=== PATIENT | male | born 1955 | race Caucasian/White ===

== ENCOUNTER 2017-03-20 09:44 | Observation (INO) ==
[2017-03-20] MEDS ORDERED: methylPREDNISolone 125 MG/2 ML VIAL IVP ONE (09:48)
[2017-03-20] MEDS ORDERED: Ipratropium/Albuterol Neb 3 ML IH ONE (09:48)
--- NOTE | 2017-03-20 09:53 | Emergency Department Note ---
Disposition Clinical Impression: Acute exacerbation of chronic obstructive airways disease Community acquired pneumonia Qualifiers: Laterality: unspecified laterality Qualified Code(s): J18.9 - Pneumonia, unspecified organism Disposition: Admitted As Inpatient Condition: Fair Referrals: NONE,PCP [Primary Care Provider] - Forms: ED Satisfaction Letter Time of Disposition: 11:46 SOB HPI - General Chief Complaint: ED Shortness of Breath/Dyspnea Stated Complaint: SOB Time Seen by Provider: 03/20/17 09:47 Source: patient, EMS Mode of arrival: EMS Limitations: no limitations Nursing Notes Reviewed: Yes Vital Signs Reviewed: Yes - History of Present Illness 61-year-old with history COPD comes in with increasing shortness of breath. Patient's had some tightness and heaviness in his chest also. Patient's had no recent workup for cardiac disease. Patient stopped smoking 3 years ago. Pt Subjective Complaint: shortness of breath Onset (ago): Just [employer] Severity: moderate Consistency/Duration: constant Improves with: nothing Worsens with: exertion Known history of: COPD Associated symptoms: Reports: chest pain Treatment prior to arrival: none Cough present: No - Related Data Home Medications Medication Instructions Recorded Confirmed Multivitamin [Multivitamins] 1 tab PO DAILY 02/01/16 04/09/16 Saw [place] 500 mg PO BID 02/01/16 04/09/16 Previous Rx's Medication Instructions Recorded Acetaminophen [Tylenol] 650 mg PO Q6HR PRN #60 tablet 04/09/16 Docusate [Colace] 100 mg PO BID #30 capsule 04/09/16 HYDROmorphone [Dilaudid] 1 mg PO Q8HR PRN #30 tablet 04/09/16 Allergies Allergy/AdvReac Type Severity Reaction Status Date / Time acetaminophen [From Percocet] Allergy Hives Verified 04/09/16 13:46 Oxycodone [From Percocet] Allergy Hives Verified 04/09/16 13:46 Penicillins Allergy Anaphylaxis Verified 04/09/16 13:46 aspirin AdvReac Nausea Verified 04/09/16 13:46 chlorpromazine AdvReac Cramping Verified 04/09/16 13:46 [From Thorazine] of the Muscles hydrocodone [From Vicodin] AdvReac Nausea Verified 04/09/16 13:46 chlorine AdvReac Nausea Uncoded 03/16/15 10:46 All systems ED: reviewed and negative except as stated. Constitutional: Denies: fever, chills, weakness, weight change Eyes: Denies: eye pain, eye discharge, vision change ENT ED: Denies: ear pain, throat pain, dental pain, hearing loss, epistaxis, congestion, dysphagia Cardiovascular: Denies: chest pain, palpitations, dyspnea on exertion, edema, syncope Respiratory: Reports: cough, dyspnea, wheezes. Denies: hemoptysis, stridor Gastrointestinal: Denies: abdominal pain, nausea, vomiting, diarrhea, constipation, hematemesis, melena, hematochezia Genitourinary: Denies: urgency, dysuria, frequency, hematuria Musculoskeletal: Denies: back pain, neck pain, arthralgia, myalgia Integumentary: Denies: rash, abrasion, lesions Neurological: Denies: headache, weakness, numbness, paresthesias, confusion, abnormal gait, vertigo Psychiatric: Denies: anxiety, depression, suicidal thoughts, homicidal thoughts , auditory hallucinations, visual hallucinations Endocrine: Denies: fatigue Hematological/Lymphatic: Denies: easy bleeding, easy bruising Allergic/Immunologic: Denies: facial swelling, urticaria Past Medical History - Past Medical History Medical history: Reports: GERD, liver disease, renal disease, other Surgical history: Reports: herniorrhaphy, orthopedic, other Psychiatric history: Reports: no psych history - Social History Smoking Status: Current every day smoker Smokeless Tobacco Status: No Alcohol use: Reports: none Drug use: Reports: none, other Physical Exam - General Limitations: no limitations General appearance: alert - Head Head exam: atraumatic, normocephalic, normal inspection - Eye Eye exam: Present: normal appearance, PERRL, EOMI - ENT ENT exam: normal exam, normal oropharynx, mucous membranes moist - Neck Neck exam: Present: normal inspection, full ROM, trachea midline - Chest Chest inspection: Present: normal inspection, symmetric chest wall rise - Respiratory Respiratory exam: Present: prolonged expiratory phase, other (Decreased breath sounds bilaterally) - Cardiovascular Cardiovascular exam: Present: regular rate, normal rhythm, normal heart sounds - Abdominal Exam Abdominal exam: Present: soft, Non-Tender. Absent: tenderness, distention, guarding, rebound, rigidity - Rectal Exam Paraeducator present during exam: No - Extremities Exam Extremities exam: Present: normal inspection, full ROM. Absent: tenderness, pedal edema - Expanded Lower Extremity Exam Neurovascular/Tendon exam: Absent: motor deficit, sensory deficit, tendon deficit Gait: observed and normal - Back Exam Back exam: Present: normal inspection, full ROM. Absent: tenderness - Neurological Exam Neurological exam: Present: alert, oriented X3 - Psychiatric Psychiatric exam: Present: normal affect, normal mood - Skin Skin exam: Present: warm, dry, intact, normal color Course - Reevaluation(s) Reevaluation #1: 61-year-old male who has a history COPD comes in with increasing shortness of breath does have an opacification in the left lower lobe we will treat with IV antibiotics. Did have some chest tightness his troponin was negative. Patient will be admitted for COPD exacerbation possible pneumonia. Time: 11:44 - Consultations Consultation #1: Discussed with , admit. Time: 11:45 Vital Signs Temperature 97.7 F 03/20/17 09:45 Pulse Rate 75 03/20/17 09:45 Respiratory Rate 22 03/20/17 09:45 Blood Pressure 141/101 03/20/17 09:45 O2 Sat by Pulse Oximetry 93 03/20/17 09:45 Temperature 97.7 F 03/20/17 09:45 Pulse Rate 75 03/20/17 09:45 Respiratory Rate 22 03/20/17 09:45 Blood Pressure 141/101 03/20/17 09:45 O2 Sat by Pulse Oximetry 95 03/20/17 09:51 Oxygen Delivery Oxygen Delivery Room Air Shortness of Breath/Dyspnea - Lab Data Lab results reviewed: Yes I reviewed the patient's lab results. Result diagrams: 03/20/17 10:03 03/20/17 10:03 Lab Results 03/20/17 03/20/17 03/20/17 Range/Units 10:03 10:03 10:03 WBC 7.0 (4.3-11.1) K/mcL RBC 4.61 (4.19-5.50) M/mcL Hgb 14.0 (12.9-16.9) g/dL Hct 42.5 (37.5-50.1) % MCV 92.2 (83.0-100.0) fL MCH 30.4 (28.0-33.3) pg MCHC 32.9 (31.6-35.5) g/dL RDW 14.4 (11.5-14.5) % Plt Count 210 (140-400) K/mcL MPV 9.3 L (9.4-12.4) fL Immature Gran % 1.6 (0-4) % Seg Neutrophils % 58.5 % Lymphocytes % 30.3 % Monocytes % 6.0 % Eosinophils % 3.2 % Basophils % 0.4 % Neutrophils # 4.1 (1.6-8.9) K/mcL Lymphocytes # 2.1 (0.6-4.6) K/mcL Monocytes # 0.4 (0.0-1.3) K/mcL Eosinophils # 0.2 (0.0-0.6) K/mcL Basophils # 0.0 (0.0-0.2) K/mcL Sodium 137 (136-145) mEq/L Potassium 4.3 (3.5-4.5) mEq/L Chloride 101 (98-109) mEq/L Carbon Dioxide 26 (19-29) mEq/L BUN 19 (8-26) mg/dL Creatinine 1.06 (0.72-1.25) mg/dL Est GFR ( Amer) > 60 (> 60) Est GFR (Non-Af Amer) > 60 (> 60) BUN/Creatinine Ratio 18 (6-26) Glucose 106 H (70-99) mg/dL Calculated Osmolality 287 (280-300) Lactic Acid 1.6 (0.5-2.2) mmol/L Calcium 9.3 (8.6-10.8) mg/dL Troponin I (0-0.03) ng/mL B-Natriuretic Peptide (0-100) pg/mL 03/20/17 03/20/17 Range/Units 10:03 10:03 WBC (4.3-11.1) K/mcL RBC (4.19-5.50) M/mcL Hgb (12.9-16.9) g/dL Hct (37.5-50.1) % MCV (83.0-100.0) fL MCH (28.0-33.3) pg MCHC (31.6-35.5) g/dL RDW (11.5-14.5) % Plt Count (140-400) K/mcL MPV (9.4-12.4) fL Immature Gran % (0-4) % Seg Neutrophils % % Lymphocytes % % Monocytes % % Eosinophils % % Basophils % % Neutrophils # (1.6-8.9) K/mcL Lymphocytes # (0.6-4.6) K/mcL Monocytes # (0.0-1.3) K/mcL Eosinophils # (0.0-0.6) K/mcL Basophils # (0.0-0.2) K/mcL Sodium (136-145) mEq/L Potassium (3.5-4.5) mEq/L Chloride (98-109) mEq/L Carbon Dioxide (19-29) mEq/L BUN (8-26) mg/dL Creatinine (0.72-1.25) mg/dL Est GFR ( Amer) (> 60) Est GFR (Non-Af Amer) (> 60) BUN/Creatinine Ratio (6-26) Glucose (70-99) mg/dL Calculated Osmolality (280-300) Lactic Acid (0.5-2.2) mmol/L Calcium (8.6-10.8) mg/dL Troponin I 0.00 (0-0.03) ng/mL B-Natriuretic Peptide 23 (0-100) pg/mL - Radiology Data Radiology results reviewed: Yes I reviewed the patient's radiology results. Chest X-Ray 03/20/17 09:48 IMPRESSION: 1. Left basilar opacification with possible small left pleural effusion. 2. Reticular opacification the lung bases bilaterally could be related to COPD. D/ / Agus Ng MD / Agus Ng MD Interpreting Provider: Agus Ng MD - EKG Data EKG attestation: Yes I reviewed and interpreted this EKG. EKG shows normal: Reports: sinus rhythm Rate: Reports: normal Rhythm: Reports: NSR Interpretation: Reports: no acute changes
[2017-03-20 10:17] LABS: Basophils % 0.4 %; Eosinophils # 0.2 K/mcL (0.0-0.6); Eosinophils % 3.2 %; Hematocrit 42.5 % (37.5-50.1); Immature Granulocytes % 1.6 % (0-4); Lymphocytes # 2.1 K/mcL (0.6-4.6); Lymphocytes % 30.3 %; Mean Corpuscular HGB Conc 32.9 g/dL (31.6-35.5); Mean Corpuscular Hemoglobin 30.4 pg (28.0-33.3); Mean Corpuscular Volume 92.2 fL (83.0-100.0); Mean Platelet Volume 9.3 fL (9.4-12.4); Monocytes # 0.4 K/mcL (0.0-1.3); Neutrophils # 4.1 K/mcL (1.6-8.9); Platelet Count 210 K/mcL (140-400); Red Blood Count 4.61 M/mcL (4.19-5.50); Red Cell Distribution Width 14.4 % (11.5-14.5); Segmented Neutrophils % 58.5 %
[2017-03-20 10:26] LABS: BUN/Creatinine Ratio 18 (6-26); Blood Urea Nitrogen 19 mg/dL (8-26); Calcium 9.3 mg/dL (8.6-10.8); Carbon Dioxide 26 mEq/L (19-29); Chloride 101 mEq/L (98-109); Glucose 106 mg/dL (70-99); Osmolality,Calculated 287 (280-300); Sodium 137 mEq/L (136-145); eGFR For African Americans > 60 (> 60); eGFR For Non-African Americans > 60 (> 60)
[2017-03-20 10:27] LABS: Potassium 4.3 mEq/L (3.5-4.5)
[2017-03-20] MEDS ORDERED: Levofloxacin 750 MG/150 ML 750 MG/150 ML BAG IVPB ONE (11:37)
[2017-03-20] MEDS ORDERED: Naloxone 0.4 MG/ML INJ IVP PRN (13:45)
[2017-03-20] MEDS ORDERED: Ondansetron 4 MG/2 ML VIAL IVP PRN (13:45)
--- NOTE | 2017-03-20 14:04 | Internal Med History&Physical ---
<Raghav Temple - Last Filed: 03/20/17 14:42> Date of Encounter: 03/20/17 Time of Encounter: 12:30 Assessment and Plan (1) Community acquired pneumonia Current visit: Yes Status: Acute Patient presents with symptoms of community acquired pneumonia of unspecified organism. 1 view CXR today shows left basilar opacification with possible small left pleural effusion and reticular opacification of the lung bases bilaterally which could be related to COPD. Patient started on IV levaquin in the ED and this will be continued at 750 mg daily. Blood culture and follow-up labs ordered. Will monitor patient for signs of increasing infection through labs and symptoms. DuoNebs Q4 and supplemental O2 ordered. Patient reports cough with scant sputum production. Will attempt to collect sputum for culture. Qualifiers: Laterality: left Lung location: lower lobe of lung Qualified Code(s): J18.1 - Lobar pneumonia, unspecified organism (2) Acute exacerbation of chronic obstructive pulmonary disease (COPD) Current visit: Yes Status: Acute Patient presents with acute exacerbation of chronic obstructive pulmonary disease. Patient states he was diagnosed with stage III COPD last month. On examination patient is extremely short of breath and dyspneic and will be placed on supplemental O2 at 3 L with continuous SPO2 monitoring and titration orders if SPO2 less than 93%. DuoNebs ordered Q4 scheduled. (3) Suspected CHF (congestive heart failure) Current visit: Yes Status: Acute Patient presents with acute symptoms of suspected congestive heart failure. Patient reports orthopnea when lying flat as well as extreme shortness of breath and increased fluid. On examination patient's ankles have bilateral edema that is nonpitting. Patient reports he was previously on hydrochlorothiazide but his PCP took him off this medication. Echocardiogram ordered as well as IVP lasix 40 mg daily. Will monitor I&O and daily weight. Daily fluid restriction of 1.5L. (4) Chest pain Current visit: Yes Status: Acute Patient presents with acute chest pain he describes as centralized in his chest and radiating to his left shoulder and neck. He denies previous symptoms and cardiac history. Echocardiogram ordered. Patient to be placed on continuous cardiac telemetry with troponins trended. Will monitor patient for continuing chest pain. Qualifiers: Chest pain type: other chest pain Qualified Code(s): R07.89 - Other chest pain; R07.8 - Other chest pain (5) SOB (shortness of breath) Current visit: Yes Status: Acute Patient presents with acute shortness of breath related to current symptoms of acute exacerbation of COPD versus acute exacerbation of CHF. Patient placed on supplemental O2 at 3L with continuous SPO2 monitoring and titration orders if SPO2 less than 93%. DuoNeb's ordered every 4 scheduled. Patient placed as falls precautions/up with assist/bedrest with bathroom privileges with assist only due to SOB. (6) GERD (gastroesophageal reflux disease) Current visit: Yes Status: Chronic Patient presents with history of chronic gastroesophageal reflux disease. IVP Protonix 40 mg daily ordered as well as IV Zofran when necessary. Qualifiers: Esophagitis presence: esophagitis presence not specified Qualified Code(s) : K21.9 - Gastro-esophageal reflux disease without esophagitis (7) Fatty liver disease, nonalcoholic Current visit: Yes Status: Chronic Patient presents with history of fatty liver disease. Hepatic panel ordered. (8) DVT prophylaxis Current visit: Yes Status: Acute Patient placed on DVT prophylaxis due to current admission protocol and bedrest status. Heparin 5000 units SQ every 8 ordered. Internal Medicine - H&P: HPI Chief complaint: SOB/Dyspnea Admitted From: Emergency Dept Plans for Post Hospital Care: Home History of present illness: Mr. Colin is a 61 year old male who presents from the ED with chief complaint of shortness of breath and dyspnea with and without exertion as well as accompanying chest pain that he reports as occurring in his central chest and radiating to left shoulder and left neck. Patient states this has never happened before. He reports orthopnea when laying flat and that he used to take hydrochlorothiazide daily but his PCP stopped it. On examination, patient is extremely SOB and dyspneic and has bilateral wheezes in all lobes. Patient currently has no cardiac history or diagnosis of CHF. Patient was an everyday smoker smoking 3 PPD and cutting down to 1.5 PPD before quitting 3 months ago. 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 1-View CXR today shows left basilar opacification with possible small left pleural effusion and reticular opacification of the lung bases bilaterally which could be related to COPD. Patient was started on IV levaquin due to suspected pneumonia. Diagnosis is acute exacerbation of COPD versus acute exacerbation of CHF based on patient's symptoms and bilateral non-pitting pedal edema. Patient was given 125 mg methylprednisolone in the ED. Mr. Colin is at moderate risk for respiratory decline based on current symptomology and will be placed as observation status with continuation of IV levaquin 750 mg daily for infection coverage for suspected pneumonia and/or COPD exacerbation. Cardiac diet with 1.5L daily fluid restriction. Patient to receive IVP lasix 40 mg daily starting now. Continuous cardiac telemetry and echocardiogram due to current chest pain and symptoms of acute CHF exacerbation. Trend troponin. Will continue IVP methylprednisolone at 60 mg Q6 and DuoNebs Q4 scheduled. Monitor I&O and daily weight. Patient to be monitored closely for signs of increasing respiratory and/ or cardiac distress. Time spent with patient greater than 40 minutes. Past Med Surg Social Fam HX - Past Medical History Source: patient Medical history: COPD, GERD, liver disease (Fatty liver), other Psychiatric history: no psych history - Past Surgical History Surgical History: herniorrhaphy, orthopedic, other (Right hand and wrist) - Social History Smoking Status: Former smoker Packs per day: 1.5 - 3 PPD/Reports quitting 3 months ago Smokeless Tobacco Status: No Alcohol use: none Drug use: none, other Current living situation: Home, With Family Activity Level: Independent ambulation Recent Out of Country Travel Within the Last 8 Weeks: No Exposure or Possible Exposure to Illness During Travel: No - Family History Mother Race: Family Member Ethnicity: Non- Living Status: Still Living Hx Family Endocrine Disorder: Yes (DM) Father Race: Family Member Ethnicity: Non- Living Status: Age at : 91 Cause of : Alzheimer's dementia complications Hx Family Endocrine Disorder: Yes (DM) Hx Family Neurologic Disorders: Yes (Alzheimer's disease) Sister Race: Family Member Ethnicity: Non- Living Status: Still Living Hx Family Endocrine Disorder: Yes (DM) Internal Medicine - H&P: Meds Albuterol Sulfate [Albuterol Inhaler] 2 puff IH Q4-6H PRN 03/20/17 [History] Budesonide/Formoterol 160/4.5 [Symbicort 160/4.5] 2 puff IH BIDR 03/20/17 [ History] Umeclidinium [place] [Incruse Ellipta] 1 puff IH DAILY 03/20/17 [History] Allergies Oxycodone [From Percocet] Allergy (Verified 03/20/17 11:58) Hives Penicillins Allergy (Verified 03/20/17 11:58) Anaphylaxis aspirin Adverse Reaction (Verified 03/20/17 11:58) Nausea chlorpromazine [From Thorazine] Adverse Reaction (Verified 03/20/17 11:58) Cramping of the Muscles hydrocodone [From Vicodin] Adverse Reaction (Verified 03/20/17 11:58) Nausea chlorine Adverse Reaction (Uncoded 03/20/17 11:58) Difficulty Breathing All Systems PM: A 10-system review of systems was performed and is negative for pertinent findings except as documented above in the HPI. - Constitutional Constitutional: no chills, no fever(s), no night sweats - EENT Eyes: no change in vision, no discharge, no pain, no photophobia Ears: no ear discharge, no ear pain, no tinnitus Nose, mouth and throat: no dysphagia, no nasal discharge, no neck pain, no sore throat - Breasts Breasts: as per HPI - Cardiovascular Cardiovascular ROS IM: as per HPI, chest pain, dyspnea, dyspnea on exertion - Respiratory Respiratory: as per HPI, cough, dyspnea, dyspnea on exertion, wheezing - Gastrointestinal Gastrointestinal: no abdominal pain, no diarrhea, no hematemesis, no hematochezia, no melena, no nausea, no vomiting - Genitourinary Genitourinary ROS male: as per HPI - Musculoskeletal Musculoskeletal ROS IM: no numbness, no tingling - Integumentary Integumentary IM: no rash, no unusual bruising - Neurological Neurological ROS: no confusion, no convulsions, no focal weakness, no numbness, no tingling, no tremor(s) - Psychiatric Psychiatric: as per HPI - Endocrine Endocrine IM: as per HPI - Hematologic/Lymphatic Hematologic/Lymphatic: no easy bruising - Allergic/Immunologic Allergic/Immunologic: as per HPI - Constitutional Vitals: Temp Pulse Resp BP Pulse Ox 97.7 F 75 20 139/92 95 03/20/17 09:45 03/20/17 09:45 03/20/17 11:55 03/20/17 11:55 03/20/17 09:51 General appearance: Present: cooperative, A&O X 3, pleasant, obese, severe distress (Respiratory), answers questions appropriately - Head Head exam: Present: atraumatic, normocephalic - Eye Eye exam: Present: PERRL, conjuntiva pink, sclera anicteric Pupils: Present: PERRL - ENT ENT exam: Present: normal exam, normal external ear exam - Neck Neck exam general surgery: Present: normal inspection, supple, trachea midline. Absent: lymphadenopathy - Respiratory Respiratory exam: Present: accessory muscle use, wheezes (Bilaterally all lobes) - Cardiovascular Cardiovascular exam: Present: RRR, +S1, +S2. Absent: diastolic murmur, gallop, rubs, systolic murmur - GI/Abdominal GI/Abdominal exam: Present: normal bowel sounds, soft, no peritoneal signs. Absent: distended, tenderness - Rectal Rectal exam: Present: deferred - Additional comments: exam deferred. - Extremities Exam Extremities exam: Present: pedal edema (Bialteral non-pitting), warm, radial pulses palpable and symmetrical. Absent: calf tenderness, cyanotic - Back Exam Back exam: Present: normal inspection - Neurological Exam Neurological exam: Present: CN II-XII intact, oriented X3, no focal deficits. Absent: pronater drift, facial droop, speech deficit - Psychiatric Psychiatric exam: Present: normal affect, normal mood - Skin Skin exam: Present: dry, intact Internal Med - H&P Results - Labs CBC & Chem 7: 03/20/17 10:03 03/20/17 10:03 - EKG Data EKG shows normal: sinus rhythm - EKG Data Prior EKG available for review: yes When compared to previous EKG: there is no significant change EKG comments: 03/20/17 14:22 EKG dated 03/06/16 shows sinus rhythm with possible right ventricular conduction delay. EKG dated 03/20/17 shows sinus rhythm with possible right ventricular conduction delay. - Diagnostic Studies Chest x-ray Additional comments: Impressions Chest X-Ray 03/20/17 09:48 IMPRESSION: 1. Left basilar opacification with possible small left pleural effusion. 2. Reticular opacification the lung bases bilaterally could be related to COPD. D/ / Agus Ng MD / Agus Ng MD Interpreting Provider: Agus Ng MD <Catherine Almeida - Last Filed: 03/20/17 18:59> Date of Encounter: 03/20/17 Internal Medicine - H&P: HPI History of present illness: Mr. Colin is a 61 year old male Past Med Surg Social Fam HX - Family History Mother Race: Family Member Ethnicity: Non- Living Status: Still Living Hx Family Endocrine Disorder: Yes (DM) Father Race: Family Member Ethnicity: Non- Living Status: Age at : 91 Cause of : Alzheimer's dementia complications Hx Family Endocrine Disorder: Yes (DM) Hx Family Neurologic Disorders: Yes (Alzheimer's disease) Sister Race: Family Member Ethnicity: Non- Living Status: Still Living Hx Family Endocrine Disorder: Yes (DM) Maternal Hx Family Cardiac Disorders: Yes (CHF) All Systems PM: A 10-system review of systems was performed and is negative for pertinent findings except as documented above in the HPI. - Constitutional Vitals: Temp Pulse Resp BP Pulse Ox 97.9 F 95 20 121/76 94 03/20/17 18:48 03/20/17 18:48 03/20/17 18:48 03/20/17 18:48 03/20/17 18:48 Internal Med - H&P Results - Labs CBC & Chem 7: 03/20/17 10:03 03/20/17 10:03 Labs: Cardiac Enzymes 03/20/17 Range/Units 16:24 Troponin I 0.00 (0-0.03) ng/mL - Attending Attestation I examined this patient and my medical decision-making was reviewed with the DETAILER FURNITURE.. I agree with the documented findings, disposition and treatment plan as described .
[2017-03-20] MEDS ORDERED: Nitroglycerin 0.4 MG TAB.SUBL SL PRN (14:35)
[2017-03-20] MEDS: Ipratropium/Albuterol Neb 3 ML IH SCH ×3 (16:07→23:31)
[2017-03-20] MEDS: Pantoprazole 40 MG VIAL IVP SCH (16:37)
[2017-03-20] MEDS: methylPREDNISolone 125 MG/2 ML VIAL IVP SCH (16:37)
[2017-03-20] MEDS: Furosemide 40 MG/4 ML VIAL IVP SCH (16:37)
[2017-03-20] MEDS: Nicotine 14 MG PATCH.TD24 TD SCH (16:38)
[2017-03-20] MEDS: *HR* Heparin 5,000 UNIT/ML VIAL SQ SCH (21:33)
[2017-03-21] MEDS: methylPREDNISolone 125 MG/2 ML VIAL IVP SCH ×4 (00:36→17:12)
[2017-03-21] MEDS: Ibuprofen 400 MG TABLET PO PRN ×2 (00:40→12:46)
[2017-03-21 04:29] LABS: Hemoglobin 13.5 g/dL (12.9-16.9); Immature Granulocytes % 0.7 % (0-4); Lymphocytes # 0.8 K/mcL (0.6-4.6); Lymphocytes % 10.7 %; Mean Corpuscular HGB Conc 33.8 g/dL (31.6-35.5); Mean Corpuscular Hemoglobin 30.9 pg (28.0-33.3); Mean Corpuscular Volume 91.5 fL (83.0-100.0); Mean Platelet Volume 9.6 fL (9.4-12.4); Monocytes # 0.2 K/mcL (0.0-1.3); Monocytes % 2.4 %; Neutrophils # 6.2 K/mcL (1.6-8.9); Platelet Count 225 K/mcL (140-400); Red Blood Count 4.37 M/mcL (4.19-5.50); Red Cell Distribution Width 14.7 % (11.5-14.5); Segmented Neutrophils % 86.2 %
[2017-03-21] MEDS: Ipratropium/Albuterol Neb 3 ML IH SCH ×6 (04:30→23:22)
[2017-03-21 04:35] LABS: INR 1.1; Prothrombin Time 11.9 Seconds (9.4-12.1)
[2017-03-21 04:37] LABS: Activated Partial Thrombo Time 31.4 Seconds (26.0-36.0)
[2017-03-21 04:45] LABS: Albumin 3.4 g/dL (3.5-5.0); Albumin/Globulin Ratio 0.9 (1.1-2.2); Bilirubin,Direct 0.1 mg/dL (0.0-0.5); Bilirubin,Indirect 0.2 mg/dL (0.0-1.2); Bilirubin,Total 0.3 mg/dL (0.2-1.2); Globulin 3.9 g/dL (2.4-3.5); Total Protein 7.3 g/dL (6.0-8.3)
[2017-03-21 04:47] LABS: BUN/Creatinine Ratio 19 (6-26); Blood Urea Nitrogen 25 mg/dL (8-26); Calcium 9.2 mg/dL (8.6-10.8); Carbon Dioxide 20 mEq/L (19-29); Chloride 105 mEq/L (98-109); Chol/HDL Ratio 3.9 (0-4.9); Cholesterol 185 mg/dL (< 200); Glucose 187 mg/dL (70-99); HDL Cholesterol 47 mg/dL (40-59); LDL Cholesterol,Calculated 110 mg/dL (0-99); Magnesium 1.8 mg/dL (1.6-2.6); Osmolality,Calculated 295 (280-300); Potassium 4.3 mEq/L (3.5-4.5); Sodium 138 mEq/L (136-145); Triglycerides 141 mg/dL (< 150); eGFR For African Americans > 60 (> 60); eGFR For Non-African Americans 56 (> 60)
[2017-03-21 04:48] LABS: Hemoglobin A1C 6.3 %
[2017-03-21] MEDS: *HR* Heparin 5,000 UNIT/ML VIAL SQ SCH ×3 (05:39→21:58)
[2017-03-21] MEDS: Furosemide 40 MG/4 ML VIAL IVP SCH (10:09)
[2017-03-21] MEDS: Pantoprazole 40 MG VIAL IVP SCH (10:09)
[2017-03-21] MEDS: Levofloxacin 750 MG/150 ML 750 MG/150 ML BAG IVPB SCH (10:10)
[2017-03-21] MEDS: Nicotine 14 MG PATCH.TD24 TD SCH (10:10)
--- NOTE | 2017-03-21 14:59 | Electrocardiograph Report ---
[place] [id number] Test Date: 2017-03-20 Pat Name: Richard Colin Department: 102 Room: 3B45 Gender: M Brown Sourer: Maxx : 1955 Requested By: Jesus Manuel Serrato Order Number: [id number] Reading MD: Tere Cano Measurements Intervals [place] Rate: 77 P: 19 IN: 167 QRS: -7 QRSD: 83 T: 15 QT: 363 QTc: 395 Interpretive Statements SINUS RHYTHM POSSIBLE RIGHT VENTRICULAR CONDUCTION DELAY [RSR (QR) IN V1/V2] Electronically Signed On 03-21-2017 14:57:57 EDT by Tere Cano
--- NOTE | 2017-03-21 16:32 | Internal Med Progress Note ---
Date of Encounter: 03/21/17 Time of Encounter: 10:30 (and 1645) - Assessment and plan (1) SOB (shortness of breath) Current Visit: Yes Status: Acute Assessment and plan: treating for COPD exacerbation, suspected pneumonia and suspected new diagnosis of diastolic heart failure. He remains with moderately increased work of breathing and remains on 3 L per nasal cannula. We will continue to diurese, continue antibiotics, and continue bronchodilators and steroids. (2) Suspected CHF (congestive heart failure) Current Visit: Yes Status: Suspected Assessment and plan: Patient exhibited symptoms consistent with fluid overload. Distended abdomen and increased work of breathing. We will continue to diurese. Echocardiogram revealing ejection fraction of 65% with mild diastolic dysfunction. We will continue to diurese and observe his response. Fluid and sodium restricted diet. Echocardiogram Impressions: LVEF 65%. Normal LV chamber size, wall thickness and function. Mild left ventricular diastolic dysfunction. Normal right ventricular structure and function. No significant valvular dysfunction. No evidence of pulmonary hypertension identified. (3) Community acquired pneumonia Current Visit: Yes Status: Acute Assessment and plan: Chest x-ray with possible left lower lobe pneumonia. We will continue levofloxacin and supplemental oxygenation. ITS Impressions Chest X-Ray 03/20/17 09:48 IMPRESSION: 1. Left basilar opacification with possible small left pleural effusion. 2. Reticular opacification the lung bases bilaterally could be related to COPD. D/ / Agus Ng MD / Agus Ng MD Interpreting Provider: Agus Ng MD Qualifiers: Laterality: left Lung location: lower lobe of lung Qualified Code(s): J18.1 - Lobar pneumonia, unspecified organism (4) Acute exacerbation of chronic obstructive airways disease Current Visit: Yes Status: Acute Assessment and plan: 3 pack per day smoker for 50 years. Stopped 3 months ago. Chest x-ray consistent with COPD. Continue bronchodilators, steroids, levofloxacin. (5) Chest pain Current Visit: Yes Status: Resolved Assessment and plan: patient currently denies pain. He does endorse shortness of breath above his norm. Troponin negative x2. Treating for COPD exacerbation, possible new diastolic heart failure, and suspected pneumonia. Low suspicion for ACS. Qualifiers: Chest pain type: other chest pain Qualified Code(s): R07.89 - Other chest pain; R07.8 - Other chest pain (6) Acute respiratory failure with hypoxia Current Visit: Yes Status: Acute Assessment and plan: Patient currently requiring 3 L per nasal cannula continuously. Not on oxygen at home. We will continue to diurese, continue antibiotics, and titrate oxygen as clinically indicated. Of note, patient stating he is hopeful that he will qualify for home oxygen. (7) Former heavy tobacco smoker Current Visit: Yes Status: Chronic Assessment and plan: Patient stating he smoked 3 packs per day up until several months ago when he cut down to one and a half packs per day, he states he stopped smoking 3 months ago (8) GERD (gastroesophageal reflux disease) Current Visit: Yes Status: Chronic Assessment and plan: Denies current symptoms Qualifiers: Esophagitis presence: esophagitis presence not specified Qualified Code(s) : K21.9 - Gastro-esophageal reflux disease without esophagitis (9) Fatty liver disease, nonalcoholic Current Visit: Yes Status: Chronic Assessment and plan: LFTs normal. Patient denies abdominal pain. Tolerating regular diet. (10) CROBIN (acute kidney injury) Current Visit: Yes Status: Acute Assessment and plan: Mild CORBIN overnight, will decrease furosemide dosage and monitor. Strict I's and O's. (11) Prediabetes Current Visit: Yes Status: Acute Assessment and plan: A1c 6.3%. Recommend dietary and lifestyle changes (12) DVT prophylaxis Current Visit: Yes Status: Acute Assessment and plan: Subcutaneous heparin - Subjective Interval history: Patient seen and examined. On examination, patient sitting upright in bed. Patient initially asleep and awaken easily to voice. Patient stating he is more short of breath than usual but states she is starting to feel a bit better. He also endorses abdominal distention. He is requesting a fiber supplementation. He endorses a normal appetite. Patient incidentally reexamined later on in the afternoon with his daughter now present. He denied new concerns and his presentation was unchanged from this morning's. His daughter had a lot of questions regarding test results prognosis and plan of care. Questions answered at this time. - Constitutional Vitals: Temp Pulse Resp BP Pulse Ox 97.6 F 91 17 112/7 94 03/21/17 15:50 03/21/17 15:50 03/21/17 15:50 03/21/17 15:50 03/21/17 15:50 General appearance: Present: cooperative, mild distress (moderate), A&O X 3, pleasant, obese, answers questions appropriately - Head Head exam: Present: atraumatic, normocephalic - Eye Eye exam: Present: PERRL, conjuntiva pink, sclera anicteric Pupils: Present: PERRL - Neck Neck exam general surgery: Present: supple, trachea midline. Absent: lymphadenopathy - Respiratory Respiratory exam: Present: accessory muscle use, decreased breath sounds, respiratory distress. Absent: rales, rhonchi, wheezes - Cardiovascular Cardiovascular exam: Present: RRR, +S1, +S2. Absent: diastolic murmur, gallop, rubs, systolic murmur - GI/Abdominal GI/Abdominal exam: Present: distended, normal bowel sounds, soft, no peritoneal signs. Absent: tenderness - Extremities Exam Extremities exam: Present: warm, radial pulses palpable and symmetrical. Absent : calf tenderness, cyanotic, pedal edema - Neurological Exam Neurological exam: Present: alert, CN II-XII intact, oriented X3, no focal deficits, strengths equal and symetr throughout. Absent: pronater drift, facial droop, speech deficit - Skin Skin exam: Present: dry, intact, pallor, warm Internal Medicine: Result - Labs CBC & Chem 7: 03/21/17 03:32 03/21/17 03:32 Labs: Short CBC 03/21/17 Range/Units 03:32 WBC 7.2 (4.3-11.1) K/mcL Hgb 13.5 (12.9-16.9) g/dL Hct 40.0 (37.5-50.1) % Plt Count 225 (140-400) K/mcL Neutrophils # 6.2 (1.6-8.9) K/mcL BMP 03/21/17 03:32 Sodium 138 Potassium 4.3 Chloride 105 Carbon Dioxide 20 BUN 25 Creatinine 1.31 H Glucose 187 H Calcium 9.2 Cardiac Enzymes 03/20/17 Range/Units 16:24 Troponin I 0.00 (0-0.03) ng/mL Liver Function 03/21/17 Range/Units 03:32 Total Bilirubin 0.3 (0.2-1.2) mg/dL Direct Bilirubin 0.1 (0.0-0.5) mg/dL AST 13 (5-34) Units/L ALT 20 (0-55) Units/L Alkaline Phosphatase 106 (38-126) Units/L Albumin 3.4 L (3.5-5.0) g/dL - ABG Interpretation ABG results: PT/INR, D-dimer PT 11.9 Seconds (9.4-12.1) 03/21/17 03:32 Consult Discharge Plan - Plan Referrals: Subha Baird, WELLNESS INSTRUCTOR [Advanced Practice Nurse] -
[2017-03-21] MEDS: Budesonide/Formoterol 160/4.5 MDI IH SCH (20:33)
[2017-03-22] MEDS: methylPREDNISolone 125 MG/2 ML VIAL IVP SCH ×4 (00:30→18:43)
[2017-03-22] MEDS ORDERED: Dextrose Gel 15 GM PO PRN ×2 (01:07)
[2017-03-22] MEDS ORDERED: *HR* Dextrose 50 % in Water (Syg) 50 ML SYRINGE IVP PRN (01:07)
[2017-03-22] MEDS ORDERED: D5% in Water 1,000 ML IVC PRN (01:07)
[2017-03-22] MEDS: Ipratropium/Albuterol Neb 3 ML IH SCH ×5 (03:50→20:26)
[2017-03-22 06:16] LABS: BUN/Creatinine Ratio 24 (6-26); Blood Urea Nitrogen 29 mg/dL (8-26); Calcium 9.7 mg/dL (8.6-10.8); Carbon Dioxide 20 mEq/L (19-29); Chloride 104 mEq/L (98-109); Glucose 173 mg/dL (70-99); Osmolality,Calculated 296 (280-300); Potassium 4.3 mEq/L (3.5-4.5); Sodium 138 mEq/L (136-145); eGFR For African Americans > 60 (> 60); eGFR For Non-African Americans > 60 (> 60)
[2017-03-22] MEDS: *HR* Heparin 5,000 UNIT/ML VIAL SQ SCH ×3 (06:40→21:44)
[2017-03-22] MEDS: Budesonide/Formoterol 160/4.5 MDI IH SCH ×2 (07:53→20:26)
[2017-03-22] MEDS: Levofloxacin 750 MG/150 ML 750 MG/150 ML BAG IVPB SCH (08:14)
[2017-03-22] MEDS: Furosemide 20 MG/2 ML VIAL IVP SCH (08:14)
[2017-03-22] MEDS: Pantoprazole 40 MG VIAL IVP SCH (08:14)
[2017-03-22] MEDS: Nicotine 14 MG PATCH.TD24 TD SCH (08:14)
[2017-03-22] MEDS: Insulin LISPRO 300 UNITS/3 ML VIAL SQ SCH ×3 (08:15→18:43)
--- NOTE | 2017-03-22 19:16 | Internal Med Progress Note ---
Date of Encounter: 03/22/17 Time of Encounter: 18:15 - Assessment and plan (1) SOB (shortness of breath) Current Visit: Yes Status: Acute Assessment and plan: treating for COPD exacerbation, suspected pneumonia and suspected new diagnosis of diastolic heart failure. His work of breathing has improved greatly since yestereday. He, however, still is requiring 3 L per nasal cannula continuously with rapid desaturation on room air. His abdominal distention is less and however he states that he feels as if he is constipated as well. No pedal edema. Breath sounds have improved. We will continue to diurese, continue antibiotics, and continue bronchodilators and steroids. I suspect he has probably needed oxygen for quite some time. Possible discharge tomorrow pending clinical outcomes. He will need to go home with supplemental oxygen. (2) Suspected CHF (congestive heart failure) Current Visit: Yes Status: Suspected Assessment and plan: Patient exhibited symptoms consistent with fluid overload. Distended abdomen and increased work of breathing. We will continue to diurese-his increased work of breathing has improved. Echocardiogram revealing ejection fraction of 65% with mild diastolic dysfunction. We will continue to diurese and observe his response. Fluid and sodium restricted diet. He states that he is used to drinking approximately 1-1/2 gallons of water per day, again educated on fluid restricted diet. Echocardiogram Impressions: LVEF 65%. Normal LV chamber size, wall thickness and function. Mild left ventricular diastolic dysfunction. Normal right ventricular structure and function. No significant valvular dysfunction. No evidence of pulmonary hypertension identified. (3) Community acquired pneumonia Current Visit: Yes Status: Acute Assessment and plan: Chest x-ray with possible left lower lobe pneumonia. We will continue levofloxacin and supplemental oxygenation. ITS Impressions Chest X-Ray 03/20/17 09:48 IMPRESSION: 1. Left basilar opacification with possible small left pleural effusion. 2. Reticular opacification the lung bases bilaterally could be related to COPD. D/ / Agus Ng MD / Agus Ng MD Interpreting Provider: Agus Ng MD Qualifiers: Laterality: left Lung location: lower lobe of lung Qualified Code(s): J18.1 - Lobar pneumonia, unspecified organism (4) Acute exacerbation of chronic obstructive airways disease Current Visit: Yes Status: Acute Assessment and plan: 3 pack per day smoker for 50 years. Stopped 3 months ago. Chest x-ray consistent with COPD. Continue bronchodilators, steroids, levofloxacin. (5) Chest pain Current Visit: Yes Status: Resolved Assessment and plan: patient currently denies pain. He does endorse shortness of breath above his norm states his breathing is much improved today. Troponin negative x2. Treating for COPD exacerbation, possible new diastolic heart failure, and suspected pneumonia. Low suspicion for ACS. Qualifiers: Chest pain type: other chest pain Qualified Code(s): R07.89 - Other chest pain; R07.8 - Other chest pain (6) Acute respiratory failure with hypoxia Current Visit: Yes Status: Acute Assessment and plan: Patient currently requiring 3 L per nasal cannula continuously-qualified with 6 minute walk test for 3 L. Not on oxygen at home. We will continue to diurese, continue antibiotics, and titrate oxygen as clinically indicated. It appears as if the patient will likely go home on 3 L per nasal cannula as early as tomorrow. Suspect he has required supplemental oxygenation for quite some time given his symptoms. (7) Former heavy tobacco smoker Current Visit: Yes Status: Chronic Assessment and plan: Patient stating he smoked 3 packs per day up until several months ago when he cut down to one and a half packs per day, he states he stopped smoking 3 months ago (8) GERD (gastroesophageal reflux disease) Current Visit: Yes Status: Chronic Assessment and plan: Denies current symptoms Qualifiers: Esophagitis presence: esophagitis presence not specified Qualified Code(s) : K21.9 - Gastro-esophageal reflux disease without esophagitis (9) Fatty liver disease, nonalcoholic Current Visit: Yes Status: Chronic Assessment and plan: LFTs normal. Patient denies abdominal pain. Tolerating regular diet. (10) CORBIN (acute kidney injury) Current Visit: Yes Status: Resolved (11) Prediabetes Current Visit: Yes Status: Acute Assessment and plan: A1c 6.3%. Recommend dietary and lifestyle changes (12) DVT prophylaxis Current Visit: Yes Status: Acute Assessment and plan: Subcutaneous heparin - Subjective Interval history: Patient seen and examined. On examination, patient sitting upright in bed conversing with his daughter and another family member. He states that he is feeling slightly better today. He states that he was a little bit nervous because during his 6 minute walk test last night, he desaturated quite low after just a few steps. Patient stating that he is eating well. Patient is requesting more information on home health, life alert, and portable oxygen tank at home. - Constitutional Vitals: Temp Pulse Resp BP Pulse Ox 97.7 F 78 16 107/65 93 03/22/17 18:37 03/22/17 18:37 03/22/17 18:37 03/22/17 18:37 03/22/17 18:37 General appearance: Present: cooperative, mild distress, A&O X 3, pleasant, obese, answers questions appropriately - Head Head exam: Present: atraumatic, normocephalic - Eye Eye exam: Present: PERRL, conjuntiva pink, sclera anicteric Pupils: Present: PERRL - Neck Neck exam general surgery: Present: supple, trachea midline. Absent: lymphadenopathy - Respiratory Respiratory exam: Present: decreased breath sounds, respiratory distress (mild; improved). Absent: accessory muscle use, rales, rhonchi, wheezes - Cardiovascular Cardiovascular exam: Present: RRR, +S1, +S2. Absent: diastolic murmur, gallop, rubs, systolic murmur - GI/Abdominal GI/Abdominal exam: Present: distended, normal bowel sounds, soft, no peritoneal signs. Absent: tenderness - Extremities Exam Extremities exam: Present: warm, radial pulses palpable and symmetrical. Absent : calf tenderness, cyanotic, pedal edema - Neurological Exam Neurological exam: Present: alert, CN II-XII intact, normal gait, oriented X3, no focal deficits, strengths equal and symetr throughout. Absent: pronater drift, facial droop, speech deficit - Skin Skin exam: Present: dry, intact, pallor, warm Internal Medicine: Result - Labs CBC & Chem 7: 03/21/17 03:32 03/22/17 05:31 Labs: BMP 03/22/17 05:31 Sodium 138 Potassium 4.3 Chloride 104 Carbon Dioxide 20 BUN 29 H Creatinine 1.22 Glucose 173 H Calcium 9.7 - ABG Interpretation ABG results: PT/INR, D-dimer PT 11.9 Seconds (9.4-12.1) 03/21/17 03:32 Consult Discharge Plan - Plan Referrals: Subha Baird, [employer] TRAIN[employer] MECHANIC [Advanced Practice Nurse] -
[2017-03-22] MEDS ORDERED: Insulin LISPRO 300 UNITS/3 ML VIAL SQ ONE (19:20)
[2017-03-22] MEDS ORDERED: Insulin LISPRO 300 UNITS/3 ML VIAL SQ SCH (21:00)
[2017-03-23] MEDS: MethylPREDNISolone 40 MG/ML VIAL IVP SCH ×2 (00:51→08:46)
[2017-03-23] MEDS: Ipratropium/Albuterol Neb 3 ML IH SCH ×4 (00:58→11:40)
[2017-03-23] MEDS: *HR* Heparin 5,000 UNIT/ML VIAL SQ SCH (05:48)
[2017-03-23] MEDS: Budesonide/Formoterol 160/4.5 MDI IH SCH (08:03)
[2017-03-23] MEDS: Pantoprazole 40 MG VIAL IVP SCH (08:46)
[2017-03-23] MEDS: Insulin LISPRO 300 UNITS/3 ML VIAL SQ SCH ×2 (08:46→11:40)
[2017-03-23] MEDS: Furosemide 20 MG/2 ML VIAL IVP SCH (08:46)
[2017-03-23] MEDS: Levofloxacin 750 MG/150 ML 750 MG/150 ML BAG IVPB SCH (08:47)
[2017-03-23] MEDS: Nicotine 14 MG PATCH.TD24 TD SCH (08:47)
--- NOTE | 2017-03-23 11:00 | Discharge Summary ---
Date of Encounter: 03/23/17 Time of Encounter: 09:45 - Discharge Diagnosis (1) SOB (shortness of breath) Priority: Primary Status: Acute Comments: Treated for COPD exacerbation, suspected pneumonia and suspected new diagnosis of diastolic heart failure. His work of breathing has improved greatly since admission and he is essentially back to his baseline. He, however, still is requiring 3 L per nasal cannula continuously with rapid desaturation on room air. (2) Suspected CHF (congestive heart failure) Priority: Primary Status: Suspected Comments: Patient exhibited symptoms consistent with fluid overload. Distended abdomen and increased work of breathing. He was successfully diuresed and his work of breathing improved. Echocardiogram revealing ejection fraction of 65% with mild diastolic dysfunction. Fluid and sodium restricted diet. He states that he is used to drinking approximately 1-1/2 gallons of water per day, again educated on fluid restricted diet. (3) Community acquired pneumonia Priority: Primary Status: Acute Comments: Chest x-ray with possible left lower lobe pneumonia. Treated with Levofloxacin. Unknown etiology- no recent admissions- community acquired of unknown etiology. Qualifiers: Laterality: left Lung location: lower lobe of lung Qualified Code(s): J18.1 - Lobar pneumonia, unspecified organism (4) Acute exacerbation of chronic obstructive airways disease Priority: Primary Status: Resolved Comments: 3 pack per day smoker for 50 years. Stopped 3 months ago. Chest x-ray consistent with COPD. Continue bronchodilators, steroids, levofloxacin upon discharge and followup outpatient with Lockstitch Pocket Setter. Recommend outpatient pulmonary rehab. (5) Chest pain Priority: Primary Status: Resolved Comments: Patient denied chest pain throughout this admission. Troponin negative x2. Treated for COPD exacerbation, possible new diastolic heart failure, and suspected pneumonia. Low suspicion for ACS. Qualifiers: Chest pain type: other chest pain Qualified Code(s): R07.89 - Other chest pain; R07.8 - Other chest pain (6) Acute respiratory failure with hypoxia Priority: Primary Status: Acute Comments: Patient requiring 3 L per nasal cannula continuously-qualified with 6 minute walk test for 3 L. Was not on oxygen at home. Suspect he has required supplemental oxygenation for quite some time given his symptoms as he is now back to his baseline and still requires supplemental oxygen. (7) Former heavy tobacco smoker Priority: Secondary Status: Chronic Comments: Patient stating he smoked 3 packs per day up until several months ago when he cut down to one and a half packs per day, he states he stopped smoking 3 months ago (8) GERD (gastroesophageal reflux disease) Priority: Secondary Status: Chronic Comments: Denied current symptoms Qualifiers: Esophagitis presence: esophagitis presence not specified Qualified Code(s) : K21.9 - Gastro-esophageal reflux disease without esophagitis (9) Fatty liver disease, nonalcoholic Priority: Secondary Status: Chronic Comments: LFTs normal. Patient denied abdominal pain. Tolerated regular diet. (10) CORBIN (acute kidney injury) Priority: Primary Status: Resolved (11) Prediabetes Priority: Primary Status: Acute Comments: A1c 6.3%. Recommend dietary and lifestyle changes (12) DVT prophylaxis Priority: Primary Status: Acute Comments: Subcutaneous heparin while admitted - Discharge Medications Prescriptions: Calcium Polycarbophil [Fibercon] 1,250 mg PO DAILY #60 tab Furosemide [Lasix] 20 mg PO DAILY #30 tablet levoFLOXacin [Levofloxacin] 750 mg PO DAILY #4 tablet Oxygen 3 l IN CONT #1 each predniSONE [PredniSONE] 10 mg PO DAILY #80 tablet Home Medications: Albuterol Sulfate [Albuterol Inhaler] 2 puff IH Q4-6H PRN 03/20/17 [History] Budesonide/Formoterol 160/4.5 [Symbicort 160/4.5] 2 puff IH BIDR 03/20/17 [ History] Umeclidinium [place] [Incruse Ellipta] 1 puff IH DAILY 03/20/17 [History] Calcium Polycarbophil [Fibercon] 1,250 mg PO DAILY #60 tab 03/23/17 [Rx] Furosemide [Lasix] 20 mg PO DAILY #30 tablet 03/23/17 [Rx] Oxygen 3 l IN CONT #1 each 03/23/17 [Rx] levoFLOXacin [Levofloxacin] 750 mg PO DAILY #4 tablet 03/23/17 [Rx] predniSONE [PredniSONE] 10 mg PO DAILY #80 tablet 03/23/17 [Rx] Allergies/Adverse Reactions: Allergies Oxycodone [From Percocet] Allergy (Verified 03/20/17 11:58) Hives Penicillins Allergy (Verified 03/20/17 11:58) Anaphylaxis aspirin Adverse Reaction (Verified 03/20/17 11:58) Nausea chlorpromazine [From Thorazine] Adverse Reaction (Verified 03/20/17 11:58) Cramping of the Muscles hydrocodone [From Vicodin] Adverse Reaction (Verified 03/20/17 11:58) Nausea chlorine Adverse Reaction (Uncoded 03/20/17 11:58) Difficulty Breathing Procedures/tests Complete & Pending: Procedures Performed prior 72 hours Category Date Time Status EV echocardiogram Routine Y 03/20/17 13:50 Completed Date of admission: 03/20/17 11:55 Primary care physician: PCP NONE Consults: 03/20/17 13:48 Consult to Radiographic Technologist [CONS] Routine Reason for SW Consult: Patient has hx of COPD and suspected CHF. Assess for home needs. Discharging clinician: Lily uMro Anticipated date of discharge: 03/23/17 - Patient Status Disposition: Home, Self-Care Condition: Fair Functional capacity at discharge: independent ambulation Overall status at discharge: patient is progressing back to baseline - Discharge Instructions Follow Up With: Subha Baird KAYAKING INSTRUCTOR [Advanced Practice Nurse] - (We have request a hospital follow up with Subha Baird. The office will call you at home with an appointment date and time.) Cherie Bowles MD [Partnered Physician] - Additional Instructions: Follow-up with primary care provider within one to 2 weeks, follow-up with upholstery restorer when possible-recommend outpatient pulmonary rehabilitation - Diet and Activity Activity: increase activity as tolerated, wear oxygen at all times Diet: diabetic diet, low fat, low cholesterol, low salt diet Hospital course: Mr. Colin is a 61 year old male with past medical history of COPD, gerd, fatty liver disease, former heavy smoker- 3 PPD- stopped 3 months ago. Patient presented to the emergency department chief complaint of shortness of breath and dyspnea on exertion associated with chest pain that occurs in the middle of his chest and radiates to his left shoulder and left neck. States he has never felt this pain before. He also is endorsing orthopnea when lying flat. He states that he used to take HCTZ at home but his PCP recently stopped it. Patient without known cardiac history or prior diagnosis of CHF. Chest x-ray in the emergency department consistent with left lower lobe pneumonia as well as COPD. Patient was also hypoxic and requiring supplemental oxygen. Patient was admitted to the hospitalist service for further evaluation and management. Patient had signs of fluid overload with a distended abdomen and increased work of breathing and he was diuresed with IV furosemide and his work of breathing improved. He was also treated for COPD exacerbation and suspected pneumonia. He was admitted and observed over the course of 3 nights. On day of discharge, patient denied shortness of breath above his norm however he continued to require 3 L per nasal cannula and he was qualified for home oxygen. Strong suspicion that the patient has required supplemental oxygenation for quite some time given that he return to his baseline and was still hypoxic on room air. Regarding his suspected heart failure, echocardiogram revealed ejection fraction of 65% with mild diastolic dysfunction. He was educated on fluid and sodium restricted diet and started on low-dose furosemide. Of note, patient stating that he usually drinks about 1-1/2 gallons of water per day. He was treated with Levaquin for his community-acquired pneumonia. He had mild acute kidney injury that resolved while admitted. He was also diagnosed with prediabetes with a A1c of 6.3% with recommendation for dietary and lifestyle changes. Regarding chest pain, patient denied chest pain throughout this admission. Troponins were negative 2, low suspicion for acute coronary syndrome given that he was treated for COPD exacerbation, suspected new diastolic heart failure, and suspected community acquired pneumonia. Patient also requested home health services yet fully admitted that he is not homebound stating that he likes to take daily walks and uses transportation. He was set up with home oxygen-follow up outpatient with primary care provider regarding additional services as he also asked about a life alert. He sees Dr. Bowles with pulmonology, recommend outpatient follow-up with him with addition of outpatient pulmonary rehabilitation highly recommended. He was discharged home in stable condition with close outpatient follow-up recommended. ITS Impressions Chest X-Ray 03/20/17 09:48 IMPRESSION: 1. Left basilar opacification with possible small left pleural effusion. 2. Reticular opacification the lung bases bilaterally could be related to COPD. D/ / Agus Ng MD / Agus Ng MD Interpreting Provider: Agus Ng MD Echocardiogram Impressions: LVEF 65%. Normal LV chamber size, wall thickness and function. Mild left ventricular diastolic dysfunction. Normal right ventricular structure and function. No significant valvular dysfunction. No evidence of pulmonary hypertension identified. - Time Spent with Patient Total time spent providing and/or coordinating discharge services: - Constitutional Vitals: Temp Pulse Resp BP Pulse Ox 97.2 F L 72 16 142/80 95 03/23/17 07:41 03/23/17 07:41 03/23/17 08:05 03/23/17 07:41 03/23/17 09:54 General appearance: Present: cooperative, A&O X 3, pleasant, no acute distress, obese, answers questions appropriately - Head Head exam: Present: atraumatic, normocephalic - Eye Eye exam: Present: PERRL, conjuntiva pink, sclera anicteric Pupils: Present: PERRL - Neck Neck exam general surgery: Present: supple, trachea midline. Absent: lymphadenopathy - Respiratory Respiratory exam: Present: decreased breath sounds. Absent: accessory muscle use, rales, respiratory distress, rhonchi, wheezes - Cardiovascular Cardiovascular exam: Present: RRR, +S1, +S2. Absent: diastolic murmur, gallop, rubs, systolic murmur - GI/Abdominal GI/Abdominal exam: Present: distended (less than when admitted), normal bowel sounds, soft, no peritoneal signs. Absent: tenderness - Extremities Exam Extremities exam: Present: warm, radial pulses palpable and symmetrical. Absent : calf tenderness, cyanotic, pedal edema - Neurological Exam Neurological exam: Present: alert, CN II-XII intact, normal gait, oriented X3, no focal deficits, strengths equal and symetr throughout. Absent: pronater drift, facial droop, speech deficit - Skin Skin exam: Present: dry, intact, normal color, warm
[2017-03-23 11:44] VITALS: BP 118/74
== END 2017-03-23 13:44 | disposition home or self-care (01) ==
LOC: EMEROO 09:44 → 3BNU 09:44
PROVIDERS: ADMIT Internal Medicine Endocrinology, Diabetes & Metabolism; ATTEND Nurse Practitioner Family

== ENCOUNTER 2017-07-23 13:29 | Inpatient (IN) ==
[2017-07-23] MEDS ORDERED: Ipratropium/Albuterol Neb 3 ML IH ONE (13:47)
[2017-07-23] MEDS ORDERED: methylPREDNISolone 125 MG/2 ML VIAL IVP ONE (13:47)
[2017-07-23 14:20] LABS: Basophils % 0.3 %; Eosinophils # 0.3 K/mcL (0.0-0.6); Eosinophils % 5.5 %; Hematocrit 42.3 % (37.5-50.1); Hemoglobin 13.6 g/dL (12.9-16.9); Immature Granulocytes % 0.8 % (0-4); Lymphocytes % 31.7 %; Mean Corpuscular HGB Conc 32.2 g/dL (31.6-35.5); Mean Corpuscular Hemoglobin 29.8 pg (28.0-33.3); Mean Corpuscular Volume 92.6 fL (83.0-100.0); Mean Platelet Volume 9.6 fL (9.4-12.4); Monocytes # 0.4 K/mcL (0.0-1.3); Neutrophils # 3.4 K/mcL (1.6-8.9); Platelet Count 245 K/mcL (140-400); Red Blood Count 4.57 M/mcL (4.19-5.50); Red Cell Distribution Width 13.7 % (11.5-14.5); Segmented Neutrophils % 54.7 %
[2017-07-23 14:32] LABS: BUN/Creatinine Ratio 13 (6-26); Blood Urea Nitrogen 13 mg/dL (8-26); Calcium 9.3 mg/dL (8.6-10.8); Carbon Dioxide 23 mEq/L (19-29); Chloride 105 mEq/L (98-109); Glucose 175 mg/dL (70-99); Osmolality,Calculated 292 (280-300); Potassium 4.1 mEq/L (3.5-4.5); Sodium 139 mEq/L (136-145); eGFR For African Americans > 60 (> 60); eGFR For Non-African Americans > 60 (> 60)
--- NOTE | 2017-07-23 15:14 | Electrocardiograph Report ---
[email or web address] Test Date: 2017-07-23 Pat Name: Richard Dixie Department: 104 Room: Gender: M Ramp Lead: : 1955 Requested By: Lalo Álvarez Order Number: [id number] Reading MD: Jaime Aguirre MD Measurements Intervals [place] Rate: 91 P: 31 AK: 162 QRS: 1 QRSD: 89 T: 29 QT: 352 QTc: 401 Interpretive Statements SINUS RHYTHM LOW QRS VOLTAGE IN PRECORDIAL LEADS POSSIBLE RIGHT VENTRICULAR CONDUCTION DELAY Electronically Signed On 07-23-2017 15:12:16 EST by Jaime Aguirre MD
--- NOTE | 2017-07-23 16:08 | Emergency Department Note ---
Disposition Clinical Impression: COPD exacerbation Chest pain Qualifiers: Chest pain type: unspecified Qualified Code(s): R07.9 - Chest pain, unspecified Disposition: Admitted As Inpatient Condition: Good SOB HPI - General Chief Complaint: ED Shortness of Breath/Dyspnea Stated Complaint: SOB Time Seen by Provider: 07/23/17 13:32 Source: patient Limitations: no limitations Nursing Notes Reviewed: Yes Vital Signs Reviewed: Yes - History of Present Illness Patient presents for evaluation of shortness of breath. History of COPD on 3 L. Patient has been using his at home rescue inhaler more frequently over the last couple days. Patient woke up today around 3 or 4 AM with sharp chest pain and shortness of breath. The patient states that he used his inhalers with only partial relief. Patient has had a cough but states that is nonproductive and feels hot in his chest. He has not had any fevers. Decreased air movement and significant wheezing on initial exam. 3 DuoNeb nebs and steroids given on initial evaluation. - Related Data Home Medications Medication Instructions Recorded Confirmed Albuterol Sulfate [Albuterol 2 puff IH Q4-6H PRN 03/20/17 07/23/17 Inhaler] Umeclidinium [place] [Incruse 1 puff IH DAILY 03/20/17 07/23/17 Ellipta] Lactobacillus Combination No.8 1 cap PO DAILY 07/23/17 07/23/17 [Adult Probiotic] Mometasone/Formoterol [Dulera 100 2 puff IH BID 07/23/17 07/23/17 Mcg/5 Mcg Inhaler] Previous Rx's Medication Instructions Recorded Oxygen 3 l IN CONT #1 each 03/23/17 Allergies Allergy/AdvReac Type Severity Reaction Status Date / Time morphine Allergy Anaphylaxis Verified 05/01/17 15:58 Oxycodone [From Percocet] Allergy Hives Verified 03/20/17 11:58 Penicillins Allergy Anaphylaxis Verified 03/20/17 11:58 aspirin AdvReac Nausea Verified 03/20/17 11:58 chlorpromazine AdvReac Cramping Verified 03/20/17 11:58 [From Thorazine] of the Muscles codeine AdvReac Nausea Verified 05/01/17 15:59 hydrocodone [From Vicodin] AdvReac Nausea Verified 03/20/17 11:58 chlorine AdvReac Difficulty Uncoded 05/01/17 16:00 Breathing Review of Systems: CONSTITUTIONAL: No weight loss, fever, chills, weakness or fatigue. HEENT: Eyes: No visual changes. Ears, Nose, Throat: No hearing loss, difficulty talking or unable to swallow. SKIN: No rash or itching. CARDIOVASCULAR: Chest pain RESPIRATORY: Shortness of breath and cough GASTROINTESTINAL: No anorexia, nausea, vomiting or diarrhea. No abdominal pain or blood. GENITOURINARY: No burning on urination or hematuria. NEUROLOGICAL: No headache, dizziness, syncope, paralysis, ataxia, numbness or tingling in the extremities. No change in bowel or bladder control. MUSCULOSKELETAL: No muscle pain, back pain, joint pain or stiffness. Past Medical History - Past Medical History Medical history: Reports: COPD, GERD, hypertension, kidney stones, liver disease , other Surgical history: Reports: herniorrhaphy, orthopedic, other (Right hand and wrist) Psychiatric history: Reports: no psych history - Social History Smoking Status: Former smoker Smokeless Tobacco Status: No Alcohol use: Reports: none Drug use: Reports: none, other Physical Exam General: Well appearing, nontoxic, no acute distress Head: Normocephalic Atraumatic Eyes: PERRL, EOMI ENT: Airway patent, no stridor Neck: supple, no meningismus Chest: Decreased air movement and diffuse wheezing. Cardiac: Regular rate and rhythm, no murmurs, rubs or gallops Abdomen: soft, nontender, nondistended; no guarding, rebound, or tenderness to percussion Musculoskeletal: Calves symmetric, nontender, no palpable cord Skin: No rash, normal skin tone Neuro: Alert and Oriented to person, place, and time; No focal deficit, CN 2-12 symmetric and intact - General Limitations: no limitations General appearance: alert, in no apparent distress Course - Reevaluation(s) Reevaluation #1: Patient symptoms have somewhat improved with breathing treatments. Patient is not in current distress. Patient is a COPD oxygen dependent on 3 L at home with worsening shortness of breath not controlled at home management. Patient has had chest pain that is atypical in nature. Patient will be brought in for continued steroids and breathing treatments. Reevaluation #2: Repeat lactate as part of the dyspnea protocol has worsened to 3.3. Due to clinical concern for pneumonia patient will be given fluids as well as antibiotics. - Consultations Consultation #1: Discussed with Dr. Espinoza at [id number]. Patient accepted for admission. Vital Signs Temperature 97.8 F 07/23/17 13:34 Pulse Rate 86 07/23/17 13:34 Respiratory Rate 24 07/23/17 13:34 Blood Pressure 150/82 07/23/17 13:34 O2 Sat by Pulse Oximetry 94 07/23/17 13:34 Temperature 97.8 F 07/23/17 13:34 Pulse Rate 94 07/23/17 16:45 Respiratory Rate 12 07/23/17 16:45 Blood Pressure 117/73 07/23/17 16:45 O2 Sat by Pulse Oximetry 92 07/23/17 16:45 Oxygen Delivery Oxygen Delivery Nasal Cannula Shortness of Breath/Dyspnea - Lab Data Result diagrams: 07/23/17 14:09 07/23/17 14:09 Lab Results 07/23/17 07/23/17 07/23/17 Range/Units 14:09 14:09 14:09 WBC 6.2 (4.3-11.1) K/mcL RBC 4.57 (4.19-5.50) M/mcL Hgb 13.6 (12.9-16.9) g/dL Hct 42.3 (37.5-50.1) % MCV 92.6 (83.0-100.0) fL MCH 29.8 (28.0-33.3) pg MCHC 32.2 (31.6-35.5) g/dL RDW 13.7 (11.5-14.5) % Plt Count 245 (140-400) K/mcL MPV 9.6 (9.4-12.4) fL Immature Gran % 0.8 (0-4) % Seg Neutrophils % 54.7 % Lymphocytes % 31.7 % Monocytes % 7.0 % Eosinophils % 5.5 % Basophils % 0.3 % Neutrophils # 3.4 (1.6-8.9) K/mcL Lymphocytes # 2.0 (0.6-4.6) K/mcL Monocytes # 0.4 (0.0-1.3) K/mcL Eosinophils # 0.3 (0.0-0.6) K/mcL Basophils # 0.0 (0.0-0.2) K/mcL Sodium 139 (136-145) mEq/L Potassium 4.1 (3.5-4.5) mEq/L Chloride 105 (98-109) mEq/L Carbon Dioxide 23 (19-29) mEq/L BUN 13 (8-26) mg/dL Creatinine 1.01 (0.72-1.25) mg/dL Est GFR ( Amer) > 60 (> 60) Est GFR (Non-Af Amer) > 60 (> 60) BUN/Creatinine Ratio 13 (6-26) Glucose 175 H (70-99) mg/dL Calculated Osmolality 292 (280-300) Lactic Acid 2.4 H (0.5-2.2) mmol/L Calcium 9.3 (8.6-10.8) mg/dL Troponin I (0-0.03) ng/mL B-Natriuretic Peptide (0-100) pg/mL 07/23/17 07/23/17 07/23/17 Range/Units 14:09 14:09 16:12 WBC (4.3-11.1) K/mcL RBC (4.19-5.50) M/mcL Hgb (12.9-16.9) g/dL Hct (37.5-50.1) % MCV (83.0-100.0) fL MCH (28.0-33.3) pg MCHC (31.6-35.5) g/dL RDW (11.5-14.5) % Plt Count (140-400) K/mcL MPV (9.4-12.4) fL Immature Gran % (0-4) % Seg Neutrophils % % Lymphocytes % % Monocytes % % Eosinophils % % Basophils % % Neutrophils # (1.6-8.9) K/mcL Lymphocytes # (0.6-4.6) K/mcL Monocytes # (0.0-1.3) K/mcL Eosinophils # (0.0-0.6) K/mcL Basophils # (0.0-0.2) K/mcL Sodium (136-145) mEq/L Potassium (3.5-4.5) mEq/L Chloride (98-109) mEq/L Carbon Dioxide (19-29) mEq/L BUN (8-26) mg/dL Creatinine (0.72-1.25) mg/dL Est GFR ( Amer) (> 60) Est GFR (Non-Af Amer) (> 60) BUN/Creatinine Ratio (6-26) Glucose (70-99) mg/dL Calculated Osmolality (280-300) Lactic Acid 3.3 H (0.5-2.2) mmol/L Calcium (8.6-10.8) mg/dL Troponin I 0.03 (0-0.03) ng/mL B-Natriuretic Peptide 14 (0-100) pg/mL Attestation Statement - Attestation Attestation: I examined this patient and my medical decision-making was reviewed with the Resident Physician. I agree with the documented findings, disposition and treatment plan as described except to the extent set forth below. Patient to the ED with a chief complaint of shortness of breath. Patient has known COPD. Increase oxygen demand to home. Inhalers are not helping. On exam he is mildly tachypneic. Decreased air exchange with expiratory wheezing. Plan. Patient minimally better after nebs and steroids. In no respiratory distress. Will admit.
[2017-07-23] MEDS ORDERED: Levofloxacin 750 MG/150 ML 750 MG/150 ML BAG IVPB ONE (17:00)
[2017-07-23] MEDS ORDERED: 0.9 % Sodium Chloride 1,000 ML IVC ONE ×2 (17:00→17:03)
[2017-07-23] MEDS ORDERED: Ondansetron 4 MG/2 ML VIAL IVP PRN (19:59)
[2017-07-23] MEDS ORDERED: Naloxone 0.4 MG/ML INJ IVP PRN (19:59)
[2017-07-23] MEDS ORDERED: *HR* Promethazine 25 MG/ML VIAL IVP PRN (19:59)
[2017-07-23] MEDS ORDERED: Acetaminophen 325 MG TABLET PO PRN (19:59)
[2017-07-23] MEDS ORDERED: MOM Conc 10 ML UD.LIQ PO PRN (19:59)
[2017-07-23] MEDS: Ipratropium/Albuterol Neb 3 ML IH SCH ×2 (21:29→22:43)
--- NOTE | 2017-07-23 21:52 | Internal Med History&Physical ---
Date of Encounter: 07/23/17 Time of Encounter: 20:00 Assessment and Plan (1) Acute and chronic respiratory failure with hypoxia Current visit: Yes Status: Acute Will admit the pt into Med Surg He is currently on 4 lit O2 NC.. does use 3 lit at home cont Duoneb q4hr LC Started him on high dose IV steroids SOlumedrol 40mg Q6hr try to wean him down on O2 to home level May need sleep studies as an out pt for possible sleep apnea eval (2) COPD exacerbation Current visit: Yes Status: Acute Started him on Duoneb + Systemic steroids also placed him prophylactic abx Levwilliam Reviewed his CXR by myself.. no infiltrates / no consolidation noticed.. cleo bronchial cuffing / thickening noticed cont O2 (3) Chronic diastolic CHF (congestive heart failure) Current visit: Yes Status: Acute not in exacerbation Reviewed 2 D Echo from 03/27 showed preserved LVEF 65 %, MIld LV diastolic dysfunction Not in exacerbation Will resume his home meds (4) Former heavy tobacco smoker Current visit: No Status: Chronic (5) DVT prophylaxis Current visit: No Status: Acute on SQ Lovenox Internal Medicine - H&P: HPI Chief complaint: Shortness of breath Admitted From: Emergency Dept Plans for Post Hospital Care: Home History of present illness: Mr. Colin is a 61 year old male with known COPD, Chronic hypoxic resp failure on 3 lit hoe O2, morbidly obese and GERD pt presented to ER c/o progressively worsening SOB and ANTON. He started using more frequent albuterol INH , however his symptoms are not improved. He denied any CP. He does have cough with whitish expectoration. Denied any sick contacts at home. Past Med Surg Social Fam HX - Past Medical History Medical history: COPD, GERD, hypertension, kidney stones, liver disease, other Psychiatric history: no psych history - Past Surgical History Surgical History: cholecystectomy, herniorrhaphy, orthopedic, other - Social History Smoking Status: Former smoker Smokeless Tobacco Status: No Alcohol use: none Drug use: none - Family History Sister Family Member Ethnicity: Non- Living Status: Still Living Hx Family Endocrine Disorder: Yes (DM) Maternal Adopted: No Family Member Ethnicity: Non- Living Status: Still Living Hx Family Cardiac Disorders: Yes Hx Family Respiratory Disorders: No Hx Family Cancer: No Hx Family GI Disorders: Yes Hx Family Endocrine Disorder: Yes (DM for 40 yrs) Hx Family Neuromuscular Disorders: No Hx Family Neurologic Disorders: No Hx Family HEENT Disorders: Yes (degenerative eye disease) Hx Family Autoimmune Disorders: No Mother Family Member Ethnicity: Non- Living Status: Still Living Hx Family Endocrine Disorder: Yes (DM) Father Family Member Ethnicity: Non- Living Status: Hx Family Endocrine Disorder: Yes (DM) Hx Family Neurologic Disorders: Yes (Alzheimer's disease) Internal Medicine - H&P: Meds Albuterol Sulfate [Albuterol Inhaler] 2 puff IH Q4-6H PRN 03/20/17 [History] Umeclidinium [place] [Incruse Ellipta] 1 puff IH DAILY 03/20/17 [History] Oxygen 3 l IN CONT #1 each 03/23/17 [Rx] Lactobacillus Combination No.8 [Adult Probiotic] 1 cap PO DAILY 07/23/17 [ History] Mometasone/Formoterol [Dulera 100 Mcg/5 Mcg Inhaler] 2 puff IH BID 07/23/17 [ History] 3 Allergy/AdvReac Type Severity Reaction Status Date / Time morphine Allergy Anaphylaxis Verified 05/01/17 15:58 Oxycodone [From Percocet] Allergy Hives Verified 03/20/17 11:58 Penicillins Allergy Anaphylaxis Verified 03/20/17 11:58 aspirin AdvReac Nausea Verified 03/20/17 11:58 chlorpromazine AdvReac Cramping Verified 03/20/17 11:58 [From Thorazine] of the Muscles codeine AdvReac Nausea Verified 05/01/17 15:59 hydrocodone [From Vicodin] AdvReac Nausea Verified 03/20/17 11:58 chlorine AdvReac Difficulty Uncoded 05/01/17 16:00 Breathing All Systems PM: A 10-system review of systems was performed and is negative for pertinent findings except as documented above in the HPI. Review of systems: All the systems are reviewed everything is benign except the systems and symptoms I mentioned in the history of present illness - Constitutional Vitals: Temp Pulse Resp BP Pulse Ox 98 F 94 18 133/81 94 07/23/17 17:53 07/23/17 17:53 07/23/17 17:53 07/23/17 17:53 07/23/17 17:53 General appearance: Present: mild distress (However able to finish full sentence with out any pause), A&O X 3 - Head Head exam: Present: atraumatic, normal inspection - Neck Neck exam general surgery: Present: supple - Respiratory Respiratory exam: Present: decreased breath sounds, respiratory distress (mild) , wheezes (moderate to severe diffuse wheezing). Absent: rales, rhonchi - Cardiovascular Cardiovascular exam: Present: RRR, +S1, +S2. Absent: tachycardia - GI/Abdominal GI/Abdominal exam: Present: distended, normal bowel sounds, soft. Absent: rebound, rigid, tenderness - Extremities Exam Extremities exam: Absent: calf tenderness, pedal edema, tenderness - Back Exam Back exam: Absent: CVA tenderness (L), CVA tenderness (R) - Neurological Exam Neurological exam: Present: alert, oriented X3 - Psychiatric Psychiatric exam: Present: normal affect, normal mood - Skin Skin exam: Absent: rash Internal Med - H&P Results - Labs CBC & Chem 7: 07/23/17 14:09 07/23/17 14:09
[2017-07-24] MEDS: Ipratropium/Albuterol Neb 3 ML IH SCH ×6 (03:55→23:43)
[2017-07-24] MEDS: Levofloxacin 500 MG/100 ML 500 MG/100 ML BAG IVPB SCH (09:01)
[2017-07-24] MEDS ORDERED: Saline Nasal Spray 44 ML BOTTLE NS PRN (09:58)
[2017-07-24 10:59] LABS: Hematocrit 38.7 % (37.5-50.1); Hemoglobin 12.7 g/dL (12.9-16.9); Mean Corpuscular HGB Conc 32.8 g/dL (31.6-35.5); Mean Corpuscular Hemoglobin 30.2 pg (28.0-33.3); Mean Corpuscular Volume 91.9 fL (83.0-100.0); Mean Platelet Volume 9.5 fL (9.4-12.4); Platelet Count 231 K/mcL (140-400); Red Blood Count 4.21 M/mcL (4.19-5.50)
[2017-07-24 11:09] LABS: BUN/Creatinine Ratio 16 (6-26); Blood Urea Nitrogen 16 mg/dL (8-26); Calcium 9.4 mg/dL (8.6-10.8); Carbon Dioxide 21 mEq/L (19-29); Chloride 106 mEq/L (98-109); Glucose 251 mg/dL (70-99); Osmolality,Calculated 298 (280-300); Potassium 3.9 mEq/L (3.5-4.5); Sodium 139 mEq/L (136-145); eGFR For African Americans > 60 (> 60); eGFR For Non-African Americans > 60 (> 60)
[2017-07-24] MEDS ORDERED: Vancomycin 2,000 MG in D5% in Water 250 ML IVPB SCH (12:00)
[2017-07-24] MEDS ORDERED: Vancomycin 2,000 MG in D5% in Water 500 ML IVPB SCH (12:30)
[2017-07-24] MEDS: 0.9 % Sodium Chloride 1,000 ML IVC SCH ×2 (12:44→20:55)
[2017-07-24 15:06] LABS: Adenovirus Not Detected (Not Detect); Bordetella Pertussis Not Detected (Not Detect); Chlamydophila pneumoniae Not Detected (Not Detect); Coronavirus 229E Not Detected (Not Detect); Coronavirus HKU1 Not Detected (Not Detect); Coronavirus NL63 Not Detected (Not Detect); Coronavirus OC43 Not Detected (Not Detect); Human Metapneumovirus Not Detected (Not Detect); Human Rhinovirus/Enterovirus Not Detected (Not Detect); Influenza A Subtype 2009 H1 Not Detected (Not Detect); Influenza A Untypeable Not Detected (Not Detect); Influenza B Not Detected (Not Detect); Mycoplasma pneumoniae Not Detected (Not Detect); Parainfluenza Virus 1 Not Detected (Not Detect); Parainfluenza Virus 2 Not Detected (Not Detect); Parainfluenza Virus 3 Not Detected (Not Detect); Parainfluenza Virus 4 Not Detected (Not Detect); Respiratory Syncytial Virus Not Detected (Not Detect)
--- NOTE | 2017-07-24 16:11 | Internal Med Progress Note ---
Date of Encounter: 07/24/17 Time of Encounter: 11:30 - Assessment and plan (1) Acute and chronic respiratory failure with hypoxia Current Visit: Yes Status: Acute Assessment and plan: With O2 at 3 L [id number] at home. Now requiring 4 L to maintain adequate saturation. Secondary to underlying COPD exacerbation. Subjectively and clinically improved on 07/24. Continue treating underlying cause. Wean to home O2 dose as able. (2) Sepsis Current Visit: Yes Status: Acute Assessment and plan: with transient tachycardia, lactic acid 4.3, secondary to acute COPD exacerbation. Does not appear toxic or acute. Elevated lactic acid possibly secondary to hypoxia. CXR nonacute, respirate PCR and sputum culture negative. We will broaden coverage by adding vancomycin. Continue IV fluids. Blood culture and UA pending. Monitor repeat lactic acid. Qualifiers: Sepsis type: sepsis due to unspecified organism Qualified Code(s): A41.9 - Sepsis, unspecified organism (3) COPD exacerbation Current Visit: Yes Status: Acute Assessment and plan: With worsening shortness of breath, increased O2 requirements and diffuse wheezing on admission. Continue IV ATB steroids and breathing treatments. Significantly improved on 07/23 exam. (4) Chronic diastolic CHF (congestive heart failure) Current Visit: Yes Status: Acute Assessment and plan: per hx. 03/27 TTE with EF 65% and mild diastolic dysfunction. Appears euvolemic. Resume home medication regimen. (5) DVT prophylaxis Current Visit: No Status: Acute - Time Spent With Patient less than 15 minutes - Subjective Interval history: Seen and examined at bedside. Patient is new to me, information obtained from chart review and patient report. Patient says he still has some shortness of breath but overall significantly improved. No chest pain. He does report episodes of lightheadedness and dizziness when he goes from a sitting to standing position. - Constitutional Vitals: Temp Pulse Resp BP Pulse Ox 98.4 F 93 16 101/63 96 07/24/17 14:57 07/24/17 14:57 07/24/17 16:05 07/24/17 14:57 07/24/17 16:05 General appearance: Present: A&O X 3, no acute distress - Head Head exam: Present: atraumatic, normocephalic - Eye Eye exam: Present: PERRL, conjuntiva pink, sclera anicteric Pupils: Present: PERRL - Neck Neck exam general surgery: Present: supple, trachea midline. Absent: lymphadenopathy - Respiratory Respiratory exam: Present: CTAB. Absent: accessory muscle use, rales, rhonchi, wheezes - Cardiovascular Cardiovascular exam: Present: RRR, +S1, +S2. Absent: diastolic murmur, gallop, rubs, systolic murmur - GI/Abdominal GI/Abdominal exam: Present: normal bowel sounds, soft, no peritoneal signs. Absent: distended, tenderness - Extremities Exam Extremities exam: Present: warm, radial pulses palpable and symmetrical. Absent : calf tenderness, cyanotic, pedal edema - Neurological Exam Neurological exam: Present: CN II-XII intact, oriented X3, no focal deficits. Absent: pronater drift, facial droop, speech deficit - Skin Skin exam: Present: dry, intact Internal Medicine: Result - Labs CBC & Chem 7: 07/24/17 10:42 07/24/17 10:42 Labs: Short CBC 07/24/17 Range/Units 10:42 WBC 9.1 (4.3-11.1) K/mcL Hgb 12.7 L (12.9-16.9) g/dL Hct 38.7 (37.5-50.1) % Plt Count 231 (140-400) K/mcL [facility] 07/24/17 10:42 Sodium 139 Potassium 3.9 Chloride 106 Carbon Dioxide 21 BUN 16 Creatinine 1.02 Glucose 251 H Calcium 9.4 Consult Discharge Plan - Plan Referrals: Subha Baird, SHIPPING PROCESSOR [Primary Care Provider] -
[2017-07-24] MEDS: *HR* Enoxaparin 40 MG/0.4 ML SYRINGE SQ SCH (16:40)
[2017-07-24] MEDS: MethylPREDNISolone 40 MG/ML VIAL IVP SCH (20:53)
[2017-07-25] MEDS: MethylPREDNISolone 40 MG/ML VIAL IVP SCH ×3 (01:03→12:24)
[2017-07-25 01:16] LABS: Hematocrit 40.1 % (37.5-50.1); Mean Corpuscular HGB Conc 32.4 g/dL (31.6-35.5); Mean Corpuscular Hemoglobin 30.4 pg (28.0-33.3); Mean Corpuscular Volume 93.7 fL (83.0-100.0); Mean Platelet Volume 9.7 fL (9.4-12.4); Platelet Count 222 K/mcL (140-400); Red Blood Count 4.28 M/mcL (4.19-5.50); Red Cell Distribution Width 14.3 % (11.5-14.5)
[2017-07-25 01:32] LABS: BUN/Creatinine Ratio 15 (6-26); Blood Urea Nitrogen 17 mg/dL (8-26); Calcium 9.4 mg/dL (8.6-10.8); Carbon Dioxide 18 mEq/L (19-29); Chloride 108 mEq/L (98-109); Glucose 252 mg/dL (70-99); Osmolality,Calculated 296 (280-300); Potassium 4.7 mEq/L (3.5-4.5); Sodium 138 mEq/L (136-145); eGFR For African Americans > 60 (> 60); eGFR For Non-African Americans > 60 (> 60)
[2017-07-25] MEDS: Ipratropium/Albuterol Neb 3 ML IH SCH ×4 (04:10→15:35)
[2017-07-25] MEDS: *HR* Enoxaparin 40 MG/0.4 ML SYRINGE SQ SCH (05:39)
[2017-07-25] MEDS: 0.9 % Sodium Chloride 1,000 ML IVC SCH (05:42)
[2017-07-25] MEDS: Levofloxacin 500 MG/100 ML 500 MG/100 ML BAG IVPB SCH (09:03)
[2017-07-25] MEDS ORDERED: Vancomycin 2,000 MG in D5% in Water 500 ML IVPB SCH (10:00)
[2017-07-25] MEDS ORDERED: Vancomycin 1,500 MG in D5% in Water 250 ML IVPB SCH (10:00)
--- NOTE | 2017-07-25 10:52 | Discharge Summary ---
Date of Encounter: 07/25/17 Time of Encounter: 10:49 - Discharge Diagnosis (1) Acute and chronic respiratory failure with hypoxia Priority: Primary Status: Acute Comments: wears O2 3 liters [id number] at home. Now requiring 4 L to maintain adequate saturation. Secondary to underlying COPD exacerbation, morbid obesity. Sx's improved with treating underlying cause. Respiratory status back to baseline at time of discharge. (2) COPD exacerbation Priority: Primary Status: Acute Comments: with worsening shortness of breath, increased O2 requirements and diffuse wheezing on admission. Sx's significantly improved with IV ATB, steroids and breathing treatments. De-escalate ATB to azithromycin at discharge. Steroid burst. Continue home inhalers. Recommend follow-up with PCP and Digital Content Specialist within 1-2 weeks. (3) Chronic diastolic CHF (congestive heart failure) Priority: Secondary Status: Chronic Comments: per hx. 03/27 TTE with EF 65% and mild diastolic dysfunction. Appears euvolemic. Resume home medication regimen. (4) Sepsis Priority: Primary Status: Resolved Comments: with transient tachycardia, lactic acid 4.3, secondary to acute COPD exacerbation. Did not appear toxic or acute. Hemodynamically stable, no tachycardia, no hypotension. Elevated lactic acid possibly secondary to hypoxia. CXR nonacute, respirate PCR and sputum culture negative. Blood and urine cultures ordered but not completed. Treated with IV fluids, IV vanco and Levaquin. Repeat lactic acid trended down. Resolved at time of discharge. Qualifiers: Sepsis type: sepsis due to unspecified organism Qualified Code(s): A41.9 - Sepsis, unspecified organism - Discharge Medications Prescriptions: Azithromycin [Azithromycin 6-Tab Pack] 250 mg PO PER PKG DI #6 tab predniSONE [PredniSONE] 40 mg PO DAILY #10 tablet Home Medications: Albuterol Sulfate [Albuterol Inhaler] 2 puff IH Q4-6H PRN 03/20/17 [History] Umeclidinium [place] [Incruse Ellipta] 1 puff IH DAILY 03/20/17 [History] Oxygen 3 l IN CONT #1 each 03/23/17 [Rx] Lactobacillus Combination No.8 [Adult Probiotic] 1 cap PO DAILY 07/23/17 [ History] Mometasone/Formoterol [Dulera 100 Mcg/5 Mcg Inhaler] 2 puff IH BID 07/23/17 [ History] Azithromycin [Azithromycin 6-Tab Pack] 250 mg PO PER PKG DI #6 tab 07/25/17 [Rx] predniSONE [PredniSONE] 40 mg PO DAILY #10 tablet 07/25/17 [Rx] Allergies/Adverse Reactions: 3 Allergy/AdvReac Type Severity Reaction Status Date / Time morphine Allergy Anaphylaxis Verified 05/01/17 15:58 Oxycodone [From Percocet] Allergy Hives Verified 03/20/17 11:58 Penicillins Allergy Anaphylaxis Verified 03/20/17 11:58 aspirin AdvReac Nausea Verified 03/20/17 11:58 chlorpromazine AdvReac Cramping Verified 03/20/17 11:58 [From Thorazine] of the Muscles codeine AdvReac Nausea Verified 05/01/17 15:59 hydrocodone [From Vicodin] AdvReac Nausea Verified 03/20/17 11:58 chlorine AdvReac Difficulty Uncoded 05/01/17 16:00 Breathing Date of admission: 07/23/17 19:59 Primary care physician: Subha Baird CNP Discharging clinician: Nirmala Sauceda Anticipated date of discharge: 07/25/17 - Patient Status Disposition: Home, Self-Care Condition: Good Functional capacity at discharge: independent ambulation Overall status at discharge: patient is progressing back to baseline - Discharge Instructions Instructions: Chronic Obstructive Pulmonary Disease (DC), Prednisone (By mouth) , Azithromycin (By mouth) Follow Up With: Subha Baird CNP [Primary Care Provider] - Cherie Bowles MD [Partnered Physician] - - Diet and Activity Activity: increase activity as tolerated, wear oxygen at all times Diet: advance to your usual diet Interval History: Seen and examined at bedside, patient says he feels much better today and would like to discharge home today. Still has some SOB but overall improved. Cough is productive. No chest pain. Hospital course: See assessment and plan for hospital course - Time Spent with Patient Total time spent providing and/or coordinating discharge services: - Constitutional Vitals: Temp Pulse Resp BP Pulse Ox 97.5 F L 87 16 125/82 96 07/25/17 07:46 07/25/17 07:46 07/25/17 07:46 07/25/17 07:46 07/25/17 07:46 General appearance: Present: A&O X 3, no acute distress - VTE Documentation of Mechanical Device: Graduated compression elastic hosiery
--- NOTE | 2017-07-25 11:19 | Physician Discharge Referral ---
Home Health/Hosp Referral Info Transfer to: Home Health Attending Provider: Nirmala Sauceda CNP Provider in Charge Post Discharge: PCP - Diagnosis (1) Acute and chronic respiratory failure with hypoxia Status: Acute (2) COPD exacerbation Status: Acute (3) Chronic diastolic CHF (congestive heart failure) Status: Chronic (4) Sepsis Status: Resolved - Respiratory Orders Oxygen / L per min (4) Smoking Cessation: Smoking cessation has been advised. For more information, call the [place] Tobacco Quit Line at 7-624-WWOS-NOW. - Diet/Nutrition Diet/Nutrition Orders: Regular - Activity Activity Orders: Up ad sherley - Services Needed Following services are medically necessary services: Nursing, Home Health Aide, Physical Therapy, Occupational Therapy - Transfer Medications Prescriptions: Azithromycin [Azithromycin 6-Tab Pack] 250 mg PO PER PKG DI #6 tab predniSONE [PredniSONE] 40 mg PO DAILY #10 tablet Home Medications: Albuterol Sulfate [Albuterol Inhaler] 2 puff IH Q4-6H PRN 03/20/17 [History] Umeclidinium [place] [Incruse Ellipta] 1 puff IH DAILY 03/20/17 [History] Oxygen 3 l IN CONT #1 each 03/23/17 [Rx] Lactobacillus Combination No.8 [Adult Probiotic] 1 cap PO DAILY 07/23/17 [ History] Mometasone/Formoterol [Dulera 100 Mcg/5 Mcg Inhaler] 2 puff IH BID 07/23/17 [ History] Azithromycin [Azithromycin 6-Tab Pack] 250 mg PO PER PKG DI #6 tab 07/25/17 [Rx] predniSONE [PredniSONE] 40 mg PO DAILY #10 tablet 07/25/17 [Rx] Allergies/Adverse Reactions: 3 Allergy/AdvReac Type Severity Reaction Status Date / Time morphine Allergy Anaphylaxis Verified 05/01/17 15:58 Oxycodone [From Percocet] Allergy Hives Verified 03/20/17 11:58 Penicillins Allergy Anaphylaxis Verified 03/20/17 11:58 aspirin AdvReac Nausea Verified 03/20/17 11:58 chlorpromazine AdvReac Cramping Verified 03/20/17 11:58 [From Thorazine] of the Muscles codeine AdvReac Nausea Verified 05/01/17 15:59 hydrocodone [From Vicodin] AdvReac Nausea Verified 03/20/17 11:58 chlorine AdvReac Difficulty Uncoded 05/01/17 16:00 Breathing Certification: Further, I certify that my clinical findings support that this patient is homebound (i.e. absences from home require considerable and taxing effort and are for medical reasons or druze services or infrequently or short duration when for other reasons) because: Homebound Reason: Patient requires assistance of a person or device to safely leave home Attestation: My signature below is to certify that this patient is under my care and that I, or nurse practitioner, or a physician's exceptional children teacher assistant working with me, has a face-to -face encounter with this patient.
[2017-07-25 11:37] VITALS: BP 137/87
[2017-07-25] MEDS ORDERED: Aminoglycoside Consult 1 EACH MC ONE (13:56)
== END 2017-07-25 13:57 | disposition home or self-care (01) | DRG 720 ==
LOC: EMEROO 13:29 → 3BNU 13:29
PROVIDERS: ADMIT Registered Nurse; ATTEND Registered Nurse

== ENCOUNTER 2017-11-21 10:30 | Inpatient (IN) ==
--- NOTE | 2017-11-21 11:32 | Emergency Department Note ---
Disposition Clinical Impression: Near syncope, Decreased sensation of lower extremity, Decreased sensation of hand and upper extremity, Decreased strength of lower extremity Disposition: Admitted As Inpatient Condition: Fair Referrals: Subha Baird, PHYSICS DEPARTMENT CHAIR [Primary Care Provider] - Forms: ED Satisfaction Letter Time of Disposition: 15:13 General Adult HPI - General Chief complaint: ED Shortness of Breath/Dyspnea Stated complaint: shortness of breath Time Seen by Provider: 11/21/17 10:53 Source: patient, EMS Mode of arrival: EMS Limitations: no limitations Nursing Notes Reviewed: Yes Vital Signs Reviewed: Yes - History of Present Illness HPI Narrative: Patient is a 62-year-old male that presents to the emergency department for episodes of "blacking out and staring off into space". Patient states that he has 2 episodes of the staring off which the first occurred approximately 2 hours prior to being seen here in the emergency department. Patient states that he is unsure exactly what happened during these events but his home health aide was yelling at him to wake up. Patient does report some left-sided numbness and weakness in his left lower extremity. Patient denies ever having anything like this in the past. Pain Scale: 0 - Related Data Home Medications Medication Instructions Recorded Confirmed Albuterol Sulfate [Albuterol 2 puff IH Q4-6H PRN 03/20/17 08/26/17 Inhaler] Umeclidinium [place] [Incruse 1 puff IH DAILY 03/20/17 08/26/17 Ellipta] Lactobacillus Combination No.8 1 cap PO DAILY 07/23/17 07/23/17 [Adult Probiotic] Acetaminophen [Tylenol] 500 mg PO Q6HR PRN 08/26/17 08/26/17 Albuterol Neb [Proventil Neb] 2.5 mg IH Q6HR PRN 08/26/17 08/26/17 Multivit-Min/FA/Lycopen/Lutein 1 each PO DAILY 08/26/17 08/26/17 [Men 50 Plus Multivitamin Tab] Oxygen 4 l IN CONT 08/26/17 08/26/17 Saw [place] Xtr/Zinc [place] [Saw 1 each PO DAILY 08/26/17 08/26/17 [place] Capsule] Umeclidinium Brm/Vilanterol Tr 1 each IH DAILY 08/26/17 08/26/17 [Anoro Ellipta 62.5-25 Mcg INH] Previous Rx's Medication Instructions Recorded predniSONE [PredniSONE] 40 mg PO DAILY #10 tablet 07/25/17 Allergies Allergy/AdvReac Type Severity Reaction Status Date / Time Penicillins Allergy Severe Anaphylaxis Verified 08/26/17 12:55 morphine Allergy Anaphylaxis Verified 05/01/17 15:58 Oxycodone [From Percocet] Allergy Hives Verified 03/20/17 11:58 aspirin AdvReac Nausea Verified 03/20/17 11:58 chlorpromazine AdvReac Cramping Verified 03/20/17 11:58 [From Thorazine] of the Muscles codeine AdvReac Nausea Verified 05/01/17 15:59 hydrocodone [From Vicodin] AdvReac Nausea Verified 03/20/17 11:58 chlorine AdvReac Severe Anaphylaxis Uncoded 08/26/17 12:55 All systems ED: reviewed and negative except as stated. Respiratory: Reports: dyspnea (Chronic ) Neurological: Reports: headache, weakness, numbness Past Medical History - Past Medical History Medical history: Reports: CHF, COPD, hyperlipidemia, hypertension, kidney stones , liver disease, other Surgical history: Reports: cholecystectomy, herniorrhaphy, orthopedic, other Psychiatric history: Reports: no psych history - Social History Smoking Status: Former smoker Smokeless Tobacco Status: No Alcohol use: Reports: none Drug use: Reports: none Physical Exam - General Limitations: no limitations General appearance: alert, in no apparent distress - Head Head exam: atraumatic, normocephalic - Eye Eye exam: Present: normal appearance, EOMI - Neck Neck exam: Present: normal inspection, full ROM, trachea midline - Respiratory Respiratory exam: Present: normal lung sounds bilaterally. Absent: respiratory distress, wheezes - Cardiovascular Cardiovascular exam: Present: regular rate, normal rhythm, normal heart sounds, +S1, +S2 - Abdominal Exam Abdominal exam: Present: soft, Non-Tender, normal bowel sounds - Neurological Exam Neurological exam: Present: alert. Absent: oriented X3 (Oriented to place and person but not to time) - Expanded Neurological Exam Cranial nerves: EOM function (II, III, IV, ): Normal, facial sensation (V): Abnormal Left, facial palsy (VII): Normal, gag reflex (IX): Normal, spinal accessory function (XI): Normal, tongue deviation (XII): Normal Cerebellar function: finger to nose: Normal, heel to mercedes: Abnormal Left ( Unable to perform) Motor strength - LUE: 5/5 Motor strength - RUE: 5/5 Motor strength - LLE: 3/5 Motor strength - RLE: 5/5 Sensory exam upper extremity: light touch: Abnormal Left (normal right) Sensory exam lower extremity: light touch: Abnormal Left (normal left) Coma Scale Eye Opening: Spontaneous Coma Scale Motor Response: Obeys Commands Coma Scale Verbal Response: Oriented Coma Scale Total: 15 - Psychiatric Psychiatric exam: Present: normal affect, normal mood - Skin Skin exam: Present: warm, dry, intact Course Vital Signs Temperature 98.1 F 11/21/17 10:36 Pulse Rate 86 11/21/17 10:36 Respiratory Rate 18 11/21/17 10:36 Blood Pressure 144/83 11/21/17 10:36 O2 Sat by Pulse Oximetry 97 11/21/17 10:36 Temperature 98.1 F 11/21/17 10:36 Pulse Rate 91 11/21/17 14:49 Respiratory Rate 16 11/21/17 14:49 Blood Pressure 130/83 11/21/17 14:49 O2 Sat by Pulse Oximetry 95 11/21/17 14:49 Oxygen Delivery Oxygen Delivery Room Air Medical Decision Making - MDM Narrative Medical decision making narrative: Due to the patient presenting with possible syncope and weakness on the left side we will obtain a CBC, BMP, troponin, EKG, chest x-ray and a CT scan of the head to rule out possible intracranial abnormality. Patient has an NIH of 2 however I was unable to assess the patient's left leg for drift due to the patient stating not to lift his leg because it is painful. Patient states that he has a long-standing history of back pain with an injury to L4-L5. The CT of the head was negative for any acute abnormality however we felt that it be necessary for the patient have an MRI due to the near syncope.. We will admit the patient to the hospital for the near syncope, MRI and for further evaluation and management. I called and spoke with the hospital's medics of the patient to their service. The patient be admitted to the hospital at this time for further evaluation and management. - Lab Data Lab results reviewed: Yes I reviewed the patient's lab results. Result diagrams: 11/21/17 11:30 11/21/17 11:30 Lab Results 11/21/17 11/21/17 11/21/17 Range/Units 10:44 11:30 11:30 WBC 6.0 (4.3-11.1) K/mcL RBC 4.32 (4.19-5.50) M/mcL Hgb 13.0 (12.9-16.9) g/dL Hct 40.2 (37.5-50.1) % MCV 93.1 (83.0-100.0) fL MCH 30.1 (28.0-33.3) pg MCHC 32.3 (31.6-35.5) g/dL RDW 14.1 (11.5-14.5) % Plt Count 212 (140-400) K/mcL MPV 10.0 (9.4-12.4) fL Immature Gran % 0.8 (0-4) % Seg Neutrophils % 57.9 % Lymphocytes % 31.6 % Monocytes % 6.4 % Eosinophils % 2.8 % Basophils % 0.5 % Neutrophils # 3.5 (1.6-8.9) K/mcL Lymphocytes # 1.9 (0.6-4.6) K/mcL Monocytes # 0.4 (0.0-1.3) K/mcL Eosinophils # 0.2 (0.0-0.6) K/mcL Basophils # 0.0 (0.0-0.2) K/mcL PT 10.4 (9.4-12.1) Seconds INR 1.0 Sodium 136 (136-145) mEq/L Potassium 3.9 (3.5-5.1) mEq/L Chloride 105 (98-107) mEq/L Carbon Dioxide 20 L (23-29) mEq/L BUN 19 (8-23) mg/dL Creatinine 0.97 (0.70-1.30) mg/dL Est GFR ( Amer) > 60 (> 60) Est GFR (Non-Af Amer) > 60 (> 60) BUN/Creatinine Ratio 20 (6-26) Glucose 251 H (70-105) mg/dL Calculated Osmolality 293 (280-300) Calcium 9.2 (8.6-10.3) mg/dL - Radiology Data Radiology results reviewed: Yes I reviewed the patient's radiology results. Chest X-Ray 11/21/17 10:44 IMPRESSION: COPD No evidence of acute process within the chest D/ / 11/21/2017 11:31:55 Lenard Patterson MD / camilo Interpreting Provider: Lenard Patterson MD Head CT 11/21/17 11:29 IMPRESSION: No acute intracranial abnormality. D/ / Jason Duran MD / Jason Duran MD Interpreting Provider: Jason Duran MD - EKG Data EKG #1 EKG attestation: Yes I reviewed and interpreted this EKG. EKG results narrative: EKG showed a sinus rhythm at a rate of 93 bpm, HI interval 166, QRS duration of 87, QTC of oral 6. There is no STEMI noted on EKG. EKG #2 EKG attestation: Yes I reviewed and interpreted this EKG. EKG results narrative: The second EKG had all 1140 showed a sinus rhythm at a rate of 90 bpm, HI interval 160, curious duration of 84, QTc of 404. There is no STEMI noted on EKG.
[2017-11-21 11:53] LABS: Basophils % 0.5 %; Eosinophils # 0.2 K/mcL (0.0-0.6); Eosinophils % 2.8 %; Hematocrit 40.2 % (37.5-50.1); Immature Granulocytes % 0.8 % (0-4); Lymphocytes # 1.9 K/mcL (0.6-4.6); Lymphocytes % 31.6 %; Mean Corpuscular HGB Conc 32.3 g/dL (31.6-35.5); Mean Corpuscular Hemoglobin 30.1 pg (28.0-33.3); Mean Corpuscular Volume 93.1 fL (83.0-100.0); Monocytes # 0.4 K/mcL (0.0-1.3); Monocytes % 6.4 %; Neutrophils # 3.5 K/mcL (1.6-8.9); Platelet Count 212 K/mcL (140-400); Red Blood Count 4.32 M/mcL (4.19-5.50); Red Cell Distribution Width 14.1 % (11.5-14.5); Segmented Neutrophils % 57.9 %
[2017-11-21 12:41] LABS: BUN/Creatinine Ratio 20 (6-26); Blood Urea Nitrogen 19 mg/dL (8-23); Calcium 9.2 mg/dL (8.6-10.3); Carbon Dioxide 20 mEq/L (23-29); Chloride 105 mEq/L (98-107); Glucose 251 mg/dL (70-105); Osmolality,Calculated 293 (280-300); Potassium 3.9 mEq/L (3.5-5.1); Sodium 136 mEq/L (136-145); eGFR For African Americans > 60 (> 60); eGFR For Non-African Americans > 60 (> 60)
[2017-11-21 13:06] LABS: Prothrombin Time 10.4 Seconds (9.4-12.1)
[2017-11-21] MEDS ORDERED: Gabapentin 300 MG CAPSULE PO ONE (22:43)
--- NOTE | 2017-11-21 22:58 | Emergency Department Note ---
Disposition Clinical Impression: Near syncope, Decreased sensation of lower extremity, Decreased sensation of hand and upper extremity, Decreased strength of lower extremity Disposition: Admitted As Inpatient Condition: Fair General Adult HPI - General Chief complaint: ED Shortness of Breath/Dyspnea Stated complaint: shortness of breath Time Seen by Provider: 11/21/17 10:53 Source: patient, EMS Mode of arrival: EMS Limitations: no limitations - History of Present Illness Pain Scale: 0 - Related Data Home Medications Medication Instructions Recorded Confirmed Albuterol Sulfate [Albuterol 2 puff IH Q4-6H PRN 03/20/17 11/21/17 Inhaler] Albuterol Neb [Proventil Neb] 2.5 mg IH Q6HR PRN 08/26/17 11/21/17 Multivit-Min/FA/Lycopen/Lutein 1 each PO DAILY 08/26/17 11/21/17 [Men 50 Plus Multivitamin Tab] Oxygen 4 l IN CONT 08/26/17 11/21/17 Saw [place] Xtr/Zinc Picolin [Saw 1 each PO DAILY 08/26/17 11/21/17 [place] Capsule] Umeclidinium Brm/Vilanterol Tr 1 each IH DAILY 08/26/17 11/21/17 [Anoro Ellipta 62.5-25 Mcg INH] Allergies Allergy/AdvReac Type Severity Reaction Status Date / Time Penicillins Allergy Severe Anaphylaxis Verified 08/26/17 12:55 morphine Allergy Anaphylaxis Verified 05/01/17 15:58 Oxycodone [From Percocet] Allergy Hives Verified 03/20/17 11:58 aspirin AdvReac Nausea Verified 03/20/17 11:58 chlorpromazine AdvReac Cramping Verified 03/20/17 11:58 [From Thorazine] of the Muscles codeine AdvReac Nausea Verified 05/01/17 15:59 hydrocodone [From Vicodin] AdvReac Nausea Verified 03/20/17 11:58 chlorine AdvReac Severe Anaphylaxis Uncoded 08/26/17 12:55 Respiratory: Reports: dyspnea (Chronic ) Neurological: Reports: headache, weakness, numbness Past Medical History - Past Medical History Medical history: Reports: CHF, COPD, hyperlipidemia, hypertension, kidney stones , liver disease, other Surgical history: Reports: cholecystectomy, herniorrhaphy, orthopedic, other Psychiatric history: Reports: no psych history - Social History Smoking Status: Former smoker Smokeless Tobacco Status: No Alcohol use: Reports: none Drug use: Reports: none Physical Exam - General Limitations: no limitations General appearance: alert, in no apparent distress Course Vital Signs Temperature 98.1 F 11/21/17 10:36 Pulse Rate 86 11/21/17 10:36 Respiratory Rate 18 11/21/17 10:36 Blood Pressure 144/83 11/21/17 10:36 O2 Sat by Pulse Oximetry 97 11/21/17 10:36 Temperature 98.3 F 11/21/17 20:50 Pulse Rate 94 11/21/17 20:50 Respiratory Rate 20 11/21/17 20:50 Blood Pressure 146/96 11/21/17 20:50 O2 Sat by Pulse Oximetry 95 11/21/17 20:50 Oxygen Delivery Oxygen Delivery Room Air Medical Decision Making - Lab Data Result diagrams: 11/21/17 11:30 11/21/17 11:30 Lab Results 11/21/17 11/21/17 11/21/17 Range/Units 10:44 11:30 11:30 WBC 6.0 (4.3-11.1) K/mcL RBC 4.32 (4.19-5.50) M/mcL Hgb 13.0 (12.9-16.9) g/dL Hct 40.2 (37.5-50.1) % MCV 93.1 (83.0-100.0) fL MCH 30.1 (28.0-33.3) pg MCHC 32.3 (31.6-35.5) g/dL RDW 14.1 (11.5-14.5) % Plt Count 212 (140-400) K/mcL MPV 10.0 (9.4-12.4) fL Immature Gran % 0.8 (0-4) % Seg Neutrophils % 57.9 % Lymphocytes % 31.6 % Monocytes % 6.4 % Eosinophils % 2.8 % Basophils % 0.5 % Neutrophils # 3.5 (1.6-8.9) K/mcL Lymphocytes # 1.9 (0.6-4.6) K/mcL Monocytes # 0.4 (0.0-1.3) K/mcL Eosinophils # 0.2 (0.0-0.6) K/mcL Basophils # 0.0 (0.0-0.2) K/mcL PT 10.4 (9.4-12.1) Seconds INR 1.0 Sodium 136 (136-145) mEq/L Potassium 3.9 (3.5-5.1) mEq/L Chloride 105 (98-107) mEq/L Carbon Dioxide 20 L (23-29) mEq/L BUN 19 (8-23) mg/dL Creatinine 0.97 (0.70-1.30) mg/dL Est GFR ( Amer) > 60 (> 60) Est GFR (Non-Af Amer) > 60 (> 60) BUN/Creatinine Ratio 20 (6-26) Glucose 251 H (70-105) mg/dL Calculated Osmolality 293 (280-300) Calcium 9.2 (8.6-10.3) mg/dL Attestation Statement - Attestation Attestation: I examined this patient and my medical decision-making was reviewed with the Resident Physician. I agree with the documented findings, disposition and treatment plan as described except to the extent set forth below. Patient evaluated by me, discussed in detail with Dr. Delacruz. Clinical suspicion for stroke was very low, limitation of movement of his leg seemed to be much more related to pain than to weakness. Admitted for observation due to near syncopal episode.
[2017-11-21] MEDS: methylPREDNISolone 125 MG/2 ML VIAL IVP SCH (23:42)
--- NOTE | 2017-11-21 23:51 | Internal Med History&Physical ---
Date of Encounter: 11/21/17 Time of Encounter: 23:47 Internal Medicine - H&P: HPI Chief complaint: lle weakness History of present illness: Mr. Colin is a 62 year old male history of COPD on home oxygen who presents with complaint of loss of consciousness. Patient patient's has home health aide noted him to be staring in space. Patient notes he had not an episode of loss of consciousness where she did not remember the episode. Patient notes afterwards she had some slight confusion that resolved. Patient denied any urinary or bowel incontinence. Patient notes that he has known lumbar disc disease. Patient notes he sometimes and lives with a cane. Patient notes his recently seen in the spine clinic approximately 2-3 weeks ago for spinal injections and physical therapy. Patient notes afterwards he felt somewhat improved. Patient notes that over the last 2 days he has noted some left lower extremity weakness and left arm numbness. Patient also today his left lower extremity became more weak. Patient notes some left lower extremity pain as well. Patient denies calf pain. Patient denies any rest pain. Pain worse with movement. Patient denies fever, chills or rigors. He denies headache, visual disturbance. Denies abdominal pain, nausea and vomiting. Patient voices no other complaint. Patient to be admitted for further evaluation. Past Med Surg Social Fam HX - Past Medical History Medical history: CHF, COPD, hyperlipidemia, hypertension, kidney stones, liver disease, other Psychiatric history: no psych history - Past Surgical History Surgical History: cholecystectomy, herniorrhaphy, orthopedic, other - Social History Smoking Status: Former smoker Packs per day: 3 Smokeless Tobacco Status: No Alcohol use: none Drug use: none - Family History Sister Family Member Ethnicity: Non- Living Status: Still Living Hx Family Endocrine Disorder: Yes (diabetes) Maternal Adopted: No Family Member Ethnicity: Non- Living Status: Still Living Hx Family Cardiac Disorders: No Hx Family Respiratory Disorders: No Hx Family Cancer: No Hx Family GI Disorders: No Hx Family Endocrine Disorder: Yes Hx Family Neuromuscular Disorders: No Hx Family Neurologic Disorders: No Hx Family HEENT Disorders: Yes (degenerative eye dz) Hx Family Autoimmune Disorders: No Mother Family Member Ethnicity: Non- Living Status: Still Living Hx Family Endocrine Disorder: Yes (diabetes) Father Family Member Ethnicity: Non- Living Status: Hx Family Endocrine Disorder: Yes (DM) Hx Family Neurologic Disorders: Yes (Alzheimer's disease) Internal Medicine - H&P: Meds Albuterol Sulfate [Albuterol Inhaler] 2 puff IH Q4-6H PRN 03/20/17 [History] Albuterol Neb [Proventil Neb] 2.5 mg IH Q6HR PRN 08/26/17 [History] Multivit-Min/FA/Lycopen/Lutein [Men 50 Plus Multivitamin Tab] 1 each PO DAILY [History] Oxygen 4 l IN CONT 08/26/17 [History] Saw [place] Xtr/Zinc Picolin [Saw [place] Capsule] 1 each PO DAILY 08/26/17 [ History] Umeclidinium Brm/Vilanterol Tr [Anoro Ellipta 62.5-25 Mcg INH] 1 each IH DAILY 08/26/17 [History] 3 Allergy/AdvReac Type Severity Reaction Status Date / Time Penicillins Allergy Severe Anaphylaxis Verified 08/26/17 12:55 morphine Allergy Anaphylaxis Verified 05/01/17 15:58 Oxycodone [From Percocet] Allergy Hives Verified 03/20/17 11:58 aspirin AdvReac Nausea Verified 03/20/17 11:58 chlorpromazine AdvReac Cramping Verified 03/20/17 11:58 [From Thorazine] of the Muscles codeine AdvReac Nausea Verified 05/01/17 15:59 hydrocodone [From Vicodin] AdvReac Nausea Verified 03/20/17 11:58 chlorine AdvReac Severe Anaphylaxis Uncoded 08/26/17 12:55 All Systems PM: A 10-system review of systems was performed and is negative for pertinent findings except as documented above in the HPI. Review of systems: All systems have been reviewed and negative except for as mentioned in history of present illness. - Constitutional Vitals: Temp Pulse Resp BP Pulse Ox 98.4 F 88 20 111/71 95 11/21/17 23:13 11/21/17 23:13 11/21/17 23:13 11/21/17 23:13 11/21/17 23:13 Vital signs as above Gen.: On process, cooperative, able to speak in full sentences HEENT: Atraumatic, normocephalic, extra movements are intact, PERRL, there is no scleral icterus Neck: No JVD no pain to palpation, full range of motion Heart: Normal S1-S2 Lungs: Clear to auscultation Abdomen: Soft, nontender, nondistended, positive bowel sounds, no guarding, no rigidity Musculoskeletal: Patient moves all 4 extremities, decreased range of motion of left lower extremity Neuro: Paresthesias left hand which is chronic per patient report, left lower extremity weakness 3 out of 5 pain with movement, right lower extremity 5 out of 5, pulses palpable, right wrist and hand with surgical intervention rodded in place, alert and oriented 3, upper extremities 5 out of 5 strength Psychiatry: Normal affect Internal Med - H&P Results - Labs CBC & Chem 7: 11/21/17 11:30 11/21/17 11:30 - Impressions ITS Impressions Cervical Spine MRI 11/21/17 18:20 IMPRESSION: No cervical spinal cord compression or cord signal abnormality. C5-6 spondylosis with mild spinal canal and foraminal stenosis. D/ / 11/21/2017 20:54:51 Adrian Harris MD / Danielle Hollins Interpreting Provider: Adrian Harris MD Thoracic Spine MRI 11/21/17 18:20 IMPRESSION: Multilevel degenerative disc disease in the thoracolumbar spine as described. See above for details. There is no canal narrowing. There is no definitive foraminal narrowing. D/ / Ankit Patel / Ankit Patel Interpreting Provider: Ankit Patel - Assessment and plan (1) COPD (chronic obstructive pulmonary disease) Current Visit: Yes Status: Acute Assessment and plan: No signs of exacerbation Continue inhalers Qualifiers: Qualified Code(s): J44.9 - Chronic obstructive pulmonary disease, unspecified (2) LOC (loss of consciousness) Current Visit: Yes Status: Acute Assessment and plan: Etiology to be determined. Syncope versus seizure At this time no evidence of seizure like activity, seizure precautions, MRI brain no evidence of stroke Patient does have some left lower extremity weakness, history of lumbar disc disease followed by spinal clinic. Have Obtain MRIs of the cervical to the lumbar spine. Lumbar spine impression shows no change since September 2017. Cervical, thoracic, lumbar spine shows no cord signal abnormality. MRI had no evidence of stroke. MRI shows a 0.8 cm pituitary mass. Per the report the mass does not extend into the suprasellar space nor does it compress any supra cellular structures. There is no evidence of stroke, pulses are full throughout, pain with movement left lower extremity may be due to exacerbation of lumbar disc disease. I have discussed case with neurology treasury consultant Dr. White. At this time no other acute intervention. Recommends Solu-Medrol 60 every 12 hours, gabapentin. Recommendations appreciated. (3) Lumbar disc disease Current Visit: Yes Status: Acute (4) DVT prophylaxis Current Visit: Yes Status: Acute Assessment and plan: SCD for DVT prophylaxis for now. If no procedures planed patient can be started on chemical prophylaxis - Time Spent With Patient Total time spent is greater than 50% in coordination of care (as documented) at patient's floor/unit and/or counseling patient:
[2017-11-22] MEDS: Acetaminophen 325 MG TABLET PO PRN ×2 (00:15→09:25)
[2017-11-22 04:48] LABS: Basophils % 0.2 %; Eosinophils % 0.8 %; Hematocrit 40.4 % (37.5-50.1); Hemoglobin 13.3 g/dL (12.9-16.9); Immature Granulocytes % 0.9 % (0-4); Lymphocytes # 0.6 K/mcL (0.6-4.6); Lymphocytes % 11.5 %; Mean Corpuscular HGB Conc 32.9 g/dL (31.6-35.5); Mean Corpuscular Hemoglobin 30.9 pg (28.0-33.3); Mean Platelet Volume 10.2 fL (9.4-12.4); Monocytes # 0.1 K/mcL (0.0-1.3); Monocytes % 2.3 %; Neutrophils # 4.5 K/mcL (1.6-8.9); Nucleated Red Blood Cells 0.6 /100 WBC (0); Platelet Count 205 K/mcL (140-400); Red Cell Distribution Width 14.2 % (11.5-14.5); Segmented Neutrophils % 84.3 %
[2017-11-22] MEDS: methylPREDNISolone 125 MG/2 ML VIAL IVP SCH ×2 (05:02→17:24)
--- NOTE | 2017-11-22 07:15 | Electrocardiograph Report ---
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
[2017-11-22] MEDS: (Anoro Ellipta 62.5-2) IH SCH ×2 (08:48→11:50)
--- NOTE | 2017-11-22 18:38 | Internal Med Progress Note ---
Date of Encounter: 11/22/17 Time of Encounter: 11:40 - Assessment and plan (1) COPD (chronic obstructive pulmonary disease) Current Visit: Yes Status: Acute Assessment and plan: No acute exacerbation. Continue home medications. Lungs clear and diminished throughout. Qualifiers: COPD type: unspecified COPD Qualified Code(s): J44.9 - Chronic obstructive pulmonary disease, unspecified (2) Loss of consciousness Current Visit: Yes Status: Acute Assessment and plan: Patient reports that he had approximately 10 minutes. Patient denies actual loss of consciousness but reports he had 2 episodes of "staring off into space" he reports that these have been while he was interacting with his home health aide. Patient also reports some left-sided numbness and weakness in lower extremity. He denies prior history of syncope. Head MRA normal, head CT negative, brain MRI showed nothing acute but there is a 0.8 cm pituitary mass, likely cystic adenoma. Patient will need to follow up for continued evaluation after discharge. Lumbar spine remains unchanged from prior exam in September, there is L5-S1 anterolisthesis, severe DDD, and moderate bilateral foraminal stenosis which could cause some weakness in BLE. Thoracic and cervical spine MRIs also showed spondylosis and multilevel degenerative disc disease. Case was discussed with neurologist institution director by admitting physician. At this time he feels there is no need for any acute intervention. He does recommended Solu-Medrol 60 mg every 12 hours, as well as gabapentin. Patient reports that he does not like to take steroids because they make him gain weight. Encouraged patient to take steroids to improve his current situation. He was agreeable. Head MRA 11/21/17 00:00 IMPRESSION: Normal MRA brain D/ / Demian Sepulveda MD / Demian Sepulveda MD Interpreting Provider: Demian Sepulveda MD Lumbar Spine MRI 11/21/17 00:00 IMPRESSION: No change since September 2017. L5-S1 anterolisthesis, severe degenerative disc disease, and moderate bilateral foraminal stenosis. D/ / 11/21/2017 17:07:41 Adrian Harris MD / camilo Interpreting Provider: Adrian Harris MD Head CT 11/21/17 11:29 IMPRESSION: No acute intracranial abnormality. D/ / Jason Duran MD / Jason Duran MD Interpreting Provider: Jason Duran MD Brain MRI 11/21/17 14:43 IMPRESSION: No acute abnormality. 0.8 cm pituitary mass, likely a cystic adenoma. Rathke's cleft cyst less likely. RECOMMENDATIONS: If further characterization of the pituitary lesion is necessary, the patient could be evaluated by Endocrinology on an outpatient basis. Jesusita M, Salomon SK, Rose J, Mira SH, Mira SH, Jose Antonio [place], Mira J, Raz SS. Differentiation between Cystic Pituitary Adenomas and Rathke Cleft Cysts: A Diagnostic Model Using MRI. AJNR Am J Neuroradiol. 2015 Oct;36(10):1866-73. doi: 10.3174/ajnr.A4387. Epub 2014Mar 16. PubMed PMID: [id number]. D/ / 11/21/2017 17:00:11 Adrian Harris MD / camilo Interpreting Provider: Adrian Harris MD Cervical Spine MRI 11/21/17 18:20 IMPRESSION: No cervical spinal cord compression or cord signal abnormality. C5-6 spondylosis with mild spinal canal and foraminal stenosis. D/ / 11/21/2017 20:54:51 Adrian Harris MD / Danielle Hollins Interpreting Provider: Adrian Harris MD Thoracic Spine MRI 11/21/17 18:20 IMPRESSION: Multilevel degenerative disc disease in the thoracolumbar spine as described. See above for details. There is no canal narrowing. There is no definitive foraminal narrowing. D/ / Ankit Patel / Ankit Patel Interpreting Provider: Ankit Patel (3) Lumbar disc disease Current Visit: Yes Status: Acute Assessment and plan: Plan as above. (4) DVT prophylaxis Current Visit: Yes Status: Acute Assessment and plan: SCD for DVT prophylaxis for now. Encourage ambulation. - Time Spent With Patient Total time spent is greater than 50% in coordination of care (as documented) at patient's floor/unit and/or counseling patient: less than 15 minutes - Subjective Interval history: Patient was seen and assessed at bedside 11:40 AM. He reports that he needs to bring her medication from home, he is unclear exactly what it is but states that it is Andero, an inhaler. Patient reported sudden onset chest pain with dyspnea while talking on the phone. He is reports left chest pain resolved, he reports the same pain he has had chronically for years. Stat EKG was completed that showed normal and is rhythm without any ST changes. Stat troponin was negative. Patient is concerned about loss of consciousness yesterday. He reports that he does not remember anything for 10 minutes yesterday. He denies headache or blurred vision, chest pain upon exam, no shortness of breath or nausea vomiting. No abdominal pain no peripheral edema. - Constitutional Vitals: Temp Pulse Resp BP Pulse Ox 98.2 F 99 18 125/68 94 11/22/17 15:08 11/22/17 15:08 11/22/17 15:08 11/22/17 15:08 11/22/17 15:08 General appearance: Present: A&O X 3, morbidly obese, pleasant, no acute distress, answers questions appropriately. Absent: mild distress - Head Head exam: Present: atraumatic, normal inspection, normocephalic - Eye Eye exam: Present: normal appearance, conjuntiva pink, sclera anicteric. Absent : nystagmus - Neck Neck exam general surgery: Present: supple, trachea midline. Absent: lymphadenopathy - Respiratory Respiratory exam: Present: CTAB. Absent: accessory muscle use, chest wall tenderness, rales, respiratory distress, rhonchi, wheezes - Cardiovascular Cardiovascular exam: Present: RRR, +S1, +S2. Absent: diastolic murmur, gallop, rubs, systolic murmur - GI/Abdominal GI/Abdominal exam: Present: normal bowel sounds, soft. Absent: distended, hepatomegaly, tenderness - Extremities Exam Extremities exam: Present: normal capillary refill, normal inspection, warm, radial pulses palpable and symmetrical. Absent: calf tenderness, cyanotic, pedal edema, tenderness - Neurological Exam Neurological exam: Present: alert, normal gait, oriented X3, no focal deficits, strengths equal and symetr throughout. Absent: altered, motor sensory deficit, pronater drift, facial droop, speech deficit - Skin Skin exam: Present: dry, intact, normal color, warm. Absent: rash Internal Medicine: Result - Labs CBC & Chem 7: 11/22/17 03:54 11/21/17 11:30 Labs: Short CBC 11/22/17 Range/Units 03:54 WBC 5.3 (4.3-11.1) K/mcL Hgb 13.3 (12.9-16.9) g/dL Hct 40.4 (37.5-50.1) % Plt Count 205 (140-400) K/mcL Neutrophils # 4.5 (1.6-8.9) K/mcL Cardiac Enzymes 11/22/17 11/22/17 11/22/17 Range/Units 01:16 03:54 10:51 Troponin I < 0.03 < 0.03 < 0.03 (< 0.04) ng/mL - ABG Interpretation ABG results: PT/INR, D-dimer PT 10.4 Seconds (9.4-12.1) 11/21/17 10:44 - Impressions Impressions Cervical Spine MRI 11/21/17 18:20 IMPRESSION: No cervical spinal cord compression or cord signal abnormality. C5-6 spondylosis with mild spinal canal and foraminal stenosis. D/ / 11/21/2017 20:54:51 Adrian Harris MD / Danielle Hollins Interpreting Provider: Adrian Harris MD Thoracic Spine MRI 11/21/17 18:20 IMPRESSION: Multilevel degenerative disc disease in the thoracolumbar spine as described. See above for details. There is no canal narrowing. There is no definitive foraminal narrowing. D/ / Ankit Patel / Ankit Patel Interpreting Provider: Ankit Patel Consult Discharge Plan - Plan Referrals: Subha Baird, [facility] [Primary Care Provider] -
[2017-11-23 04:28] LABS: Hematocrit 40.2 % (37.5-50.1); Immature Granulocytes % 0.9 % (0-4); Lymphocytes % 10.9 %; Mean Corpuscular HGB Conc 32.3 g/dL (31.6-35.5); Mean Corpuscular Hemoglobin 30.2 pg (28.0-33.3); Mean Corpuscular Volume 93.3 fL (83.0-100.0); Mean Platelet Volume 10.3 fL (9.4-12.4); Platelet Count 232 K/mcL (140-400); Red Blood Count 4.31 M/mcL (4.19-5.50); Red Cell Distribution Width 14.1 % (11.5-14.5); Segmented Neutrophils % 84.7 %
[2017-11-23 04:29] LABS: Lymphocytes # 0.9 K/mcL (0.6-4.6); Monocytes # 0.3 K/mcL (0.0-1.3); Monocytes % 3.5 %; Neutrophils # 6.8 K/mcL (1.6-8.9)
[2017-11-23 04:53] LABS: BUN/Creatinine Ratio 21 (6-26); Blood Urea Nitrogen 21 mg/dL (8-23); Carbon Dioxide 20 mEq/L (23-29); Chloride 105 mEq/L (98-107); Glucose 443 mg/dL (70-105); Osmolality,Calculated 302 (280-300); Potassium 4.3 mEq/L (3.5-5.1); Sodium 135 mEq/L (136-145); eGFR For African Americans > 60 (> 60); eGFR For Non-African Americans > 60 (> 60)
[2017-11-23] MEDS: methylPREDNISolone 125 MG/2 ML VIAL IVP SCH ×2 (06:22→18:15)
[2017-11-23] MEDS: (Anoro Ellipta 62.5-2) IH SCH (07:42)
--- NOTE | 2017-11-23 11:24 | Neurology - Consult Note ---
Date of Encounter: 11/23/17 Time of Encounter: 11:21 Assessment and Plan (1) Spell of altered consciousness Current Visit: Yes Status: Acute This patient was been experiencing these as spells of altered consciousness lasting for few minutes sometimes will bit longer without any associated jerking shaking or any other postictal abnormalities. According to the patient is been experiencing these events for quite some time though he is not able to give much description about it but has noted that he is been having these spells for some time. He denies any tonic-clonic activity he denies any bladder or bowel incontinence and denies any postictal state. Considering the description is possible that these could be complex partial/ ABSENCE Seizures. But is not able to give much detailed information about these events. Considering his that he is been having it frequently chances that he may be able to catch field these events on an ambulatory EEG Recommend getting a 48 hours ambulatory EEG that could be obtained as an outpatient after the discharge At the moment would not recommend starting on any antiepileptic medication There was a concern earlier that he could be having Keaton paralysis. I see no history or any exam findings to be suggestive of it at the same time the evening she is been having at this time it is not clear that indeed these true epileptic seizures are not I really doubt that his weakness in his left lower extremity is related to the TODDS paralysis. He is getting other cardiac workup, I suggest follow-up in neurology clinic as an outpatient and we can arrange a 48 hours ambulatory EEG for further characterization of those spells. (2) Lumbar disc disease Current Visit: Yes Status: Acute Patient has significant degenerative changes and foraminal stenosis in his lumbar spine his left lower extremity weakness is likely related to it no evidence of any acute ischemic infarct on his MRI of the brain Already had a imaging studies of whole spine no critical cervical or thoracic a stenosis no cord signal abnormality Has already been seen by pain management at [facility] suggest to follow up with them In the meantime he may benefit from physical therapy and short-term rehabilitation Already getting steroids for his COPD as well as for his back he had not noticed much improvement in his lower extremity symptoms Perhaps could be start continued on low-dose of gabapentin and that can be increased gradually to a wide any side effects Patient at high risk of the fall because of the left lower extremity weakness would benefit from PT and physical therapy as an outpatient or perhaps short- term rehabilitation History of Present Illness HPI: Mr. Colin is a 62 year old male with history of COPD on home oxygen admitted with brief spells of loss of consciousness. Patient patient's has home health aide noted him to be staring in space. According to the patient he had these as spells off and on for quite some time and has noted that he is been is stating and sometimes he loses stain of tarts and also lose a conversation and then back to baseline quickly. These as spells may last for a few seconds to a few minutes. ( Though as per records earlier patient mentioned that he had not had any episode that he could remember) Patient denied any urinary or bowel incontinence. Patient also complaining of weakness in his left lower extremity has been having difficulty with ambulation and is been getting physical therapy for this lumbar disc disease. recently seen in the spine clinic approximately 2-3 weeks ago for spinal injections and physical therapy. Patient notes afterwards he felt somewhat improved. Patient notes that over the last 2 days he has noted some left lower extremity weakness and left arm numbness. Patient also today his left lower extremity became more weak along with pain. Patient denies fever, chills or rigors. He denies headache, visual disturbance. Denies abdominal pain, nausea and vomiting. MRI of the brain did not show any acute abnormality Past Med Surg Social Fam HX - Past Medical History Medical history: CHF, COPD, hyperlipidemia, hypertension, kidney stones, liver disease, other Psychiatric history: no psych history - Past Surgical History Surgical History: cholecystectomy, herniorrhaphy, orthopedic, other - Social History Smoking Status: Former smoker Packs per day: 3 Smokeless Tobacco Status: No Alcohol use: none Drug use: none - Family History Sister Family Member Ethnicity: Non- Living Status: Still Living Hx Family Endocrine Disorder: Yes (diabetes) Maternal Adopted: No Family Member Ethnicity: Non- Living Status: Still Living Hx Family Cardiac Disorders: No Hx Family Respiratory Disorders: No Hx Family Cancer: No Hx Family GI Disorders: No Hx Family Endocrine Disorder: Yes Hx Family Neuromuscular Disorders: No Hx Family Neurologic Disorders: No Hx Family HEENT Disorders: Yes (degenerative eye dz) Hx Family Autoimmune Disorders: No Mother Family Member Ethnicity: Non- Living Status: Still Living Hx Family Endocrine Disorder: Yes (diabetes) Father Family Member Ethnicity: Non- Living Status: Hx Family Endocrine Disorder: Yes (DM) Hx Family Neurologic Disorders: Yes (Alzheimer's disease) Medications and Allergies Albuterol Sulfate [Albuterol Inhaler] 2 puff IH Q4-6H PRN 03/20/17 [History] Albuterol Neb [Proventil Neb] 2.5 mg IH Q6HR PRN 08/26/17 [History] Multivit-Min/FA/Lycopen/Lutein [Men 50 Plus Multivitamin Tab] 1 each PO DAILY [History] Oxygen 4 l IN CONT 08/26/17 [History] Saw [place] Xtr/Zinc Picolin [Saw [place] Capsule] 1 each PO DAILY 08/26/17 [ History] Umeclidinium Brm/Vilanterol Tr [Anoro Ellipta 62.5-25 Mcg INH] 1 each IH DAILY 08/26/17 [History] 3 Allergy/AdvReac Type Severity Reaction Status Date / Time Penicillins Allergy Severe Anaphylaxis Verified 08/26/17 12:55 morphine Allergy Anaphylaxis Verified 05/01/17 15:58 Oxycodone [From Percocet] Allergy Hives Verified 03/20/17 11:58 aspirin AdvReac Nausea Verified 03/20/17 11:58 chlorpromazine AdvReac Cramping Verified 03/20/17 11:58 [From Thorazine] of the Muscles codeine AdvReac Nausea Verified 05/01/17 15:59 hydrocodone [From Vicodin] AdvReac Nausea Verified 03/20/17 11:58 chlorine AdvReac Severe Anaphylaxis Uncoded 08/26/17 12:55 All Systems: The remainder of the systems were reviewed and are negative Physical Examination - Vital Signs Vital Signs: Initial Vital Signs Temp Pulse Resp BP Pulse Ox 98.1 F 86 18 144/83 97 11/21/17 10:36 11/21/17 10:36 11/21/17 10:36 11/21/17 10:36 11/21/17 10:36 - Exam Exam: GENERAL: Comfortable in no acute distress HEENT: Normal LUNGS: CTA HEART: RRR, S1 S2 Audible, no murmur EXTREMITIES: No Pedal edema. DETAILED NEUROLOGICAL EXAMINATION: MENTAL STATUS: Oriented to person, place, date and situation. Memory: knows the President, Aware of recent events Recent Memory Intact Cranial Nerve Examination: CN - II: Visual Acuity, Field of Vision Normal, Fundus examination: No disk edema, Pupils- size shape reaction to light and accommodation: All normal. CN III, IV, : External ocular movements were intact, Pupils were reactive, Nodrooping of the eyelids CN V: Sensation over the face to light touch and pinprick all normal. Corneal reflexes not tested, jaw jerk normal. CN VII: No facial asymmetry, no flattening of nasolabial folds, no difficulty in closing the eyes, no loss of forehead wrinkles, no difficulty in eye-closure, frowning raising eyebrows. CNVIII: No significant hearing loss CN IX, X: Uvula centralized not deviated, Gag reflex: Not tested CN X1: Sternocleidomastoid, trapezius, normal or evidence of any weakness. CN X11: No Dysarthria, no wasting or fibrilation f tongue muscles, no deviation, tongue muscle strength normal. Motor examination: No hypertrophy, tone was normal, power grade 0-5 Upper limbs Proximal- No difficulty in lifting the arms above the head. Distal- Noweakness in distal muscles On formal testing 5/5 all over Lower limbs LEFT LOWER EXT 3/3 HF, KE, ADF RIGHT 4/4 ALL OVER Coordination: Almwlz-cf-hjrg normal. Target pursuit normal finger tapping normal, Rapid alternating moment of wrist normal Sensory system: Superficial sensations- Touch normal. Pain- Pinprick, Temperature DECREASE ALL OVER ,INCONSISTENT, NO SENSORY LEVEL , Deep sensation normal, Joint position sense normal. Cortical sensation, Tactile discrimination, localization and extinction all normal. Deep tendon reflexes. Symmetrical bilateral, No evidence of Babinski. No sign of meningeal irritation Gait Examination: Deferred Results - Laboratory Findings CBC and BMP: 11/23/17 04:00 11/23/17 04:00 Abnormal lab findings: Abnormal lab results Nucleated RBCs/100 WBC 0.6 /100 WBC (0) H 11/22/17 03:54 Sodium 135 mEq/L (136-145) L 11/23/17 04:00 Carbon Dioxide 20 mEq/L (23-29) L 11/23/17 04:00 Glucose 443 mg/dL (70-105) H 11/23/17 04:00 Calculated Osmolality 302 (280-300) H 11/23/17 04:00 - Diagnostic Findings Additional findings: Patient already had Imaging studies of whole spine and Brain, as well as MRA of head: MRI of the brain that shows incidental Pituitary cystic Adenoma. MRA of the brain is negative MRI of the cervical spine shows degenerative changes spondylotic changes no cord signal abnormality no critical spinal stenosis MRI of the thoracic spine showed degenerative changes MRI of the lumbar spine showed : L5-S1 anterolisthesis, severe degenerative disc disease, and moderate bilateral foraminal stenosis. Consult Discharge Plan - Plan Referrals: Subha Baird, CUFF FOLDER [Primary Care Provider] -
--- NOTE | 2017-11-23 16:30 | Internal Med Progress Note ---
Date of Encounter: 11/23/17 Time of Encounter: 09:20 - Assessment and plan (1) COPD (chronic obstructive pulmonary disease) Current Visit: Yes Status: Acute Assessment and plan: No acute exacerbation. Continue home medications. Lungs clear and diminished throughout. Pt is out of his inhaler, Anoro, we do not carry here. Spiriva will be substituted. Qualifiers: COPD type: unspecified COPD Qualified Code(s): J44.9 - Chronic obstructive pulmonary disease, unspecified (2) Loss of consciousness Current Visit: Yes Status: Acute Assessment and plan: Neurology evaluated pt today. States that he could be having partial or absence seizures, will evaluate after discharge in the office. He does not see need for antiepileptic medication now. He does recommended Solu-Medrol 60 mg every 12 hours, as well as gabapentin. Head MRA 11/21/17 00:00 IMPRESSION: Normal MRA brain D/ / Demian Sepulveda MD / Demian Sepulveda MD Interpreting Provider: Demian Sepulveda MD Lumbar Spine MRI 11/21/17 00:00 IMPRESSION: No change since September 2017. L5-S1 anterolisthesis, severe degenerative disc disease, and moderate bilateral foraminal stenosis. D/ / 11/21/2017 17:07:41 Adrian Harris MD / [facility] Interpreting Provider: Adrian Harris MD Head CT 11/21/17 11:29 IMPRESSION: No acute intracranial abnormality. D/ / Jason Duran MD / Jason Duran MD Interpreting Provider: Jason Duran MD Brain MRI 11/21/17 14:43 IMPRESSION: No acute abnormality. 0.8 cm pituitary mass, likely a cystic adenoma. Rathke's cleft cyst less likely. RECOMMENDATIONS: If further characterization of the pituitary lesion is necessary, the patient could be evaluated by Endocrinology on an outpatient basis. Jesusita M, Salomon SK, Milton J, Mira SH, Mira SH, Jose Antonio [place], Mira J, Raz SS. Differentiation between Cystic Pituitary Adenomas and Rathke Cleft Cysts: A Diagnostic Model Using MRI. AJNR Am J Neuroradiol. 2015 May;36(10):1863-73. doi: 10.3174/ajnr.[id number]. Epub 2014Mar 16. PubMed PMID: [id number]. D/ / 11/21/2017 17:00:11 Adrian Harris MD / [facility] Interpreting Provider: Adrian Harris MD Cervical Spine MRI 11/21/17 18:20 IMPRESSION: No cervical spinal cord compression or cord signal abnormality. C5-6 spondylosis with mild spinal canal and foraminal stenosis. D/ / 11/21/2017 20:54:51 Adrian Harris MD / [facility] Interpreting Provider: Adrian Harris MD Thoracic Spine MRI 11/21/17 18:20 IMPRESSION: Multilevel degenerative disc disease in the thoracolumbar spine as described. See above for details. There is no canal narrowing. There is no definitive foraminal narrowing. D/ / Ankit Patel / Ankit Patel Interpreting Provider: Ankit Patel (3) Lumbar disc disease Current Visit: Yes Status: Acute Assessment and plan: Plan as above. (4) DVT prophylaxis Current Visit: Yes Status: Acute Assessment and plan: SCD for DVT prophylaxis for now. Encourage ambulation. - Time Spent With Patient Total time spent is greater than 50% in coordination of care (as documented) at patient's floor/unit and/or counseling patient: less than 15 minutes - Subjective Interval history: Patient was seen and assessed at bedside 0920 AM. He requests his probiotic at dinner time and states that he wants to be evaluated by PT/OT for possible rehab after discharge. States he is too weak and has to much back pain to try to go home. He denies headache or blurred vision, chest pain upon exam, no shortness of breath or nausea vomiting. No abdominal pain no peripheral edema. He is - Constitutional Vitals: Temp Pulse Resp BP Pulse Ox 98.2 F 87 18 149/88 93 11/23/17 15:04 11/23/17 15:04 11/23/17 15:04 11/23/17 15:04 11/23/17 15:04 General appearance: Present: cooperative, A&O X 3, morbidly obese, pleasant, no acute distress, answers questions appropriately. Absent: mild distress - Head Head exam: Present: atraumatic, normal inspection, normocephalic - Eye Eye exam: Present: normal appearance, conjuntiva pink, sclera anicteric - Neck Neck exam general surgery: Present: normal inspection, supple, trachea midline. Absent: lymphadenopathy, tenderness - Respiratory Respiratory exam: Present: CTAB. Absent: accessory muscle use, rales, respiratory distress, rhonchi, wheezes - Cardiovascular Cardiovascular exam: Present: RRR, +S1, +S2. Absent: diastolic murmur, gallop, rubs, systolic murmur - GI/Abdominal GI/Abdominal exam: Present: normal bowel sounds, soft. Absent: distended, hepatomegaly, tenderness - Extremities Exam Extremities exam: Present: normal capillary refill, warm, radial pulses palpable and symmetrical. Absent: calf tenderness, cyanotic, pedal edema, tenderness - Neurological Exam Neurological exam: Present: alert, oriented X3, no focal deficits. Absent: facial droop, speech deficit - Skin Skin exam: Present: dry, intact, normal color, warm Internal Medicine: Result - Labs CBC & Chem 7: 11/23/17 04:00 11/23/17 04:00 Labs: Short CBC 11/23/17 Range/Units 04:00 WBC 8.0 D (4.3-11.1) K/mcL Hgb 13.0 (12.9-16.9) g/dL Hct 40.2 (37.5-50.1) % Plt Count 232 (140-400) K/mcL Neutrophils # 6.8 (1.6-8.9) K/mcL BMP 11/23/17 04:00 Sodium 135 L Potassium 4.3 Chloride 105 Carbon Dioxide 20 L BUN 21 Creatinine 1.01 Glucose 443 H Calcium 9.0 - ABG Interpretation ABG results: PT/INR, D-dimer PT 10.4 Seconds (9.4-12.1) 11/21/17 10:44 Consult Discharge Plan - Plan Referrals: Subha Baird, SET AND EXHIBIT DESIGNER [Primary Care Provider] -
[2017-11-23] MEDS: Lactobacillus 1 EACH CAP.SPRINK PO SCH (18:14)
[2017-11-24] MEDS: Albuterol 2.5 MG/3 ML NEBULIZER IH PRN ×2 (04:30→07:42)
[2017-11-24 04:52] LABS: Basophils % 0.1 %; Hematocrit 41.2 % (37.5-50.1); Hemoglobin 13.7 g/dL (12.9-16.9); Immature Granulocytes % 1.7 % (0-4); Lymphocytes # 0.9 K/mcL (0.6-4.6); Lymphocytes % 11.3 %; Mean Corpuscular HGB Conc 33.3 g/dL (31.6-35.5); Mean Corpuscular Hemoglobin 31.1 pg (28.0-33.3); Mean Corpuscular Volume 93.4 fL (83.0-100.0); Mean Platelet Volume 10.4 fL (9.4-12.4); Monocytes # 0.2 K/mcL (0.0-1.3); Monocytes % 2.8 %; Neutrophils # 6.6 K/mcL (1.6-8.9); Platelet Count 259 K/mcL (140-400); Red Blood Count 4.41 M/mcL (4.19-5.50); Red Cell Distribution Width 14.2 % (11.5-14.5); Segmented Neutrophils % 84.1 %
[2017-11-24 05:10] LABS: BUN/Creatinine Ratio 24 (6-26); Blood Urea Nitrogen 26 mg/dL (8-23); Calcium 9.1 mg/dL (8.6-10.3); Carbon Dioxide 19 mEq/L (23-29); Chloride 104 mEq/L (98-107); Glucose 423 mg/dL (70-105); Osmolality,Calculated 299 (280-300); Potassium 4.3 mEq/L (3.5-5.1); Sodium 133 mEq/L (136-145); eGFR For African Americans > 60 (> 60); eGFR For Non-African Americans > 60 (> 60)
[2017-11-24] MEDS: methylPREDNISolone 125 MG/2 ML VIAL IVP SCH (05:35)
--- NOTE | 2017-11-24 07:39 | Internal Med Progress Note ---
Date of Encounter: 11/24/17 Time of Encounter: 10:55 - Assessment and plan (1) COPD (chronic obstructive pulmonary disease) Current Visit: Yes Status: Acute Assessment and plan: No acute exacerbation. Continue 02 prn to maintain sats > 92% Continue inhlaers Continue Solumedrol IV, decreasing dose Lungs clear and diminished throughout. Pt is out of his inhaler, Anoro, not in formulary. Spiriva will be substituted. Qualifiers: COPD type: unspecified COPD Qualified Code(s): J44.9 - Chronic obstructive pulmonary disease, unspecified (2) Loss of consciousness Current Visit: Yes Status: Acute Assessment and plan: Neurology evaluated pt. States that he could be having partial or absence seizures, will evaluate after discharge in the office. He does not see need for antiepileptic medication now. He does recommended Solu-Medrol 60 mg every 12 hours, as well as gabapentin. No dizziness, headache, vision changes, syncope or near syncope since initial event. Head MRA 11/21/17 00:00 IMPRESSION: Normal MRA brain D/ / Demian Sepulveda MD / Demian Sepulveda MD Interpreting Provider: Demian Sepulveda MD Head CT 11/21/17 11:29 IMPRESSION: No acute intracranial abnormality. D/ / Jason Duran MD / Jason Duran MD Interpreting Provider: Jason Duran MD Brain MRI 11/21/17 14:43 IMPRESSION: No acute abnormality. 0.8 cm pituitary mass, likely a cystic adenoma. Rathke's cleft cyst less likely. RECOMMENDATIONS: If further characterization of the pituitary lesion is necessary, the patient could be evaluated by Endocrinology on an outpatient basis. Jesusita M, Salomon SK, Milton J, Mira SH, Mira SH, Jose Antonio [place], Mira J, Raz SS. Differentiation between Cystic Pituitary Adenomas and Rathke Cleft Cysts: A Diagnostic Model Using MRI. AJNR Am J Neuroradiol. 2015 Oct;36(10):1866-73. doi: 10.3174/[id number]. Epub 2014Mar 16. PubMed PMID: [id number]. D/ / 11/21/2017 17:00:11 Adrian Harris MD / [facility] Interpreting Provider: Adrian Harris MD (3) Lumbar disc disease Current Visit: Yes Status: Chronic Assessment and plan: Plan as above. Severe dengerative disc disease, moderate bilateral foraminal stenosis noted MRI 11/21. Pt also with degerative disc disease in thoracic spine , cervical spondylosis and foraminal stenosis. Pain management PT/OT consultation Lumbar Spine MRI 11/21/17 00:00 IMPRESSION: No change since September 2017. L5-S1 anterolisthesis, severe degenerative disc disease, and moderate bilateral foraminal stenosis. D/ / 11/21/2017 17:07:41 Adrian Harris MD / [facility] Interpreting Provider: Adrian Harris MD Cervical Spine MRI 11/21/17 18:20 IMPRESSION: No cervical spinal cord compression or cord signal abnormality. C5-6 spondylosis with mild spinal canal and foraminal stenosis. D/ / 11/21/2017 20:54:51 Adrian Harris MD / [facility] Interpreting Provider: Adrian Harris MD Thoracic Spine MRI 11/21/17 18:20 IMPRESSION: Multilevel degenerative disc disease in the thoracolumbar spine as described. See above for details. There is no canal narrowing. There is no definitive foraminal narrowing. D/ / Ankit Patel / Ankit Patel Interpreting Provider: Ankit Patel (4) DVT prophylaxis Current Visit: Yes Status: Acute Assessment and plan: Heparin SQ BID. Encourage ambulation. (5) Weakness generalized Current Visit: Yes Status: Acute Assessment and plan: Pt reports increased weakness due to decreased mobility secondary to back pain. Pt is requesting to go to rehab. PT/OT consulted media services director for placement. Pt reports four falls at home in the last 6 mos. - Time Spent With Patient Total time spent is greater than 50% in coordination of care (as documented) at patient's floor/unit and/or counseling patient: less than 15 minutes - Subjective Interval history: Patient was seen and assessed at bedside 1050 AM. Today he states that he could go home if he can't get into a rehab, and states that he is going to get a new apartment and could move by the end of next week. He denies headache or blurred vision, chest pain upon exam, no shortness of breath or nausea vomiting. No abdominal pain no peripheral edema. He is able to get up and walk in the room with his walker. - Constitutional Vitals: Temp Pulse Resp BP Pulse Ox 97.5 F L 76 18 147/92 95 11/24/17 07:20 11/24/17 07:20 11/24/17 07:20 11/24/17 07:20 11/24/17 07:20 General appearance: Present: cooperative, A&O X 3, morbidly obese, pleasant, no acute distress, answers questions appropriately. Absent: mild distress - Head Head exam: Present: atraumatic, normal inspection, normocephalic - Eye Eye exam: Present: normal appearance, conjuntiva pink, sclera anicteric - Neck Neck exam general surgery: Present: supple, trachea midline. Absent: lymphadenopathy - Respiratory Respiratory exam: Present: CTAB. Absent: accessory muscle use, rales, rhonchi, wheezes - Cardiovascular Cardiovascular exam: Present: RRR, +S1, +S2. Absent: diastolic murmur, gallop, rubs, systolic murmur - GI/Abdominal GI/Abdominal exam: Present: normal bowel sounds, soft. Absent: distended, hepatomegaly, tenderness - Extremities Exam Extremities exam: Present: normal capillary refill, normal inspection, warm, radial pulses palpable and symmetrical. Absent: calf tenderness, cyanotic, pedal edema, tenderness - Neurological Exam Neurological exam: Present: alert, oriented X3, no focal deficits. Absent: strengths equal and symetr throughout, facial droop, speech deficit - Skin Skin exam: Present: dry, intact, normal color, warm. Absent: rash Internal Medicine: Result - Labs CBC & Chem 7: 11/24/17 04:11 11/24/17 04:11 Labs: Short CBC 11/24/17 Range/Units 04:11 WBC 7.9 (4.3-11.1) K/mcL Hgb 13.7 (12.9-16.9) g/dL Hct 41.2 (37.5-50.1) % Plt Count 259 (140-400) K/mcL Neutrophils # 6.6 (1.6-8.9) K/mcL BMP 11/24/17 04:11 Sodium 133 L Potassium 4.3 Chloride 104 Carbon Dioxide 19 L BUN 26 H Creatinine 1.08 Glucose 423 H Calcium 9.1 - ABG Interpretation ABG results: PT/INR, D-dimer PT 10.4 Seconds (9.4-12.1) 11/21/17 10:44 - Impressions Impressions Cervical Spine MRI 11/21/17 18:20 IMPRESSION: No cervical spinal cord compression or cord signal abnormality. C5-6 spondylosis with mild spinal canal and foraminal stenosis. D/ / 11/21/2017 20:54:51 Adrian Harris MD / Danielle Hollins Interpreting Provider: Adrian Harris MD Consult Discharge Plan - Plan Referrals: Subha Baird, WOODEN FRAME BUILDER [Primary Care Provider] -
[2017-11-24] MEDS: (Anoro Ellipta 62.5-2) IH SCH (07:42)
[2017-11-24] MEDS: Tiotropium 18 MCG inhalation IH SCH ×2 (07:43→10:28)
--- NOTE | 2017-11-24 09:04 | Neurology Progress Note ---
Date of Encounter: 11/24/17 Time of Encounter: 07:20 Assessment and Plan (1) Spell of altered consciousness Current Visit: Yes Status: Acute no more spell since in hospital, may do EEG but likely would be inconclusive, suggest 48 hours ambulatory EEG, need f/u in office and will set it up no AEDS for now no evidence of Stroke on MRI and MRA of head (2) Lumbar disc disease Current Visit: Yes Status: Chronic left leg weakness and pain is likley from lumbar stenosis and DJD , f/u with pain management for possible MARY PT OT may benefit from short term rehab, f/u PT recommendations may DC steroids at DC for lumbar stenosis contnue of GABAPENTIN 300 mg po tid OK to DC from Neuro stand point Subjective Interval history: stable NO more starring spells so far neuro work up negative, still pain and weakness in left leg Objective - Constitutional Vitals: Temp Pulse Resp BP Pulse Ox 97.5 F L 76 18 147/92 94 11/24/17 07:20 11/24/17 07:20 11/24/17 07:45 11/24/17 07:20 11/24/17 07:45 - Neurological Exam Motor examination - right side: 4/5: deltoids, biceps, triceps, wrist flexion, wrist extension, survey associate, hip flexors, tibialis Anterior, quadriceps, toe extension (EHL), plantarflexion Motor examination - left side: 3/5: hip flexors, survey associate, quadriceps, tibialis Anterior, toe extension (EHL), plantarflexion, 4/5: deltoids, biceps, triceps, wrist flexion, wrist extension Sensation intact: Present: intact Reflex and gait examination: intact Reflexes: Biceps: 1+, Triceps: 1+, Brachioradialis: 1+, Patella: 2+, Achilles: 1 + Mental Status Examination: Present: awake, alert, oriented to person, oriented to place, follows commands appropriately, answers questions appropriately Cranial nerve examination: Present: PERRL, EOMI, visual carrillo intact Results - Laboratory Findings CBC and BMP: 11/24/17 04:11 11/24/17 04:11 Abnormal lab findings: Abnormal lab results Nucleated RBCs/100 WBC 0.6 /100 WBC (0) H 11/22/17 03:54 Sodium 133 mEq/L (136-145) L 11/24/17 04:11 Carbon Dioxide 19 mEq/L (23-29) L 11/24/17 04:11 BUN 26 mg/dL (8-23) H 11/24/17 04:11 Glucose 423 mg/dL (70-105) H 11/24/17 04:11 Consult Discharge Plan - Plan Referrals: Subha Baird, PAYLOADER MACHINE OPERATOR [Primary Care Provider] -
[2017-11-24] MEDS: Lactobacillus 1 EACH CAP.SPRINK PO SCH (09:39)
[2017-11-24] MEDS: *HR* Heparin 5,000 UNIT/ML VIAL SQ SCH ×2 (09:39→18:12)
[2017-11-24] MEDS ORDERED: Dextrose Gel 15 GM/37.5 ML TUBE PO PRN ×2 (17:45)
[2017-11-24] MEDS ORDERED: D5% in Water 1,000 ML IVC PRN (17:45)
[2017-11-24] MEDS ORDERED: *HR* Dextrose 50 % in Water (Syg) 50 ML SYRINGE IVP PRN (17:45)
[2017-11-24] MEDS: Insulin LISPRO 300 UNITS/3 ML VIAL SQ SCH (18:11)
[2017-11-24 19:46] LABS: Estimated Average Glucose 197 mg/dl; Hemoglobin A1C 8.5 %
[2017-11-24] MEDS ORDERED: Insulin LISPRO 300 UNITS/3 ML VIAL SQ SCH (21:00)
[2017-11-25] MEDS: *HR* Heparin 5,000 UNIT/ML VIAL SQ SCH (05:50)
[2017-11-25 06:10] LABS: Basophils % 0.3 %; Eosinophils # 0.1 K/mcL (0.0-0.6); Eosinophils % 0.9 %; Hematocrit 44.1 % (37.5-50.1); Hemoglobin 14.2 g/dL (12.9-16.9); Immature Granulocytes % 1.7 % (0-4); Lymphocytes # 2.4 K/mcL (0.6-4.6); Lymphocytes % 34.6 %; Mean Corpuscular HGB Conc 32.2 g/dL (31.6-35.5); Mean Corpuscular Hemoglobin 30.1 pg (28.0-33.3); Mean Corpuscular Volume 93.6 fL (83.0-100.0); Monocytes # 0.4 K/mcL (0.0-1.3); Monocytes % 5.4 %; Platelet Count 254 K/mcL (140-400); Red Blood Count 4.71 M/mcL (4.19-5.50); Red Cell Distribution Width 14.3 % (11.5-14.5); Segmented Neutrophils % 57.1 %
[2017-11-25] MEDS: (Anoro Ellipta 62.5-2) IH SCH (07:38)
[2017-11-25 07:42] LABS: BUN/Creatinine Ratio 21 (6-26); Blood Urea Nitrogen 24 mg/dL (8-23); Calcium 8.9 mg/dL (8.6-10.3); Carbon Dioxide 21 mEq/L (23-29); Chloride 104 mEq/L (98-107); Glucose 179 mg/dL (70-105); Osmolality,Calculated 291 (280-300); Potassium 4.8 mEq/L (3.5-5.1); Sodium 136 mEq/L (136-145); eGFR For African Americans > 60 (> 60); eGFR For Non-African Americans > 60 (> 60)
[2017-11-25] MEDS: Tiotropium 18 MCG inhalation IH SCH (07:50)
[2017-11-25] MEDS: Insulin LISPRO 300 UNITS/3 ML VIAL SQ SCH (08:33)
[2017-11-25] MEDS: Lactobacillus 1 EACH CAP.SPRINK PO SCH (08:34)
--- NOTE | 2017-11-25 10:34 | Discharge Summary ---
- NOTES TO OUTPATIENT PROVIDER Notes to Outpatient Provider: Recommend follow-up within 7-10 days for BP recheck. Will need to follow-up with neurology outpatient for today EEG Date of Encounter: 11/25/17 Time of Encounter: 10:34 - Discharge Diagnosis (1) Loss of consciousness Priority: Primary Status: Acute Comments: presented after an episode of staring that lasted 10 minutes; no associated jerking, shaking or any other postictal abnormalities. Head CT, brain MRI, C- spine, T-spine, L-spine MRI nonacute. Evaluated by neurology who suspected possible complex partial/absence seizures. Neurology did not recommend starting a ED at this time. Will need to have a 40 hour ambulatory EEG outpatient. No symptom recurrence while hospitalized. Remains neurologically intact. Follow-up with neurology outpatient. (2) COPD (chronic obstructive pulmonary disease) Priority: Primary Status: Acute Comments: per hx. with chronic respiratory failure; on oxygen at home. Treated for mild exacerbation with IV steroids and inhalers this hospitalization. Afebrile, no elevated WBC. Discharge home on steroid burst. Continue home inhalers. Qualifiers: COPD type: unspecified COPD Qualified Code(s): J44.9 - Chronic obstructive pulmonary disease, unspecified (3) Lumbar disc disease Priority: Primary Status: Chronic Comments: Symptomatic with lower extremity weakness. C-spine, T-spine, L-spine MRIs with significant degenerative changes and foraminal stenosis in his lumbar spine. Evaluated by PT/OT who recommended continuing therapy with HHC. He is established with pain management and recommend following up at the spine pain center. Discharge home on low dose gabapentin per neurology recommendations. (4) Elevated blood pressure reading Priority: Primary Status: Acute Comments: BP mildly elevated at times while hospitalized. No official diagnosis of hypertension. Possibly secondary to pain/anxiety. Hold on initiating antihypertensive at this time. Recommend follow-up with PCP within 7-10 days for BP recheck Hospital course: See assessment and plan for hospital course Discharge discussed with: patient (Seen and examined at bedside. Patient is new to me, information obtained from chart review and patient report. Patient says he feels much better would like to discharge home today. Still has some lower extremity weakness but overall improved. No chest pain or shortness of breath. No recurrence of staring spells.) - Time Spent with Patient Total time spent providing and/or coordinating discharge services: - Discharge Medications Prescriptions: Gabapentin [Neurontin] 100 mg PO HS #30 capsule predniSONE [PredniSONE] 40 mg PO DAILY #10 tablet Home Medications: Albuterol Sulfate [Albuterol Inhaler] 2 puff IH Q4-6H PRN 03/20/17 [History] Albuterol Neb [Proventil Neb] 2.5 mg IH Q6HR PRN 08/26/17 [History] Multivit-Min/FA/Lycopen/Lutein [Men 50 Plus Multivitamin Tab] 1 each PO DAILY [History] Oxygen 4 l IN CONT 08/26/17 [History] Saw [place] Xtr/Zinc Picolin [Saw [place] Capsule] 1 each PO DAILY 08/26/17 [ History] Umeclidinium Brm/Vilanterol Tr [Anoro Ellipta 62.5-25 Mcg INH] 1 each IH DAILY 08/26/17 [History] Gabapentin [Neurontin] 100 mg PO HS #30 capsule 11/25/17 [Rx] predniSONE [PredniSONE] 40 mg PO DAILY #10 tablet 11/25/17 [Rx] Allergies/Adverse Reactions: 3 Allergy/AdvReac Type Severity Reaction Status Date / Time Penicillins Allergy Severe Anaphylaxis Verified 08/26/17 12:55 morphine Allergy Anaphylaxis Verified 05/01/17 15:58 Oxycodone [From Percocet] Allergy Hives Verified 03/20/17 11:58 aspirin AdvReac Nausea Verified 03/20/17 11:58 chlorpromazine AdvReac Cramping Verified 03/20/17 11:58 [From Thorazine] of the Muscles codeine AdvReac Nausea Verified 05/01/17 15:59 hydrocodone [From Vicodin] AdvReac Nausea Verified 03/20/17 11:58 chlorine AdvReac Severe Anaphylaxis Uncoded 08/26/17 12:55 Date of admission: 11/24/17 16:13 Primary care physician: Subha Baird CNP Discharging clinician: Nirmala Sauceda Anticipated date of discharge: 11/25/17 - Constitutional Vitals: Temp Pulse Resp BP Pulse Ox 97.7 F 89 16 146/96 95 11/25/17 08:03 11/25/17 08:03 11/25/17 08:03 11/25/17 08:03 11/25/17 08:03 General appearance: Present: cooperative, A&O X 3, morbidly obese, pleasant, no acute distress, answers questions appropriately. Absent: mild distress - Head Head exam: Present: atraumatic, normocephalic - Eye Eye exam: Present: PERRL, conjuntiva pink, sclera anicteric Pupils: Present: PERRL - Neck Neck exam general surgery: Present: supple, trachea midline. Absent: lymphadenopathy - Respiratory Respiratory exam: Present: CTAB. Absent: accessory muscle use, rales, rhonchi, wheezes - Cardiovascular Cardiovascular exam: Present: RRR, +S1, +S2. Absent: diastolic murmur, gallop, rubs, systolic murmur - GI/Abdominal GI/Abdominal exam: Present: normal bowel sounds, soft, no peritoneal signs. Absent: distended, tenderness - Extremities Exam Extremities exam: Present: warm, radial pulses palpable and symmetrical. Absent : calf tenderness, cyanotic, pedal edema - Neurological Exam Neurological exam: Present: CN II-XII intact, oriented X3, no focal deficits. Absent: pronater drift, facial droop, speech deficit - Skin Skin exam: Present: dry, intact - Patient Status Disposition: Home Health Service Condition: Good Functional capacity at discharge: uses cane/walker Overall status at discharge: patient is progressing back to baseline - Discharge Instructions Instructions: Chronic Obstructive Pulmonary Disease (DC), Prednisone (By mouth) , Gabapentin (By mouth), Lumbar Spinal Stenosis (DC) Follow Up With: Subha Baird CNP [Primary Care Provider] - 12/02/17 9:00 am (Please call for follow-up appointment within 7-10 days for BP recheck) Judy White MD [Partnered Physician] - 12/03/17 8:15 am (Please call the office if you have not heard from them within 2-3 weeks for follow-up appointment.) Ankit Vegas Jr, MD [Partnered Physician] - (Please follow-up with your physician at the spine center for further management of lumbar stenosis) - Diet and Activity Activity: as per physical therapy, increase activity as tolerated Diet: advance to your usual diet - VTE Documentation of Mechanical Device: Graduated compression elastic hosiery
[2017-11-25 10:37] VITALS: BP 112/76
--- NOTE | 2017-11-25 10:54 | Physician Discharge Referral ---
Home Health/Hosp Referral Info Transfer to: Home Health Attending Provider: Nirmala Sauceda CNP Provider in Charge Post Discharge: PCP - Diagnosis (1) Loss of consciousness Status: Acute (2) COPD (chronic obstructive pulmonary disease) Status: Acute (3) Lumbar disc disease Status: Chronic (4) Elevated blood pressure reading Status: Acute - Respiratory Orders Oxygen / L per min (2) Smoking Cessation: Smoking cessation has been advised. For more information, call the [place] Tobacco Quit Line at 7-920-TEIL-NOW. - Diet/Nutrition Diet/Nutrition Orders: Regular - Activity Activity Orders: Ambulate, Walker - Services Needed Following services are medically necessary services: Nursing, Home Health Aide, Physical Therapy, Occupational Therapy - Transfer Medications Prescriptions: Gabapentin [Neurontin] 100 mg PO HS #30 capsule predniSONE [PredniSONE] 40 mg PO DAILY #10 tablet Home Medications: Albuterol Sulfate [Albuterol Inhaler] 2 puff IH Q4-6H PRN 03/20/17 [History] Albuterol Neb [Proventil Neb] 2.5 mg IH Q6HR PRN 08/26/17 [History] Multivit-Min/FA/Lycopen/Lutein [Men 50 Plus Multivitamin Tab] 1 each PO DAILY [History] Oxygen 4 l IN CONT 08/26/17 [History] Saw [place] Xtr/Zinc Picolin [Saw [place] Capsule] 1 each PO DAILY 08/26/17 [ History] Umeclidinium Brm/Vilanterol Tr [Anoro Ellipta 62.5-25 Mcg INH] 1 each IH DAILY 08/26/17 [History] Gabapentin [Neurontin] 100 mg PO HS #30 capsule 11/25/17 [Rx] predniSONE [PredniSONE] 40 mg PO DAILY #10 tablet 11/25/17 [Rx] Allergies/Adverse Reactions: 3 Allergy/AdvReac Type Severity Reaction Status Date / Time Penicillins Allergy Severe Anaphylaxis Verified 08/26/17 12:55 morphine Allergy Anaphylaxis Verified 05/01/17 15:58 Oxycodone [From Percocet] Allergy Hives Verified 03/20/17 11:58 aspirin AdvReac Nausea Verified 03/20/17 11:58 chlorpromazine AdvReac Cramping Verified 03/20/17 11:58 [From Thorazine] of the Muscles codeine AdvReac Nausea Verified 05/01/17 15:59 hydrocodone [From Vicodin] AdvReac Nausea Verified 03/20/17 11:58 chlorine AdvReac Severe Anaphylaxis Uncoded 08/26/17 12:55 Certification: Further, I certify that my clinical findings support that this patient is homebound (i.e. absences from home require considerable and taxing effort and are for medical reasons or [employer] services or infrequently or short duration when for other reasons) because: Homebound Reason: Patient requires assistance of a person or device to safely leave home Attestation: My signature below is to certify that this patient is under my care and that I, or nurse practitioner, or a physician's assistant district attorney working with me, has a face-to -face encounter with this patient.
--- NOTE | 2017-11-28 08:33 | Electrocardiograph Report ---
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
--- NOTE | 2017-11-28 09:13 | Electrocardiograph Report ---
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
== END 2017-11-25 11:57 | disposition home health service (06) | DRG 312 ==
LOC: 3BNU 10:30 → EMEROO 10:30 → 3BNU 18:40
PROVIDERS: ADMIT Internal Medicine; ATTEND Registered Nurse

== ENCOUNTER 2018-01-26 11:09 | Inpatient (IN) ==
--- NOTE | 2018-01-26 11:25 | Emergency Department Note ---
Disposition Clinical Impression: Hyperglycemia Disposition: Admitted As Inpatient Condition: Fair Forms: ED Satisfaction Letter Time of Disposition: 15:58 Weakness HPI - General Chief complaint: ED Weakness Stated complaint: diabetic complications Time Seen by Provider: 01/26/18 11:19 Source: patient Mode of arrival: ambulatory Limitations: no limitations Nursing Notes Reviewed: Yes Vital Signs Reviewed: Yes - History of Present Illness HPI Narrative: 62yo male past medical history of COPD, diastolic CHF, hyperlipidemia presented to [facility] via EMS from his PCP office after falling to ground due to weakness. Patient reported that he felt weak and short of breath and that his glucose has been above 400 this weekend. He said he had been newly diagnosed with diabetes and is going to see his PCP who is going to start prescribing him insulin. Additionally, he has had nausea, vomiting, and coughing. He denied fever, chills, chest pain, abdominal pain. Pain Scale: 0 - Related Data Home Medications Medication Instructions Recorded Confirmed Albuterol Sulfate [Albuterol 2 puff IH Q4-6H PRN 03/20/17 11/21/17 Inhaler] Multivit-Min/FA/Lycopen/Lutein 1 each PO DAILY 08/26/17 11/21/17 [Men 50 Plus Multivitamin Tab] Oxygen 4 l IN CONT 08/26/17 11/21/17 Saw [place] Xtr/Zinc Picolin [Saw 1 each PO DAILY 08/26/17 11/21/17 [place] Capsule] Umeclidinium Brm/Vilanterol Tr 1 each IH DAILY 08/26/17 11/21/17 [Anoro Ellipta 62.5-25 Mcg INH] Lactobacillus Combination No.8 1 cap PO HS 01/26/18 01/26/18 [Adult Probiotic] Polyethylene Glycol 3350 [MiraLAX] 17 gm PO DAILY 01/26/18 01/26/18 Allergies Allergy/AdvReac Type Severity Reaction Status Date / Time Penicillins Allergy Severe Anaphylaxis Verified 01/26/18 14:28 morphine Allergy Anaphylaxis Verified 01/26/18 14:28 Oxycodone [From Percocet] Allergy Hives Verified 01/26/18 14:28 aspirin AdvReac Nausea Verified 01/26/18 14:28 chlorpromazine AdvReac Cramping Verified 01/26/18 14:28 [From Thorazine] of the Muscles codeine AdvReac Nausea Verified 01/26/18 14:28 hydrocodone [From Vicodin] AdvReac Nausea Verified 01/26/18 14:28 chlorine AdvReac Severe Anaphylaxis Uncoded 01/26/18 14:28 All systems ED: reviewed and negative except as stated. Review of Systems: As Per HPI Constitutional: Denies: fever, chills Eyes: Denies: vision change Cardiovascular: Denies: chest pain Respiratory: Reports: cough, dyspnea, wheezes, sputum production Gastrointestinal: Reports: abdominal pain, nausea Genitourinary: Reports: frequency. Denies: dysuria Integumentary: Denies: rash Neurological: Reports: headache, weakness Allergic/Immunologic: Denies: facial swelling Past Medical History - Past Medical History Attestation: Yes The following information was validated with the patient. Source: patient Medical history: Reports: CHF, COPD, diabetes, hyperlipidemia, hypertension, kidney stones, liver disease, other Surgical history: Reports: cholecystectomy, herniorrhaphy, orthopedic, other Psychiatric history: Reports: no psych history - Social History Smoking Status: Former smoker Smokeless Tobacco Status: No Alcohol use: Reports: none Drug use: Reports: none Physical Exam - General Limitations: no limitations General appearance: alert - Head Head exam: atraumatic, normocephalic - Eye Eye exam: Present: normal appearance - ENT ENT exam: mucous membranes dry - Neck Neck exam: Present: normal inspection - Respiratory Respiratory exam: Present: wheezes (right lower lobe). Absent: stridor - Cardiovascular Cardiovascular exam: Present: normal rhythm, tachycardia - Abdominal Exam Abdominal exam: Present: soft, Non-Tender, normal bowel sounds. Absent: guarding, rigidity - Extremities Exam Extremities exam: Present: normal inspection. Absent: tenderness - Neurological Exam Neurological exam: Present: alert, oriented X3 - Psychiatric Psychiatric exam: Present: normal affect, normal mood - Skin Skin exam: Present: dry, intact Course Course Narrative: 62yo male past medical history of COPD, diastolic CHF, hyperlipidemia presented to [facility] via EMS from his PCP office after falling to ground due to weakness. Patient reported that he felt weak and short of breath and that his glucose has been above 400 this weekend. He said he had been newly diagnosed with diabetes and is going to see his PCP who is going to start prescribing him insulin. Additionally, he has had nausea, vomiting, and coughing. He denied fever, chills, chest pain, abdominal pain. This is likely DKA. Differential includes HHS, pneumonia, ACS, pneumothorax. Will order a CBC , BMP, troponin, chest x-ray, EKG, lactic acid, blood culture, beta- hydroxybutyrate. - Reevaluation(s) Reevaluation #1: He reported improvements shortness of breath after Xopenex treatment. Chest x- ray demonstrated right upper lobe pneumonia. Time: 13:58 Reevaluation #2: Labs demonstrated a high and on gap metabolic acidosis. He likely has DKA. Patient given insulin 10 units and Time: 14:22 Reevaluation #3: Patient has received the 2 units of insulin and has been started on the IV insulin drip, glucose is now 350. Time: 15:29 Vital Signs Temperature 98.2 F 01/26/18 11:14 Pulse Rate 135 01/26/18 11:14 Respiratory Rate 22 01/26/18 11:14 Blood Pressure 182/114 01/26/18 11:14 O2 Sat by Pulse Oximetry 97 01/26/18 11:14 Temperature 98.2 F 01/26/18 11:14 Pulse Rate 115 01/26/18 12:58 Respiratory Rate 22 01/26/18 12:58 Blood Pressure 162/112 01/26/18 12:58 O2 Sat by Pulse Oximetry 96 01/26/18 12:58 Oxygen Delivery Oxygen Delivery Nasal Cannula Weakness - MDM Narrative Medical decision making narrative: 62yo male past medical history of COPD, diastolic CHF, hyperlipidemia presented to [facility] via EMS from his PCP office after falling to ground due to weakness. Patient reported that he felt weak and short of breath and that his glucose has been above 400 this weekend. He said he had been newly diagnosed with diabetes and is going to see his PCP who is going to start prescribing him insulin since he is currently not taking any medication for it. Additionally, he has had nausea, vomiting, and coughing. He wears 3 L of oxygen at home. He denied fever, chills, chest pain, abdominal pain. CBC was unremarkable. Labs demonstrated a high anion gap metabolic acidosis. Positive for beta-hydroxybutyric acid. Chest x-ray demonstrated right upper lobe pneumonia. He was started on Solu-Medrol, Levaquin, duoneb, and Xopenex. He was given 10 units insulin and started on an insulin drip along with 2 L of IV fluids. His glucose decreased from 453 to [address] Vergara accepted admission to tree him for right upper lobe pneumonia and DKA. - Differential Diagnosis Differential Diagnosis: Likely: metabolic - Medical Records Medical records reviewed: Yes I reviewed the patient's medical records. - Lab Data Lab results reviewed: Yes I reviewed the patient's lab results. Result diagrams: 01/26/18 12:03 01/26/18 12:03 Lab Results 01/26/18 01/26/18 01/26/18 Range/Units 12:03 12: 12:03 WBC 9.6 (4.3-11.1) K/mcL RBC 4.42 (4.19-5.50) M/mcL Hgb 13.5 (12.9-16.9) g/dL Hct 43.0 (37.5-50.1) % MCV 97.3 (83.0-100.0) fL MCH 30.5 (28.0-33.3) pg MCHC 31.4 L (31.6-35.5) g/dL RDW 15.2 H (11.5-14.5) % Plt Count 194 (140-400) K/mcL MPV 10.5 (9.4-12.4) fL Immature Gran % 3.1 (0-4) % Seg Neutrophils % 78.9 % Lymphocytes % 8.5 % Monocytes % 6.6 % Eosinophils % 2.4 % Basophils % 0.5 % Neutrophils # 7.6 (1.6-8.9) K/mcL Lymphocytes # 0.8 (0.6-4.6) K/mcL Monocytes # 0.6 (0.0-1.3) K/mcL Eosinophils # 0.2 (0.0-0.6) K/mcL Basophils # 0.1 (0.0-0.2) K/mcL Sodium 128 L (136-145) mEq/L Potassium 4.4 (3.5-5.1) mEq/L Chloride 102 (98-107) mEq/L Carbon Dioxide 4 L* (23-29) mEq/L BUN 21 (8-23) mg/dL Creatinine 1.18 (0.70-1.30) mg/dL Est GFR ( Amer) > 60 (> 60) Est GFR (Non-Af Amer) > 60 (> 60) BUN/Creatinine Ratio 18 (6-26) Glucose 453 H (70-105) mg/dL Calculated Osmolality 289 (280-300) Calcium 8.7 (8.6-10.3) mg/dL Troponin I < 0.03 (< 0.04) ng/mL Beta-Hydroxybutyric Acd > 2.00 H (0.02-0.27) mmol/L - Radiology Data Radiology results reviewed: Yes I reviewed the patient's radiology results. Chest X-Ray 01/26/18 11:19 IMPRESSION: New infiltrate in the right upper lobe. Chronic interstitial findings in the lung bases and emphysema are again demonstrated. D/ / Janes Monsivais / Janes Monsivais Interpreting Provider: Janes Monsivais - EKG Data EKG attestation: Yes I reviewed and interpreted this EKG. EKG results narrative: EKG HR 115, normal sinus rhythm, no axis, no ST or T wave changes. Similar to past EKG TX 161, QRS 86, QT/QTC 345/413 EKG shows normal: sinus rhythm Rate: tachycardia Rhythm: NSR [place]/QRS: normal
[2018-01-26] MEDS ORDERED: Levalbuterol Neb 1.25 MG/3 ML IH ONE (11:39)
[2018-01-26] MEDS ORDERED: 0.9 % Sodium Chloride 1,000 ML IVC ONE ×2 (11:43→13:21)
[2018-01-26] MEDS ORDERED: methylPREDNISolone 125 MG/2 ML VIAL IVP ONE (11:43)
[2018-01-26] MEDS ORDERED: Levofloxacin 750 MG/150 ML 750 MG/150 ML BAG IVPB ONE (11:44)
[2018-01-26 12:31] LABS: Basophils # 0.1 K/mcL (0.0-0.2); Basophils % 0.5 %; Eosinophils # 0.2 K/mcL (0.0-0.6); Eosinophils % 2.4 %; Hemoglobin 13.5 g/dL (12.9-16.9); Immature Granulocytes % 3.1 % (0-4); Lymphocytes # 0.8 K/mcL (0.6-4.6); Lymphocytes % 8.5 %; Mean Corpuscular HGB Conc 31.4 g/dL (31.6-35.5); Mean Corpuscular Hemoglobin 30.5 pg (28.0-33.3); Mean Corpuscular Volume 97.3 fL (83.0-100.0); Mean Platelet Volume 10.5 fL (9.4-12.4); Monocytes # 0.6 K/mcL (0.0-1.3); Monocytes % 6.6 %; Neutrophils # 7.6 K/mcL (1.6-8.9); Platelet Count 194 K/mcL (140-400); Red Blood Count 4.42 M/mcL (4.19-5.50); Red Cell Distribution Width 15.2 % (11.5-14.5); Segmented Neutrophils % 78.9 %
[2018-01-26 12:49] LABS: Troponin I < 0.03 ng/mL (< 0.04)
[2018-01-26 13:09] LABS: BUN/Creatinine Ratio 18 (6-26); Blood Urea Nitrogen 21 mg/dL (8-23); Calcium 8.7 mg/dL (8.6-10.3); Carbon Dioxide 4 mEq/L (23-29); Chloride 102 mEq/L (98-107); Glucose 453 mg/dL (70-105); Osmolality,Calculated 289 (280-300); Potassium 4.4 mEq/L (3.5-5.1); Sodium 128 mEq/L (136-145); eGFR For African Americans > 60 (> 60); eGFR For Non-African Americans > 60 (> 60)
[2018-01-26] MEDS ORDERED: Ipratropium/Albuterol Neb 3 ML IH ONE (13:21)
[2018-01-26] MEDS ORDERED: Insulin Regular, Human 100 UNIT/ML IV ONE (13:22)
[2018-01-26] MEDS ORDERED: Insulin Regular, Human 100 UNIT/ML IV PRN ×2 (13:22→17:37)
[2018-01-26] MEDS ORDERED: *HR* Dextrose 50 % in Water (Syg) 50 ML SYRINGE IVP PRN ×2 (13:22→17:37)
[2018-01-26] MEDS ORDERED: Insulin Human Regular 100 UNIT in 0.9 % Sodium Chloride 100 ML IVC SCH (13:30)
[2018-01-26] MEDS ORDERED: Insulin Human Regular 10 UNIT in 0.9 % Sodium Chloride 10 ML IV ONE (13:32)
[2018-01-26 13:57] LABS: ABG PCO2 < 13 mmHg (35-45); ABG PH 7.18 pH Units (7.32-7.45); ABG PO2 101 mmHg (85-104)
--- NOTE | 2018-01-26 13:57 | Emergency Department Note ---
START Narrative - START START: I examined this patient and my medical decision-making was reviewed with the Resident Physician. I agree with the documented findings, disposition and treatment plan as described except to the extent set forth below. 62-year-old male presents emergency room for multiple medical issues. Patient was recently diagnosed with diabetes. He has been uncontrolled with his sugars. He was found to be in diabetic ketoacidosis here. We have started him on IV fluids, insulin drip. His bicarbonate was less than 4. PH is 7.1. Ketones are elevated. Patient also found to have right upper lobe pneumonia. He was started on Levaquin for this. Cultures obtained. He is hemodynamically stable to go to the floor. He is given DuoNeb treatments as well as some steroids. His potassium was okay. Critical care time spent in medical management of pneumonia as well as diabetic ketoacidosis of 35 minutes.
[2018-01-26 16:10] LABS: Bilirubin,Urine Negative (Negative); Blood,Urine Small (Negative); Clarity,Urine Clear (Clear); Color,Urine Yellow (Yellow); Glucose,Urine (UA) >=1000 mg/dL (Normal); Ketones,Urine >=160 mg/dL (Negative); Leukocyte Esterase,Urine Negative (Negative); Nitrite,Urine Negative (Negative); Protein,Urine 100 mg/dL (Neg-Trace); Specific Gravity,Urine > 1.030 (1.010-1.025); Urobilinogen,Urine Normal (Normal)
[2018-01-26 16:12] LABS: Bacteria,Urine None Seen per hpf (None-Few); Hyaline Casts,Urine None Seen per lpf (None-Few); Squamous Epithelial Cell,Urine Moderate per lpf (None-Few); WBC,Urine 0-3 per hpf (0-3)
--- NOTE | 2018-01-26 17:03 | Internal Med History&Physical ---
Date of Encounter: 01/26/18 Time of Encounter: 16:26 Internal Medicine - H&P: HPI Admitted From: Emergency Dept Plans for Post Hospital Care: Home History of present illness: Mr. Colin is a 62 year old male obesity, newly diagnosed diabetes type II ( diagnosed 1 week ago), COPD (emphysema), HTN, HLD, crhonic diastolic CHF, lumbar disc disease, GERD, non-alcoholic fatty liver disease, and chronic respiratory failure on 3L NC 03/03. Pt states last is glucose was 525 at home and became worse as the weekend progressed. [facility] PCP was considering starting him on Insulin per PCP last Fri but placed him on oral meds for now. He went in to see his PCP today and there his glucose was 450. While at PCP office he almost collapsed. He has been requiring more oxygen than his baseline. Reports coughing but had had difficulty expectorating. States he quit smoking a year ago, December 2016. He does report some difficulty expectorating. States he is unsure about fever or chills. In ED CBC reviewed. BMP Na 128, K 4.4, BUN 21, Cr1.18. Glucose 453, Beta-hydroxybutyric acid > 2.00. PH 7.18, pCO2 <13, HCO3 TNP, oxygen sat TNP. Urine analysis urine ketones > 160, urine glucose > 1000, Ur SPG > 1.030. leuks neg, nitrite neg, bacteria non seen. Chest x ray IMPRESSION: New infiltrate in the right upper lobe. Chronic interstitial findings in the lung bases and emphysema are again demonstrated. Past Med Surg Social Fam HX - Past Medical History Medical history: CHF, COPD, diabetes, hyperlipidemia, hypertension, kidney stones, liver disease, other Additional medical history: cholelithiasis. nicotine dependence. declined smoking cessation Psychiatric history: no psych history - Past Surgical History Surgical History: cholecystectomy, herniorrhaphy, orthopedic, other Additional surgical history: tonsil - Social History Smoking Status: Former smoker Smokeless Tobacco Status: No Alcohol use: none Drug use: none - Family History Sister Family Member Ethnicity: Non- Living Status: Still Living Hx Family Endocrine Disorder: Yes (diabetes) Maternal Adopted: No Family Member Ethnicity: Non- Living Status: Still Living Hx Family Cardiac Disorders: No Hx Family Respiratory Disorders: No Hx Family Cancer: No Hx Family GI Disorders: No Hx Family Endocrine Disorder: Yes Hx Family Neuromuscular Disorders: No Hx Family Neurologic Disorders: No Hx Family HEENT Disorders: Yes (degenerative eye dz) Hx Family Autoimmune Disorders: No Mother Family Member Ethnicity: Non- Living Status: Still Living Hx Family Endocrine Disorder: Yes (diabetes) Father Family Member Ethnicity: Non- Living Status: Hx Family Endocrine Disorder: Yes (DM) Hx Family Neurologic Disorders: Yes (Alzheimer's disease) Internal Medicine - H&P: Meds Albuterol Sulfate [Albuterol Inhaler] 2 puff IH Q4-6H PRN 03/20/17 [History] Multivit-Min/FA/Lycopen/Lutein [Men 50 Plus Multivitamin Tab] 1 tab PO DAILY [History] Oxygen 4 l IN CONT 08/26/17 [History] Saw [place] Xtr/Zinc Picolin [Saw [place] Capsule] 1 cap PO DAILY 08/26/17 [ History] Umeclidinium Brm/Vilanterol Tr [Anoro Ellipta 62.5-25 Mcg INH] 1 puff IH DAILY 08/26/17 [History] Lactobacillus Combination No.8 [Adult Probiotic] 1 cap PO HS 01/26/18 [History] Polyethylene Glycol 3350 [MiraLAX] 17 gm PO DAILY 01/26/18 [History] 3 Allergy/AdvReac Type Severity Reaction Status Date / Time Penicillins Allergy Severe Anaphylaxis Verified 01/26/18 14:28 morphine Allergy Anaphylaxis Verified 01/26/18 14:28 Oxycodone [From Percocet] Allergy Hives Verified 01/26/18 14:28 aspirin AdvReac Nausea Verified 01/26/18 14:28 chlorpromazine AdvReac Cramping Verified 01/26/18 14:28 [From Thorazine] of the Muscles codeine AdvReac Nausea Verified 01/26/18 14:28 hydrocodone [From Vicodin] AdvReac Nausea Verified 01/26/18 14:28 chlorine AdvReac Severe Anaphylaxis Uncoded 01/26/18 14:28 All Systems PM: A 10-system review of systems was performed and is negative for pertinent findings except as documented above in the HPI. - Constitutional Vitals: Temp Pulse Resp BP Pulse Ox 98.2 F 119 24 161/100 95 01/26/18 11:14 01/26/18 15:53 01/26/18 15:53 01/26/18 15:53 01/26/18 15:53 General appearance: Present: mild distress, A&O X 3, obese - Head Head exam: Present: atraumatic, normocephalic - Eye Eye exam: Present: PERRL, conjuntiva pink, sclera anicteric Pupils: Present: PERRL - Neck Neck exam general surgery: Present: supple, trachea midline. Absent: lymphadenopathy - Respiratory Respiratory exam: Present: decreased breath sounds. Absent: accessory muscle use, CTAB, rales, rhonchi, wheezes - Cardiovascular Cardiovascular exam: Present: RRR, +S1, +S2. Absent: diastolic murmur, gallop, rubs, systolic murmur - GI/Abdominal GI/Abdominal exam: Present: normal bowel sounds, soft, no peritoneal signs. Absent: distended, tenderness Additional comments: abdomen rotund. - Extremities Exam Extremities exam: Present: warm, radial pulses palpable and symmetrical. Absent : calf tenderness, cyanotic, pedal edema - Neurological Exam Neurological exam: Present: CN II-XII intact, oriented X3, no focal deficits. Absent: pronater drift, facial droop, speech deficit - Skin Skin exam: Present: dry, intact Internal Med - H&P Results - Labs CBC & Chem 7: 01/26/18 12:03 01/26/18 12:03 - Assessment and plan (1) DKA (diabetic ketoacidoses) Current Visit: Yes Status: Acute Assessment and plan: Started on Insulin gtt and will place on DKA protocol. Will monitor glucose, BMP, venous PH, and recheck serum ketone. Qualifiers: Qualified Code(s): E13.10 - Other specified diabetes mellitus with ketoacidosis without coma (2) Hyponatremia Current Visit: Yes Status: Acute Assessment and plan: Psuedo-hyponatremia likely due to hyperglycemia. Will monitor serial BMP. (3) Metabolic acidosis due to diabetes mellitus Current Visit: Yes Status: Acute (4) Community acquired pneumonia Current Visit: No Status: Acute Assessment and plan: Will place on Levaquin, will send sputum for culture. Will send blood cultures. Qualifiers: Laterality: left Lung location: lower lobe of lung Qualified Code(s): J18.1 - Lobar pneumonia, unspecified organism (5) Acute exacerbation of chronic obstructive pulmonary disease (COPD) Current Visit: No Status: Acute Assessment and plan: Duo nebs scheduled q 4 hours and prn. Oxygen supplement. Steroid taper. - Time Spent With Patient Total time spent is greater than 50% in coordination of care (as documented) at patient's floor/unit and/or counseling patient: 25 - 35 minutes
[2018-01-26] MEDS ORDERED: Naloxone 0.4 MG/ML INJ IVP PRN (17:37)
[2018-01-26] MEDS ORDERED: D5% in 0.45% NACL 1,000 ML IVC PRN (17:37)
[2018-01-26] MEDS ORDERED: 0.45 % Sodium Chloride w/KCl 20 MEQ/1,000 ML MLS IVC SCH (17:45)
[2018-01-26] MEDS ORDERED: Albuterol 2.5 MG/3 ML NEBULIZER IH PRN (17:48)
[2018-01-26 18:49] LABS: BUN/Creatinine Ratio 19 (6-26); Blood Urea Nitrogen 19 mg/dL (8-23); Calcium 8.5 mg/dL (8.6-10.3); Carbon Dioxide 7 mEq/L (23-29); Chloride 108 mEq/L (98-107); Glucose 235 mg/dL (70-105); Osmolality,Calculated 288 (280-300); Sodium 134 mEq/L (136-145); eGFR For African Americans > 60 (> 60); eGFR For Non-African Americans > 60 (> 60)
[2018-01-26 19:00] LABS: Estimated Average Glucose 349 mg/dl; Hemoglobin A1C 13.8 %
[2018-01-26] MEDS ORDERED: Sodium Bicarbonate 50 MEQ in 0.45 % Sodium Chloride 1,000 ML IVC SCH (19:00)
[2018-01-26] MEDS: MethylPREDNISolone 40 MG/ML VIAL IVP SCH ×2 (19:00→23:10)
[2018-01-26] MEDS ORDERED: SODIUM BICARBONATE IVC SCH (19:45)
[2018-01-26] MEDS ORDERED: SODIUM CHLORIDE 0.45% IVC SCH (19:45)
[2018-01-26] MEDS ORDERED: POTASSIUM CHLORIDE IVC SCH (19:45)
[2018-01-26 19:59] LABS: Amphetamine Screen,Urine Negative ng/mL (Cutoff=1000); Barbiturate Screen,Urine Negative ng/mL (Cutoff=200); Benzodiazepines Screen,Urine Negative ng/mL (Cutoff=200); Cannabinoid Screen,Urine Negative ng/mL (Cutoff = 50); Cocaine Screen,Urine Negative ng/mL (Cutoff= 300); Opiate Screen,Urine Negative ng/mL (Cutoff=300); Phencyclidine Screen,Urine Positive ng/mL (Cutoff=25)
[2018-01-26] MEDS: D5 IVC SCH (20:31)
[2018-01-26] MEDS: NACL IVC SCH (20:31)
[2018-01-26] MEDS: POTASSIUM CHLORIDE IVC SCH (20:31)
[2018-01-26] MEDS: SODIUM BICARBONATE IVC SCH (20:31)
[2018-01-26] MEDS: Insulin Human Regular 100 UNIT in 0.9 % Sodium Chloride 100 ML IVC SCH (21:29)
[2018-01-26] MEDS: Ipratropium/Albuterol Neb 3 ML IH SCH (22:46)
[2018-01-26 23:04] LABS: BUN/Creatinine Ratio 18 (6-26); Blood Urea Nitrogen 18 mg/dL (8-23); Calcium 8.2 mg/dL (8.6-10.3); Carbon Dioxide 8 mEq/L (23-29); Chloride 107 mEq/L (98-107); Glucose 207 mg/dL (70-105); Osmolality,Calculated 292 (280-300); Potassium 3.9 mEq/L (3.5-5.1); Sodium 137 mEq/L (136-145); eGFR For African Americans > 60 (> 60); eGFR For Non-African Americans > 60 (> 60)
[2018-01-27] MEDS: Insulin Human Regular 100 UNIT in 0.9 % Sodium Chloride 100 ML IVC SCH ×3 (00:57→12:30)
[2018-01-27 01:48] LABS: Basophils % 0.2 %; Eosinophils % 0.2 %; Hematocrit 35.9 % (37.5-50.1); Immature Granulocytes % 1.3 % (0-4); Lymphocytes # 0.5 K/mcL (0.6-4.6); Mean Corpuscular HGB Conc 32.9 g/dL (31.6-35.5); Mean Corpuscular Hemoglobin 31.5 pg (28.0-33.3); Mean Corpuscular Volume 95.7 fL (83.0-100.0); Mean Platelet Volume 9.9 fL (9.4-12.4); Monocytes # 0.1 K/mcL (0.0-1.3); Monocytes % 2.6 %; Neutrophils # 4.6 K/mcL (1.6-8.9); Platelet Count 164 K/mcL (140-400); Red Blood Count 3.75 M/mcL (4.19-5.50); Red Cell Distribution Width 14.8 % (11.5-14.5); Segmented Neutrophils % 86.7 %
[2018-01-27 01:50] LABS: Hemoglobin 11.8 g/dL (12.9-16.9)
[2018-01-27 01:53] LABS: VBG Ionized Calcium 1.11 mmol/L (1.15-1.35)
[2018-01-27 02:10] LABS: BUN/Creatinine Ratio 19 (6-26); Blood Urea Nitrogen 18 mg/dL (8-23); Calcium 7.8 mg/dL (8.6-10.3); Carbon Dioxide 9 mEq/L (23-29); Chloride 114 mEq/L (98-107); Glucose 112 mg/dL (70-105); Osmolality,Calculated 281 (280-300); Potassium 3.4 mEq/L (3.5-5.1); Sodium 134 mEq/L (136-145); eGFR For African Americans > 60 (> 60); eGFR For Non-African Americans > 60 (> 60)
[2018-01-27 02:15] LABS: VBG HCO3 9 mEq/L (21-27); VBG PCO2 23 mmHg (41-51); VBG PH 7.22 pH Units (7.32-7.42); VBG PO2 133 mmHg (25-50)
[2018-01-27] MEDS: Ipratropium/Albuterol Neb 3 ML IH SCH ×4 (04:18→23:14)
[2018-01-27] MEDS: SODIUM BICARBONATE IVC SCH (04:40)
[2018-01-27] MEDS: D5 IVC SCH (04:40)
[2018-01-27] MEDS: POTASSIUM CHLORIDE IVC SCH (04:40)
[2018-01-27] MEDS: NACL IVC SCH (04:40)
[2018-01-27] MEDS: *HR* Enoxaparin 40 MG/0.4 ML SYRINGE SQ SCH (06:30)
[2018-01-27] MEDS: MethylPREDNISolone 40 MG/ML VIAL IVP SCH (06:32)
[2018-01-27 06:39] LABS: BUN/Creatinine Ratio 20 (6-26); Blood Urea Nitrogen 19 mg/dL (8-23); Calcium 7.9 mg/dL (8.6-10.3); Carbon Dioxide 10 mEq/L (23-29); Chloride 112 mEq/L (98-107); Glucose 249 mg/dL (70-105); Osmolality,Calculated 285 (280-300); Potassium 3.9 mEq/L (3.5-5.1); Sodium 132 mEq/L (136-145); eGFR For African Americans > 60 (> 60); eGFR For Non-African Americans > 60 (> 60)
--- NOTE | 2018-01-27 07:34 | Internal Med Progress Note ---
Date of Encounter: 01/27/18 Time of Encounter: 07:30 - Assessment and plan (1) DKA (diabetic ketoacidoses) Current Visit: Yes Status: Acute Assessment and plan: On insulin drip. Continue drip until gap closes and transition to sc insulin Qualifiers: Diabetes mellitus type: type 2 Qualified Code(s): E11.10 - Type 2 diabetes mellitus with ketoacidosis without coma (2) Community acquired pneumonia Current Visit: No Status: Acute Assessment and plan: Continue levaquin Qualifiers: Laterality: left Lung location: lower lobe of lung Qualified Code(s): J18.1 - Lobar pneumonia, unspecified organism (3) Hyponatremia Current Visit: Yes Status: Acute Assessment and plan: IV fluids and insulin (4) COPD (chronic obstructive pulmonary disease) Current Visit: No Status: Acute Assessment and plan: Nebs, steroids and abx Qualifiers: COPD type: unspecified COPD Qualified Code(s): J44.9 - Chronic obstructive pulmonary disease, unspecified (5) DVT prophylaxis Current Visit: Yes Status: Acute Assessment and plan: Lovenox sc - Time Spent With Patient Total time spent is greater than 50% in coordination of care (as documented) at patient's floor/unit and/or counseling patient: - Subjective Interval history: No acute events overnight - Constitutional Vitals: Temp Pulse Resp BP Pulse Ox 97.8 F 77 20 123/64 95 01/27/18 03:30 01/27/18 05:30 01/27/18 05:30 01/27/18 04:18 01/27/18 05:30 General appearance: Present: mild distress, A&O X 3, obese - Head Head exam: Present: atraumatic, normocephalic - Eye Eye exam: Present: PERRL, conjuntiva pink, sclera anicteric Pupils: Present: PERRL - Neck Neck exam general surgery: Present: supple, trachea midline. Absent: lymphadenopathy - Respiratory Respiratory exam: Present: CTAB. Absent: accessory muscle use, rales, rhonchi, wheezes - Cardiovascular Cardiovascular exam: Present: RRR, +S1, +S2. Absent: diastolic murmur, gallop, rubs, systolic murmur - GI/Abdominal GI/Abdominal exam: Present: normal bowel sounds, soft, no peritoneal signs. Absent: distended, tenderness - Extremities Exam Extremities exam: Present: warm, radial pulses palpable and symmetrical. Absent : calf tenderness, cyanotic, pedal edema - Neurological Exam Neurological exam: Present: CN II-XII intact, oriented X3, no focal deficits. Absent: pronater drift, facial droop, speech deficit - Skin Skin exam: Present: dry, intact Internal Medicine: Result - Labs CBC & Chem 7: 01/27/18 09:17 01/27/18 14:10 Labs: Short CBC 01/27/18 Range/Units 01:39 WBC 5.3 (4.3-11.1) K/mcL Hgb 11.8 L D (12.9-16.9) g/dL Hct 35.9 L (37.5-50.1) % Plt Count 164 (140-400) K/mcL Neutrophils # 4.6 (1.6-8.9) K/mcL BMP 01/26/18 01/26/18 01/27/18 18:17 21:53 01:39 Sodium 134 L 137 134 L Potassium 4.0 3.9 3.4 L Chloride 108 H 107 114 H Carbon Dioxide 7 L* 8 L* 9 L* BUN 19 18 18 Creatinine 1.01 1.01 0.94 Glucose 235 H 207 H 112 H Calcium 8.5 L 8.2 L 7.8 L 01/27/18 05:30 Sodium 132 L Potassium 3.9 Chloride 112 H Carbon Dioxide 10 L* BUN 19 Creatinine 0.97 Glucose 249 H Calcium 7.9 L - ABG Interpretation ABG results: ABG ABG pH 7.18 pH Units (7.32-7.45) L* 01/26/18 13:39 ABG pCO2 < 13 mmHg (35-45) L* 01/26/18 13:39 ABG pO2 101 mmHg (85-104) 01/26/18 13:39 ABG O2 Saturation TNP 01/26/18 13:39 Consult Discharge Plan - Plan Referrals: Subha Baird, BOOK JACKET COVER MACHINE OPERATOR [Primary Care Provider] -
[2018-01-27] MEDS: Levofloxacin 750 MG/150 ML 750 MG/150 ML BAG IVPB SCH (07:51)
[2018-01-27] MEDS: 0.45 % Sodium Chloride w/KCl 20 MEQ/1,000 ML MLS IVC SCH ×3 (07:52→21:39)
[2018-01-27] MEDS ORDERED: D5% in Water 1,000 ML IVC PRN (08:02)
[2018-01-27] MEDS ORDERED: *HR* Dextrose 50 % in Water (Syg) 50 ML SYRINGE IVP PRN (08:02)
[2018-01-27] MEDS ORDERED: Dextrose Gel 15 GM/37.5 ML TUBE PO PRN ×2 (08:02)
[2018-01-27] MEDS: D5% in 0.45% NACL w KCl 20 MEQ/1,000 ML MLS IVC SCH ×2 (08:52→17:04)
[2018-01-27] MEDS ORDERED: (Umeclidinium Brm/Vilanterol Tr [Anoro Ellipta 62.5-2 IH SCH (09:00)
[2018-01-27] MEDS: predniSONE 20 MG TABLET PO SCH (09:38)
[2018-01-27 09:46] LABS: Basophils % 0.2 %; Eosinophils % 0.2 %; Hematocrit 36.8 % (37.5-50.1); Hemoglobin 12.4 g/dL (12.9-16.9); Immature Granulocytes % 2.1 % (0-4); Lymphocytes # 0.6 K/mcL (0.6-4.6); Lymphocytes % 9.4 %; Mean Corpuscular HGB Conc 33.7 g/dL (31.6-35.5); Mean Corpuscular Hemoglobin 31.6 pg (28.0-33.3); Mean Corpuscular Volume 93.6 fL (83.0-100.0); Mean Platelet Volume 11.4 fL (9.4-12.4); Monocytes # 0.2 K/mcL (0.0-1.3); Monocytes % 2.9 %; Platelet Count 158 K/mcL (140-400); Red Blood Count 3.93 M/mcL (4.19-5.50); Red Cell Distribution Width 14.9 % (11.5-14.5); Segmented Neutrophils % 85.2 %
[2018-01-27 09:59] LABS: Neutrophils # 5.6 K/mcL (1.6-8.9)
[2018-01-27 11:05] LABS: BUN/Creatinine Ratio 19 (6-26); Blood Urea Nitrogen 18 mg/dL (8-23); Calcium 7.9 mg/dL (8.6-10.3); Carbon Dioxide 9 mEq/L (23-29); Chloride 112 mEq/L (98-107); Glucose 242 mg/dL (70-105); Osmolality,Calculated 286 (280-300); Potassium 3.9 mEq/L (3.5-5.1); Sodium 133 mEq/L (136-145); eGFR For African Americans > 60 (> 60); eGFR For Non-African Americans > 60 (> 60)
[2018-01-27] MEDS: Insulin DETEMIR 100 UNIT/ML X5UNITS SQ ONE ×2 (11:41→15:13)
[2018-01-27] MEDS: Insulin LISPRO 300 UNITS/3 ML VIAL SQ SCH ×2 (11:42→17:00)
[2018-01-27 14:56] LABS: BUN/Creatinine Ratio 20 (6-26); Blood Urea Nitrogen 17 mg/dL (8-23); Calcium 8.3 mg/dL (8.6-10.3); Carbon Dioxide 14 mEq/L (23-29); Chloride 112 mEq/L (98-107); Glucose 113 mg/dL (70-105); Osmolality,Calculated 284 (280-300); Sodium 136 mEq/L (136-145); eGFR For African Americans > 60 (> 60); eGFR For Non-African Americans > 60 (> 60)
[2018-01-27] MEDS ORDERED: Insulin LISPRO 300 UNITS/3 ML VIAL SQ SCH ×4 (19:54→22:00)
[2018-01-27] MEDS ORDERED: Insulin DETEMIR 100 UNIT/ML X5UNITS SQ SCH (21:00)
[2018-01-28] MEDS: D5% in 0.45% NACL w KCl 20 MEQ/1,000 ML MLS IVC SCH (00:18)
[2018-01-28] MEDS ORDERED: Ondansetron 4 MG/2 ML VIAL IVP PRN (00:20)
[2018-01-28] MEDS: POTASSIUM CHLORIDE IVC SCH (00:53)
[2018-01-28] MEDS: NACL IVC SCH (00:53)
[2018-01-28] MEDS: SODIUM BICARBONATE IVC SCH (00:53)
[2018-01-28] MEDS: D5 IVC SCH (00:53)
[2018-01-28] MEDS: Levalbuterol Neb 1.25 MG/3 ML IH SCH ×4 (03:33→21:16)
[2018-01-28] MEDS ORDERED: *HR* Promethazine 25 MG/ML VIAL IVP ONE (04:06)
[2018-01-28] MEDS: *HR* Enoxaparin 40 MG/0.4 ML SYRINGE SQ SCH (04:45)
[2018-01-28 05:06] LABS: Basophils % 0.2 %; Eosinophils % 0.5 %; Hematocrit 41.2 % (37.5-50.1); Hemoglobin 13.9 g/dL (12.9-16.9); Lymphocytes # 0.9 K/mcL (0.6-4.6); Lymphocytes % 10.8 %; Mean Corpuscular HGB Conc 33.7 g/dL (31.6-35.5); Mean Corpuscular Hemoglobin 31.2 pg (28.0-33.3); Mean Corpuscular Volume 92.4 fL (83.0-100.0); Mean Platelet Volume 11.4 fL (9.4-12.4); Monocytes # 0.8 K/mcL (0.0-1.3); Monocytes % 9.3 %; Platelet Count 141 K/mcL (140-400); Red Blood Count 4.46 M/mcL (4.19-5.50); Red Cell Distribution Width 15.4 % (11.5-14.5); Segmented Neutrophils % 77.2 %
[2018-01-28 05:09] LABS: Neutrophils # 6.6 K/mcL (1.6-8.9)
[2018-01-28 05:21] LABS: BUN/Creatinine Ratio 22 (6-26); Blood Urea Nitrogen 22 mg/dL (8-23); Calcium 8.3 mg/dL (8.6-10.3); Carbon Dioxide 9 mEq/L (23-29); Chloride 113 mEq/L (98-107); Glucose 328 mg/dL (70-105); Osmolality,Calculated 296 (280-300); Potassium 4.1 mEq/L (3.5-5.1); Sodium 135 mEq/L (136-145); eGFR For African Americans > 60 (> 60); eGFR For Non-African Americans > 60 (> 60)
[2018-01-28] MEDS ORDERED: Insulin Regular, Human 100 UNIT/ML IV PRN (05:32)
[2018-01-28] MEDS ORDERED: Insulin Regular, Human 100 UNIT/ML IV ONE ×2 (05:32→06:00)
--- NOTE | 2018-01-28 05:43 | Event Note ---
Date of Encounter: 01/28/18 Time of Encounter: 05:41 called for critically low CO2. Patient also going back into DKA with slightly elevated AG and > 2 serum ketones. BS trending up. Patient has no IVF running and still appears dry. Will restart IVF and insulin gtt. Will make sure gap is closing and serum ketones trending down. Patient will most likely need to stay on gtt for 24 hours so we can get a good idea of his overall insulin requirements and adjust his new SSI and Levimir accordingly.
[2018-01-28] MEDS ORDERED: 0.45 % Sodium Chloride w/KCl 20 MEQ/1,000 ML MLS IVC SCH (05:45)
[2018-01-28] MEDS ORDERED: SODIUM CHLORIDE 0.9% IV ONE ×2 (06:30→06:45)
[2018-01-28] MEDS ORDERED: INSULIN HUMAN REGULAR IV ONE ×2 (06:30→06:45)
[2018-01-28] MEDS: Insulin Human Regular 100 UNIT in 0.9 % Sodium Chloride 100 ML IVC SCH (07:07)
--- NOTE | 2018-01-28 08:16 | Electrocardiograph Report ---
[facility] Date: 2018-01[facility]26 Pat Name: Richard Colin Department: 104 Room: 09 Gender: M House Mover: DEIDRE : 1955 Requested By: Saida Brennan Order Number: [id number] Reading MD: Alexandr Catalan Measurements Intervals [place] Rate: 115 P: 37 [place]: 161 QRS: 50 QRSD: 86 T: 57 QT: 345 QTc: 413 Interpretive Statements SINUS TACHYCARDIA POSSIBLE LEFT ATRIAL ENLARGEMENT [-0.1mV P WAVE IN V1/V2] POSSIBLE RIGHT VENTRICULAR CONDUCTION DELAY [RSR (QR) IN V1/V2] ABNORMAL RHYTHM ECG WARNING: DATA QUALITY MAY AFFECT INTERPRETATION Electronically Signed On 01-28-2018 8:14:49 EDT by Alexandr Catalan
[2018-01-28] MEDS: predniSONE 20 MG TABLET PO SCH (08:34)
[2018-01-28] MEDS: Levofloxacin 750 MG/150 ML 750 MG/150 ML BAG IVPB SCH (08:34)
[2018-01-28] MEDS ORDERED: Sodium Bicarbonate 150 MEQ in D5% in Water 1,000 ML IVC SCH ×2 (09:00→09:18)
--- NOTE | 2018-01-28 09:08 | Internal Med Progress Note ---
Date of Encounter: 01/28/18 Time of Encounter: 09:00 - Assessment and plan (1) DKA (diabetic ketoacidoses) Current Visit: Yes Status: Acute Assessment and plan: On insulin drip. Patient was transitioned to sc insulin overnight with total of 40 units of levemir given, but blood suar trended back up overnight with low bicarb and high anion gap. Has been restarted on insulin drip. Continue drip until gap closes and transition to sc insulin as tolerated. Will add bicarb to IV fluids. Patient refused ABG Qualifiers: Diabetes mellitus type: type 2 Qualified Code(s): E11.10 - Type 2 diabetes mellitus with ketoacidosis without coma (2) Community acquired pneumonia Current Visit: No Status: Acute Assessment and plan: Continue levaquin Qualifiers: Laterality: left Lung location: lower lobe of lung Qualified Code(s): J18.1 - Lobar pneumonia, unspecified organism (3) Hyponatremia Current Visit: Yes Status: Acute Assessment and plan: IV fluids and insulin (4) COPD (chronic obstructive pulmonary disease) Current Visit: No Status: Acute Assessment and plan: Nebs, steroids and abx Qualifiers: COPD type: unspecified COPD Qualified Code(s): J44.9 - Chronic obstructive pulmonary disease, unspecified (5) DVT prophylaxis Current Visit: Yes Status: Acute Assessment and plan: Lovenox sc - Time Spent With Patient Total time spent is greater than 50% in coordination of care (as documented) at patient's floor/unit and/or counseling patient: - Subjective Interval history: No acute events overnight - Constitutional Vitals: Temp Pulse Resp BP Pulse Ox 98.1 F 104 24 155/97 96 01/28/18 00:12 01/28/18 06:00 01/28/18 06:00 01/28/18 04:00 01/28/18 06:00 General appearance: Present: mild distress, A&O X 3, obese - Head Head exam: Present: atraumatic, normocephalic - Eye Eye exam: Present: PERRL, conjuntiva pink, sclera anicteric Pupils: Present: PERRL - Neck Neck exam general surgery: Present: supple, trachea midline. Absent: lymphadenopathy - Respiratory Respiratory exam: Present: CTAB. Absent: accessory muscle use, rales, rhonchi, wheezes - Cardiovascular Cardiovascular exam: Present: RRR, +S1, +S2. Absent: diastolic murmur, gallop, rubs, systolic murmur - GI/Abdominal GI/Abdominal exam: Present: normal bowel sounds, soft, no peritoneal signs. Absent: distended, tenderness - Extremities Exam Extremities exam: Present: warm, radial pulses palpable and symmetrical. Absent : calf tenderness, cyanotic, pedal edema - Neurological Exam Neurological exam: Present: CN II-XII intact, oriented X3, no focal deficits. Absent: pronater drift, facial droop, speech deficit - Skin Skin exam: Present: dry, intact Internal Medicine: Result - Labs CBC & Chem 7: 01/28/18 04:33 01/28/18 09:28 Labs: Short CBC 01/27/18 01/28/18 Range/Units 09:17 04:33 WBC 6.6 8.6 (4.3-11.1) K/mcL Hgb 12.4 L 13.9 D (12.9-16.9) g/dL Hct 36.8 L 41.2 (37.5-50.1) % Plt Count 158 141 (140-400) K/mcL Neutrophils # 5.6 6.6 (1.6-8.9) K/mcL BMP 01/27/18 01/27/18 01/28/18 09:17 14:10 04:33 Sodium 133 L 136 135 L Potassium 3.9 3.0 L 4.1 D Chloride 112 H 112 H 113 H Carbon Dioxide 9 L* 14 L 9 L* BUN 18 17 22 Creatinine 0.93 0.87 0.99 Glucose 242 H 113 H 328 H Calcium 7.9 L 8.3 L 8.3 L - ABG Interpretation ABG results: ABG ABG pH 7.18 pH Units (7.32-7.45) L* 01/26/18 13:39 ABG pCO2 < 13 mmHg (35-45) L* 01/26/18 13:39 ABG pO2 101 mmHg (85-104) 01/26/18 13:39 ABG O2 Saturation TNP 01/26/18 13:39 Consult Discharge Plan - Plan Referrals: Subha Baird, PASSENGER ELEVATOR OPERATOR [Primary Care Provider] -
[2018-01-28 10:04] LABS: BUN/Creatinine Ratio 20 (6-26); Blood Urea Nitrogen 21 mg/dL (8-23); Calcium 8.7 mg/dL (8.6-10.3); Carbon Dioxide 13 mEq/L (23-29); Chloride 113 mEq/L (98-107); Glucose 171 mg/dL (70-105); Osmolality,Calculated 291 (280-300); Potassium 3.1 mEq/L (3.5-5.1); Sodium 137 mEq/L (136-145); eGFR For African Americans > 60 (> 60); eGFR For Non-African Americans > 60 (> 60)
[2018-01-28] MEDS ORDERED: Isovue-370 500 ML INFUS..BTL IV ONE (11:58)
[2018-01-28 12:49] LABS: Troponin I < 0.03 ng/mL (< 0.04)
[2018-01-28 15:15] LABS: Alanine Aminotransferase 35 Units/L (7-52); Albumin 3.2 g/dL (3.5-5.7); Alkaline Phosphatase 112 Units/L (34-104); Aspartate Amino Transferase 28 Units/L (13-39); BUN/Creatinine Ratio 22 (6-26); Bilirubin,Total 0.6 mg/dL (0.3-1.0); Blood Urea Nitrogen 20 mg/dL (8-23); Calcium 8.1 mg/dL (8.6-10.3); Carbon Dioxide 17 mEq/L (23-29); Chloride 113 mEq/L (98-107); Globulin 3.3 g/dL (2.4-3.5); Glucose 209 mg/dL (70-105); Osmolality,Calculated 295 (280-300); Potassium 3.2 mEq/L (3.5-5.1); Sodium 138 mEq/L (136-145); Total Protein 6.5 g/dL (6.4-8.9); eGFR For African Americans > 60 (> 60); eGFR For Non-African Americans > 60 (> 60)
[2018-01-28] MEDS ORDERED: Insulin DETEMIR 100 UNIT/ML X5UNITS SQ ONE (15:54)
[2018-01-28] MEDS ORDERED: *HR* Dextrose 50 % in Water (Syg) 50 ML SYRINGE IVP PRN (15:56)
[2018-01-28] MEDS ORDERED: D5% in Water 1,000 ML IVC PRN (15:56)
[2018-01-28] MEDS ORDERED: Dextrose Gel 15 GM/37.5 ML TUBE PO PRN ×2 (15:56)
[2018-01-28] MEDS: Insulin LISPRO 300 UNITS/3 ML VIAL SQ SCH ×2 (16:23→20:59)
[2018-01-28] MEDS: Sodium Bicarbonate 50 MEQ in 0.45 % Sodium Chloride 1,000 ML IVC SCH (18:58)
[2018-01-28] MEDS ORDERED: Insulin DETEMIR 100 UNIT/ML X5UNITS SQ SCH (21:00)
[2018-01-29] MEDS: Levalbuterol Neb 1.25 MG/3 ML IH SCH ×4 (03:59→22:46)
[2018-01-29 05:09] LABS: Basophils % 0.3 %; Eosinophils # 0.2 K/mcL (0.0-0.6); Eosinophils % 3.2 %; Hematocrit 33.9 % (37.5-50.1); Hemoglobin 11.5 g/dL (12.9-16.9); Immature Granulocytes % 4.9 % (0-4); Lymphocytes % 33.6 %; Mean Corpuscular HGB Conc 33.9 g/dL (31.6-35.5); Mean Corpuscular Hemoglobin 31.3 pg (28.0-33.3); Mean Corpuscular Volume 92.4 fL (83.0-100.0); Mean Platelet Volume 10.1 fL (9.4-12.4); Monocytes # 0.5 K/mcL (0.0-1.3); Monocytes % 7.6 %; Platelet Count 197 K/mcL (140-400); Red Blood Count 3.67 M/mcL (4.19-5.50); Red Cell Distribution Width 15.6 % (11.5-14.5); Segmented Neutrophils % 50.4 %
[2018-01-29 05:24] LABS: BUN/Creatinine Ratio 19 (6-26); Blood Urea Nitrogen 16 mg/dL (8-23); Calcium 8.3 mg/dL (8.6-10.3); Carbon Dioxide 19 mEq/L (23-29); Chloride 113 mEq/L (98-107); Glucose 181 mg/dL (70-105); Osmolality,Calculated 296 (280-300); Sodium 140 mEq/L (136-145); eGFR For African Americans > 60 (> 60); eGFR For Non-African Americans > 60 (> 60)
[2018-01-29] MEDS: Sodium Bicarbonate 50 MEQ in 0.45 % Sodium Chloride 1,000 ML IVC SCH ×2 (05:25→11:55)
[2018-01-29] MEDS: Insulin Human Regular 100 UNIT in 0.9 % Sodium Chloride 100 ML IVC SCH (06:13)
[2018-01-29] MEDS: *HR* Enoxaparin 40 MG/0.4 ML SYRINGE SQ SCH (06:15)
[2018-01-29] MEDS: predniSONE 20 MG TABLET PO SCH (07:49)
[2018-01-29] MEDS: Levofloxacin 750 MG/150 ML 750 MG/150 ML BAG IVPB SCH (07:49)
[2018-01-29] MEDS: Insulin LISPRO 300 UNITS/3 ML VIAL SQ SCH ×4 (07:50→20:29)
--- NOTE | 2018-01-29 08:45 | Internal Med Progress Note ---
Date of Encounter: 01/29/18 Time of Encounter: 08:40 - Assessment and plan (1) DKA (diabetic ketoacidoses) Current Visit: Yes Status: Acute Assessment and plan: On insulin drip. Patient has been transitioned to sc insulin overnight with total of 50units of lantus and medium dose sliding scale. Continue insulin and IV fluids, monitor fingersticks. replace potassium Qualifiers: Diabetes mellitus type: type 2 Qualified Code(s): E11.10 - Type 2 diabetes mellitus with ketoacidosis without coma (2) Community acquired pneumonia Current Visit: No Status: Acute Assessment and plan: Continue levaquin Qualifiers: Laterality: left Lung location: lower lobe of lung Qualified Code(s): J18.1 - Lobar pneumonia, unspecified organism (3) Hyponatremia Current Visit: Yes Status: Acute Assessment and plan: IV fluids and insulin (4) COPD (chronic obstructive pulmonary disease) Current Visit: No Status: Acute Assessment and plan: Nebs, steroids and abx Qualifiers: COPD type: unspecified COPD Qualified Code(s): J44.9 - Chronic obstructive pulmonary disease, unspecified (5) DVT prophylaxis Current Visit: Yes Status: Acute Assessment and plan: Lovenox sc (6) Hypokalemia Current Visit: Yes Status: Acute Assessment and plan: Potassium replaced - Time Spent With Patient Total time spent is greater than 50% in coordination of care (as documented) at patient's floor/unit and/or counseling patient: - Subjective Interval history: No acute events overnight - Constitutional Vitals: Temp Pulse Resp BP Pulse Ox 97.8 F 96 18 124/58 96 01/29/18 07:57 01/29/18 08:11 01/29/18 06:00 01/29/18 04:01 01/29/18 06:00 General appearance: Present: mild distress, A&O X 3, obese - Head Head exam: Present: atraumatic, normocephalic - Eye Eye exam: Present: PERRL, conjuntiva pink, sclera anicteric Pupils: Present: PERRL - Neck Neck exam general surgery: Present: supple, trachea midline. Absent: lymphadenopathy - Respiratory Respiratory exam: Present: CTAB. Absent: accessory muscle use, rales, rhonchi, wheezes - Cardiovascular Cardiovascular exam: Present: RRR, +S1, +S2. Absent: diastolic murmur, gallop, rubs, systolic murmur - GI/Abdominal GI/Abdominal exam: Present: normal bowel sounds, soft, no peritoneal signs. Absent: distended, tenderness - Extremities Exam Extremities exam: Present: warm, radial pulses palpable and symmetrical. Absent : calf tenderness, cyanotic, pedal edema - Neurological Exam Neurological exam: Present: CN II-XII intact, oriented X3, no focal deficits. Absent: pronater drift, facial droop, speech deficit - Skin Skin exam: Present: dry, intact Internal Medicine: Result - Labs CBC & Chem 7: 01/29/18 04:00 01/29/18 04:00 Labs: Short CBC 01/29/18 Range/Units 04:00 WBC 5.9 (4.3-11.1) K/mcL Hgb 11.5 L D (12.9-16.9) g/dL Hct 33.9 L (37.5-50.1) % Plt Count 197 (140-400) K/mcL Neutrophils # 3.0 (1.6-8.9) K/mcL BMP 01/28/18 01/28/18 01/29/18 09:28 12:18 04:00 Sodium 137 138 140 Potassium 3.1 L 3.2 L 3.0 L Chloride 113 H 113 H 113 H Carbon Dioxide 13 L 17 L 19 L BUN 21 20 16 Creatinine 1.03 0.90 0.84 Glucose 171 H 209 H 181 H Calcium 8.7 8.1 L 8.3 L Cardiac Enzymes 01/28/18 Range/Units 12:18 Troponin I < 0.03 (< 0.04) ng/mL Liver Function 01/28/18 Range/Units 12:18 Total Bilirubin 0.6 (0.3-1.0) mg/dL AST 28 (13-39) Units/L ALT 35 (7-52) Units/L Alkaline Phosphatase 112 H (34-104) Units/L Albumin 3.2 L (3.5-5.7) g/dL - ABG Interpretation ABG results: ABG ABG pH 7.18 pH Units (7.32-7.45) L* 01/26/18 13:39 ABG pCO2 < 13 mmHg (35-45) L* 01/26/18 13:39 ABG pO2 101 mmHg (85-104) 01/26/18 13:39 ABG O2 Saturation TNP 01/26/18 13:39 PT/INR, D-dimer D-Dimer 1417 ng/mLFEU (0-500) H 01/28/18 09:29 - Impressions Impressions Chest CTA 01/28/18 14:00 IMPRESSION: 1. No pulmonary embolus is identified. 2. Severe, diffuse pulmonary emphysema noted with evidence of cor pulmonale manifested by an elevated RV LV ratio 1. 3. 16 mm right hilar lymph node. 4. Possible scarring in the right apex ; however, the configuration is somewhat nodular, measuring 19 x 15 mm. 5. Similar-appearing adrenal nodules. RECOMMENDATIONS: [address] of the chest to follow right hilar lymph node and scarring in the right apex. D/ / Ki Matos / Ki Matos Interpreting Provider: Ki Matos Consult Discharge Plan - Plan Referrals: Subha Baird, PLASTER APPLICATOR [Primary Care Provider] -
[2018-01-29] MEDS: Potassium Chloride Elixir 20 MEQ/15 ML UDC PO SCH ×3 (09:37→17:07)
[2018-01-29] MEDS ORDERED: Insulin DETEMIR 100 UNIT/ML X5UNITS SQ SCH (21:00)
[2018-01-30] MEDS: Sodium Bicarbonate 50 MEQ in 0.45 % Sodium Chloride 1,000 ML IVC SCH ×2 (01:22→12:01)
[2018-01-30] MEDS: Levalbuterol Neb 1.25 MG/3 ML IH SCH ×3 (03:55→15:54)
[2018-01-30 04:23] LABS: Basophils % 0.3 %; Eosinophils # 0.2 K/mcL (0.0-0.6); Eosinophils % 3.7 %; Hematocrit 32.4 % (37.5-50.1); Hemoglobin 10.9 g/dL (12.9-16.9); Immature Granulocytes % 8.3 % (0-4); Lymphocytes # 2.4 K/mcL (0.6-4.6); Lymphocytes % 38.5 %; Mean Corpuscular HGB Conc 33.6 g/dL (31.6-35.5); Mean Corpuscular Hemoglobin 31.3 pg (28.0-33.3); Mean Corpuscular Volume 93.1 fL (83.0-100.0); Mean Platelet Volume 9.8 fL (9.4-12.4); Monocytes # 0.4 K/mcL (0.0-1.3); Monocytes % 5.9 %; Neutrophils # 2.7 K/mcL (1.6-8.9); Nucleated Red Blood Cells 0.8 /100 WBC (0); Platelet Count 187 K/mcL (140-400); Red Blood Count 3.48 M/mcL (4.19-5.50); Red Cell Distribution Width 15.6 % (11.5-14.5); Segmented Neutrophils % 43.3 %
[2018-01-30 04:41] LABS: BUN/Creatinine Ratio 19 (6-26); Blood Urea Nitrogen 15 mg/dL (8-23); Carbon Dioxide 22 mEq/L (23-29); Chloride 109 mEq/L (98-107); Glucose 181 mg/dL (70-105); Osmolality,Calculated 291 (280-300); Potassium 3.3 mEq/L (3.5-5.1); Sodium 138 mEq/L (136-145); eGFR For African Americans > 60 (> 60); eGFR For Non-African Americans > 60 (> 60)
[2018-01-30 04:53] LABS: Platelet Estimate Normal (Normal); Polychromasia 1+ (Not Present)
[2018-01-30] MEDS: Insulin Human Regular 100 UNIT in 0.9 % Sodium Chloride 100 ML IVC SCH (05:27)
[2018-01-30] MEDS: *HR* Enoxaparin 40 MG/0.4 ML SYRINGE SQ SCH (06:10)
[2018-01-30] MEDS: Insulin LISPRO 300 UNITS/3 ML VIAL SQ SCH ×3 (07:30→16:17)
[2018-01-30] MEDS: Levofloxacin 750 MG/150 ML 750 MG/150 ML BAG IVPB SCH (07:38)
[2018-01-30] MEDS: predniSONE 20 MG TABLET PO SCH (07:40)
--- NOTE | 2018-01-30 08:42 | Discharge Summary ---
Orders not resulted at time of discharge: Pending orders 01/26/18 18:17 Culture,Blood [BC] Routine 01/31/18 04:00 Basic Metabolic Panel AM 0400 Beta-Hydroxybutyric Acid AM 0400 CBC [Complete Blood Count] [HEME] AM 0400 02/01/18 04:00 Basic Metabolic Panel AM 0400 CBC [Complete Blood Count] [HEME] AM 0400 02/02/18 04:00 Basic Metabolic Panel AM 0400 CBC [Complete Blood Count] [HEME] AM 0400 Date of Encounter: 01/30/18 Time of Encounter: 08:40 - Discharge Diagnosis (1) DKA (diabetic ketoacidoses) Priority: Primary Status: Acute Assessment and Plan: 62 year old male with obesity, newly diagnosed diabetes type II (diagnosed 1 week ago), COPD (emphysema), HTN, HLD, crhonic diastolic CHF, lumbar disc disease, GERD, non-alcoholic fatty liver disease, and chronic respiratory failure on 3L NC 03/03. Pt states last is glucose was 525 at home and became worse as the weekend progressed. States PCP was considering starting him on Insulin per PCP last Fri but placed him on oral meds. He went in to see his PCP and there his glucose was 450. While at PCP office he almost collapsed. He came to the ER and was noted to have elevated blood sugars and DKA He was admitted to the ICU with diabetic ketoacidosis and started on an insulin drip, he was successfully trasitioned off the drip to 50units of lantus at bedtime and humalog 12 units premeals. He was given diabetic education and discharged home in a stable condition. He also completed a couse of nebs and antibiotics for COPD exacerbation. 35minutes was spent discharging this patient Qualifiers: Diabetes mellitus type: type 2 Diabetes mellitus complication detail: without coma Qualified Code(s): E11.10 - Type 2 diabetes mellitus with ketoacidosis without coma (2) Community acquired pneumonia Priority: Secondary Status: Acute Qualifiers: Laterality: left Lung location: lower lobe of lung Qualified Code(s): J18.1 - Lobar pneumonia, unspecified organism (3) Hyponatremia Priority: Secondary Status: Acute (4) COPD (chronic obstructive pulmonary disease) Priority: Secondary Status: Acute Qualifiers: COPD type: unspecified COPD Qualified Code(s): J44.9 - Chronic obstructive pulmonary disease, unspecified (5) DVT prophylaxis Priority: Secondary Status: Acute (6) Hypokalemia Priority: Secondary Status: Acute Hospital course: Mr. Colin is a 62 year old male - Time Spent with Patient Total time spent providing and/or coordinating discharge services: - Discharge Medications Prescriptions: Insulin ASPART [Novolog Flexpen] 12 unit SQ TIDAC 30 Days #30 insuln.pen Insulin DETEMIR [Levemir Flextouch] 50 unit SQ HS 30 Days #30 insuln.pen predniSONE [PredniSONE] 40 mg PO DAILY #5 tablet Home Medications: Albuterol Sulfate [Albuterol Inhaler] 2 puff IH Q4-6H PRN 03/20/17 [History] Multivit-Min/FA/Lycopen/Lutein [Men 50 Plus Multivitamin Tab] 1 tab PO DAILY [History] Oxygen 4 l IN CONT 08/26/17 [History] [place] Xtr/Zinc Picolin [[place]aw [place] Capsule] 1 cap PO DAILY 08/26/17 [ History] Umeclidinium Brm/Vilanterol Tr [Anoro Ellipta 62.5-25 Mcg INH] 1 puff IH DAILY 08/26/17 [History] Lactobacillus Combination No.8 [Adult Probiotic] 1 cap PO HS 01/26/18 [History] Polyethylene Glycol 3350 [MiraLAX] 17 gm PO DAILY 01/26/18 [History] Insulin ASPART [Novolog Flexpen] 12 unit SQ TIDAC 30 Days #30 insuln.pen [Rx] Insulin DETEMIR [Levemir Flextouch] 50 unit SQ HS 30 Days #30 insuln.pen [Rx] predniSONE [PredniSONE] 40 mg PO DAILY #5 tablet 01/30/18 [Rx] Allergies/Adverse Reactions: 3 Allergy/AdvReac Type Severity Reaction Status Date / Time Penicillins Allergy Severe Anaphylaxis Verified 01/26/18 14:28 morphine Allergy Anaphylaxis Verified 01/26/18 14:28 Oxycodone [From Percocet] Allergy Hives Verified 01/26/18 14:28 aspirin AdvReac Nausea Verified 01/26/18 14:28 chlorpromazine AdvReac Cramping Verified 01/26/18 14:28 [From Thorazine] of the Muscles codeine AdvReac Nausea Verified 01/26/18 14:28 hydrocodone [From Vicodin] AdvReac Nausea Verified 01/26/18 14:28 chlorine AdvReac Severe Anaphylaxis Uncoded 01/26/18 14:28 Date of admission: 01/26/18 15:59 Primary care physician: Subha Baird CNP Consults: 01/26/18 17:48 Consult to Nurse Navigator [CONS] Routine Comment: 01/26/18 23:25 Consult to Diabetes Education [CONS] Routine Comment: Reason for Consult: new diagnosis dm type ii - Constitutional Vitals: Temp Pulse Resp BP Pulse Ox 97.8 F 86 18 151/90 93 01/30/18 07:24 01/30/18 07:24 01/30/18 07:24 01/30/18 07:24 01/30/18 07:24 General appearance: Present: mild distress, A&O X 3, obese - Head Head exam: Present: atraumatic, normocephalic - Eye Eye exam: Present: PERRL, conjuntiva pink, sclera anicteric Pupils: Present: PERRL - Neck Neck exam general surgery: Present: supple, trachea midline. Absent: lymphadenopathy - Respiratory Respiratory exam: Present: CTAB. Absent: accessory muscle use, rales, rhonchi, wheezes - Cardiovascular Cardiovascular exam: Present: RRR, +S1, +S2. Absent: diastolic murmur, gallop, rubs, systolic murmur - GI/Abdominal GI/Abdominal exam: Present: normal bowel sounds, soft, no peritoneal signs. Absent: distended, tenderness - Extremities Exam Extremities exam: Present: warm, radial pulses palpable and symmetrical. Absent : calf tenderness, cyanotic, pedal edema - Neurological Exam Neurological exam: Present: CN II-XII intact, oriented X3, no focal deficits. Absent: pronater drift, facial droop, speech deficit - Skin Skin exam: Present: dry, intact - Patient Status Disposition: Home, Self-Care Condition: Good - Discharge Instructions Follow Up With: Subha Baird CNP [Primary Care Provider] -
[2018-01-30] MEDS ORDERED: Potassium Chloride Elixir 20 MEQ/15 ML UDC PO SCH (09:00)
--- NOTE | 2018-01-30 13:06 | Physician Discharge Referral ---
Home Health/Hosp Referral Info Transfer to: Home Health - Diagnosis (1) DKA (diabetic ketoacidoses) Priority: Primary Status: Acute (2) Community acquired pneumonia Status: Acute (3) Hyponatremia Status: Acute (4) COPD (chronic obstructive pulmonary disease) Status: Acute (5) DVT prophylaxis Status: Acute (6) Hypokalemia Status: Acute - Respiratory Orders Smoking Cessation: Smoking cessation has been advised. For more information, call the [place] Tobacco Quit Line at 1-000-HCMH-NOW. - Diet/Nutrition Diet/Nutrition: List: Diabetic diet - Activity Activity Orders: Ambulate - Services Needed Following services are medically necessary services: Nursing, Home Health Aide, Physical Therapy (Diabetic education) - Transfer Medications Prescriptions: Insulin ASPART [Novolog Flexpen] 12 unit SQ TIDAC 30 Days #30 insuln.pen Insulin DETEMIR [Levemir Flextouch] 50 unit SQ HS 30 Days #30 insuln.pen predniSONE [PredniSONE] 40 mg PO DAILY #5 tablet Home Medications: Albuterol Sulfate [Albuterol Inhaler] 2 puff IH Q4-6H PRN 03/20/17 [History] Multivit-Min/FA/Lycopen/Lutein [Men 50 Plus Multivitamin Tab] 1 tab PO DAILY [History] Oxygen 4 l IN CONT 08/26/17 [History] Saw [place] Xtr/Zinc Picolin [Saw [place] Capsule] 1 cap PO DAILY 08/26/17 [ History] Umeclidinium Brm/Vilanterol Tr [Anoro Ellipta 62.5-25 Mcg INH] 1 puff IH DAILY 08/26/17 [History] Lactobacillus Combination No.8 [Adult Probiotic] 1 cap PO HS 01/26/18 [History] Polyethylene Glycol 3350 [MiraLAX] 17 gm PO DAILY 01/26/18 [History] Insulin ASPART [Novolog Flexpen] 12 unit SQ TIDAC 30 Days #30 insuln.pen [Rx] Insulin DETEMIR [Levemir Flextouch] 50 unit SQ HS 30 Days #30 insuln.pen [Rx] predniSONE [PredniSONE] 40 mg PO DAILY #5 tablet 01/30/18 [Rx] Allergies/Adverse Reactions: 3 Allergy/AdvReac Type Severity Reaction Status Date / Time Penicillins Allergy Severe Anaphylaxis Verified 01/26/18 14:28 morphine Allergy Anaphylaxis Verified 01/26/18 14:28 Oxycodone [From Percocet] Allergy Hives Verified 01/26/18 14:28 aspirin AdvReac Nausea Verified 01/26/18 14:28 chlorpromazine AdvReac Cramping Verified 01/26/18 14:28 [From Thorazine] of the Muscles codeine AdvReac Nausea Verified 01/26/18 14:28 hydrocodone [From Vicodin] AdvReac Nausea Verified 01/26/18 14:28 chlorine AdvReac Severe Anaphylaxis Uncoded 01/26/18 14:28 Certification: Further, I certify that my clinical findings support that this patient is homebound (i.e. absences from home require considerable and taxing effort and are for medical reasons or zoroastrianism services or infrequently or short duration when for other reasons) because: Homebound Reason: Patient requires assistance of a person or device to safely leave home Attestation: My signature below is to certify that this patient is under my care and that I, or nurse practitioner, or a physician's anesthetic assistant working with me, has a face-to -face encounter with this patient.
[2018-01-30 15:56] VITALS: BP 143/79
== END 2018-01-30 17:40 | disposition home or self-care (01) | DRG 637 ==
LOC: EMEROO 11:09 → ICNU 15:59 → 2ANU 01-29 10:44
PROVIDERS: ADMIT Family Medicine; ATTEND Family Medicine

== ENCOUNTER 2018-03-30 10:13 | Observation (INO) ==
--- NOTE | 2018-03-30 10:22 | Emergency Department Note ---
Disposition Clinical Impression: Chest pain Qualifiers: Chest pain type: unspecified Qualified Code(s): R07.9 - Chest pain, unspecified Disposition: Admitted As Inpatient Condition: Undetermined Forms: ED Satisfaction Letter Time of Disposition: 11:20 Chest Pain HPI - General Chief Complaint: ED Chest Pain Stated Complaint: CP Time Seen by Provider: 03/30/18 10:15 Source: patient, EMS Mode of arrival: EMS Limitations: no limitations Vital Signs Reviewed: Yes Nursing Notes Reviewed: Yes - History of Present Illness HPI Narrative: 62-year-old male arrives to the emergency department complaining of left chest pain. It radiates from his left shoulder around to his left back. The patient has associated shortness of breath but this is not new for him. The patient denies any diaphoresis or nausea. No previous cardiac history. The patient has extensive history of COPD where he is on 2 L nasal cannula and sees pulmonology outpatient. The patient denies any recent surgeries, immobilizations, hemoptysis but does admit to some left lower extremity swelling that is worse than normal. The patient states that he has had a "30 pound weight loss" in 24 hours. The patient denies any diuretic use or any other complaints at this time. He is resting comfortably in the room. He is lucid and answering all questions appropriately. He is in no respiratory distress at this time. - Related Data Home Medications Medication Instructions Recorded Confirmed Albuterol Sulfate [Albuterol 2 puff IH Q4-6H PRN 03/20/17 01/26/18 Inhaler] Multivit-Min/FA/Lycopen/Lutein 1 tab PO DAILY 08/26/17 01/26/18 [Men 50 Plus Multivitamin Tab] Oxygen 4 l IN CONT 08/26/17 01/26/18 Saw [place] Xtr/Zinc Picolin [Saw 1 cap PO DAILY 08/26/17 01/26/18 [place] Capsule] Umeclidinium Brm/Vilanterol Tr 1 puff IH DAILY 08/26/17 01/26/18 [Anoro Ellipta 62.5-25 Mcg INH] Lactobacillus Combination No.8 1 cap PO HS 01/26/18 01/26/18 [Adult Probiotic] Polyethylene Glycol 3350 [MiraLAX] 17 gm PO DAILY 01/26/18 01/26/18 Previous Rx's Medication Instructions Recorded Insulin ASPART [Novolog Flexpen] 12 unit SQ TIDAC 30 Days #30 01/30/18 insuln.pen Insulin DETEMIR [Levemir Flextouch] 50 unit SQ HS 30 Days #30 01/30/18 insuln.pen predniSONE [PredniSONE] 40 mg PO DAILY #5 tablet 01/30/18 Allergies Allergy/AdvReac Type Severity Reaction Status Date / Time Penicillins Allergy Severe Anaphylaxis Verified 03/30/18 10:28 morphine Allergy Anaphylaxis Verified 03/30/18 10:28 Oxycodone [From Percocet] Allergy Hives Verified 03/30/18 10:28 aspirin AdvReac Nausea Verified 03/30/18 10:28 chlorpromazine AdvReac Cramping Verified 03/30/18 10:28 [From Thorazine] of the Muscles codeine AdvReac Nausea Verified 03/30/18 10:28 hydrocodone [From Vicodin] AdvReac Nausea Verified 03/30/18 10:28 chlorine AdvReac Severe Anaphylaxis Uncoded 03/30/18 10:28 All systems ED: reviewed and negative except as stated. Constitutional: Denies: fever, chills, weakness ENT ED: Denies: dysphagia Cardiovascular: Reports: chest pain, dyspnea on exertion, edema. Denies: palpitations, orthopnea, syncope Respiratory: Reports: dyspnea. Denies: cough, wheezes, hemoptysis, sputum production Gastrointestinal: Denies: abdominal pain, nausea, vomiting Genitourinary: Denies: urgency, dysuria Musculoskeletal: Reports: myalgia. Denies: back pain, neck pain, arthralgia Integumentary: Denies: rash Neurological: Denies: headache, weakness, numbness Chest Pain PMH - Past Medical History Medical history: Reports: CHF, COPD, diabetes, hyperlipidemia, hypertension, kidney stones, liver disease, other Surgical history: Reports: cholecystectomy, herniorrhaphy, orthopedic, other Psychiatric history: Reports: no psych history - Social History Smoking Status: Former smoker Alcohol use: Reports: none Drug use: Reports: none Physical Exam - General Limitations: no limitations General appearance: alert, in no apparent distress - Head Head exam: atraumatic, normocephalic, normal inspection - Eye Eye exam: Present: normal appearance, PERRL, EOMI - ENT ENT exam: normal exam, normal oropharynx, mucous membranes moist - Neck Neck exam: Present: normal inspection, full ROM, trachea midline - Chest Chest inspection: Present: normal inspection, symmetric chest wall rise - Respiratory Respiratory exam: Present: other (Course breath sounds bilaterally.). Absent: respiratory distress, wheezes - Cardiovascular Cardiovascular exam: Present: regular rate, normal rhythm, normal heart sounds - Abdominal Exam Abdominal exam: Present: soft, Non-Tender. Absent: tenderness, distention, guarding, rebound, rigidity - Extremities Exam Extremities exam: Present: full ROM, other (Chronic venous stasis changes). Absent: tenderness - Neurological Exam Neurological exam: Present: alert, oriented X3 - Skin Skin exam: Present: warm, dry, intact, normal color Course Vital Signs Temperature 98.6 F 03/30/18 10:16 Pulse Rate 66 03/30/18 10:16 Respiratory Rate 18 03/30/18 10:16 Blood Pressure 139/90 03/30/18 10:16 O2 Sat by Pulse Oximetry 97 03/30/18 10:16 Temperature 98.6 F 03/30/18 10:16 Pulse Rate 66 03/30/18 10:16 Respiratory Rate 18 03/30/18 10:16 Blood Pressure 139/90 03/30/18 10:16 O2 Sat by Pulse Oximetry 97 03/30/18 10:16 Oxygen Delivery Oxygen Delivery Nasal Cannula Chest Pain - MDM Narrative Medical decision making narrative: Patient's workup in the emergency department demonstrates from is concerning for ACS. The patient's EKG shows some nonspecific changes. D-dimer and troponin are both negative. The patient was not administered aspirin. Due to allergy. The patient will be admitted to the hospital for likely trending of his troponins. The patient made aware and agrees to plan. No further questions or concerns noted at this time. Chest x-ray given streets no acute process. Patient will be admitted to the hospitalist, accepted by Dr. Lauren. - Lab Data Lab results reviewed: Yes I reviewed the patient's lab results. Result diagrams: 03/30/18 10:29 03/30/18 10:29 Lab Results 03/30/18 03/30/18 03/30/18 Range/Units 10:19 10:29 10:29 WBC 5.0 (4.3-11.1) K/mcL RBC 4.33 (4.19-5.50) M/mcL Hgb 13.4 (12.9-16.9) g/dL Hct 40.6 (37.5-50.1) % MCV 93.8 (83.0-100.0) fL MCH 30.9 (28.0-33.3) pg MCHC 33.0 (31.6-35.5) g/dL RDW 13.9 (11.5-14.5) % Plt Count 238 (140-400) K/mcL MPV 10.1 (9.4-12.4) fL Immature Gran % 0.2 (0-4) % Seg Neutrophils % 52.0 % Lymphocytes % 33.9 % Monocytes % 7.7 % Eosinophils % 6.0 % Basophils % 0.2 % Neutrophils # 2.6 (1.6-8.9) K/mcL Lymphocytes # 1.7 (0.6-4.6) K/mcL Monocytes # 0.4 (0.0-1.3) K/mcL Eosinophils # 0.3 (0.0-0.6) K/mcL Basophils # 0.0 (0.0-0.2) K/mcL PT 12.0 (9.4-12.1) Seconds INR 1.1 APTT 37.4 H (26.0-36.0) Seconds D-Dimer 429 (0-500) ng/mLFEU Sodium 137 (136-145) mEq/L Potassium 4.3 (3.5-5.1) mEq/L Chloride 108 H (98-107) mEq/L Carbon Dioxide 20 L (23-29) mEq/L BUN 18 (8-23) mg/dL Creatinine 0.95 (0.70-1.30) mg/dL Est GFR ( Amer) > 60 (> 60) Est GFR (Non-Af Amer) > 60 (> 60) BUN/Creatinine Ratio 19 (6-26) Glucose 108 H (70-105) mg/dL Calculated Osmolality 286 (280-300) Calcium 9.1 (8.6-10.3) mg/dL Troponin I < 0.03 (< 0.04) ng/mL - Radiology Data Radiology results reviewed: Yes I reviewed the patient's radiology results. Chest X-Ray 03/30/18 10:19 IMPRESSION: Chronic interstitial change related to COPD, without definite acute superimposed cardiopulmonary process identified radiographically. D/ / Jason Mills MD / Jason Mills MD Interpreting Provider: Jason Mills MD - EKG Data EKG attestation: Yes I reviewed and interpreted this EKG. EKG results narrative: Heart rate 74 beats for minute. Normal sinus rhythm. No ST elevation or ST depression noted. Nonspecific changes noted from EKG on 01/26/2018.
[2018-03-30 10:40] LABS: Basophils % 0.2 %; Eosinophils # 0.3 K/mcL (0.0-0.6); Hematocrit 40.6 % (37.5-50.1); Hemoglobin 13.4 g/dL (12.9-16.9); Immature Granulocytes % 0.2 % (0-4); Lymphocytes # 1.7 K/mcL (0.6-4.6); Lymphocytes % 33.9 %; Mean Corpuscular Hemoglobin 30.9 pg (28.0-33.3); Mean Corpuscular Volume 93.8 fL (83.0-100.0); Mean Platelet Volume 10.1 fL (9.4-12.4); Monocytes # 0.4 K/mcL (0.0-1.3); Monocytes % 7.7 %; Neutrophils # 2.6 K/mcL (1.6-8.9); Platelet Count 238 K/mcL (140-400); Red Blood Count 4.33 M/mcL (4.19-5.50); Red Cell Distribution Width 13.9 % (11.5-14.5)
[2018-03-30 10:46] LABS: INR 1.1
[2018-03-30 10:49] LABS: Activated Partial Thrombo Time 37.4 Seconds (26.0-36.0)
[2018-03-30 11:01] LABS: Troponin I < 0.03 ng/mL (< 0.04)
[2018-03-30 11:09] LABS: BUN/Creatinine Ratio 19 (6-26); Blood Urea Nitrogen 18 mg/dL (8-23); Calcium 9.1 mg/dL (8.6-10.3); Carbon Dioxide 20 mEq/L (23-29); Chloride 108 mEq/L (98-107); Glucose 108 mg/dL (70-105); Osmolality,Calculated 286 (280-300); Potassium 4.3 mEq/L (3.5-5.1); Sodium 137 mEq/L (136-145); eGFR For Non-African Americans > 60 (> 60)
--- NOTE | 2018-03-30 11:27 | Emergency Department Note ---
Disposition Clinical Impression: Chest pain Qualifiers: Chest pain type: unspecified Qualified Code(s): R07.9 - Chest pain, unspecified Disposition: Admitted As Inpatient Condition: Undetermined Referrals: Subha Baird CNP [Primary Care Provider] - Forms: ED Satisfaction Letter General Adult HPI - General Chief complaint: ED Chest Pain Stated complaint: CP Time Seen by Provider: 03/30/18 10:15 Source: patient, EMS Mode of arrival: EMS Limitations: no limitations - History of Present Illness Pain Scale: 4 - Related Data Home Medications Medication Instructions Recorded Confirmed Albuterol Sulfate [Albuterol 2 puff IH Q4-6H PRN 03/20/17 01/26/18 Inhaler] Multivit-Min/FA/Lycopen/Lutein 1 tab PO DAILY 08/26/17 01/26/18 [Men 50 Plus Multivitamin Tab] Oxygen 4 l IN CONT 08/26/17 01/26/18 Saw [place] Xtr/Zinc Picolin [Saw 1 cap PO DAILY 08/26/17 01/26/18 [place] Capsule] Umeclidinium Brm/Vilanterol Tr 1 puff IH DAILY 08/26/17 01/26/18 [Anoro Ellipta 62.5-25 Mcg INH] Lactobacillus Combination No.8 1 cap PO HS 01/26/18 01/26/18 [Adult Probiotic] Polyethylene Glycol 3350 [MiraLAX] 17 gm PO DAILY 01/26/18 01/26/18 Previous Rx's Medication Instructions Recorded Insulin ASPART [Novolog Flexpen] 12 unit SQ TIDAC 30 Days #30 01/30/18 insuln.pen Insulin DETEMIR [Levemir Flextouch] 50 unit SQ HS 30 Days #30 01/30/18 insuln.pen predniSONE [PredniSONE] 40 mg PO DAILY #5 tablet 01/30/18 Allergies Allergy/AdvReac Type Severity Reaction Status Date / Time Penicillins Allergy Severe Anaphylaxis Verified 03/30/18 10:28 morphine Allergy Anaphylaxis Verified 03/30/18 10:28 Oxycodone [From Percocet] Allergy Hives Verified 03/30/18 10:28 aspirin AdvReac Nausea Verified 03/30/18 10:28 chlorpromazine AdvReac Cramping Verified 03/30/18 10:28 [From Thorazine] of the Muscles codeine AdvReac Nausea Verified 03/30/18 10:28 hydrocodone [From Vicodin] AdvReac Nausea Verified 03/30/18 10:28 chlorine AdvReac Severe Anaphylaxis Uncoded 03/30/18 10:28 Constitutional: Denies: fever, chills, weakness ENT ED: Denies: dysphagia Cardiovascular: Reports: chest pain, dyspnea on exertion, edema. Denies: palpitations, orthopnea, syncope Respiratory: Reports: dyspnea. Denies: cough, wheezes, hemoptysis, sputum production Gastrointestinal: Denies: abdominal pain, nausea, vomiting Genitourinary: Denies: urgency, dysuria Musculoskeletal: Reports: myalgia. Denies: back pain, neck pain, arthralgia Integumentary: Denies: rash Neurological: Denies: headache, weakness, numbness Past Medical History - Past Medical History Medical history: Reports: CHF, COPD, diabetes, hyperlipidemia, hypertension, kidney stones, liver disease, other Surgical history: Reports: cholecystectomy, herniorrhaphy, orthopedic, other Psychiatric history: Reports: no psych history - Social History Smoking Status: Former smoker Smokeless Tobacco Status: No Alcohol use: Reports: none Drug use: Reports: none Physical Exam - General Limitations: no limitations General appearance: alert, in no apparent distress Course Vital Signs Temperature 98.6 F 03/30/18 10:16 Pulse Rate 66 03/30/18 10:16 Respiratory Rate 18 03/30/18 10:16 Blood Pressure 139/90 03/30/18 10:16 O2 Sat by Pulse Oximetry 97 03/30/18 10:16 Temperature 98.6 F 03/30/18 10:16 Pulse Rate 66 03/30/18 10:16 Respiratory Rate 18 03/30/18 10:16 Blood Pressure 139/90 03/30/18 10:16 O2 Sat by Pulse Oximetry 97 03/30/18 10:16 Oxygen Delivery Oxygen Delivery Nasal Cannula Medical Decision Making - Lab Data Result diagrams: 03/30/18 10:29 03/30/18 10:29 Lab Results 03/30/18 03/30/18 03/30/18 Range/Units 10:19 10:29 10:29 WBC 5.0 (4.3-11.1) K/mcL RBC 4.33 (4.19-5.50) M/mcL Hgb 13.4 (12.9-16.9) g/dL Hct 40.6 (37.5-50.1) % MCV 93.8 (83.0-100.0) fL MCH 30.9 (28.0-33.3) pg MCHC 33.0 (31.6-35.5) g/dL RDW 13.9 (11.5-14.5) % Plt Count 238 (140-400) K/mcL MPV 10.1 (9.4-12.4) fL Immature Gran % 0.2 (0-4) % Seg Neutrophils % 52.0 % Lymphocytes % 33.9 % Monocytes % 7.7 % Eosinophils % 6.0 % Basophils % 0.2 % Neutrophils # 2.6 (1.6-8.9) K/mcL Lymphocytes # 1.7 (0.6-4.6) K/mcL Monocytes # 0.4 (0.0-1.3) K/mcL Eosinophils # 0.3 (0.0-0.6) K/mcL Basophils # 0.0 (0.0-0.2) K/mcL PT 12.0 (9.4-12.1) Seconds INR 1.1 APTT 37.4 H (26.0-36.0) Seconds D-Dimer 429 (0-500) ng/mLFEU Sodium 137 (136-145) mEq/L Potassium 4.3 (3.5-5.1) mEq/L Chloride 108 H (98-107) mEq/L Carbon Dioxide 20 L (23-29) mEq/L BUN 18 (8-23) mg/dL Creatinine 0.95 (0.70-1.30) mg/dL Est GFR ( Amer) > 60 (> 60) Est GFR (Non-Af Amer) > 60 (> 60) BUN/Creatinine Ratio 19 (6-26) Glucose 108 H (70-105) mg/dL Calculated Osmolality 286 (280-300) Calcium 9.1 (8.6-10.3) mg/dL Troponin I < 0.03 (< 0.04) ng/mL Attestation Statement - Attestation Attestation: I examined this patient and my medical decision-making was reviewed with the Resident Physician. I agree with the documented findings, disposition and treatment plan as described except to the extent set forth below. 62 year old male presents to the eD with complaints of chest pain and states that he has a history of COPD and typically has excerbation but today he is experiencing left sided chest pain and has risk factors for ACS. [place] has a negative troponin and non-ischemic EKG. We will admit to medicine
[2018-03-30] MEDS ORDERED: Naloxone 0.4 MG/ML INJ IVP PRN (12:14)
[2018-03-30] MEDS ORDERED: Acetaminophen 325 MG TABLET PO PRN (12:14)
[2018-03-30] MEDS ORDERED: Nitroglycerin 0.4 MG TAB.SUBL SL PRN (12:20)
[2018-03-30] MEDS ORDERED: *HR* Dextrose 50 % in Water (Syg) 50 ML SYRINGE IVP PRN (12:21)
[2018-03-30] MEDS ORDERED: Dextrose Gel 15 GM/37.5 ML TUBE PO PRN ×2 (12:21)
[2018-03-30] MEDS ORDERED: D5% in Water 1,000 ML IVC PRN (12:21)
--- NOTE | 2018-03-30 12:29 | Internal Med History&Physical ---
Date of Encounter: 03/30/18 Time of Encounter: 11:30 Internal Medicine - H&P: HPI Chief complaint: Chest pain Admitted From: Home Plans for Post Hospital Care: Home History of present illness: Mr. Colin is a 62 year old male presented to ER for chest pain. Past medical history is significant for diabetes, COPD on home oxygen. Patient presented to ER for intermittent chest pain started since Friday afternoon. Pain is a sharp, 9 out of 10, located on left chest, radiated to left neck, arm, and back. Pain is intermittent, lasts about 5-6 minutes. The intervals of pain varies from several minutes to several hours. Patient has diaphoresis, lightheaded, and nausea. But no vomiting. Patient denies a fever. He has chronic shortness of breath and cough because of COPD. In the emergency room, EKG and chest x-ray are unremarkable. Patient was admitted for chest pain rule out ACS. Past Med Surg Social Fam HX - Past Medical History Medical history: CHF, COPD, diabetes, hyperlipidemia, hypertension, kidney stones, liver disease, other Additional medical history: cholelithiasis. nicotine dependence. declined smoking cessation Psychiatric history: no psych history - Past Surgical History Surgical History: cholecystectomy, herniorrhaphy, orthopedic, other Additional surgical history: tonsil - Social History Smoking Status: Former smoker Smokeless Tobacco Status: No Alcohol use: none Drug use: none - Family History Sister Family Member Ethnicity: Non- Living Status: Still Living Hx Family Endocrine Disorder: Yes (diabetes) Maternal Adopted: No Family Member Ethnicity: Non- Living Status: Still Living Hx Family Cardiac Disorders: No Hx Family Respiratory Disorders: No Hx Family Cancer: No Hx Family GI Disorders: No Hx Family Endocrine Disorder: Yes Hx Family Neuromuscular Disorders: No Hx Family Neurologic Disorders: No Hx Family HEENT Disorders: Yes (degenerative eye dz) Hx Family Autoimmune Disorders: No Mother Family Member Ethnicity: Non- Living Status: Still Living Hx Family Endocrine Disorder: Yes (diabetes) Father Family Member Ethnicity: Non- Living Status: Hx Family Endocrine Disorder: Yes (DM) Hx Family Neurologic Disorders: Yes (Alzheimer's disease) Internal Medicine - H&P: Meds Albuterol Sulfate [Albuterol Inhaler] 2 puff IH Q4-6H PRN 03/20/17 [History] Multivit-Min/FA/Lycopen/Lutein [Men 50 Plus Multivitamin Tab] 1 tab PO DAILY [History] Oxygen 4 l IN CONT 08/26/17 [History] [place] Xtr/Zinc Picolin [Saw [place] Capsule] 1 cap PO DAILY 08/26/17 [ History] Umeclidinium Brm/Vilanterol Tr [Anoro Ellipta 62.5-25 Mcg INH] 1 puff IH DAILY 08/26/17 [History] Lactobacillus Combination No.8 [Adult Probiotic] 1 cap PO HS 01/26/18 [History] Polyethylene Glycol 3350 [MiraLAX] 17 gm PO DAILY 01/26/18 [History] Insulin DETEMIR [Levemir Flextouch] 50 unit SQ HS 30 Days #30 insuln.pen [Rx] Insulin ASPART [Novolog Flexpen] 2 - 3 unit SQ TIDWM 03/30/18 [History] 3 Allergy/AdvReac Type Severity Reaction Status Date / Time Penicillins Allergy Severe Anaphylaxis Verified 03/30/18 10:28 morphine Allergy Anaphylaxis Verified 03/30/18 10:28 Oxycodone [From Percocet] Allergy Hives Verified 03/30/18 10:28 aspirin AdvReac Nausea Verified 03/30/18 10:28 chlorpromazine AdvReac Cramping Verified 03/30/18 10:28 [From Thorazine] of the Muscles codeine AdvReac Nausea Verified 03/30/18 10:28 hydrocodone [From Vicodin] AdvReac Nausea Verified 03/30/18 10:28 chlorine AdvReac Severe Anaphylaxis Uncoded 03/30/18 10:28 All Systems PM: A 10-system review of systems was performed and is negative for pertinent findings except as documented above in the HPI. - Constitutional Vitals: Temp Pulse Resp BP Pulse Ox 98.1 F 65 16 120/77 93 03/30/18 12:15 03/30/18 12:15 03/30/18 12:15 03/30/18 12:15 03/30/18 12:15 Exam: Patient is in no acute distress - Head Head exam: Present: atraumatic, normocephalic - Eye Eye exam: Present: PERRL, conjuntiva pink, sclera anicteric Pupils: Present: PERRL - Neck Neck exam general surgery: Present: supple, trachea midline. Absent: lymphadenopathy - Respiratory Respiratory exam: Present: chest wall tenderness, CTAB. Absent: accessory muscle use, rales, rhonchi, wheezes - Cardiovascular Cardiovascular exam: Present: RRR, +S1, +S2. Absent: diastolic murmur, gallop, rubs, systolic murmur - GI/Abdominal GI/Abdominal exam: Present: normal bowel sounds, soft, no peritoneal signs. Absent: distended, tenderness - Extremities Exam Extremities exam: Present: warm, radial pulses palpable and symmetrical. Absent : calf tenderness, cyanotic, pedal edema - Neurological Exam Neurological exam: Present: CN II-XII intact, oriented X3, no focal deficits. Absent: pronater drift, facial droop, speech deficit - Skin Skin exam: Present: dry, intact Internal Med - H&P Results - Labs CBC & Chem 7: 03/30/18 10:29 03/30/18 10:29 - Assessment and plan (1) Diabetes mellitus Current Visit: Yes Status: Acute Assessment and plan: Continue basal and sliding scale insulin coverage Qualifiers: Diabetes mellitus type: type 2 Diabetes mellitus senior care insulin use: with senior care use Diabetes mellitus complication status: without complication Qualified Code(s): E11.9 - Type 2 diabetes mellitus without complications; Z79.4 - MCFP (current) use of insulin (2) Chest pain Current Visit: Yes Status: Acute Assessment and plan: Patient has chest pain. History of diabetes and tobacco smoking. Pain is some kind of typical. Need to rule out ACS. However, patient has a clearly chest wall tenderness, muscular pain is also likely. - Place patient on continuous cardiac monitoring - Track 3 sets of troponin - Echocardiogram - Pain control, patient is allergic to multiple pain medications. Place patient on Tylenol. Qualifiers: Chest pain type: intercostal pain Qualified Code(s): R07.82 - Intercostal pain (3) COPD (chronic obstructive pulmonary disease) Current Visit: No Status: Acute Assessment and plan: No wheezing on exam. No signs of exacerbation. Continue home medications. Continue oxygen supportive treatment Qualifiers: COPD type: unspecified COPD Qualified Code(s): J44.9 - Chronic obstructive pulmonary disease, unspecified (4) DVT prophylaxis Current Visit: No Status: Acute Assessment and plan: Heparin subcutaneously - Time Spent With Patient Total time spent is greater than 50% in coordination of care (as documented) at patient's floor/unit and/or counseling patient: 30 minutes 25 - 35 minutes
[2018-03-30] MEDS: Insulin LISPRO 300 UNITS/3 ML VIAL SQ SCH ×2 (17:19→20:15)
[2018-03-30] MEDS: *HR* Heparin 5,000 UNIT/ML VIAL SQ SCH (17:29)
[2018-03-30] MEDS: Insulin DETEMIR 100 UNIT/ML X5UNITS SQ SCH (20:15)
[2018-03-30] MEDS: Lactobacillus 1 EACH CAP.SPRINK PO SCH (20:15)
[2018-03-30] MEDS ORDERED: Perflutren Lipid Microsphere 1.3 ML in 0.9 % Sodium Chloride 8.7 ML IVP ONE (21:58)
[2018-03-31] MEDS: *HR* Heparin 5,000 UNIT/ML VIAL SQ SCH ×2 (05:38→17:10)
[2018-03-31 06:16] LABS: Basophils % 0.2 %; Eosinophils # 0.2 K/mcL (0.0-0.6); Eosinophils % 5.6 %; Hematocrit 40.9 % (37.5-50.1); Hemoglobin 13.3 g/dL (12.9-16.9); Immature Granulocytes % 0.2 % (0-4); Lymphocytes # 1.4 K/mcL (0.6-4.6); Lymphocytes % 31.9 %; Mean Corpuscular HGB Conc 32.5 g/dL (31.6-35.5); Mean Corpuscular Volume 92.3 fL (83.0-100.0); Monocytes # 0.3 K/mcL (0.0-1.3); Monocytes % 5.8 %; Neutrophils # 2.4 K/mcL (1.6-8.9); Platelet Count 237 K/mcL (140-400); Red Blood Count 4.43 M/mcL (4.19-5.50); Red Cell Distribution Width 14.2 % (11.5-14.5); Segmented Neutrophils % 56.3 %
[2018-03-31 06:36] LABS: BUN/Creatinine Ratio 16 (6-26); Blood Urea Nitrogen 14 mg/dL (8-23); Carbon Dioxide 21 mEq/L (23-29); Chloride 110 mEq/L (98-107); Glucose 144 mg/dL (70-105); Magnesium 1.8 mg/dL (1.6-2.6); Osmolality,Calculated 287 (280-300); Potassium 4.2 mEq/L (3.5-5.1); Sodium 137 mEq/L (136-145); eGFR For Non-African Americans > 60 (> 60)
--- NOTE | 2018-03-31 08:54 | Electrocardiograph Report ---
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
[2018-03-31] MEDS: Multivit/Ca/Min/Fe/FA 1 TAB TABLET PO SCH (09:26)
[2018-03-31] MEDS: Insulin LISPRO 300 UNITS/3 ML VIAL SQ SCH ×4 (09:27→20:40)
[2018-03-31] MEDS ORDERED: (Anoro Ellipta 62.5-2) IH SCH (10:00)
--- NOTE | 2018-03-31 12:08 | Internal Med Progress Note ---
Hospitalist Progress Note - Encounter Date of Encounter: 03/31/18 Time of Encounter: 12:06 - Subjective Interval History: Patient seen and examined at bedside today. Continuing to report intermittent sharp left-sided chest pain with radiation to the left neck. Chest pain also associated with shortness of breath, diaphoresis and nausea. There is also a musculoskeletal component as chest pain worsens with use of left upper extremity. Denies any dizziness, vision changes, abdominal pain, vomiting, diarrhea, unilateral extremity swelling or pain. Discussed plan of care, verbalize understanding denies any further questions at this time. - Exam Vitals: Temp Pulse Resp BP Pulse Ox 98.1 F 82 14 128/85 96 03/31/18 10:51 03/31/18 10:51 03/31/18 10:51 03/31/18 10:51 03/31/18 10:51 Exam: PHYSICAL EXAMINATION: GENERAL: The patient is an obese male in no apparent distress. He is alert and oriented x3. HEENT: Head is normocephalic and atraumatic. Extraocular muscles are intact. Pupils are equal, round, and reactive to light and accommodation. Nares appeared normal. Mouth is well hydrated and without lesions. Mucous membranes are moist. Posterior pharynx clear of any exudate or lesions. NECK: Supple. No carotid bruits. No lymphadenopathy or thyromegaly. LUNGS: Clear/diminished to auscultation throughout AP and L. HEART: Regular rate and rhythm without murmur. ABDOMEN: Soft, nontender, and nondistended. Positive bowel sounds. No hepatosplenomegaly was noted. EXTREMITIES: Bilateral lower extremities are erythematous appearing with venous stasis, sluggish capillary refill bilateral feet, PT/DP +1 bilaterally NEUROLOGIC: Cranial nerves II through XII are grossly intact. PSYCHIATRIC: Flat affect, but denies suicidal or homicidal ideations. SKIN: No ulceration or induration present. - Assessment and Plan (1) Chest pain Current Visit: Yes Status: Acute Assessment and Plan: Presented with left-sided chest pain with radiation to the left neck intermittent lasting approximately 5-6 minutes. Associated symptoms include diaphoresis, nausea and shortness of breath. Should be noted however that the patient is short of breath at baseline due to severe COPD. He is also reporting a History of diabetes and tobacco smoking. Per my assessment this afternoon is continuing to endorse left-sided chest pain, concerning for ACS continue with ACS rule out. Should be noted the patient also has chest wall tenderness, and muscular pain is also likely. - Continue continuous cardiac monitoring - Serial troponins negative 3 less than 0.03 - Echocardiogram- LVEF 55%. Mild left ventricular diastolic dysfunction. Definity echo contrast was used. Normal right ventricular structure and function. No significant valvular dysfunction. No pulmonary hypertension. -Nothing by mouth after midnight -Stress test in the morning (2) COPD (chronic obstructive pulmonary disease) Current Visit: No Status: Acute Assessment and Plan: not in exacerbation, lungs clear/diminished on exam Continue home medications. Continue oxygen supportive treatment (3) Diabetes mellitus Current Visit: Yes Status: Acute Assessment and Plan: per hx controlled Continue basal and sliding scale insulin coverage (4) DVT prophylaxis Current Visit: No Status: Acute Assessment and Plan: Heparin SC - Time Spent with Patient Total time spent is greater than 50% in coordination of care (as documented) at patient's floor/unit and/or counseling patient: less than 15 minutes Plan of Care Discussed with: patient Internal Medicine: Result - Labs CBC & Chem 7: 03/31/18 05:36 03/31/18 05:36 Labs: Short CBC 03/31/18 Range/Units 05:36 WBC 4.3 (4.3-11.1) K/mcL Hgb 13.3 (12.9-16.9) g/dL Hct 40.9 (37.5-50.1) % Plt Count 237 (140-400) K/mcL Neutrophils # 2.4 (1.6-8.9) K/mcL BMP 03/31/18 05:36 Sodium 137 Potassium 4.2 Chloride 110 H Carbon Dioxide 21 L BUN 14 Creatinine 0.85 Glucose 144 H Calcium 9.0 Cardiac Enzymes 03/30/18 03/30/18 Range/Units 15:07 20:39 Troponin I < 0.03 < 0.03 (< 0.04) ng/mL - ABG Interpretation ABG results: PT/INR, D-dimer PT 12.0 Seconds (9.4-12.1) 03/30/18 10:19 D-Dimer 429 ng/mLFEU (0-500) 03/30/18 10:19 - Impressions Impressions Echocardiogram 03/30/18 12:19 Impressions: LVEF 55%. Mild left ventricular diastolic dysfunction. Definity echo contrast was used. Normal right ventricular structure and function. No significant valvular dysfunction. No pulmonary hypertension. Left Ventricular Wall Motion: Rest Echo Findings All wall segments showed normal motion. Findings: Study Quality * Technically adequate exam. ECG Findings * Normal sinus rhythm. Left Ventricle * LVEF 55%. * Normal LV chamber size and wall thickness. * Mild left ventricular diastolic dysfunction. * Definity echo contrast was used. Right Ventricle * Normal right ventricular structure and function. Left Atrium * Normal left atrial size. Right Atrium * Normal right atrial size. Aortic Valve * No aortic regurgitation. * Trileaflet aortic valve. * No aortic stenosis. Mitral Valve * No mitral regurgitation. * Normal mitral valve structure. * No mitral stenosis. Tricuspid Valve * Trace tricuspid regurgitation. * Normal tricuspid valve structure. Pulmonic Valve * Pulmonic valve is not well visualized. * No pulmonic stenosis. * No pulmonic regurgitation. Pulmonary Artery * Pulmonary artery not well visualized. Aorta * Normally sized aortic root. Pericardium * There is no pericardial effusion present. Interatrial Septum * Interatrial septum not well evaluated. IVC * The IVC is not well evaluated. Consult Discharge Plan - Plan Referrals: Subha Baird, BEHAVIOR CLINICIAN [Primary Care Provider] - (1) Chest pain Qualifiers: Chest pain type: intercostal pain Qualified Code(s): R07.82 - Intercostal pain (2) COPD (chronic obstructive pulmonary disease) Qualifiers: COPD type: unspecified COPD Qualified Code(s): J44.9 - Chronic obstructive pulmonary disease, unspecified (3) Diabetes mellitus Qualifiers: Diabetes mellitus type: type 2 Diabetes mellitus residential insulin use: with terminal superintendent use Diabetes mellitus complication status: without complication Qualified Code(s): E11.9 - Type 2 diabetes mellitus without complications; Z79.4 - termination clerk (current) use of insulin
[2018-03-31] MEDS: (Anoro Ellipta 62.5-2) IH SCH (13:05)
[2018-03-31] MEDS: Insulin DETEMIR 100 UNIT/ML X5UNITS SQ SCH (20:39)
[2018-03-31] MEDS: Lactobacillus 1 EACH CAP.SPRINK PO SCH (20:39)
[2018-04-01] MEDS ORDERED: Regadenoson 0.4 MG/5 ML SYRINGE IVP ONE (05:43)
[2018-04-01] MEDS: *HR* Heparin 5,000 UNIT/ML VIAL SQ SCH (06:23)
[2018-04-01] MEDS: Insulin LISPRO 300 UNITS/3 ML VIAL SQ SCH (09:57)
[2018-04-01] MEDS: Multivit/Ca/Min/Fe/FA 1 TAB TABLET PO SCH (09:57)
[2018-04-01] MEDS: (Anoro Ellipta 62.5-2) IH SCH (09:59)
[2018-04-01 11:38] VITALS: BP 125/77
--- NOTE | 2018-04-01 14:46 | Discharge Summary ---
- NOTES TO OUTPATIENT PROVIDER Notes to Outpatient Provider: Presented to the ER for chest pain--ACS rule out implemented--workup found to be negative. No pending studies at time of discharge Orders not resulted at time of discharge: Pending orders 03/31/18 06:00 ECG 12 lead ECG [ECG] AM 0600 03/31/18 12:05 NM aaron perf SPECT multi [NM] Routine Date of Encounter: 04/01/18 Time of Encounter: 14:44 - Discharge Diagnosis (1) Chest pain Priority: Primary Status: Acute Assessment and Plan: Presented with left-sided chest pain with radiation to the left neck intermittent lasting approximately 5-6 minutes. He was also short of breath on arrival however, has shortness of breath at baseline due to severe COPD ACS rule out implemented due to presenting symptoms and history of COPD, diabetes, obesity and sedentary lifestyle and tobacco abuse. Continues to have mild chest wall tenderness to palpation. With negative for ACS workup pain is most likely musculoskeletal - Serial troponins negative 3 less than 0.03 - Echocardiogram- LVEF 55%. Mild left ventricular diastolic dysfunction. Definity echo contrast was used. Normal right ventricular structure and function. No significant valvular dysfunction. No pulmonary hypertension. -Stress test --04/01/18--perfusion imaging negative for ischemia or infarct, pharmacological stress ECG is negative for ischemia at level of heart rate achieved, no appreciable change from baseline ECG, dated EF = 63% 04/01/18--patient reports that chest pain has subsided, clinically he is continued to improve since admission. He remains on baseline oxygen and hemodynamically stable. With negative workup patient is ready for discharge this afternoon. Qualifiers: Chest pain type: intercostal pain Qualified Code(s): R07.82 - Intercostal pain (2) COPD (chronic obstructive pulmonary disease) Priority: Secondary Status: Acute Qualifiers: COPD type: unspecified COPD Qualified Code(s): J44.9 - Chronic obstructive pulmonary disease, unspecified (3) Diabetes mellitus Priority: Secondary Status: Acute Qualifiers: Diabetes mellitus type: type 2 Diabetes mellitus director long term care insulin use: with director long term care use Diabetes mellitus complication status: without complication Qualified Code(s): E11.9 - Type 2 diabetes mellitus without complications; Z79.4 - terminal operator (current) use of insulin (4) DVT prophylaxis Priority: Secondary Status: Acute Hospital course: Mr. Colin is a 62 year old male who presented with chest pain concerning for ACS. Multiple risk factors prompting acute coronary syndrome workup. Echocardiogram grossly unremarkable, serial troponins negative 3, stress test negative for perfusion defect for ischemia. Chest pain has subsided at this time with the exception of mild chest wall tenderness to palpation. Etiology most likely musculoskeletal. Has a history of COPD, was not in acute exacerbation during stay, home medications continued during hospital course and will be continued at discharge. Also has history of diabetes which was controlled and managed with basal insulin and sliding scale coverage. We will continue home insulin regimen at discharge. Uneventful hospital course, patient back at baseline. We will discharge this afternoon plan to follow-up with PCP within 1 week of discharge. He has been instructed to return to the ED should his symptoms return. He verbalized understanding and denies any further questions. Discharge discussed with: patient, nurse - Time Spent with Patient Total time spent providing and/or coordinating discharge services: Less than 30 minutes - Discharge Medications Home Medications: Albuterol Sulfate [Albuterol Inhaler] 2 puff IH Q4-6H PRN 03/20/17 [History] Multivit-Min/FA/Lycopen/Lutein [Men 50 Plus Multivitamin Tab] 1 tab PO DAILY [History] Oxygen 4 l IN CONT 08/26/17 [History] Saw [place] Xtr/Zinc Picolin [Saw [place] Capsule] 1 cap PO DAILY 08/26/17 [ History] Umeclidinium Brm/Vilanterol Tr [Anoro Ellipta 62.5-25 Mcg INH] 1 puff IH DAILY 08/26/17 [History] Lactobacillus Combination No.8 [Adult Probiotic] 1 cap PO HS 01/26/18 [History] Polyethylene Glycol 3350 [MiraLAX] 17 gm PO DAILY 01/26/18 [History] Insulin DETEMIR [Levemir Flextouch] 50 unit SQ HS 30 Days #30 insuln.pen [Rx] Insulin ASPART [Novolog Flexpen] 2 - 3 unit SQ TIDWM 03/30/18 [History] Allergies/Adverse Reactions: 3 Allergy/AdvReac Type Severity Reaction Status Date / Time Penicillins Allergy Severe Anaphylaxis Verified 03/30/18 10:28 morphine Allergy Anaphylaxis Verified 03/30/18 10:28 Oxycodone [From Percocet] Allergy Hives Verified 03/30/18 10:28 aspirin AdvReac Nausea Verified 03/30/18 10:28 chlorpromazine AdvReac Cramping Verified 03/30/18 10:28 [From Thorazine] of the Muscles codeine AdvReac Nausea Verified 03/30/18 10:28 hydrocodone [From Vicodin] AdvReac Nausea Verified 03/30/18 10:28 chlorine AdvReac Severe Anaphylaxis Uncoded 03/30/18 10:28 Date of admission: 03/30/18 11:26 Primary care physician: Subha Baird PATIENT ESCORT Consults: 03/30/18 15:35 Consult to Motor Vehicle Escort Driver [CONS] Routine Reason for SW Consult: many falls at home. Patient reports triping over o2 tubbing. Patient has [place] home o2, aides M-F 3 hrs a day thorugh [facility], Nurse comes 2 times a week. Discharging clinician: Micah Lowery Anticipated date of discharge: 04/01/18 - Constitutional Vitals: Temp Pulse Resp BP Pulse Ox 97.6 F 86 16 125/77 93 04/01/18 11:36 04/01/18 11:36 04/01/18 11:36 04/01/18 11:36 04/01/18 11:36 Exam: PHYSICAL EXAMINATION: GENERAL: The patient is an obese male in no apparent distress. He is alert and oriented x3. HEENT: Head is normocephalic and atraumatic. Extraocular muscles are intact. Pupils are equal, round, and reactive to light and accommodation NECK: Supple. No carotid bruits. No lymphadenopathy or thyromegaly. LUNGS: Clear/diminished to auscultation throughout AP and L. HEART: Regular rate and rhythm without murmur. ABDOMEN: Soft, nontender, and nondistended. Positive bowel sounds. No hepatosplenomegaly was noted. EXTREMITIES: Bilateral lower extremities are erythematous appearing with venous stasis, sluggish capillary refill bilateral feet, PT/DP +1 bilaterally NEUROLOGIC: No facial droop or slurred speech noted SKIN: No ulceration or induration present. - Patient Status Disposition: Home, Self-Care Condition: Undetermined Functional capacity at discharge: uses cane/walker Overall status at discharge: patient is progressing back to baseline - Discharge Instructions Instructions: Chest Pain (DC), Diabetes Mellitus Type 2 in Adults (DC), Acute Respiratory Distress Syndrome (DC), Chronic Obstructive Pulmonary Disease (DC) Follow Up With: Subha Baird, PATIENT ESCORT [Primary Care Provider] - Additional Instructions: Return to the ED should chest pain return or should she develop shortness of breath above baseline - Diet and Activity Activity: increase activity as tolerated, resume usual activities as tolerated, wear oxygen at all times Diet: diabetic diet, low fat, low cholesterol
--- NOTE | 2018-04-01 15:08 | Physician Discharge Referral ---
Home Health/Hosp Referral Info Transfer to: Home Health Provider in Charge Post Discharge: PCP - Diagnosis (1) Chest pain Priority: Primary Status: Acute (2) COPD (chronic obstructive pulmonary disease) Priority: Secondary Status: Acute (3) Diabetes mellitus Priority: Secondary Status: Acute (4) DVT prophylaxis Priority: Secondary Status: Acute - Respiratory Orders Smoking Cessation: Smoking cessation has been advised. For more information, call the [place] Tobacco Quit Line at 1-135-MZDV-NOW. - Diet/Nutrition Diet/Nutrition Orders: Cardiac - Activity Activity Orders: Up ad sherley - Services Needed Following services are medically necessary services: Nursing, Home Health Aide - Transfer Medications Home Medications: Albuterol Sulfate [Albuterol Inhaler] 2 puff IH Q4-6H PRN 03/20/17 [History] Multivit-Min/FA/Lycopen/Lutein [Men 50 Plus Multivitamin Tab] 1 tab PO DAILY [History] Oxygen 4 l IN CONT 08/26/17 [History] Saw [place] Xtr/Zinc Picolin [Saw [place] Capsule] 1 cap PO DAILY 08/26/17 [ History] Umeclidinium Brm/Vilanterol Tr [Anoro Ellipta 62.5-25 Mcg INH] 1 puff IH DAILY 08/26/17 [History] Lactobacillus Combination No.8 [Adult Probiotic] 1 cap PO HS 01/26/18 [History] Polyethylene Glycol 3350 [MiraLAX] 17 gm PO DAILY 01/26/18 [History] Insulin DETEMIR [Levemir Flextouch] 50 unit SQ HS 30 Days #30 insuln.pen [Rx] Insulin ASPART [Novolog Flexpen] 2 - 3 unit SQ TIDWM 03/30/18 [History] Allergies/Adverse Reactions: 3 Allergy/AdvReac Type Severity Reaction Status Date / Time Penicillins Allergy Severe Anaphylaxis Verified 03/30/18 10:28 morphine Allergy Anaphylaxis Verified 03/30/18 10:28 Oxycodone [From Percocet] Allergy Hives Verified 03/30/18 10:28 aspirin AdvReac Nausea Verified 03/30/18 10:28 chlorpromazine AdvReac Cramping Verified 03/30/18 10:28 [From Thorazine] of the Muscles codeine AdvReac Nausea Verified 03/30/18 10:28 hydrocodone [From Vicodin] AdvReac Nausea Verified 03/30/18 10:28 chlorine AdvReac Severe Anaphylaxis Uncoded 03/30/18 10:28 Certification: Further, I certify that my clinical findings support that this patient is homebound (i.e. absences from home require considerable and taxing effort and are for medical reasons or confucianist services or infrequently or short duration when for other reasons) because: Homebound Reason: Patient requires assistance of a person or device to safely leave home Attestation: My signature below is to certify that this patient is under my care and that I, or nurse practitioner, or a physician's asset protection assistant working with me, has a face-to -face encounter with this patient.
[2018-04-01] MEDS ORDERED: Ipratropium/Albuterol Neb 3 ML IH SCH (16:00)
== END 2018-04-01 15:56 | disposition home or self-care (01) ==
LOC: 3BNU 10:13 → EMEROOARM 10:13 → 3BNU 11:42
PROVIDERS: ADMIT Internal Medicine; ATTEND Internal Medicine

== ENCOUNTER 2018-06-10 10:25 | Observation (INO) ==
--- NOTE | 2018-06-10 10:30 | Emergency Department Note ---
Disposition Clinical Impression: Chest pain Qualifiers: Chest pain type: unspecified Qualified Code(s): R07.9 - Chest pain, unspecified Disposition: Admitted As Inpatient General Adult HPI - General Chief complaint: ED Shortness of Breath/Dyspnea Stated complaint: RAJAT Time Seen by Provider: 06/10/18 10:29 Source: patient Mode of arrival: ambulatory Limitations: no limitations Nursing Notes Reviewed: Yes Vital Signs Reviewed: Yes - History of Present Illness HPI Narrative: 62-year-old male past medical history of CHF, COPD, dependent on oxygen at home because his emergency department with concern for acute onset of sharp, stabbing, he chest pain radiating into the back. Reports she has never felt this way. Denies any history of coronary artery disease. Denies a history of aortic aneurysm. Patient does report being a smoker in the past, but quitting 2 years ago, states that he has hypertension, hyperlipidemia. States he had a recent admission, and he just wants to be fixed, as he was not fixed at his previous one. Has not taken any thing for his pain today. - Related Data Home Medications Medication Instructions Recorded Confirmed Albuterol Sulfate [Albuterol 2 puff IH Q4-6H PRN 03/20/17 06/10/18 Inhaler] Multivit-Min/FA/Lycopen/Lutein 1 tab PO DAILY 08/26/17 06/10/18 [Men 50 Plus Multivitamin Tab] Oxygen 4 l IN CONT 08/26/17 06/10/18 Saw [place] Xtr/Zinc Picolin [Saw 2 cap PO BID 08/26/17 06/10/18 [place] Capsule] Lactobacillus Combination No.8 1 cap PO HS 01/26/18 06/10/18 [Adult Probiotic] Polyethylene Glycol 3350 [MiraLAX] 17 gm PO DAILY 01/26/18 06/10/18 Fluticasone/Umeclidin/Vilanter 1 puff IH DAILY 06/10/18 06/10/18 [Trelegy Ellipta 100-62.5-25] Furosemide [Lasix] 20 mg PO DAILY 06/10/18 06/10/18 Insulin Aspart Prot/Insuln Asp 14 unit SQ TID 06/10/18 06/10/18 [Novolog Mix 70-30 Flexpen Syrn] Previous Rx's Medication Instructions Recorded Insulin DETEMIR [Levemir Flextouch] 50 unit SQ HS 30 Days #30 01/30/18 insuln.pen Allergies Allergy/AdvReac Type Severity Reaction Status Date / Time Penicillins Allergy Severe Anaphylaxis Verified 05/06/18 11:11 azithromycin Allergy Swelling Verified 05/06/18 11:11 of Lip/Tongue/Throat morphine Allergy Anaphylaxis Verified 05/06/18 11:11 Oxycodone [From Percocet] Allergy Hives Verified 05/06/18 11:11 aspirin AdvReac Nausea Verified 05/06/18 11:11 chlorpromazine AdvReac Cramping Verified 05/06/18 11:11 [From Thorazine] of the Muscles codeine AdvReac Nausea Verified 05/06/18 11:11 hydrocodone [From Vicodin] AdvReac Nausea Verified 05/06/18 11:11 chlorine Allergy Severe Anaphylaxis Uncoded 05/06/18 11:11 All systems ED: reviewed and negative except as stated. Review of Systems: As Per HPI Constitutional: Denies: fever Cardiovascular: Reports: chest pain Respiratory: Reports: dyspnea. Denies: cough, sputum production Gastrointestinal: Denies: abdominal pain, nausea, vomiting Genitourinary: Denies: urgency Musculoskeletal: Reports: back pain Integumentary: Denies: rash Past Medical History - Past Medical History Medical history: Reports: CHF, COPD, diabetes, hyperlipidemia, hypertension, kidney stones, liver disease, other Surgical history: Reports: cholecystectomy, herniorrhaphy, orthopedic, other Psychiatric history: Reports: no psych history - Social History Smoking Status: Former smoker Smokeless Tobacco Status: No Alcohol use: Reports: none Drug use: Reports: none Physical Exam - General Limitations: no limitations General appearance: alert, in no apparent distress - Head Head exam: normocephalic - Eye Eye exam: Present: EOMI - ENT ENT exam: normal oropharynx, mucous membranes moist - Neck Neck exam: Present: trachea midline - Chest Chest inspection: Present: symmetric chest wall rise - Respiratory Respiratory exam: Absent: respiratory distress, accessory muscle use - Cardiovascular Cardiovascular exam: Present: regular rate, normal heart sounds - Abdominal Exam Abdominal exam: Present: soft, Non-Tender. Absent: distention, guarding, rebound - Extremities Exam Extremities exam: Present: normal capillary refill - Back Exam Back exam: Present: full ROM - Neurological Exam Neurological exam: Present: alert, oriented X3 - Psychiatric Psychiatric exam: Present: normal affect, normal mood Course Vital Signs Temperature 98.3 F 06/10/18 10:29 Pulse Rate 64 06/10/18 10:29 Respiratory Rate 20 06/10/18 10:29 Blood Pressure 142/91 06/10/18 10:29 O2 Sat by Pulse Oximetry 96 06/10/18 10:29 Temperature 98.3 F 06/10/18 18:40 Pulse Rate 78 06/10/18 18:40 Respiratory Rate 16 06/10/18 18:40 Blood Pressure 171/82 06/10/18 18:40 O2 Sat by Pulse Oximetry 93 06/10/18 18:40 Oxygen Delivery Oxygen Delivery Nasal Cannula Medical Decision Making - MDM Narrative Medical decision making narrative: 62-year-old male presents to the emergency department with concern for chest pain. Initially, patient only mildly hyper pretense of, however, the acute onset of pain that was sharp in nature radiating to the back was concerning for possibility of aortic dissection. CTA of the chest was obtained. Do not reveal any evidence of acute abnormality. Did not comment on the chest x-ray that was obtained prior to the CTA that revealed possible bibasilar infiltrates. Patient does not have a leukocytosis. Is not having sputum production. He is afebrile. No protocol. Do not suspect pneumonia at this time clinically. Patient denied any ischemic ST changes on his EKG. Troponin was negative. We did give aspirin as well as Tylenol nitroglycerin. Relief patient's symptoms of chest pain. Patient to be admitted to hospitalist for further observation for his chest pain. The patient agreed with plan. Clinically stable nonacute distress at time of admission. Abdomen/Pelvis CTA 06/10/18 00:00 IMPRESSION: 1. No pulmonary embolism or other acute vascular abnormality. 2. Mild right hilar lymph node enlargement almost certainly reactive, smaller when compared with prior study. 3. Emphysema. 4. Small, fat containing umbilical hernia. 5. Bilateral adrenal nodules are stable, almost certainly reflecting lipid poor adenomas, greater than 2 years stability when compared with 12/24/2015 CT abdomen and pelvis. 6. Hepatic steatosis. 7. Minimal bibasilar scar atelectasis. 8. Degenerative changes predominate lower lumbar spine, with L5-S1 vacuum disc phenomena as well as slight degenerative anterolisthesis L5 on S1. The D/ / Javier Beaulieu / Javier Beaulieu Interpreting Provider: Javier Beaulieu Chest X-Ray 06/10/18 10:36 IMPRESSION: Bibasilar infiltrates, most compatible with pneumonia. Aspiration is a consideration given the distribution. Follow-up is recommended to document resolution. Emphysema. D/ / Oscar Martinez MD / Oscar Martinez MD Interpreting Provider: Oscar Martinez MD Chest CTA 06/10/18 12:21 IMPRESSION: 1. No pulmonary embolism or other acute vascular abnormality. 2. Mild right hilar lymph node enlargement almost certainly reactive, smaller when compared with prior study. 3. Emphysema. 4. Small, fat containing umbilical hernia. 5. Bilateral adrenal nodules are stable, almost certainly reflecting lipid poor adenomas, greater than 2 years stability when compared with 12/24/2015 CT abdomen and pelvis. 6. Hepatic steatosis. 7. Minimal bibasilar scar atelectasis. 8. Degenerative changes predominate lower lumbar spine, with L5-S1 vacuum disc phenomena as well as slight degenerative anterolisthesis L5 on S1. The D/ / Javier Beaulieu / Javier Beaulieu Interpreting Provider: Javier Beaulieu - Lab Data Result diagrams: 06/10/18 11:01 06/10/18 11:01 Lab Results 06/10/18 06/10/18 06/10/18 Range/Units 11:01 11:01 11:01 WBC 4.5 (4.3-11.1) K/mcL RBC 4.75 (4.19-5.50) M/mcL Hgb 13.8 (12.9-16.9) g/dL Hct 42.9 (37.5-50.1) % MCV 90.3 (83.0-100.0) fL MCH 29.1 (28.0-33.3) pg MCHC 32.2 (31.6-35.5) g/dL RDW 15.6 H (11.5-14.5) % Plt Count 199 (140-400) K/mcL MPV 10.1 (9.4-12.4) fL Immature Gran % 0.4 (0-4) % Seg Neutrophils % 53.0 % Lymphocytes % 37.3 % Monocytes % 5.8 % Eosinophils % 3.1 % Basophils % 0.4 % Neutrophils # 2.4 (1.6-8.9) K/mcL Lymphocytes # 1.7 (0.6-4.6) K/mcL Monocytes # 0.3 (0.0-1.3) K/mcL Eosinophils # 0.1 (0.0-0.6) K/mcL Basophils # 0.0 (0.0-0.2) K/mcL D-Dimer 371 (0-500) ng/mLFEU Sodium 139 (136-145) mEq/L Potassium 4.1 (3.5-5.1) mEq/L Chloride 107 (98-107) mEq/L Carbon Dioxide 21 L (23-29) mEq/L BUN 17 (8-23) mg/dL Creatinine 0.93 (0.70-1.30) mg/dL Est GFR ( Amer) > 60 (> 60) Est GFR (Non-Af Amer) > 60 (> 60) BUN/Creatinine Ratio 18 (6-26) Glucose 102 (70-105) mg/dL Calculated Osmolality 290 (280-300) Lactic Acid (0.5-2.2) mmol/L Calcium 9.3 (8.6-10.3) mg/dL Troponin I < 0.03 (< 0.04) ng/mL B-Natriuretic Peptide (Less than 100) pg/mL 06/10/18 06/10/18 Range/Units 11:01 11:01 WBC (4.3-11.1) K/mcL RBC (4.19-5.50) M/mcL Hgb (12.9-16.9) g/dL Hct (37.5-50.1) % MCV (83.0-100.0) fL MCH (28.0-33.3) pg MCHC (31.6-35.5) g/dL RDW (11.5-14.5) % Plt Count (140-400) K/mcL MPV (9.4-12.4) fL Immature Gran % (0-4) % Seg Neutrophils % % Lymphocytes % % Monocytes % % Eosinophils % % Basophils % % Neutrophils # (1.6-8.9) K/mcL Lymphocytes # (0.6-4.6) K/mcL Monocytes # (0.0-1.3) K/mcL Eosinophils # (0.0-0.6) K/mcL Basophils # (0.0-0.2) K/mcL D-Dimer (0-500) ng/mLFEU Sodium (136-145) mEq/L Potassium (3.5-5.1) mEq/L Chloride (98-107) mEq/L Carbon Dioxide (23-29) mEq/L BUN (8-23) mg/dL Creatinine (0.70-1.30) mg/dL Est GFR ( Amer) (> 60) Est GFR (Non-Af Amer) (> 60) BUN/Creatinine Ratio (6-26) Glucose (70-105) mg/dL Calculated Osmolality (280-300) Lactic Acid 0.9 (0.5-2.2) mmol/L Calcium (8.6-10.3) mg/dL Troponin I (< 0.04) ng/mL B-Natriuretic Peptide 42 (Less than 100) pg/mL - EKG Data EKG #1 EKG attestation: Yes I reviewed and interpreted this EKG. EKG results narrative: 10:32 Heart rate 64 bpm, AK interval 169 ms, QRS duration 95 ms, QTC 412 ms Sinus rhythm ventricular rate 64 beats for minute. No evidence of any ischemic ST changes on this EKG. Attestation Statement - Attestation Attestation: I, Lobo Hess, examined this patient and my medical decision-making was reviewed with the HEADSTART TEACHER/PA/Advanced Practice Nurse/Resident Physician. I agree with the documented findings, disposition and treatment plan as described except to the extent set forth below. 62-year-old male presents emergency Department with concerns of acute onset chest pain and shortness of breath. Patient states he was in his usual state of health yesterday when he suddenly developed chest pain that woke him from sleep. Patient described the pain as left-sided chest aching and sharpness that radiated to his left upper back. Patient states the pain has been intermittent throughout the day, it is not associated with movement of the left upper extremity and it is not worsened with palpation. Patient denies fever, chills, nausea, vomiting, recent trauma, abdominal pain, syncope, diarrhea, rash. No rash noted on skin during exam. CTA of the chest is negative for PE or aortic dissection. Patient is afebrile and does not have a leukocytosis. He will be admitted to rule out ACS. Pain improved after nitroglycerin.
[2018-06-10] MEDS ORDERED: Aspirin 81 MG TAB.CHEW PO STA (10:37)
[2018-06-10 11:13] LABS: Basophils % 0.4 %; Eosinophils # 0.1 K/mcL (0.0-0.6); Eosinophils % 3.1 %; Hematocrit 42.9 % (37.5-50.1); Hemoglobin 13.8 g/dL (12.9-16.9); Immature Granulocytes % 0.4 % (0-4); Lymphocytes # 1.7 K/mcL (0.6-4.6); Lymphocytes % 37.3 %; Mean Corpuscular HGB Conc 32.2 g/dL (31.6-35.5); Mean Corpuscular Hemoglobin 29.1 pg (28.0-33.3); Mean Corpuscular Volume 90.3 fL (83.0-100.0); Mean Platelet Volume 10.1 fL (9.4-12.4); Monocytes # 0.3 K/mcL (0.0-1.3); Monocytes % 5.8 %; Neutrophils # 2.4 K/mcL (1.6-8.9); Platelet Count 199 K/mcL (140-400); Red Blood Count 4.75 M/mcL (4.19-5.50); Red Cell Distribution Width 15.6 % (11.5-14.5)
[2018-06-10] MEDS: Nitroglycerin 0.4 MG TAB.SUBL SL PRN (11:13)
[2018-06-10 11:36] LABS: BUN/Creatinine Ratio 18 (6-26); Blood Urea Nitrogen 17 mg/dL (8-23); Calcium 9.3 mg/dL (8.6-10.3); Carbon Dioxide 21 mEq/L (23-29); Chloride 107 mEq/L (98-107); Glucose 102 mg/dL (70-105); Osmolality,Calculated 290 (280-300); Potassium 4.1 mEq/L (3.5-5.1); Sodium 139 mEq/L (136-145); eGFR For Non-African Americans > 60 (> 60)
[2018-06-10 11:37] LABS: Troponin I < 0.03 ng/mL (< 0.04)
[2018-06-10] MEDS ORDERED: Isovue-370 500 ML INFUS..BTL IV ONE (12:21)
[2018-06-10] MEDS ORDERED: NON-FORMULARY MEDICATION 1 EACH EACH (Oxygen [Oxygen] 4 L) IN SCH (16:15)
[2018-06-10] MEDS ORDERED: Naloxone 0.4 MG/ML INJ IVP PRN (16:17)
--- NOTE | 2018-06-10 16:25 | Internal Med History&Physical ---
Date of Encounter: 06/10/18 Time of Encounter: 16:21 Internal Medicine - H&P: HPI Chief complaint: CHEST PAIN Admitted From: Home Plans for Post Hospital Care: Home History of present illness: Mr. Colin is a 62 year old male with a PMH of CHF, COPD, diabetes, hyperlipidemia, hypertension, kidney stones, & liver disease. He presents today with sharp left-sided chest pain which he states is 13/10 radiating to his left upper back. He reports the chest pain began early this morning at around 0400 and has been intermittent throughout the day. Additionally, he is reporting diaphoresis and dyspnea with chest pain. He reports chest pain is worse with exertion and does somewhat improve with rest but is also present at rest at times as well. He was given 1 sublingual nitroglycerin in the ED and the chest pain improved. CTA of chest completed in ED found to be negative for PE or aortic dissection. He denies any URI symptoms, fevers, chills, abdominal pain, nausea, vomiting, diarrhea, dizziness, fatigue, unilateral extremity swelling or pain. Risk factors include hyperlipidemia, diabetes, hypertension, obesity, sedentary lifestyle and smoking history. Initial troponin obtained in the ED found to be negative at less than 0.03. EKG is normal sinus rhythm heart rate of 64 without any evidence of ST-T wave changes concerning for ischemia. He was recently admitted in March 2018 for ACS rule out. During that admission he was found to be negative for ACS with a stress test negative for ischemia and/or perfusion defect. Echocardiogram at that time revealed an EF of 55%, mild LV MARQUES, normal RV structure and function, no valvular abnormalities were dysfunction, no pulmonary hypertension. He is being admitted for further monitoring and evaluation. I will discuss this case with cardiology. Past Med Surg Social Fam HX - Past Medical History Medical history: CHF, COPD, diabetes, hyperlipidemia, hypertension, kidney stones, liver disease, other Additional medical history: cholelithiasis. non smoker for over a year Psychiatric history: no psych history - Past Surgical History Surgical History: cholecystectomy, herniorrhaphy, orthopedic, other Additional surgical history: R wrist sx 2 metal rods - Social History Smoking Status: Former smoker Smokeless Tobacco Status: No Alcohol use: none Drug use: none - Family History Sister Family Member Ethnicity: Non- Living Status: Still Living Hx Family Endocrine Disorder: Yes (diabetes) Maternal Adopted: No Family Member Ethnicity: Non- Living Status: Still Living Hx Family Cardiac Disorders: No Hx Family Respiratory Disorders: No Hx Family Cancer: No Hx Family GI Disorders: No Hx Family Endocrine Disorder: Yes (DM type 2) Hx Family Neuromuscular Disorders: No Hx Family Neurologic Disorders: No Hx Family HEENT Disorders: Yes (degenerative eye dz) Hx Family Autoimmune Disorders: No Mother Family Member Ethnicity: Non- Living Status: Still Living Hx Family Endocrine Disorder: Yes (diabetes) Father Family Member Ethnicity: Non- Living Status: Hx Family Cardiac Disorders: No Hx Family Respiratory Disorders: No Hx Family Cancer: No (mass on lung, unsure if cancer) Hx Family GI Disorders: No Hx Family Endocrine Disorder: Yes (DM) Hx Family Neurologic Disorders: Yes (Alzheimer's disease) Internal Medicine - H&P: Meds Albuterol Sulfate [Albuterol Inhaler] 2 puff IH Q4-6H PRN 03/20/17 [History] Multivit-Min/FA/Lycopen/Lutein [Men 50 Plus Multivitamin Tab] 1 tab PO DAILY 08/26/17 [History] Oxygen 4 l IN CONT 08/26/17 [History] Saw [place] Xtr/Zinc Picolin [Saw [place] Capsule] 1 cap PO DAILY 08/26/17 [History] Lactobacillus Combination No.8 [Adult Probiotic] 1 cap PO HS 01/26/18 [History] Polyethylene Glycol 3350 [MiraLAX] 17 gm PO DAILY 01/26/18 [History] Insulin DETEMIR [Levemir Flextouch] 50 unit SQ HS 30 Days #30 insuln.pen 01/30/18 [Rx] Fluticasone/Umeclidin/Vilanter [Trelegy Ellipta 100-62.5-25] 1 puff IH DAILY 06/10/18 [History] Furosemide [Lasix] 20 mg PO DAILY 06/10/18 [History] Insulin Aspart Prot/Insuln Asp [Novolog Mix 70-30 Flexpen Syrn] 14 unit SQ TID 06/10/18 [History] Allergy/AdvReac Type Severity Reaction Status Date / Time Penicillins Allergy Severe Anaphylaxis Verified 05/06/18 11:11 azithromycin Allergy Swelling Verified 05/06/18 11:11 of Lip/Tongue/Throat morphine Allergy Anaphylaxis Verified 05/06/18 11:11 Oxycodone [From Percocet] Allergy Hives Verified 05/06/18 11:11 aspirin AdvReac Nausea Verified 05/06/18 11:11 chlorpromazine AdvReac Cramping Verified 05/06/18 11:11 [From Thorazine] of the Muscles codeine AdvReac Nausea Verified 05/06/18 11:11 hydrocodone [From Vicodin] AdvReac Nausea Verified 05/06/18 11:11 chlorine Allergy Severe Anaphylaxis Uncoded 05/06/18 11:11 All Systems PM: A 10-system review of systems was performed and is negative for pertinent findings except as documented above in the HPI. Review of systems: REVIEW OF SYSTEMS GENERAL: Negative for any nausea, vomiting, fevers, chills, or weight loss. NEUROLOGIC: Negative for any blurry vision, blind spots, double vision, facial asymmetry, dysphagia, dysarthria, hemiparesis, hemisensory deficits, vertigo, ataxia. HEENT: Negative for any head trauma, neck trauma, neck stiffness, photophobia, phonophobia, sinusitis, rhinitis. CARDIAC: Negative for any paroxysmal nocturnal dyspnea, peripheral edema. Posi tive for chest pain, dyspnea PULMONARY: Negative for any shortness of breath, wheezing, COPD, or TB exposure. GASTROINTESTINAL: Negative for any abdominal pain, nausea, vomiting, bright red blood per rectum, melena. GENITOURINARY: Negative for any dysuria, hematuria, incontinence. INTEGUMENTARY: Negative for any rashes, cuts, insect bites. RHEUMATOLOGIC: Negative for any joint pains, photosensitive rashes, history of vasculitis or kidney problems. HEMATOLOGIC: Negative for any abnormal bruising, frequent infections or bleeding. - Constitutional Vitals: Temp Pulse Resp BP Pulse Ox 98.3 F 62 17 134/98 97 06/10/18 10:29 06/10/18 12:45 06/10/18 12:45 06/10/18 12:45 06/10/18 12:45 Exam: PHYSICAL EXAMINATION: GENERAL: The patient is a well-developed, well-nourished, obese male in no apparent distress. He is alert and oriented x3. HEENT: Head is normocephalic and atraumatic. Extraocular muscles are intact. Pupils are equal, round, and reactive to light and accommodation. NECK: Supple. No carotid bruits. No lymphadenopathy or thyromegaly. LUNGS: Clear/diminished to auscultation AP and L. HEART: Regular rate and rhythm, S1, S2 without murmur. ABDOMEN: Soft, nontender, and nondistended. Positive bowel sounds. No hepatosplenomegaly was noted. EXTREMITIES: Without any cyanosis, clubbing, rash, lesions or edema. NEUROLOGIC: No facial droop or slurred speech noted SKIN: No ulceration or induration present. Internal Med - H&P Results - Labs CBC & Chem 7: 06/10/18 11:01 06/10/18 11:01 Labs: Short CBC 06/10/18 Range/Units 11:01 WBC 4.5 (4.3-11.1) K/mcL Hgb 13.8 (12.9-16.9) g/dL Hct 42.9 (37.5-50.1) % Plt Count 199 (140-400) K/mcL Neutrophils # 2.4 (1.6-8.9) K/mcL BMP 06/10/18 11:01 Sodium 139 Potassium 4.1 Chloride 107 Carbon Dioxide 21 L BUN 17 Creatinine 0.93 Glucose 102 Calcium 9.3 Cardiac Enzymes 06/10/18 Range/Units 11:01 Troponin I < 0.03 (< 0.04) ng/mL - EKG Data -: EKG Interpreted by Myself EKG shows normal: sinus rhythm Rate: normal - EKG Data Interpretation IM: normal EKG - Impressions ITS Impressions Abdomen/Pelvis CTA 06/10/18 00:00 IMPRESSION: 1. No pulmonary embolism or other acute vascular abnormality. 2. Mild right hilar lymph node enlargement almost certainly reactive, smaller when compared with prior study. 3. Emphysema. 4. Small, fat containing umbilical hernia. 5. Bilateral adrenal nodules are stable, almost certainly reflecting lipid poor adenomas, greater than 2 years stability when compared with 12/24/2015 CT abdomen and pelvis. 6. Hepatic steatosis. 7. Minimal bibasilar scar atelectasis. 8. Degenerative changes predominate lower lumbar spine, with L5-S1 vacuum disc phenomena as well as slight degenerative anterolisthesis L5 on S1. The D/ / Javier Beaulieu / Javier Beaulieu Interpreting Provider: Javier Beaulieu Chest X-Ray 06/10/18 10:36 IMPRESSION: Bibasilar infiltrates, most compatible with pneumonia. Aspiration is a consideration given the distribution. Follow-up is recommended to document resolution. Emphysema. D/ / Oscar Martinez MD / Oscar Martinez MD Interpreting Provider: Oscar Martinez MD Chest CTA 06/10/18 12:21 IMPRESSION: 1. No pulmonary embolism or other acute vascular abnormality. 2. Mild right hilar lymph node enlargement almost certainly reactive, smaller when compared with prior study. 3. Emphysema. 4. Small, fat containing umbilical hernia. 5. Bilateral adrenal nodules are stable, almost certainly reflecting lipid poor adenomas, greater than 2 years stability when compared with 12/24/2015 CT abdomen and pelvis. 6. Hepatic steatosis. 7. Minimal bibasilar scar atelectasis. 8. Degenerative changes predominate lower lumbar spine, with L5-S1 vacuum disc phenomena as well as slight degenerative anterolisthesis L5 on S1. The D/ / Javier Beaulieu / Javier Beaulieu Interpreting Provider: Javier Beaulieu - Assessment and plan (1) Chest pain Current Visit: No Status: Resolved Assessment and plan: Presented with left-sided retrosternal chest pain with radiation to left upper back described as sharp and 13/10 Associated symptoms include dyspnea and diaphoresis. Risk factors include hypertension, diabetes, hyperlipidemia, smoker, sedentary lifestyle and obesity Was recently admitted [facility] for ACS rule out. A negative stress test Initial troponin negative less than 0.03. EKG without any ST-T wave changes concerning for ischemia, normal sinus rhythm with rate of 64 With continued chest pain he is being admitted for further evaluation I will discuss his case with cardiology for further recommendations; thank you for your recommendation TTE-- 03/30/18 LVEF 55%. Mild left ventricular diastolic dysfunction. Definity echo contrast was used. Normal right ventricular structure and function. No significant valvular dysfunction. No pulmonary hypertension PLAN: - cardiac enzymes x 2 q 6 hrs - ASA - O2 by NC to keep SpO2 greater than 92% - CBCD, BMP in AM - SL Nitro - Morphine 2 mg IV q 2-4 hr PRN chest pain - Heparin 5000 U SQ BID - Cardiology consult Qualifiers: Ischemic chest pain type: stable angina pectoris (2) Chronic respiratory failure with hypoxia Current Visit: Yes Status: Acute Assessment and plan: Patient with severe obstructive airway disease per pulmonary function testing Oxygen dependent on 3 L nasal cannula at home Continue O2 support at 3 L nasal cannula and patient, titrate to maintain SPO2 greater than 92% COPD does not appear to be in acute exacerbation, continue COPD medications (3) COPD (chronic obstructive pulmonary disease) Current Visit: No Status: Acute Assessment and plan: As above Qualifiers: COPD type: unspecified COPD Qualified Code(s): J44.9 - Chronic obstructive pulmonary disease, unspecified (4) Diabetes mellitus Current Visit: No Status: Acute Assessment and plan: History of diabetes Start sliding scale insulin coverage Resume basal insulin sliding monitor glucose and adjust insulin coverage as necessary Qualifiers: Diabetes mellitus type: type 2 Diabetes mellitus outreach representative insulin use: with outreach representative use Diabetes mellitus complication status: without complication Qualified Code(s): E11.9 - Type 2 diabetes mellitus without complications; Z79.4 - skilled nursing (current) use of insulin (5) CHF (congestive heart failure) Current Visit: Yes Status: Acute Assessment and plan: History of diastolic congestive heart failure Not in acute exacerbation Continue furosemide Strict I's and O's and daily weights Qualifiers: Heart failure type: unspecified Heart failure chronicity: unspecified Qualified Code(s): I50.9 - Heart failure, unspecified - Time Spent With Patient Total time spent is greater than 50% in coordination of care (as documented) at patient's floor/unit and/or counseling patient: less than 15 minutes
[2018-06-10] MEDS ORDERED: *HR* Dextrose 50 % in Water (Syg) 50 ML SYRINGE IVP PRN (16:34)
[2018-06-10] MEDS ORDERED: D5% in Water 1,000 ML IVC PRN (16:34)
[2018-06-10] MEDS ORDERED: Dextrose Gel 15 GM/37.5 ML TUBE PO PRN ×2 (16:34)
[2018-06-10] MEDS: *HR* Heparin 5,000 UNIT/ML VIAL SQ SCH (20:23)
[2018-06-10] MEDS ORDERED: Lactobacillus 1 EACH CAP.SPRINK PO SCH (21:00)
[2018-06-10] MEDS ORDERED: Insulin DETEMIR 100 UNIT/ML X5UNITS SQ SCH (21:00)
[2018-06-10] MEDS ORDERED: Insulin LISPRO 300 UNITS/3 ML VIAL SQ SCH (21:00)
[2018-06-11 01:36] LABS: Basophils % 0.5 %; Eosinophils # 0.2 K/mcL (0.0-0.6); Eosinophils % 4.3 %; Hematocrit 38.7 % (37.5-50.1); Hemoglobin 12.7 g/dL (12.9-16.9); Lymphocytes # 1.4 K/mcL (0.6-4.6); Lymphocytes % 34.1 %; Mean Corpuscular HGB Conc 32.8 g/dL (31.6-35.5); Mean Corpuscular Hemoglobin 29.5 pg (28.0-33.3); Mean Corpuscular Volume 89.8 fL (83.0-100.0); Monocytes # 0.4 K/mcL (0.0-1.3); Monocytes % 8.4 %; Neutrophils # 2.2 K/mcL (1.6-8.9); Platelet Count 191 K/mcL (140-400); Red Blood Count 4.31 M/mcL (4.19-5.50); Red Cell Distribution Width 15.9 % (11.5-14.5); Segmented Neutrophils % 52.7 %
[2018-06-11 01:55] LABS: BUN/Creatinine Ratio 17 (6-26); Blood Urea Nitrogen 16 mg/dL (8-23); Calcium 8.8 mg/dL (8.6-10.3); Carbon Dioxide 25 mEq/L (23-29); Chloride 106 mEq/L (98-107); Glucose 112 mg/dL (70-105); Osmolality,Calculated 292 (280-300); Potassium 3.8 mEq/L (3.5-5.1); Sodium 140 mEq/L (136-145); eGFR For Non-African Americans > 60 (> 60)
[2018-06-11] MEDS: *HR* Heparin 5,000 UNIT/ML VIAL SQ SCH (06:07)
--- NOTE | 2018-06-11 06:44 | Electrocardiograph Report ---
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
[2018-06-11] MEDS ORDERED: FLUTICASONE IH SCH (07:00)
[2018-06-11] MEDS ORDERED: VILANTER IH SCH (07:00)
[2018-06-11] MEDS ORDERED: UMECLIDIN IH SCH (07:00)
[2018-06-11] MEDS: Aspirin 81 MG TAB.CHEW PO SCH (08:11)
[2018-06-11] MEDS: Insulin LISPRO 300 UNITS/3 ML VIAL SQ SCH ×3 (08:20→16:54)
[2018-06-11] MEDS ORDERED: LUTEIN PO SCH (09:00)
[2018-06-11] MEDS ORDERED: Furosemide 20 MG TABLET PO SCH (09:00)
[2018-06-11] MEDS ORDERED: SAW PALMETTO XTR PO SCH (09:00)
[2018-06-11] MEDS ORDERED: MULTIVIT MIN PO SCH (09:00)
[2018-06-11] MEDS ORDERED: ZINC PICOLIN PO SCH (09:00)
[2018-06-11] MEDS ORDERED: [UNRECOGNIZED DRUG - OTHER] PO SCH (09:00)
[2018-06-11] MEDS ORDERED: LYCOPEN PO SCH (09:00)
[2018-06-11] MEDS: Nitroglycerin 0.4 MG TAB.SUBL SL PRN (09:52)
--- NOTE | 2018-06-11 11:35 | Internal Med Progress Note ---
Hospitalist Progress Note - Encounter Date of Encounter: 06/11/18 Time of Encounter: 11:32 - Subjective Interval History: Patient reporting intermittent chest pain overnight. Having chest pain this morning, EKG without any ST-T wave changes concerning for ischemia. Chest pain subsided with one sublingual nitroglycerin. Cardiology seeing in consultation and potentially planning for [facility]. - Exam Vitals: Temp Pulse Resp BP Pulse Ox 98.4 F 73 20 134/76 94 06/11/18 07:39 06/11/18 09:50 06/11/18 09:50 06/11/18 09:50 06/11/18 10:41 Exam: PHYSICAL EXAMINATION: GENERAL: The patient is a well-developed, well-nourished, obese male in no apparent distress. He is alert and oriented x3. HEENT: Head is normocephalic and atraumatic. Extraocular muscles are intact. Pupils are equal, round, and reactive to light and accommodation. NECK: Supple. No carotid bruits. No lymphadenopathy or thyromegaly. LUNGS: Clear/diminished to auscultation AP and L. HEART: Regular rate and rhythm, S1, S2 without murmurs rubs or gallops. ABDOMEN: Soft, nontender, and nondistended. Positive bowel sounds. No hepatosplenomegaly was noted. EXTREMITIES: Without any cyanosis, clubbing, rash, lesions or edema. NEUROLOGIC: No facial droop or slurred speech noted SKIN: No ulceration or induration present. - Assessment and Plan (1) Chest pain Current Visit: No Status: Resolved Assessment and Plan: Presented with left-sided retrosternal chest pain with radiation to left upper back described as sharp and 13/10 Associated symptoms include dyspnea and diaphoresis. Risk factors include hypertension, diabetes, hyperlipidemia, smoker, sedentary lifestyle and obesity Was recently admitted [facility] for ACS rule out. A negative stress test Initial troponin negative less than 0.03. EKG without any ST-T wave changes concerning for ischemia, normal sinus rhythm with rate of 64 With continued chest pain he is being admitted for further evaluation I will discuss his case with cardiology for further recommendations; thank you for your recommendation TTE-- 03/30/18 LVEF 55%. Mild left ventricular diastolic dysfunction. Definity echo contrast was used. Normal right ventricular structure and function. No significant valvular dysfunction. No pulmonary hypertension PLAN: - cardiac enzymes x 2 q 6 hrs - ASA - O2 by NC to keep SpO2 greater than 92% - CBCD, BMP in AM - SL Nitro - Morphine 2 mg IV q 2-4 hr PRN chest pain - Heparin 5000 U SQ BID - Cardiology consult 06/11/18--continues to report left-sided retrosternal chest pain with radiation to the left upper back. Chest pain is intermittent. EKG obtained this morning without any ST-T wave changes concerning for ischemia. Serial troponins overnight adynamic and less than 0.03. Chest pain this morning which subsided with 1 sublingual nitroglycerin. Cardiology seeing in consultation and plan for possible heart catheter. However, patient is reporting a sensitivity to aspirin (reporting nausea, denying any rash, pruritus or anaphylaxis), consider desensitization prior to [facility]. Defer to cardiology regarding desensitization to aspirin as patient will need to be on it long-term should he need a cardiac stent. (2) Chronic respiratory failure with hypoxia Current Visit: Yes Status: Acute Assessment and Plan: Patient with severe obstructive airway disease per pulmonary function testing Oxygen dependent on 3 L nasal cannula at home Continue O2 support at 3 L nasal cannula and patient, titrate to maintain SPO2 greater than 92% COPD does not appear to be in acute exacerbation, continue COPD medications 06/21/18--stable from a respiratory perspective, continues to require 2 L nasal cannula respiratory support. This is chronic. COPD does not appear to be in exacerbation. (3) COPD (chronic obstructive pulmonary disease) Current Visit: No Status: Acute (4) Diabetes mellitus Current Visit: No Status: Acute Assessment and Plan: History of diabetes; 06/11/18 blood glucose stable this morning Start sliding scale insulin coverage Resume basal insulin sliding monitor glucose and adjust insulin coverage as necessary (5) CHF (congestive heart failure) Current Visit: Yes Status: Acute Assessment and Plan: History of diastolic congestive heart failure Not in acute exacerbation Continue furosemide Strict I's and O's and daily weights 06/11/18--CHF not in acute exacerbation. Patient is without volume overload or respiratory distress. DVT Prophylaxis: SC heparin - Time Spent with Patient Total time spent is greater than 50% in coordination of care (as documented) at patient's floor/unit and/or counseling patient: less than 15 minutes Plan of Care Discussed with: patient Internal Medicine: Result - Labs CBC & Chem 7: 06/11/18 00:36 06/11/18 00:36 Labs: Short CBC 06/11/18 Range/Units 00:36 WBC 4.2 L (4.3-11.1) K/mcL Hgb 12.7 L (12.9-16.9) g/dL Hct 38.7 (37.5-50.1) % Plt Count 191 (140-400) K/mcL Neutrophils # 2.2 (1.6-8.9) K/mcL BMP 06/10/18 06/11/18 11:01 00:36 Sodium 139 140 Potassium 4.1 3.8 Chloride 107 106 Carbon Dioxide 21 L 25 BUN 17 16 Creatinine 0.93 0.93 Glucose 102 112 H Calcium 9.3 8.8 Cardiac Enzymes 06/10/18 06/10/18 06/11/18 Range/Units 11:01 18:34 00:36 Troponin I < 0.03 < 0.03 < 0.03 (< 0.04) ng/mL - ABG Interpretation ABG results: PT/INR, D-dimer D-Dimer 371 ng/mLFEU (0-500) 06/10/18 11:01 - Impressions Impressions Abdomen/Pelvis CTA 06/10/18 00:00 IMPRESSION: 1. No pulmonary embolism or other acute vascular abnormality. 2. Mild right hilar lymph node enlargement almost certainly reactive, smaller when compared with prior study. 3. Emphysema. 4. Small, fat containing umbilical hernia. 5. Bilateral adrenal nodules are stable, almost certainly reflecting lipid poor adenomas, greater than 2 years stability when compared with 12/24/2015 CT abdomen and pelvis. 6. Hepatic steatosis. 7. Minimal bibasilar scar atelectasis. 8. Degenerative changes predominate lower lumbar spine, with L5-S1 vacuum disc phenomena as well as slight degenerative anterolisthesis L5 on S1. The D/ / Javier Beaulieu / Javier Beaulieu Interpreting Provider: Javier Beaulieu Chest CTA 06/10/18 12:21 IMPRESSION: 1. No pulmonary embolism or other acute vascular abnormality. 2. Mild right hilar lymph node enlargement almost certainly reactive, smaller when compared with prior study. 3. Emphysema. 4. Small, fat containing umbilical hernia. 5. Bilateral adrenal nodules are stable, almost certainly reflecting lipid poor adenomas, greater than 2 years stability when compared with 12/24/2015 CT abdomen and pelvis. 6. Hepatic steatosis. 7. Minimal bibasilar scar atelectasis. 8. Degenerative changes predominate lower lumbar spine, with L5-S1 vacuum disc phenomena as well as slight degenerative anterolisthesis L5 on S1. The D/ / Javier Beaulieu / Javier Beaulieu Interpreting Provider: Javier Beaulieu Consult Discharge Plan - Plan Referrals: NONE,PCP [Non-Partnered Physician] - (1) Chest pain Qualifiers: Ischemic chest pain type: stable angina pectoris (3) COPD (chronic obstructive pulmonary disease) Qualifiers: COPD type: unspecified COPD Qualified Code(s): J44.9 - Chronic obstructive pulmonary disease, unspecified (4) Diabetes mellitus Qualifiers: Diabetes mellitus type: type 2 Diabetes mellitus terminal supervisor insulin use: with terminal supervisor use Diabetes mellitus complication status: without complication Qualified Code(s): E11.9 - Type 2 diabetes mellitus without complications; Z79.4 - CHCF (current) use of insulin (5) CHF (congestive heart failure) Qualifiers: Heart failure type: unspecified Heart failure chronicity: unspecified Qualified Code(s): I50.9 - Heart failure, unspecified
--- NOTE | 2018-06-11 12:22 | Cardiology Consult Note ---
<Reilly Camarillo R - Last Filed: 06/11/18 12:42> Date of Encounter: 06/11/18 Time of Encounter: 12:21 Assessment and Plan (1) Chest pain Current Visit: Yes Status: Acute Presents with chest pain. Per pt, intermittent over the past year. On presentation, left sided, sharp with radiation to back, associated with dyspnea and diaphoresis, improved with SL nitro. Troponins negative, no ischemic ECG changes. Negative stress test 03/2018 and TTE at that time EF preserved. Risk factors for CAD include DM and prior tobacco abuse, obesity. Discussed LHC given recent negative stress test with continued chest pain--R/B/A. Pt agrees to proceed. However, pt has allergy to ASA. He reports nausea, vomiting and describes anaphylaxis when he tried to take ASA [address] with [address] Leong. Given possibility of needing PCI/DAPT, will consult ditcher, Dr. Waterman for ASA desensitization prior to proceeding with LHC. Plan for LHC after ASA desensitization. Qualifiers: Chest pain type: unspecified Qualified Code(s): R07.9 - Chest pain, unspecified Discussion w patient/family: The assessment and plan as outlined above was discussed with the patient and/or family members who expressed understanding and agreement. All questions were answered. Thank you for involving us in the care of your patient. Please call with any questions. History of Present Illness Consult date: 06/11/18 Requesting physician: Micah Lowery Consult reason: Chest pain Chief complaint: chest pain History of present illness: Mr. Colin is a 62 year old male with a PMH of CHF, COPD on home O2 3L, diabetes, kidney stones, & liver disease. He presented with sharp left-sided chest pain radiating to his left upper back, intermittent associated with diaphoresis and dyspnea. He states CP typically occurs at rest. Reports dizziness. He was given 1 sublingual nitroglycerin in the ED and the chest pain improved. CTA of chest completed in ED found to be negative for PE or aortic dissection. Troponins negative. Negative stress test 03/2018. Echocardiogram at that time showed preserved EF. Cardiology consulted for further recs. Past Med Surg Social Fam HX - Past Medical History Medical history: CHF, COPD, diabetes, hyperlipidemia, hypertension, kidney stones, liver disease, other Additional medical history: cholelithiasis. non smoker for over a year Psychiatric history: no psych history - Past Surgical History Surgical History: cholecystectomy, herniorrhaphy, orthopedic, other Additional surgical history: R wrist sx 2 metal rods - Social History Smoking Status: Former smoker Smokeless Tobacco Status: No Alcohol use: none Drug use: none - Family History Sister Family Member Ethnicity: Non- Living Status: Still Living Hx Family Endocrine Disorder: Yes (diabetes) Maternal Adopted: No Family Member Ethnicity: Non- Living Status: Still Living Hx Family Cardiac Disorders: No Hx Family Respiratory Disorders: No Hx Family Cancer: No Hx Family GI Disorders: No Hx Family Endocrine Disorder: Yes (DM type 2) Hx Family Neuromuscular Disorders: No Hx Family Neurologic Disorders: No Hx Family HEENT Disorders: Yes (degenerative eye dz) Hx Family Autoimmune Disorders: No Mother Family Member Ethnicity: Non- Living Status: Still Living Hx Family Endocrine Disorder: Yes (diabetes) Father Family Member Ethnicity: Non- Living Status: Hx Family Cardiac Disorders: No Hx Family Respiratory Disorders: No Hx Family Cancer: No (mass on lung, unsure if cancer) Hx Family GI Disorders: No Hx Family Endocrine Disorder: Yes (DM) Hx Family Neurologic Disorders: Yes (Alzheimer's disease) Medications and Allergies Albuterol Sulfate [Albuterol Inhaler] 2 puff IH Q4-6H PRN 03/20/17 [History] Multivit-Min/FA/Lycopen/Lutein [Men 50 Plus Multivitamin Tab] 1 tab PO DAILY 08/26/17 [History] Oxygen 4 l IN CONT 08/26/17 [History] Saw Burgess Xtr/Zinc Picolin [Saw Burgess Capsule] 2 cap PO BID 08/26/17 [History] Lactobacillus Combination No.8 [Adult Probiotic] 1 cap PO HS 01/26/18 [History] Polyethylene Glycol 3350 [MiraLAX] 17 gm PO DAILY 01/26/18 [History] Insulin DETEMIR [Levemir Flextouch] 50 unit SQ HS 30 Days #30 insuln.pen 01/30/18 [Rx] Fluticasone/Umeclidin/Vilanter [Trelegy Ellipta 100-62.5-25] 1 puff IH DAILY 06/10/18 [History] Furosemide [Lasix] 20 mg PO DAILY 06/10/18 [History] Insulin Aspart Prot/Insuln Asp [Novolog Mix 70-30 Flexpen Syrn] 14 unit SQ TID 06/10/18 [History] Allergy/AdvReac Type Severity Reaction Status Date / Time Penicillins Allergy Severe Anaphylaxis Verified 05/06/18 11:11 azithromycin Allergy Swelling Verified 05/06/18 11:11 of Lip/Tongue/Throat morphine Allergy Anaphylaxis Verified 05/06/18 11:11 Oxycodone [From Percocet] Allergy Hives Verified 05/06/18 11:11 aspirin AdvReac Nausea Verified 05/06/18 11:11 chlorpromazine AdvReac Cramping Verified 05/06/18 11:11 [From Thorazine] of the Muscles codeine AdvReac Nausea Verified 05/06/18 11:11 hydrocodone [From Vicodin] AdvReac Nausea Verified 05/06/18 11:11 chlorine Allergy Severe Anaphylaxis Uncoded 05/06/18 11:11 All Systems Review: The remainder of the systems were reviewed and are negative - Cardiovascular Cardiovascular: as per HPI, chest pain at rest, chest pain with exertion, dyspnea at rest, dyspnea on exertion, radiating jaw, neck or arm pain, lightheadedness - Respiratory Respiratory: dyspnea Physical Examination Vital Signs, Last 4 Hours Temp Pulse Resp BP BP BP BP 06/11/18 12:11 93/57 138/91 135/84 06/11/18 11:58 98.7 F 63 16 90/50 06/11/18 10:41 06/11/18 09:50 73 20 134/76 06/11/18 09:11 70 20 119/78 Pulse Ox 06/11/18 12:11 06/11/18 11:58 97 06/11/18 10:41 94 06/11/18 09:50 94 06/11/18 09:11 93 Vital Signs Temp Pulse Resp BP BP BP BP 06/11/18 12:11 93/57 138/91 135/84 06/11/18 11:58 98.7 F 63 16 90/50 06/11/18 10:41 06/11/18 09:50 73 20 134/76 06/11/18 09:11 70 20 119/78 06/11/18 07:39 98.4 F 79 16 133/86 06/11/18 02:59 97.9 F 74 16 130/81 06/10/18 23:16 97.9 F 64 18 92/53 06/10/18 18:40 98.3 F 78 16 171/82 06/10/18 18:21 22 141/92 06/10/18 17:34 65 22 141/92 06/10/18 12:45 62 17 134/98 06/10/18 12:37 66 20 132/81 Pulse Ox 06/11/18 12:11 06/11/18 11:58 97 06/11/18 10:41 94 06/11/18 09:50 94 06/11/18 09:11 93 06/11/18 07:39 95 06/11/18 02:59 94 06/10/18 23:16 94 06/10/18 18:40 93 06/10/18 18:21 06/10/18 17:34 95 06/10/18 12:45 97 06/10/18 12:37 95 Intake and Output 06/10/18 06/11/18 06/11/18 23:59 07:59 15:59 Other: Weight 131.3 kg Blood Glucose* 172 115 124 Patient Weight 06/11/18 23:59 Weight 131.3 kg General: Conversant, No Apparent Distress HEENT: Atraumatic, Normocephaly, Mucus Membranes Moist Neck: No JVD, Normal carotid pulses Cardiac: Reg Rate and Rhythm, Normal S1 and S2, No Murmur Lungs: Normal Breath Sounds, No Wheeze, Rales, Rhonchi Neuro: Alert and responsive, No focal deficits noted Abdomen: Soft, Non-Tender Skin: No rashes noted on visualized skin Musculoskeletal: No Chest Wall Tenderness Extremities: No Clubbing, No Cyanosis, No Edema, Normal Pulses Results 06/11/18 00:36 06/11/18 00:36 Lab Results 06/10/18 06/11/18 06/11/18 18:34 00:36 00:36 WBC 4.2 L Hgb 12.7 L Hct 38.7 Plt Count 191 Sodium Potassium Chloride Carbon Dioxide BUN Creatinine Glucose Calcium Troponin I < 0.03 < 0.03 06/11/18 00:36 WBC Hgb Hct Plt Count Sodium 140 Potassium 3.8 Chloride 106 Carbon Dioxide 25 BUN 16 Creatinine 0.93 Glucose 112 H Calcium 8.8 Troponin I Short CBC 06/11/18 Range/Units 00:36 WBC 4.2 L (4.3-11.1) K/mcL Hgb 12.7 L (12.9-16.9) g/dL Hct 38.7 (37.5-50.1) % Plt Count 191 (140-400) K/mcL Neutrophils # 2.2 (1.6-8.9) K/mcL BMP 06/11/18 Range/Units 00:36 Sodium 140 (136-145) mEq/L Potassium 3.8 (3.5-5.1) mEq/L Chloride 106 (98-107) mEq/L Carbon Dioxide 25 (23-29) mEq/L BUN 16 (8-23) mg/dL Creatinine 0.93 (0.70-1.30) mg/dL Glucose 112 H (70-105) mg/dL Calcium 8.8 (8.6-10.3) mg/dL Cardiac Enzymes 06/11/18 06/10/18 Range/Units 00:36 18:34 Troponin I < 0.03 < 0.03 (< 0.04) ng/mL Impressions Abdomen/Pelvis CTA 06/10/18 00:00 IMPRESSION: 1. No pulmonary embolism or other acute vascular abnormality. 2. Mild right hilar lymph node enlargement almost certainly reactive, smaller when compared with prior study. 3. Emphysema. 4. Small, fat containing umbilical hernia. 5. Bilateral adrenal nodules are stable, almost certainly reflecting lipid poor adenomas, greater than 2 years stability when compared with 12/24/2015 CT abdomen and pelvis. 6. Hepatic steatosis. 7. Minimal bibasilar scar atelectasis. 8. Degenerative changes predominate lower lumbar spine, with L5-S1 vacuum disc phenomena as well as slight degenerative anterolisthesis L5 on S1. The D/ / Javier Beaulieu / Javier Beaulieu Interpreting Provider: Javier Beaulieu Chest CTA 06/10/18 12:21 IMPRESSION: 1. No pulmonary embolism or other acute vascular abnormality. 2. Mild right hilar lymph node enlargement almost certainly reactive, smaller when compared with prior study. 3. Emphysema. 4. Small, fat containing umbilical hernia. 5. Bilateral adrenal nodules are stable, almost certainly reflecting lipid poor adenomas, greater than 2 years stability when compared with 12/24/2015 CT abdomen and pelvis. 6. Hepatic steatosis. 7. Minimal bibasilar scar atelectasis. 8. Degenerative changes predominate lower lumbar spine, with L5-S1 vacuum disc phenomena as well as slight degenerative anterolisthesis L5 on S1. The D/ / Javier Beaulieu / Javier Beaulieu Interpreting Provider: Javier Beaulieu Active Medications Albuterol Sulfate (Albuterol Inhaler) 2 puff IH [id number] PRN PRN Reason: Dyspnea Stop: 12/10/18 16:12 Dextrose/Water (Dextrose 50% (Syg)) 25 ml IVP AD PRN PRN Reason: Hypoglycemia Stop: 12/10/18 16:35 Furosemide (Lasix) 20 mg PO DAILY LC Stop: 12/11/18 09:01 Last Admin: 06/11/18 08:11 Dose: 20 mg Glucagon (Glucagen) 1 mg IM ONCE PRN PRN Reason: Hypoglycemia Stop: 12/10/18 16:35 Glucose (Gluctose) 15 gm PO ONCE PRN PRN Reason: Hypoglycemia Stop: 12/10/18 16:35 Glucose (Gluctose) 30 gm PO ONCE PRN PRN Reason: Hypoglycemia Stop: 12/10/18 16:35 Heparin Sodium (Porcine) (Heparin) 5,000 unit SQ Q12HCO LC Stop: 12/10/18 18:01 Last Admin: 06/11/18 06:07 Dose: 5,000 unit Dextrose (Dextrose 5%) 1,000 mls @ 100 mls/hr IVC .Q10H PRN PRN Reason: HYPOGLYCEMIA Stop: 12/10/18 16:35 Insulin Detemir (Levemir) 50 unit SQ HS LC Stop: 12/10/18 21:01 Last Admin: 06/10/18 20:23 Dose: 50 unit Insulin Human Lispro (Humalog) 0 units SQ HS LC; Protocol Stop: 12/10/18 21:01 Last Admin: 06/10/18 20:19 Dose: Not Given Insulin Human Lispro (Humalog) 0 units SQ TIDAC [facility]; Protocol Stop: 12/11/18 07:31 Last Admin: 06/11/18 08:20 Dose: Not Given Lactobacillus Acidophilus/Rhamnosus (Culturelle) 1 each PO HS LC Stop: 12/10/18 21:01 Last Admin: 06/10/18 20:24 Dose: 1 each Naloxone HCl (Narcan) 0.4 mg IVP Q2MIN PRN PRN Reason: SEE COMMENTS Stop: 12/10/18 16:18 Nitroglycerin (Nitroglycerin) 0.4 mg SL Q5MIN PRN PRN Reason: Chest Pain Stop: 12/10/18 10:39 Last Admin: 06/11/18 09:52 Dose: 0.4 mg Pharmacy Profile Note (Patient Taking Own Medication) 1 each IH 0500 LC Stop: 12/11/18 07:01 Last Admin: 06/11/18 09:09 Dose: 1 each Pharmacy Profile Note (Patient Taking Own Medication) 1 each PO DAILY LC Stop: 12/11/18 09:01 Last Admin: 06/11/18 08:20 Dose: Not Given Pharmacy Profile Note (Patient Taking Own Medication) 1 each PO DAILY LC Stop: 12/11/18 09:01 Last Admin: 06/11/18 08:20 Dose: Not Given Polyethylene Glycol (Miralax) 17 gm PO DAILY LC Stop: 12/11/18 09:01 Last Admin: 06/11/18 08:11 Dose: 17 gm - Imaging and Cardiology Stress Test: report reviewed Echo: report reviewed - EKG Interpretation EKG results cardiology: personally reviewed (SR) Consult Discharge Plan - Plan Referrals: NONE,PCP [Non-Partnered Physician] - <Milton Leong - Last Filed: 06/11/18 16:04> Date of Encounter: 06/11/18 - Attending Attestation Patient was seen and evaluated independently by me. Findings, assessment and plan were discussed at length with patient, questions answered. Agree with nurse practitioner's/resident's documentation. Addition as follows, 62 yoCM ho O2 dependent COPD, DM, CKD, ex-smoker, ASA allergy (dyspnea). P/w recurrent worsening atypical and typical chest pain with dizziness, occ relief by rest, 1 yr. No ischemic change on ECG, neg trop. no PE or Ao dissection on CTA pharm SPECT no ischemia. HD stable, NAD, no W/R/C, RR, trace pedal edema B/L. A: recurrent worsening atypical/typical angina, etiology uncertain aspirin allgery Severe COPD, not on BB P: aspirin desensitization, then LHC tiral of low dose imdur Milton Leong MD, PhD Assessment and Plan Discussion w patient/family: The assessment and plan as outlined above was discussed with the patient and/or family members who expressed understanding and agreement. All questions were answered. Thank you for involving us in the care of your patient. Please call with any questions. History of Present Illness History of present illness: Mr. Colin is a 62 year old male All Systems Review: The remainder of the systems were reviewed and are negative Physical Examination Vital Signs, Last 4 Hours Temp Pulse Resp BP BP BP BP 06/11/18 12:11 93/57 138/91 135/84 06/11/18 11:58 98.7 F 63 16 90/50 Pulse Ox 06/11/18 12:11 06/11/18 11:58 97 Results 06/11/18 00:36 06/11/18 00:36 Lab Results 06/10/18 06/11/18 06/11/18 18:34 00:36 00:36 WBC 4.2 L Hgb 12.7 L Hct 38.7 Plt Count 191 Sodium Potassium Chloride Carbon Dioxide BUN Creatinine Glucose Calcium Troponin I < 0.03 < 0.03 06/11/18 00:36 WBC Hgb Hct Plt Count Sodium 140 Potassium 3.8 Chloride 106 Carbon Dioxide 25 BUN 16 Creatinine 0.93 Glucose 112 H Calcium 8.8 Troponin I
--- NOTE | 2018-06-11 16:00 | Allergy Consult Note ---
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 I recommend aspirin desensitization. I have explained the risk and benefits of procedure with patient. I have explained the procedure in detail with patient. Patient would like to proceed with procedure. Patient's lungs are clear on exam and he is no distress. I explained that he is at greater risk due to his COPD. 1. Cardiology to transfer patient to ICU 2. Pharmacy is aware of procedure. 3. Patient NPO after midnight 4. No beta blockers 5. Will hold claritin from protocol 6. Will plan to start procedure at 7:00 tomorrow. History of Present Illness Reason for consult: Drug allergy Requesting physician: Reilly Camarillo History of present illness: Patient is a 62 year old male with history of COPD and diabetes who was admitted for chest pain and shortness of breath. Patient is on 3L of oxygen at home. He is not feeling short of breath at this time but does feel a tightness in his upper chest/neck. He is on 4L oxygen in the hospital. Cardiology would like to do a heart catherization but he reports a history of aspirin allergy. He states that when he was young roughly 11 years old he had hives, difficulty breathing, and vomiting with aspirin intake. He has avoided all NSAIDS but tolerates tylenol. He did admit that he will occasionally take one motrin and can tolerate that. He also states that he has a rash on his arms and legs for last 2 weeks. Patient shaves his arms and legs but does not feel the rash is from shaving. Past Med Surg Social Fam HX - Past Medical History Medical history: CHF, COPD, diabetes, hyperlipidemia, hypertension, kidney ston es, liver disease, other Additional medical history: cholelithiasis. non smoker for over a year Psychiatric history: no psych history - Past Surgical History Surgical History: cholecystectomy, herniorrhaphy, orthopedic, other Additional surgical history: R wrist sx 2 metal rods - Social History Smoking Status: Former smoker Smokeless Tobacco Status: No Alcohol use: none Drug use: none - Family History Sister Family Member Ethnicity: Non- Living Status: Still Living Hx Family Endocrine Disorder: Yes (diabetes) Maternal Adopted: No Family Member Ethnicity: Non- Living Status: Still Living Hx Family Cardiac Disorders: No Hx Family Respiratory Disorders: No Hx Family Cancer: No Hx Family GI Disorders: No Hx Family Endocrine Disorder: Yes (DM type 2) Hx Family Neuromuscular Disorders: No Hx Family Neurologic Disorders: No Hx Family HEENT Disorders: Yes (degenerative eye dz) Hx Family Autoimmune Disorders: No Mother Family Member Ethnicity: Non- Living Status: Still Living Hx Family Endocrine Disorder: Yes (diabetes) Father Family Member Ethnicity: Non- Living Status: Hx Family Cardiac Disorders: No Hx Family Respiratory Disorders: No Hx Family Cancer: No (mass on lung, unsure if cancer) Hx Family GI Disorders: No Hx Family Endocrine Disorder: Yes (DM) Hx Family Neurologic Disorders: Yes (Alzheimer's disease) Medications and Allergies Albuterol Sulfate [Albuterol Inhaler] 2 puff IH Q4-6H PRN 03/20/17 [History] Multivit-Min/FA/Lycopen/Lutein [Men 50 Plus Multivitamin Tab] 1 tab PO DAILY 08/26/17 [History] Oxygen 4 l IN CONT 08/26/17 [History] Saw [place] Xtr/Zinc Picolin [Saw [place] Capsule] 2 cap PO BID 08/26/17 [History] Lactobacillus Combination No.8 [Adult Probiotic] 1 cap PO HS 01/26/18 [History] Polyethylene Glycol 3350 [MiraLAX] 17 gm PO DAILY 01/26/18 [History] Insulin DETEMIR [Levemir Flextouch] 50 unit SQ HS 30 Days #30 insuln.pen 01/30/18 [Rx] Fluticasone/Umeclidin/Vilanter [Trelegy Ellipta 100-62.5-25] 1 puff IH DAILY 06/10/18 [History] Furosemide [Lasix] 20 mg PO DAILY 06/10/18 [History] Insulin Aspart Prot/Insuln Asp [Novolog Mix 70-30 Flexpen Syrn] 14 unit SQ TID 06/10/18 [History] Allergy/AdvReac Type Severity Reaction Status Date / Time Penicillins Allergy Severe Anaphylaxis Verified 05/06/18 11:11 azithromycin Allergy Swelling Verified 05/06/18 11:11 of Lip/Tongue/Throat morphine Allergy Anaphylaxis Verified 05/06/18 11:11 Oxycodone [From Percocet] Allergy Hives Verified 05/06/18 11:11 aspirin AdvReac Nausea Verified 05/06/18 11:11 chlorpromazine AdvReac Cramping Verified 05/06/18 11:11 [From Thorazine] of the Muscles codeine AdvReac Nausea Verified 05/06/18 11:11 hydrocodone [From Vicodin] AdvReac Nausea Verified 05/06/18 11:11 chlorine Allergy Severe Anaphylaxis Uncoded 05/06/18 11:11 ROS Allergy - Constitutional Constitutional ROS: no fever(s) - EENT Nose, mouth and throat: neck pain, no sore throat, no throat swelling - Cardiovascular Cardiovascular ROS IM: chest pain - Respiratory dyspnea, no wheezing, no chest congestion - Gastrointestinal Gastrointestinal: constipation, no vomiting - Musculoskeletal Musculoskeletal ROS: neck pain - Integumentary Integumentary: as per HPI, rash - Allergic/Immunologic no uticaria Allergy Exam Initial Vital Signs Temp Pulse Resp BP Pulse Ox 98.3 F 64 20 142/91 96 06/10/18 10:29 06/10/18 10:29 06/10/18 10:29 06/10/18 10:29 06/10/18 10:29 - General physical appearance no distress - Eyes normal ocular movement - ENT normal nares, no congestion - Neck trachea midline - Respiratory normal expansion, normal respiratory effort, clear to auscultation, other (no wheezing noted) - Integumentary other (erythematous follicular rash on forearms and thighs, patient shaves) - Additional Findings Heart-RRR Results - Labs 06/11/18 00:36 06/11/18 00:36 Abnormal lab results WBC 4.2 K/mcL (4.3-11.1) L 06/11/18 00:36 Hgb 12.7 g/dL (12.9-16.9) L 06/11/18 00:36 RDW 15.9 % (11.5-14.5) H 06/11/18 00:36 Glucose 112 mg/dL (70-105) H 06/11/18 00:36 POC Glucose 172 mg/dL (70-99) H 06/10/18 20:18 Diabetes panel 06/11/18 Range/Units 00:36 Sodium 140 (136-145) mEq/L Potassium 3.8 (3.5-5.1) mEq/L Chloride 106 (98-107) mEq/L Carbon Dioxide 25 (23-29) mEq/L BUN 16 (8-23) mg/dL Creatinine 0.93 (0.70-1.30) mg/dL Glucose 112 H (70-105) mg/dL Calcium 8.8 (8.6-10.3) mg/dL Calcium panel 06/11/18 Range/Units 00:36 Calcium 8.8 (8.6-10.3) mg/dL Pituitary panel 06/11/18 Range/Units 00:36 Sodium 140 (136-145) mEq/L Potassium 3.8 (3.5-5.1) mEq/L Chloride 106 (98-107) mEq/L Carbon Dioxide 25 (23-29) mEq/L BUN 16 (8-23) mg/dL Creatinine 0.93 (0.70-1.30) mg/dL Glucose 112 H (70-105) mg/dL Calcium 8.8 (8.6-10.3) mg/dL Adrenal panel 06/11/18 Range/Units 00:36 Sodium 140 (136-145) mEq/L Potassium 3.8 (3.5-5.1) mEq/L Chloride 106 (98-107) mEq/L Carbon Dioxide 25 (23-29) mEq/L BUN 16 (8-23) mg/dL Creatinine 0.93 (0.70-1.30) mg/dL Glucose 112 H (70-105) mg/dL Calcium 8.8 (8.6-10.3) mg/dL All other labs normal. Consult Discharge Plan - Plan Referrals: NONE,PCP [Non-Partnered Physician] -
[2018-06-11] MEDS ORDERED: Naloxone 0.4 MG/ML INJ IVP PRN (19:03)
[2018-06-11] MEDS ORDERED: Nitroglycerin 0.4 MG TAB.SUBL SL PRN (19:03)
[2018-06-11] MEDS ORDERED: D5% in Water 1,000 ML IVC PRN (19:03)
[2018-06-11] MEDS ORDERED: *HR* Dextrose 50 % in Water (Syg) 50 ML SYRINGE IVP PRN (19:03)
[2018-06-11] MEDS ORDERED: Dextrose Gel 15 GM/37.5 ML TUBE PO PRN ×2 (19:03)
--- NOTE | 2018-06-11 20:55 | Electrocardiograph Report ---
[place] [id number] Test Date: 2018-06-11 Pat Name: Richard Colin Department: 113 Room: 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
[2018-06-11] MEDS ORDERED: Lactobacillus 1 EACH CAP.SPRINK PO SCH (21:00)
[2018-06-11] MEDS ORDERED: Insulin DETEMIR 100 UNIT/ML X5UNITS SQ SCH (21:00)
[2018-06-11] MEDS ORDERED: Insulin LISPRO 300 UNITS/3 ML VIAL SQ SCH (21:00)
[2018-06-12] MEDS ORDERED: FLUTICASONE IH SCH (05:00)
[2018-06-12] MEDS ORDERED: VILANTER IH SCH (05:00)
[2018-06-12] MEDS ORDERED: UMECLIDIN IH SCH (05:00)
[2018-06-12] MEDS ORDERED: *HR* Heparin 5,000 UNIT/ML VIAL SQ SCH ×2 (06:00→18:00)
[2018-06-12] MEDS ORDERED: *HR* EPINEPHrine 1 MG/10 ML SYRINGE IVP PRN ×4 (07:00→16:13)
[2018-06-12] MEDS ORDERED: Aspirin 81 MG TAB.CHEW PO ONE ×2 (07:00)
[2018-06-12] MEDS ORDERED: Aspirin desensitization 4 mg/ml PO ONE ×8 (07:00)
[2018-06-12] MEDS ORDERED: Famotidine 20 MG/2 ML VIAL IVP PRN ×3 (07:00→15:35)
[2018-06-12] MEDS ORDERED: Aspirin desensitization 1 mg/ml PO ONE ×6 (07:00)
[2018-06-12] MEDS ORDERED: *HR* EPINEPHrine 1 MG/ML AMPUL IM PRN ×2 (07:00)
[2018-06-12] MEDS ORDERED: methylPREDNISolone 125 MG/2 ML VIAL IVP PRN ×3 (07:00→15:35)
[2018-06-12] MEDS: Insulin LISPRO 300 UNITS/3 ML VIAL SQ SCH ×2 (07:47→12:07)
[2018-06-12] MEDS ORDERED: Ipratropium/Albuterol Neb 3 ML ONE ×2 (07:57→07:59)
--- NOTE | 2018-06-12 08:38 | Pre-Sedation Evaluation ---
Pre-sedation evaluation - Pre-sedation checklist Date of procedure: 06/12/18 Procedure: [facility] Recent Vitals: Last Vital Signs Temp 98.0 F 06/12/18 03:02 Pulse 66 06/12/18 08:00 Resp 11 06/12/18 08:00 BP 120/89 06/12/18 08:00 Pulse Ox 94 06/12/18 08:00 H&P (including ROS) documented in medical record: Yes Previous reaction to sedatives/anesthetics: No Dietary Status: NPO after Midnight Dentition: No loose teeth or bridges ASA Classification *see protocol: CLASS II-Mild systemic disease Plan of Care: Pt appropriate candidate for procedure/moderate/conscious sedation, Risks/benefits of procedure/sedation discussed w/ patient/family Cardiac Registry (Cardio Only) - Functional Capacity Functional Capacity: >=4 METS with symptoms - Clincal Frailty Scale Clinical Frailty Scale: Managing Well
--- NOTE | 2018-06-12 08:47 | Internal Med Progress Note ---
Hospitalist Progress Note - Encounter Date of Encounter: 06/12/18 Time of Encounter: 08:46 - Subjective Interval History: Pt seen and examined at bedside in mild distress. Notes mild chest discomfort that alleviated after a few seconds. Pt was completing aspirin desensitization in anticipation of heart cath this afternoon. Denies headache, blurry vision, SOB, abdominal pain, nausea, vomiting, diarrhea. VSS. - Exam Vitals: Temp Pulse Resp BP Pulse Ox 98.0 F 66 11 120/89 94 06/12/18 03:02 06/12/18 08:00 06/12/18 08:00 06/12/18 08:00 06/12/18 08:00 Exam: GEN: AOx3, NAD HEENT: Atraumtic, Normocephalic, EOMI CARDIO: RRR, No murmurs, rubs, gallups RESP: CTAB, no wheezes, rales, rhonchi ABD: soft, non-tender, non-distended NEURO: CN 2 - 12 intact; no focal deficits EXT: No LE edema - Assessment and Plan (1) Chest pain Current Visit: Yes Status: Resolved Assessment and Plan: 62 y/o M with PMHx of CHF, COPD, DM, HLD, HTN, Liver Dx presents with sharp left-sided chest pain which radiates to left side of back Chest pain began early in the morning - intermittent throughout day, associated with diaphoresis, dyspnea; worse with exertion, improves w/ rest; improved with sublingual nitroglycerin CTA chest - negative for PE, aortic dissection Trops - negative EKG - NSR, HR = 64, no ST changes Admitted for ACS r/o in March - stress test negative ECHO (03/2018) - EF = 55%, mild LV MARQUES, normal RV structure or function, no valvular abnormalities, no pulm HTN Noted to have aspirin sensitivity - s/p aspirin desensitization today PLAN: Left heart cath today s/p aspirin desensitization Follow up with cardiology after cath (2) Chronic respiratory failure with hypoxia Current Visit: Yes Status: Acute Assessment and Plan: Hx severe obstructive airway disease per PFTs O2 dependent on 3L nasal cannula at home PLAN: Cont O2 support - stable on 3L Nasal cannula Cont COPD medications at this time (3) COPD (chronic obstructive pulmonary disease) Current Visit: No Status: Acute Assessment and Plan: As Above (4) Diabetes mellitus Current Visit: No Status: Acute Assessment and Plan: Hx of Diabetes - Blood glucose cont to be stable Sliding Scale Coverage PLAN: MOnitor glucose and adjust insulin coverage as necessary (5) CHF (congestive heart failure) Current Visit: Yes Status: Acute Assessment and Plan: Hx Diastolic CHF Not in acute exacerbation currently PLAN: Cont aspirin, lasix DVT Prophylaxis: Cont Heparin SQ q12h - Time Spent with Patient Total time spent is greater than 50% in coordination of care (as documented) at patient's floor/unit and/or counseling patient: less than 15 minutes Plan of Care Discussed with: patient Internal Medicine: Result - Labs CBC & Chem 7: 06/11/18 00:36 06/11/18 00:36 - ABG Interpretation ABG results: PT/INR, D-dimer D-Dimer 371 ng/mLFEU (0-500) 06/10/18 11:01 Consult Discharge Plan - Plan Referrals: NONE,PCP [Non-Partnered Physician] - (1) Chest pain Qualifiers: Ischemic chest pain type: stable angina pectoris Qualified Code(s): I20.8 - Other forms of angina pectoris (3) COPD (chronic obstructive pulmonary disease) Qualifiers: COPD type: unspecified COPD Qualified Code(s): J44.9 - Chronic obstructive pulmonary disease, unspecified (4) Diabetes mellitus Qualifiers: Diabetes mellitus type: type 2 Diabetes mellitus jail insulin use: with intermediate project manager use Diabetes mellitus complication status: without complication Qualified Code(s): E11.9 - Type 2 diabetes mellitus without complications; Z79.4 - detention (current) use of insulin (5) CHF (congestive heart failure) Qualifiers: Heart failure type: unspecified Heart failure chronicity: unspecified Qualified Code(s): I50.9 - Heart failure, unspecified
[2018-06-12] MEDS ORDERED: ZINC PICOLIN PO SCH (09:00)
[2018-06-12] MEDS ORDERED: Furosemide 20 MG TABLET PO SCH (09:00)
[2018-06-12] MEDS ORDERED: SAW PALMETTO XTR PO SCH (09:00)
[2018-06-12] MEDS ORDERED: Multivit/Ca/Min/Fe/FA 1 TAB TABLET PO SCH (09:00)
[2018-06-12] MEDS: Aspirin 81 MG TAB.CHEW PO SCH (09:41)
--- NOTE | 2018-06-12 11:42 | Event Note ---
Date of Encounter: 06/12/18 Time of Encounter: 11:40 - Cardiology Event Note ASA desensitization has been completed. No acute complaints or adverse reaction noted. Plan for LHC later today for concerns of unstable angina. R/B/A discussed. Further recs after LHC is completed.
--- NOTE | 2018-06-12 12:51 | Allergy Procedure Note ---
Date of procedure: 06/12/18 Pre-op diagnosis: adeverse effect of drug, medicament or biological substance Post-op diagnosis: same Procedure: Aspirin Desensitization Patient with history of aspirin allergy. See consult note for HPI details. I discussed risk and benefits with patient. I explained to patient the risk of an allergic reaction including itching, hives, swelling, airway closure, diarrhea, vomiting, drop in blood pressure, heart attack, or . Written consent obt ained. Patient was premedicated with singulair 10mg. Benadryl , albuterol and pepcid at bedside. Dose 1- 0.1mg aspirin given PO, patient observed closely x 15 minutes, exam unchanged, patient denies any new complaints, vitals unchanged(see vitals recorded under vitals section) Dose 2- 0.3mg aspirin given PO, patient observed closely x 15 minutes, exam unchanged, patient denies any new complaints, vitals unchanged(see vitals recorded under vitals section) Dose 3- 1mg aspirin given PO, patient observed closely x 15 minutes, exam unchanged, patient denies any new complaints, vitals unchanged(see vitals recorded under vitals section) Dose 4- 3mg aspirin given PO, patient observed closely x 25 minutes, exam unchanged, patient complains of chest pain which resolved after positioning and exam was unchanged. , vitals unchanged(see vitals recorded under vitals section) Dose 5-10mg aspirin given PO, patient observed closely x 15 minutes, exam unchanged, patient denies any new complaints, vitals unchanged(see vitals recorded under vitals section) Dose 6-20mgmg aspirin given PO, patient observed closely x 15 minutes, exam unchanged, patient denies any new complaints, vitals unchanged(see vitals recorded under vitals section) Dose 7-40mg aspirin given PO, patient observed closely x 25 minutes, exam unchanged, patient complained of chest pain again which resolved with repositioning, vitals unchanged(see vitals recorded under vitals section) Dose 8-81mg aspirin given PO, patient observed closely x 70 minutes, exam unchanged, patient denies any new complaints, vitals unchanged(see vitals recorded under vitals section) Patient has tolerated the procedure well. He is desensitized to aspirin. He should take 81mg daily. If he goes longer than 48 hours without aspirin he should then not take it and would need the procedure again. Procedure time was 195minutes Anesthesia: none Was there an school bus driver/teacher assistant present: Yes Inweaver: Andra Good Condition: stable
[2018-06-12] MEDS ORDERED: 0.9 % Sodium Chloride 1,000 ML ONE (13:40)
[2018-06-12] MEDS ORDERED: Heparin 1,000 UNITS/500 mL 500 ML ONE (13:40)
[2018-06-12] MEDS ORDERED: Nitroglycerin 1,000 MCG/10 ML VIAL IV ONE (13:40)
[2018-06-12] MEDS ORDERED: ISOVUE-370 200 ML INFUS..BTL ONE (13:40)
[2018-06-12] MEDS ORDERED: *HR* Heparin 10,000 UNIT/10 ML VIAL ONE (13:40)
[2018-06-12] MEDS ORDERED: *HR* Midazolam HCl 2 MG/2 ML VIAL ONE ×2 (14:10→14:27)
[2018-06-12] MEDS ORDERED: *HR* FentaNYL (PF) 100 MCG/2 ML VIAL ONE (14:10)
--- NOTE | 2018-06-12 15:15 | Event Note ---
Date of Encounter: 06/12/18 Time of Encounter: 15:14 - Cardiology Event Note LHC completed with normal coronaries. No intervention warranted. Continue ASA 81mg daily s/p desensitization. Cardiology signing off. Reconsult PRN. Follow-up with PCP as outpt. RISK FACTORS: STOP SMOKING: If you smoke, STOP. Smoking or tobacco use significantly increases your risk of heart disease because nicotine causes the arteries to narrow or constrict. It also causes fats to stick to the artery. Your chances of having a heart attack are greatly increased if you continue to smoke. For more information, call the education line for smoking cessation 4-889-YMSRSKH EAT A LOW FAT/CHOLESTEROL/SODIUM DIET: This diet may help reduce your chances of having a heart attack. LIFTING: Avoid lifting anything more than 10 pounds for 5-7 days Prior to straining, laughing, sneezing and/or coughing, apply manual pressure directly over insertion site. ACTIVITY: You may walk or climb stairs as tolerated You can resume sexual activity as tolerated In general, you are encouraged to engage in a minimum of 30 minutes or more of moderate intensity physical activity, such as brisk walking, daily or at least 3-4 times weekly BATHING Do not submerge the site into water (bath tub, hot tub, swimming pool) for 1 week. This can be a source for infection into the blood stream. You may shower after 24 hours SITE CARE: After 24 hours, you may remove the dressing and leave the site open to air. Keep the site clean and dry. Clean gently and pat dry. You can expect bruising and tenderness that gradually resolve within a week or two. Return to work as instructed per your physician Resume driving as instructed per physician Keep all scheduled follow up appointments Resume medications as instructed IMPORTANT: If prescribed a Platelet Aggregation Inhibitor such as, Plavix, Brilinta or Effient: Duration of therapy is minimum one year These medications are often used in combination with Aspirin in prevention of future heart attacks Never discontinue unless consult with your Slot Shift Manager STROKE (CVA) Risk factors for a stroke are: Age, cigarette smoking, diabetes, excessive alcohol consumption, family history, high blood pressure, overweight, physical inactivity, prior stroke, heart attack, diagnosis of carotid artery stenosis or other artery disease. Warning signs: Sudden numbness or weakness of the face, arm or leg; especially on one side of the body, sudden confusion, trouble speaking or understanding, sudden trouble seeing in one or both eyes, sudden trouble walking, dizziness, loss of balance or coordination, sudden severe headache with no cause. Call 911 or go to the Emergency Room. CONGESTIVE HEART FAILURE: If you have been diagnosed with Congestive Heart Failure (CHF) and your symptoms return, make an appointment with your physician Weigh yourself daily. Notify your physician if you have a weight gain of two or more pounds in one day or five or more pounds in one week. If you experience any difficulty breathing, please call 911 BLEEDING: Although the risk of bleeding is minimal, it can happen. If you have any bleeding from the site, apply firm pressure above the puncture site for 10-15 minutes. If the bleeding does not stop, continue manual pressure and call 911 Contact your physician if: You develop a fever greater than 101 degrees Fahrenheit Your site becomes reddened or has any drainage You have an increase in pain or burning at the site or if a large knot forms at the site. If you experience chest pain, shortness of breath, dizziness, or extreme tiredness, stop the activity and rest. Please notify your physicians office if you experience any of these symptoms and they are not relieved by rest please call 911!
--- NOTE | 2018-06-12 15:23 | Invasive Diagnostic Lab Proc ---
Name: Richard Colin Date of Study: 06/12/2018 Date: 1955 Ht: 76.0in Medical Record#: [id number] Age: 62 Wt: 286.60lb Gender: Male BSA: 2.58 Order #: [id number] BMI: 34.9 Physicians Procedure Physician: Richie Jaimes MD, FACC Referring MD: Bar Mitchell MD Referring MD: Staff Name Position Time In ElainashruthiPatti bell RN Monitor 02:03 PM Lila Man RN Heavy Duty Mechanic 02:03 PM Emory, Tori RT (R) Scrub 02:03 PM Procedures Performed Procedure L HRT ARTERY/VENTRICLE ANGIO Pre-Procedure Checklist Informed consent is complete signed and on chart. H&P is on chart. ID band is on and ID verified with patient. Patient NPO for procedure The procedure was described for the patient and questions were answered. ECG is on chart. Plan of Care Patient will tolerate the procedure without complications. Adequate level of comfort will be maintained. Hemodynamics will remain stable Patient will recover from procedure without complications. Respiratory function will be maintained. Cardiac rhythm will remain stable. Patient temperature will be maintained. Patient and/or family have verbalized understanding of the procedure. Patient Education Chief Complaint/Reason for Test: Cardiac Cath Developmental Category: Adult (18-64 years) Developmentally Appropriate for Age: Yes Learning Barriers: None Education Needs: Procedure Education Method: Verbal Information Taught: Cardiac Cath Educational Evaluation: Able to repeat information Intravenous Access Time IV Size Location DC'd Fluid/Drip Rate Units RN 0.9NaCl ml/hr Allergies chlorine Penicillin Oxycodone morphine codeine hydrocodone azithromycin Penicillins acetaminophen Vital Signs Time BP (mmHg) HR (bpm) O2 Sat. RR (bpm) LOC 02:15 PM / % 5 = Fully awake and oriented or at pre-proc level 02:15 PM / % 4 = Oriented but drowsy 02:34 PM / % 4 = Oriented but drowsy 02:49 PM / % 5 = Fully awake and oriented or at pre-proc level 02:09 PM 126 / 77 74 % 12 02:14 PM 139 / 83 66 99 % 17 02:19 PM 129 / 77 66 96 % 17 02:24 PM 127 / 81 67 94 % 23 02:29 PM 120 / 72 74 94 % 13 02:34 PM 113 / 72 71 91 % 13 02:40 PM 122 / 78 71 93 % 16 02:44 PM 114 / 76 87 89 % 16 02:49 PM 123 / 72 83 90 % 16 02:54 PM 116 / 71 75 91 % 17 02:59 PM 117 / 73 77 99 % 14 03:04 PM 120 / 65 71 95 % 14 Procedural Medications Time Medication Dose Units Method Given By 02:15 PM Oxygen 3 L/min nasal cannula Lila Man RN 02:15 PM Versed 2 mg Intravenous Lila Man RN 02:15 PM Fentanyl 50 mcg Intravenous Lila Man RN 02:28 PM Versed 1 mg Intravenous Lila Man RN 02:28 PM Fentanyl 25 mcg Intravenous Lila Man RN 02:36 PM Lidocaine 2% 1 ml Subcutaneous Richie Jaimes MD, FAC 02:39 PM Heparin 4000 units Nitroglycerin 200 mcg Verapamil 2.5 mg Intraarterial Richie Jaimes MD, FACC 02:58 PM Lidocaine 2% 19 ml Subcutaneous Richie Jaimes MD, FACC 02:58 PM Versed 1 mg Intravenous Lila Man RN ASA Classification: CLASS II- Mild systemic disease (i.e. well-controlled diabetes, hypertension, asthma, cigarette smoking) Pavel Score Preprocedure Postprocedure Activity 2- Moves 4 extremities sustained head lift Activity 2- Moves 4 extremities sustained head lift Circulation 2- SBP +/= 20 points of pre-anesthetic level Circulation 2- SBP +/= 20 points of pre-anesthetic level Consciousness 2- Awake and alert oriented x 3 Consciousness 2- Awake and alert oriented x 3 O2 Saturation 2- Able to maintain O2 satruation of 92% on room air O2 Saturation 2- Able to maintain O2 satruation of 92% on room air Respiratory 2- Able to deep breathe and cough well Respiratory 2- Able to deep breathe and cough well Total Score 10 Total Score 10 Contrast Agent: Isovue Diagnostic Contrast: 102 ml Total Contrast: 102 ml Fluoro Dose: 7952 mGy Procedure Log Time Note Enter By 02:03 PM Pt arrived to cardiac cath lab manager 2 at 14:03 [facility] 02:03 PM Patti Carias RN Position: Monitor Time in: 14:03 [facility] 02:03 PM Lila Man RN Position: Heavy Duty Mechanic Time in: 14:03 [facility] 02:03 PM Tori Cat RT (R) Position: Scrub Time in: 14:03 tsoummers 02:03 PM Patient charges- Angio tray pack, Navilyst 3mm J, Pulse Oximetry and ACIST tubing and transducer mm 02:03 PM Case Delayed No oumm 02:08 PM Hair removed from procedure site in procedure lab using clippers. right radial Bilateral groin prepped with Chloraprep by Patti Carias RN, then patient was draped. Skin intact. mm 02:08 PM Meet and greet completed [facility] 02:08 PM Sign in performed according to hospital policy. Informed consent was obtained. mm 02:08 PM Procedure start 14:08 tsoummers 02:08 PM CathStat 02:09 PM Vitals capture started with the following parameters, Patient=Adult, Interval=5 min, Initial Zjiomphv=918 mmHg, Deflation Rate=5 mmHg, Cuff placed on Right Arm 02:09 PM HR=74 bpm, WGIW=594/77 mmhg, Resp=12 B/min, Comment=nsr 02:14 PM HR=66 bpm, XLHM=273/83 mmhg, SpO2=99.0 %, Resp=17 B/min, Comment=nsr 02:15 PM ASA Class CLASS II- Mild systemic disease (i.e. well-controlled diabetes, hypertension, asthma, cigarette smoking) 02:15 PM Time: 14:15 Oxygen on at 3 L/min per nasal cannula [facility] PM Time: 14:15 Versed 2 mg Intravenous Given by Lila Man RN saida 02:15 PM Time: 14:15 Fentanyl 50 mcg Intravenous Given by Lila Man RN saida 02:15 PM Time: 14:15 Patient comfortable and pain free: Yes [facility] 02:15 PM Time: 14:15LOC: 5 = Fully awake and oriented or at pre-proc level mm 02:19 PM HR=66 bpm, ULDL=157/77 mmhg, SpO2=96.0 %, Resp=17 B/min, Comment=nsr 02:24 PM HR=67 bpm, SGTU=263/81 mmhg, SpO2=94.0 %, Resp=23 B/min, Comment=nsr 02:25 PM Pressure channel 1 zeroed. 02:28 PM Time: 14:28 Versed 1 mg Intravenous Given by Lila Man RN mmarabella 02:28 PM Time: 14:28 Fentanyl 25 mcg Intravenous Given by Lila Man RN mmers 02:29 PM HR=74 bpm, YLKH=651/72 mmhg, SpO2=94.0 %, Resp=13 B/min, Comment=nsr 02:34 PM HR=71 bpm, LGTK=922/72 mmhg, SpO2=91.0 %, Resp=13 B/min, Comment=nsr 02:34 PM Time: 14:15LOC: 4 = Oriented but drowsy tsoummers 02:34 PM Time: 14:15 Patient comfortable and pain free: Yes tsoummers 02:36 PM Time out was performed according to hospital policy. Conscious sedation and anesthesia was achieved (see medication log with in this report above) tsoummers 02:36 PM Time: 14:36 1 ml Lidocaine 2% to right radial Subcutaneous Given by Richie Jaimes MD, [facility] oumm 02:37 PM ultrasound utilized for sheath placement tsmm 02:39 PM Access obtained by percutaneous puncture. 6Fr 10cm Terumo Glidesheath sheath placed in right Radial artery. [id number] oummers 02:39 PM Time: 14:39 Patient given 4,000 units Heparin, 200 mcg Nitroglycerin, and 2.5 mg Verapamil Intraarterial by Richie Jaimes MD, [facility]. This is given to reduce risk of vessel spasm and thrombosis. tsoummers 02:39 PM 0.035 260cm Navilyst 3mmJ wire [id number] oummers 02:39 PM 5Fr TIG catheter inserted over the wire [facility] tsoummers 02:40 PM wire removed tsoummers 02:40 PM HR=71 bpm, ZATL=676/78 mmhg, SpO2=93 %, Resp=16 B/min 02:41 PM Pressure channel 1 zero failed. 02:41 PM Pressure channel 1 zero failed. 02:41 PM Pressure channel 1 zeroed. 02:41 PM Catheter crossed the aortic valve and was selectively placed in the left ventricle. Pressures recorded on pullback for left heart catheterization. tsmmers 02:41 PM Recorded Pressure: LV, HR=86, Condition=Condition 1 (Left Ventricle) LV 119/-7/12 02:42 PM catheter displaced during start of injection. tsoumm 02:43 PM Catheter removed mm 02:44 PM 5Fr FL3.5 catheter inserted over the wire [id number] tsoumm 02:44 PM HR=87 bpm, PXDJ=392/76 mmhg, SpO2=89.0 %, Resp=16 B/min, Comment=nsr 02:45 PM LCA angiography performed in multiple views. 02:45 PM Recorded Pressure: Ao, HR=86, Condition=Condition 1 (Aorta) Ao 102/83/92 02:45 PM difficulty engaging catheters due to radial access tsoummarabella 02:46 PM Catheter removed ou 02:47 PM 5Fr AR1 catheter inserted over the wire [id number] tsoumm 02:49 PM HR=83 bpm, LNPZ=052/72 mmhg, SpO2=90.0 %, Resp=16 B/min, Comment=nsr 02:49 PM Time: 14:34 Patient comfortable and pain free: Yes oumm 02:49 PM Time: 14:34LOC: 4 = Oriented but drowsy tsoumm 02:50 PM Catheter removed tsoumm 02:50 PM 5Fr 3DRC catheter inserted over the wire [id number] tsoumm 02:52 PM Catheter removed oumm 02:52 PM 5Fr IM catheter inserted over the wire [id number] tsoumm 02:54 PM Catheter removed tsoumm 02:54 PM HR=75 bpm, OFYL=942/71 mmhg, SpO2=91.0 %, Resp=17 B/min, Comment=nsr 02:54 PM 5Fr MPA catheter inserted over the wire [id number] tsoumm 02:55 PM Catheter removed tsoumm 02:55 PM setting up for femoral access, unable to engage RCA tsoummarabella 02:58 PM Time: 14:58 19 ml Lidocaine 2% to right groin Subcutaneous Given by Richie Jaimes MD, [facility] tsoummarabella 02:58 PM Time: 14:58 Versed 1 mg Intravenous Given by Lila Man RN saida 02:59 PM HR=77 bpm, RPCE=267/73 mmhg, SpO2=99.0 %, Resp=14 B/min, Comment=nsr 03:00 PM Access obtained by percutaneous puncture. 5Fr 10cm Terumo [place] sheath placed in right Femoral artery. [id number] 03:00 PM IM catheter reinserted 03:01 PM RCA angiography performed in multiple views. 03:01 PM Recorded Pressure: Ao, HR=78, Condition=Condition 1 (Aorta) Ao 112/86/100 03:01 PM Coronary Dominance: right 03:02 PM Catheter removed 03:03 PM 5Fr Pigtail catheter inserted over the wire [facility] 03:03 PM Catheter crossed the aortic valve and was selectively placed in the left ventricle. Pressures recorded on pullback for left heart catheterization. 03:04 PM Recorded Pressure: LV, HR=75, Condition=Condition 1 (Left Ventricle) LV 123/9/22 03:04 PM HR=71 bpm, RTVN=965/65 mmhg, SpO2=95.0 %, Resp=14 B/min, Comment=nsr 03:04 PM Recorded Pressure: LV, Ao, HR=73, Condition=Condition 1 (Left Ventricle) LV 125/12/25, (Aorta) Ao 126/69/98 03:06 PM Time: 14:49LOC: 5 = Fully awake and oriented or at pre-proc level 03:06 PM Time: 14:49 Patient comfortable and pain free: Yes mm 03:06 PM Bolus angiogram of left Ventricle complete: 10 ml/sec for a total of 30 mls 03:06 PM Catheter removed 03:06 PM Bolus angiogram of right Femoral complete: 3 ml/sec for a total of 5 mls tsoumm 03:06 PM Procedure completed at 15:06 [facility] 03:06 PM Did you address SLIME flow and Dominance? Yes [facility] 03:07 PM Sign out completed: Radiation Dose 763.41 mGy, 7952.13 cGy/cm2 Fluoro Time: 7.7 Isovue 370 - 200ml contrast 102 ml given by Richie Jaimes MD, [facility]. Complications: None. The patient was discharged out of the custodial laborer in stable condition. Cardiac Rehab Consult needed: NoConfirmed administered medications: Yes tsoummers 03:07 PM Isovue 370 - 200ml,1 Bottle(s) used. tsoummers 03:07 PM Arterial sheath pulled, Mynx closure device used and was Successful [id number] S/N. tsoummers 03:07 PM Estimated Blood Loss: less than 50cc tsoummers 03:07 PM Post ECG NSR tsoummers 03:07 PM Post Blood Pressure 120/65 tsoummers 03:07 PM 15:07 Post Pulses Rt Radial 1+ tsoummers 03:08 PM Information taught Cardiac Cath and Mynx tsoummers 03:08 PM Education needs Procedure, Plan of Care, and Responsibilities of Patient in Care tsoummers 03:08 PM Arterial sheath pulled, Vasc Band closure device used and was Successful S/N. tsoummers 03:08 PM 10 ml air in Vasc Band. tsoumm 03:08 PM Information taught Cardiac Cath, Mynx, and Vasc Band tsoummers 03:09 PM Education needs Procedure, Plan of Care, and Responsibilities of Patient in Care tsoummers 03:09 PM Learning barriers :None tsoummers 03:09 PM Education Methods Verbal oumm 03:09 PM Education evaluation Able to repeat information tsoummers 03:09 PM Site status No bleeding/hematoma - Rt Groin as reported by Sites, Tori RT (R) at 15:09 tsoummers 03:09 PM Site status No bleeding/hematoma - Rt Wrist as reported by Sites, Tori RT (R) at 15:09 tsoummers 03:09 PM Opsite applied tsoummers 03:09 PM Plavix, Effient or Brilinta given No tsoummers 03:09 PM Family placed in consult room. tsoummers 03:09 PM Delay to floor No tsoummers 03:09 PM Complications: None tsoummers 03:16 PM Report given to Bindu NATION Pt taken to 3B Room #53. 15:16 tsoummers 03:16 PM Patient out of room: 15:16 tsoummers Complications Complication None Hemodynamics Pressures Site Systolic/A Wave Diastolic/V Wave Mean LV 119 -7 12 AO 102 83 92 AO 112 86 100 LV 123 9 22 LV 125 12 25 AO 126 69 98 Post Procedure Information Blood Pressure: 120/65 mmHg Rhythm: NSR Post procedural instructions were given Closure Device Time Device Success/Fail 06/12/2018 3:09:00 PM MynxGrip Successful 06/12/2018 3:10:00 PM Mechanical Compression Successful Site Checks Time Location Status Staff Sheath In? Note 03:09 PM Rt Groin No bleeding/hematoma Sites, Tori RT (R) 03:09 PM Rt Wrist No bleeding/hematoma Sites, Tori RT (R) Pulses Time Site Pre-Procedure Post-Procedure Note Bilateral DP & PT 1+ Bilateral radial 1+ 3:07:00 PM Rt Radial 1+ Updated by Ptati Carias RN on 06/12/2018 3:16:44 PM electronically signed on 06/12/2018 3:17:22 PM with status of Final
[2018-06-12] MEDS ORDERED: *HR* EPINEPHrine 0.3 MG/0.3 ML (PEN) IM PRN (15:35)
[2018-06-12] MEDS ORDERED: Naloxone 0.4 MG/ML INJ IVP PRN (15:35)
[2018-06-12] MEDS ORDERED: Dextrose Gel 15 GM/37.5 ML TUBE PO PRN ×2 (15:35)
[2018-06-12] MEDS ORDERED: Nitroglycerin 0.4 MG TAB.SUBL SL PRN (15:35)
[2018-06-12] MEDS ORDERED: *HR* Dextrose 50 % in Water (Syg) 50 ML SYRINGE IVP PRN (15:35)
[2018-06-12] MEDS ORDERED: D5% in Water 1,000 ML IVC PRN (15:35)
--- NOTE | 2018-06-12 16:08 | Discharge Summary ---
<Nima Roman - Last Filed: 06/12/18 16:25> Orders not resulted at time of discharge: Pending orders 06/12/18 11:45 CL Cardiac Catheterization [CL] Routine Date of Encounter: 06/12/18 Time of Encounter: 16:02 - Discharge Diagnosis (1) Chest pain Priority: Primary Status: Acute Qualifiers: Ischemic chest pain type: stable angina pectoris Qualified Code(s): I20.8 - Other forms of angina pectoris (2) Chronic respiratory failure with hypoxia Priority: Secondary Status: Acute (3) COPD (chronic obstructive pulmonary disease) Priority: Secondary Status: Chronic Qualifiers: COPD type: unspecified COPD Qualified Code(s): J44.9 - Chronic obstructive pulmonary disease, unspecified (4) Diabetes mellitus Priority: Secondary Status: Chronic Qualifiers: Diabetes mellitus type: type 2 Diabetes mellitus [facility] insulin use: w ith [facility] use Diabetes mellitus complication status: without complication Qualified Code(s): E11.9 - Type 2 diabetes mellitus without complications; Z79.4 - ferry terminal agent (current) use of insulin (5) CHF (congestive heart failure) Priority: Secondary Status: Chronic Qualifiers: Heart failure type: unspecified Heart failure chronicity: unspecified Qualified Code(s): I50.9 - Heart failure, unspecified Hospital course: Mr. Colin is a 62 year old male with PMHx of CHF, COPD, DM, HLD, HTN, LIVER DX presented with left-sided chest pain radiating to left side of back; Began early in morning, and was intermittent throughout the day, associated with diaphoresis, dyspnea. Pain was worse with exertion, improves w/ rest, and pain improved with sublingual nitroglycerin. In ED, CTA chest was negative for PE, aortic dissection, Trops were negative; EKG has NSR, and no ST changes. Pt had been admitted in March to rule out ACS - with negative stress test. Echo at the same time showed EF = 55%, mild LV MARQUES, and normal RV structure/ function, no valvular abnormalities, no pulmonary HTN. Pt was noted to have aspirin sensitivity, and underwent aspirin de sensitization in the ICU prior to left heart cath. Left Heart Cath was completed with normal coronaries and no intervention was warrant. Plan to discharge patient home on aspirin s/p desensitization, and follow up with PCP outpatient. Discharge discussed with: patient - Time Spent with Patient Total time spent providing and/or coordinating discharge services: Less than 30 minutes - Discharge Medications Prescriptions: RX: Aspirin 81 mg PO DAILY 30 Days #30 tab.chew Home Medications: RX: Albuterol Sulfate [Albuterol Inhaler] 2 puff IH Q4-6H PRN 03/20/17 [History] RX: Multivit-Min/FA/Lycopen/Lutein [Men 50 Plus Multivitamin Tab] 1 tab PO DAILY 08/26/17 [History] RX: Oxygen 4 l IN CONT 08/26/17 [History] RX: Saw [place] Xtr/Zinc Picolin [Saw [place] Capsule] 2 cap PO BID 08/26/17 [History] RX: Lactobacillus Combination No.8 [Adult Probiotic] 1 cap PO HS 01/26/18 [ History] RX: Polyethylene Glycol 3350 [MiraLAX] 17 gm PO DAILY 01/26/18 [History] RX: Insulin DETEMIR [Levemir Flextouch] 50 unit SQ HS 30 Days #30 insuln.pen 01/30/18 [Rx] RX: Fluticasone/Umeclidin/Vilanter [Trelegy Ellipta 100-62.5-25] 1 puff IH DAILY 06/10/18 [History] RX: Furosemide [Lasix] 20 mg PO DAILY 06/10/18 [History] RX: Insulin Aspart Prot/Insuln Asp [Novolog Mix 70-30 Flexpen Syrn] 14 unit SQ TID 06/10/18 [History] RX: Aspirin 81 mg PO DAILY 30 Days #30 tab.chew 06/12/18 [Rx] Allergies/Adverse Reactions: Allergy/AdvReac Type Severity Reaction Status Date / Time Penicillins Allergy Severe Anaphylaxis Verified 05/06/18 11:11 azithromycin Allergy Swelling Verified 05/06/18 11:11 of Lip/Tongue/Throat morphine Allergy Anaphylaxis Verified 05/06/18 11:11 Oxycodone [From Percocet] Allergy Hives Verified 05/06/18 11:11 chlorpromazine AdvReac Cramping Verified 05/06/18 11:11 [From Thorazine] of the Muscles codeine AdvReac Nausea Verified 05/06/18 11:11 hydrocodone [From Vicodin] AdvReac Nausea Verified 05/06/18 11:11 chlorine Allergy Severe Anaphylaxis Uncoded 05/06/18 11:11 Date of admission: 06/10/18 15:07 Primary care physician: Subha Baird CNP Consults: 06/10/18 16:19 Consult to Cardiology [CONS] Routine Comment: Consulting Provider: Amando Del Castillo Reason for Consult: CHEST PAIN Time Notified: 16:20 Call Completed: Yes 06/11/18 10:24 Consult to Nurse Navigator [CONS] Routine Comment: COPD Discharging clinician: Nima Roman Anticipated date of discharge: 06/12/18 - Constitutional Vitals: Temp Pulse Resp BP Pulse Ox 97.2 F L 66 18 107/70 94 06/12/18 15:30 06/12/18 15:45 06/12/18 15:45 06/12/18 15:45 06/12/18 15:45 Exam: GEN: AOx3; NAD HEENT: Atraumatic, Normocephalic; EOMI CARDIO: RRR, No murmurs, rubs, gallops RESP: CTAB, no wheezes, rales, rhonchi ABD: Soft, non-tender, non-distended EXT: No lower extremity edema NEURO: CN 2-12 intact, no focal deficits - Patient Status Disposition: Home, Self-Care Condition: Fair Functional capacity at discharge: independent ambulation Overall status at discharge: patient is progressing back to baseline - Discharge Instructions Follow Up With: Amando Del Castillo [Provider Group] (The office will call you with a follow up appt.) Subha Baird CNP [Primary Care Provider] - 06/19/18 3:00 pm - Diet and Activity Activity: resume usual activities as tolerated Diet: low fat, low cholesterol, low salt diet <Seth Lopez - Last Filed: 06/12/18 16:56> Orders not resulted at time of discharge: Pending orders 06/12/18 11:45 CL Cardiac Catheterization [CL] Routine Date of Encounter: 06/12/18 Time of Encounter: 16:53 - Discharge Diagnosis (1) Chest pain Status: Acute Qualifiers: Ischemic chest pain type: stable angina pectoris (2) COPD (chronic obstructive pulmonary disease) Status: Chronic Qualifiers: COPD type: unspecified COPD Qualified Code(s): J44.9 - Chronic obstructive pulmonary disease, unspecified (3) Diabetes mellitus Status: Chronic Qualifiers: Diabetes mellitus type: type 2 Diabetes mellitus [facility] insulin use: with 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 Colin is a 62 year old male - Time Spent with Patient Total time spent providing and/or coordinating discharge services: Less than 30 minutes (10 min) Date of admission: 06/10/18 15:07 Primary care physician: Subha Baird CNP Consults: 06/10/18 16:19 Consult to Cardiology [CONS] Routine Comment: Consulting Provider: Cardiology Magdalene Reason for Consult: CHEST PAIN Time Notified: 16:20 Call Completed: Yes 06/11/18 10:24 Consult to Nurse Navigator [CONS] Routine Comment: COPD - Constitutional Vitals: Temp Pulse Resp BP Pulse Ox 97.2 F L 65 16 108/73 93 06/12/18 15:30 06/12/18 16:00 06/12/18 16:00 06/12/18 16:00 06/12/18 16:00 General appearance: Present: cooperative, A&O X 3, answers questions appropriate ly - Respiratory Respiratory exam: Present: CTAB. Absent: accessory muscle use, rales, rhonchi, wheezes - Cardiovascular Cardiovascular exam: Present: RRR, +S1, +S2. Absent: diastolic murmur, gallop, rubs, systolic murmur - Attending Attestation I saw evaluated and examined this patient and my medical decision-making was reviewed with the Resident Physician, Nima Roman. I agree with the documented findings, disposition and treatment plan as described except to any changes set forth below. We independently had [id number] contact with the patient. Patient with history of COPD, hypertension, diabetes and CHF was hospitalized here with left-sided chest pain radiating to his left upper back. He has extensive workup CT angiogram of the chest region not showing any acute PE. Patient previously had a stress test earlier this year and so cardiology was consulted to evaluate him further. His troponins were negative. However given the typical symptoms he presented with, he underwent left heart catheterization. Patient was allergy to aspirin and allergy medicine was consulted. Patient underwent desensitization today and then underwent left heart catheterization after that. According to cardiology, patient had normal coronaries. Cardiology recommends to continue aspirin 81 mg daily. At this time patient is chest pain-free. He will be discharged home today.
[2018-06-12] MEDS ORDERED: Insulin LISPRO 300 UNITS/3 ML VIAL SQ SCH ×2 (16:30→21:00)
[2018-06-12 19:37] VITALS: BP 114/73
[2018-06-12] MEDS ORDERED: Lactobacillus 1 EACH CAP.SPRINK PO SCH (21:00)
[2018-06-12] MEDS ORDERED: Insulin DETEMIR 100 UNIT/ML X5UNITS SQ SCH (21:00)
[2018-06-13] MEDS ORDERED: Patient Taking Own Medication 1 EACH IH SCH (05:00)
[2018-06-13] MEDS ORDERED: Furosemide 20 MG TABLET PO SCH (09:00)
[2018-06-13] MEDS ORDERED: Multivit/Ca/Min/Fe/FA 1 TAB TABLET PO SCH (09:00)
[2018-06-13] MEDS ORDERED: Patient Taking Own Medication 1 EACH PO SCH (09:00)
[2018-06-13] MEDS ORDERED: Aspirin 81 MG TAB.CHEW PO SCH ×2 (09:00)
== END 2018-06-12 19:52 | disposition home or self-care (01) ==
LOC: EMEROOARM 10:25 → 3BNU 10:25 → ICNU 06-11 19:21 → 3BNU 06-12 15:34
PROVIDERS: ADMIT Internal Medicine; ATTEND Internal Medicine

== ENCOUNTER 2018-07-21 11:45 | Observation (INO) ==
[2018-07-21] MEDS ORDERED: methylPREDNISolone 125 MG/2 ML VIAL IVP ONE (11:47)
[2018-07-21] MEDS ORDERED: Ipratropium/Albuterol Neb 3 ML IH ONE ×2 (11:47→14:44)
[2018-07-21] MEDS ORDERED: Furosemide 40 MG/4 ML VIAL IVP ONE (11:47)
--- NOTE | 2018-07-21 11:52 | Emergency Department Note ---
Disposition Clinical Impression: Acute exacerbation of chronic obstructive airways disease, Orthopnea CHF (congestive heart failure) Qualifiers: Heart failure type: unspecified Heart failure chronicity: unspecified Qualified Code(s): I50.9 - Heart failure, unspecified Disposition: Admitted As Inpatient Condition: Fair Referrals: Subha Baird CNP [Primary Care Provider] - Time of Disposition: 15:48 SOB HPI - General Stated Complaint: RAJAT Time Seen by Provider: 07/21/18 11:46 Source: EMS Mode of arrival: EMS Limitations: no limitations Nursing Notes Reviewed: Yes Vital Signs Reviewed: Yes - History of Present Illness Patient presents emergency room for evaluation of shortness of breath. Patient has known congestive heart failure as well as COPD. She is typically on 2-3 L of oxygen at home for symptomatic control. For the last 2-3 days she has felt like he has not been able to get in a full breath. On arrival by EMS the patient's pulse ox was 97% on 3 and half liters via his concentrator. Patient is also noted some significant weight gain. He does have a history of angina b ut has had more progressive symptoms over the last several days. He denies any chest pain on arrival here. Patient otherwise denies fevers chills headache vision changes nausea vomiting or diarrhea. Pt Subjective Complaint: shortness of breath Onset (ago): day(s) Severity: moderate Consistency/Duration: constant Improves with: oxygen, rest, bronchodilators, upright position Worsens with: lying flat, exertion, movement Known history of: COPD, congestive heart failure Associated symptoms: Reports: chest pain Treatment prior to arrival: oxygen, bronchodilator Cough present: No - Related Data Home oxygen amount: 2 liters Home Medications Medication Instructions Recorded Confirmed Albuterol Sulfate [Albuterol 2 puff IH Q4-6H PRN 03/20/17 06/10/18 Inhaler] Multivit-Min/FA/Lycopen/Lutein 1 tab PO DAILY 08/26/17 06/10/18 [Men 50 Plus Multivitamin Tab] Oxygen 4 l IN CONT 08/26/17 06/10/18 Saw [place] Xtr/Zinc Picolin [Saw 2 cap PO BID 08/26/17 06/10/18 [place] Capsule] Lactobacillus Combination No.8 1 cap PO HS 01/26/18 06/10/18 [Adult Probiotic] Polyethylene Glycol 3350 [MiraLAX] 17 gm PO DAILY 01/26/18 06/10/18 Fluticasone/Umeclidin/Vilanter 1 puff IH DAILY 06/10/18 06/10/18 [Trelegy Ellipta 100-62.5-25] Furosemide [Lasix] 20 mg PO DAILY 06/10/18 06/10/18 Insulin Aspart Prot/Insuln Asp 14 unit SQ TID 06/10/18 06/10/18 [Novolog Mix 70-30 Flexpen Syrn] Aspirin [Adult Aspirin Regimen] 81 mg PO DAILY 07/21/18 07/21/18 Insulin DETEMIR [Levemir Flextouch] 42 - 48 unit SQ HS 07/21/18 07/21/18 Isosorbide MONOnitrate [Isosorbide 15 mg PO DAILY 07/21/18 07/21/18 Mononitrate ER] Lisinopril 2.5 mg PO DAILY 07/21/18 07/21/18 Omeprazole [PriLOSEC] 20 mg PO DAILY 07/21/18 07/21/18 Allergies Allergy/AdvReac Type Severity Reaction Status Date / Time Penicillins Allergy Severe Anaphylaxis Verified 05/06/18 11:11 azithromycin Allergy Swelling Verified 05/06/18 11:11 of Lip/Tongue/Throat morphine Allergy Anaphylaxis Verified 05/06/18 11:11 Oxycodone [From Percocet] Allergy Hives Verified 05/06/18 11:11 chlorpromazine AdvReac Cramping Verified 05/06/18 11:11 [From Thorazine] of the Muscles codeine AdvReac Nausea Verified 05/06/18 11:11 hydrocodone [From Vicodin] AdvReac Nausea Verified 05/06/18 11:11 chlorine Allergy Severe Anaphylaxis Uncoded 05/06/18 11:11 All systems ED: reviewed and negative except as stated. Review of Systems: As Per HPI Constitutional: Denies: fever, chills, weakness ENT ED: Denies: ear pain, throat pain, epistaxis, congestion Cardiovascular: Reports: chest pain, dyspnea on exertion, orthopnea, edema. Denies: palpitations, syncope Respiratory: Reports: dyspnea, wheezes. Denies: cough, sputum production Gastrointestinal: Denies: abdominal pain, nausea, vomiting, diarrhea Genitourinary: Denies: urgency, dysuria Musculoskeletal: Denies: back pain, neck pain Neurological: Denies: headache Hematological/Lymphatic: Denies: easy bleeding Allergic/Immunologic: Denies: facial swelling Past Medical History - Past Medical History Attestation: Yes The following information was validated with the patient. Source: patient, old records reviewed Medical history: Reports: CHF, COPD, diabetes, hyperlipidemia, hypertension, kidney stones, liver disease, other Surgical history: Reports: cholecystectomy, herniorrhaphy, orthopedic, other Psychiatric history: Reports: no psych history - Social History Smoking Status: Former smoker Smokeless Tobacco Status: No Alcohol use: Reports: none Drug use: Reports: none Physical Exam - General Limitations: no limitations General appearance: alert, in no apparent distress - Head Head exam: atraumatic, normocephalic, normal inspection - ENT ENT exam: normal exam, normal oropharynx, mucous membranes moist - Neck Neck exam: Present: normal inspection, full ROM, trachea midline - Chest Chest inspection: Present: normal inspection, symmetric chest wall rise. Absent: tenderness - Respiratory Respiratory exam: Present: respiratory distress, accessory muscle use, prolonged expiratory phase. Absent: wheezes, stridor - Cardiovascular Cardiovascular exam: Present: regular rate, normal rhythm, normal heart sounds - Abdominal Exam Abdominal exam: Present: soft, Non-Tender. Absent: tenderness, distention, guarding, rebound, rigidity - Extremities Exam Extremities exam: Present: normal inspection, full ROM, pedal edema. Absent: tenderness - Back Exam Back exam: Present: normal inspection - Neurological Exam Neurological exam: Present: alert, oriented X3, CN II-XII intact, normal gait - Skin Skin exam: Present: warm, dry, intact, normal color Course Course Narrative: Patient seen and examined the time of arrival. See history of present illness. Patient presents here today with progressively worsening shortness of breath as well as described bilateral lower extremity swelling. He does have a specific history for cardiac related etiologies. He is known to have congestive heart failure. He also has known COPD. He typically uses 2-3 L of oxygen at home for symptomatic control. Over the last several days she is a progressively worsening orthopnea and shortness of breath. He is now using up to 3-4 L of oxygen by nasal cannula at home. He has had intermittent twinges of chest pain but no persistent symptoms at this time. He denies any nausea vomiting or diarrhea. Denies any headache or vision change. No recent illnesses. Denies any changes in his medications. No other new symptoms or complaints. Vital signs on presentation otherwise unremarkable. Patient is showing some acute signs of increased work of breathing. Pulse ox is remain stable with the nasal cannula. Patient will have detailed workup completed this time. CBC chemistry troponin and BNP will be collected. Lasix and aspirin will be given. Breathing treatments and steroids will be ordered. Clinical suspicion for infection is low at this time. Patient does have describe orthopnea which is consistent with his congestive heart failure. Physical exam shows a well-appearing gentleman is sitting upright in the bed. He said that he is too short of breath when he lies flat. Oropharynx is patent. Trachea is midline. He is speaking in full sentences. He has no stridor or trismus noted. He does have diminished breath sounds bilaterally with no auscultated wheezing. Heart is regular at this time. Abdomen is soft nontender nondistended. He does have mild pitting edema in the lower extremities. He ambulated from the EMS cot to the bed without any significant distress. Patient's main complaint on arrival here is concern for congestive heart failure and increased work of breathing. Detailed workup to be established. Patient is not describing any chest pain at this time but has had intermittent twinges of chest pain. The way he describes a symptoms and previous diagnoses he has Prinzmetal angina. Will treat symptoms as appropriate and determine disposition. - Reevaluation(s) Reevaluation #1: Breathing is less labored on oxygen with his breathing treatments. Patient typically uses 2 L of oxygen at home. He still feels like he cannot get short of breath. D-dimer was negative but in the context of the work of breathing the patient was CT angiography and then discuss admission for COPD exacerbation. Time: 13:55 Reevaluation #2: CT angiography the chest does not show any acute signs of pulmonary emboli or effusion. Patient does have very bad emphysema. Most the symptoms here today secondary to an emphysema exacerbation. Patient will be admitted for symptomatically control and treatment course. Otherwise his clinical stable. Disposition will be determined after hospitalist is contacted. Patient is otherwise clinically stable at this time. Hospitalist reviewed the case and no other recommendations or concerns. Antibiotic regimen will be held at this point considering the patient does not have any focal infectious etiology. Symptomatically control has been completed and the patient will be admitted for management of what appears to be COPD exacerbation. Time: 15:00 Vital Signs Temperature 97.7 F 07/21/18 11:47 Pulse Rate 69 07/21/18 11:47 Respiratory Rate 18 07/21/18 11:47 Blood Pressure 125/81 07/21/18 11:47 O2 Sat by Pulse Oximetry 99 07/21/18 11:47 Temperature 97.7 F 07/21/18 11:47 Pulse Rate 69 07/21/18 11:47 Respiratory Rate 16 07/21/18 13:03 Blood Pressure 125/81 07/21/18 11:47 O2 Sat by Pulse Oximetry 96 07/21/18 13:03 Oxygen Delivery Oxygen Delivery Nasal Cannula Shortness of Breath/Dyspnea - MDM Narrative Medical decision making narrative: Shortness of breath, orthopnea, increased work of breathing - Medical Records Medical records reviewed: Yes I reviewed the patient's medical records. - Lab Data Lab results reviewed: Yes I reviewed the patient's lab results. Result diagrams: 07/21/18 12:06 07/21/18 12:06 Lab Results 07/21/18 07/21/18 07/21/18 Range/Units 12:06 12:06 12:06 WBC 4.5 (4.3-11.1) K/mcL RBC 4.74 (4.19-5.50) M/mcL Hgb 14.2 (12.9-16.9) g/dL Hct 43.2 (37.5-50.1) % MCV 91.1 (83.0-100.0) fL MCH 30.0 (28.0-33.3) pg MCHC 32.9 (31.6-35.5) g/dL RDW 15.5 H (11.5-14.5) % Plt Count 191 (140-400) K/mcL MPV 10.0 (9.4-12.4) fL Immature Gran % 0.4 (0-4) % Seg Neutrophils % 58.4 % Lymphocytes % 31.0 % Monocytes % 7.1 % Eosinophils % 2.9 % Basophils % 0.2 % Neutrophils # 2.6 (1.6-8.9) K/mcL Lymphocytes # 1.4 (0.6-4.6) K/mcL Monocytes # 0.3 (0.0-1.3) K/mcL Eosinophils # 0.1 (0.0-0.6) K/mcL Basophils # 0.0 (0.0-0.2) K/mcL D-Dimer (0-500) ng/mLFEU Sodium 136 (136-145) mEq/L Potassium 4.0 (3.5-5.1) mEq/L Chloride 104 (98-107) mEq/L Carbon Dioxide 24 (23-29) mEq/L BUN 16 (8-23) mg/dL Creatinine 0.91 (0.70-1.30) mg/dL Est GFR ( Amer) > 60 (> 60) Est GFR (Non-Af Amer) > 60 (> 60) BUN/Creatinine Ratio 18 (6-26) Glucose 118 H (70-105) mg/dL Calculated Osmolality 284 (280-300) Lactic Acid 0.8 (0.5-2.2) mmol/L Calcium 9.4 (8.6-10.3) mg/dL Troponin I < 0.03 (< 0.04) ng/mL B-Natriuretic Peptide (Less than 100) pg/mL Urine Color (Yellow) Urine Clarity (Clear) Urine pH (5.0-8.0) pH Units Ur Specific [place] (1.010-1.025) Urine Protein (Neg-Trace) mg/dL Urine Glucose (UA) (Normal) mg/dL Urine Ketones (Negative) mg/dL Urine Blood (Negative) Urine Nitrite (Negative) Urine Bilirubin (Negative) Urine Urobilinogen (Normal) mg/dL Ur Leukocyte Esterase (Negative) Ur Culture Indicated? (NO) 07/21/18 07/21/18 07/21/18 Range/Units 12:06 12:06 12:36 WBC (4.3-11.1) K/mcL RBC (4.19-5.50) M/mcL Hgb (12.9-16.9) g/dL Hct (37.5-50.1) % MCV (83.0-100.0) fL MCH (28.0-33.3) pg MCHC (31.6-35.5) g/dL RDW (11.5-14.5) % Plt Count (140-400) K/mcL MPV (9.4-12.4) fL Immature Gran % (0-4) % Seg Neutrophils % % Lymphocytes % % Monocytes % % Eosinophils % % Basophils % % Neutrophils # (1.6-8.9) K/mcL Lymphocytes # (0.6-4.6) K/mcL Monocytes # (0.0-1.3) K/mcL Eosinophils # (0.0-0.6) K/mcL Basophils # (0.0-0.2) K/mcL D-Dimer 467 (0-500) ng/mLFEU Sodium (136-145) mEq/L Potassium (3.5-5.1) mEq/L Chloride (98-107) mEq/L Carbon Dioxide (23-29) mEq/L BUN (8-23) mg/dL Creatinine (0.70-1.30) mg/dL Est GFR ( Amer) (> 60) Est GFR (Non-Af Amer) (> 60) BUN/Creatinine Ratio (6-26) Glucose (70-105) mg/dL Calculated Osmolality (280-300) Lactic Acid (0.5-2.2) mmol/L Calcium (8.6-10.3) mg/dL Troponin I (< 0.04) ng/mL B-Natriuretic Peptide 15 (Less than 100) pg/mL Urine Color Yellow (Yellow) Urine Clarity Clear (Clear) Urine pH 7.0 (5.0-8.0) pH Units Ur Specific [place] 1.014 (1.010-1.025) Urine Protein Negative (Neg-Trace) mg/dL Urine Glucose (UA) Normal (Normal) mg/dL Urine Ketones Negative (Negative) mg/dL Urine Blood Negative (Negative) Urine Nitrite Negative (Negative) Urine Bilirubin Negative (Negative) Urine Urobilinogen Normal (Normal) mg/dL Ur Leukocyte Esterase Negative (Negative) Ur Culture Indicated? NO (NO) - Radiology Data Radiology results reviewed: Yes I reviewed the patient's radiology results. - EKG Data EKG attestation: Yes I reviewed and interpreted this EKG. EKG results narrative: EKG shows sinus rhythm. Heart rate is 66. WI interval 168. QRS duration 95. QTC of 426. [place] appears to be slightly leftward deviated. Intervals appear to be within normal limits. No acute signs of WPW or Brugada. No acute signs of ischemic changes or concern for myocardial infarction at this time. Compared to EKG on 06/11/18. No acute changes noted at this time.
[2018-07-21] MEDS ORDERED: Aspirin 81 MG TAB.CHEW PO STA (12:19)
[2018-07-21 12:25] LABS: Basophils % 0.2 %; Eosinophils # 0.1 K/mcL (0.0-0.6); Eosinophils % 2.9 %; Hematocrit 43.2 % (37.5-50.1); Hemoglobin 14.2 g/dL (12.9-16.9); Immature Granulocytes % 0.4 % (0-4); Lymphocytes # 1.4 K/mcL (0.6-4.6); Mean Corpuscular HGB Conc 32.9 g/dL (31.6-35.5); Mean Corpuscular Volume 91.1 fL (83.0-100.0); Monocytes # 0.3 K/mcL (0.0-1.3); Monocytes % 7.1 %; Neutrophils # 2.6 K/mcL (1.6-8.9); Platelet Count 191 K/mcL (140-400); Red Blood Count 4.74 M/mcL (4.19-5.50); Red Cell Distribution Width 15.5 % (11.5-14.5); Segmented Neutrophils % 58.4 %
[2018-07-21 12:45] LABS: Troponin I < 0.03 ng/mL (< 0.04)
[2018-07-21 12:46] LABS: BUN/Creatinine Ratio 18 (6-26); Blood Urea Nitrogen 16 mg/dL (8-23); Calcium 9.4 mg/dL (8.6-10.3); Carbon Dioxide 24 mEq/L (23-29); Chloride 104 mEq/L (98-107); Glucose 118 mg/dL (70-105); Osmolality,Calculated 284 (280-300); Sodium 136 mEq/L (136-145); eGFR For Non-African Americans > 60 (> 60)
[2018-07-21 12:52] LABS: Bilirubin,Urine Negative (Negative); Blood,Urine Negative (Negative); Clarity,Urine Clear (Clear); Color,Urine Yellow (Yellow); Glucose,Urine (UA) Normal (Normal); Ketones,Urine Negative (Negative); Leukocyte Esterase,Urine Negative (Negative); Nitrite,Urine Negative (Negative); Protein,Urine Negative (Neg-Trace); Specific Gravity,Urine 1.014 (1.010-1.025); Urobilinogen,Urine Normal (Normal)
[2018-07-21] MEDS ORDERED: Isovue-370 500 ML INFUS..BTL IV ONE (13:27)
[2018-07-21] MEDS ORDERED: Insulin LISPRO 300 UNITS/3 ML VIAL SQ STA (15:20)
[2018-07-21] MEDS ORDERED: Furosemide 20 MG TABLET PO PRN (17:21)
[2018-07-21] MEDS ORDERED: Albuterol 2.5 MG/3 ML NEBULIZER IH PRN (17:22)
[2018-07-21] MEDS ORDERED: Dextrose Gel 15 GM/37.5 ML TUBE PO PRN ×2 (17:23)
[2018-07-21] MEDS ORDERED: D5% in Water 1,000 ML IVC PRN (17:23)
[2018-07-21] MEDS ORDERED: Naloxone 0.4 MG/ML INJ IVP PRN (17:23)
[2018-07-21] MEDS ORDERED: *HR* Dextrose 50 % in Water (Syg) 50 ML SYRINGE IVP PRN (17:23)
--- NOTE | 2018-07-21 17:40 | Internal Med History&Physical ---
Date of Encounter: 07/21/18 Time of Encounter: 17:32 Internal Medicine - H&P: HPI Chief complaint: dyspnea, orthopnea, productive cough Admitted From: Home Plans for Post Hospital Care: Home History of present illness: Mr. Colin is a 62 year old male with a PMH of CHF, COPD, DM, HLD, HTN, renal stones and liver disease. He presents today for chief complaint of dyspnea, orthopnea, nonproductive cough for the last 2-3 days she began getting progressively worse. He reports that the shortness of breath is not so severe that he feels like even on his baseline 3.5 L nasal cannula he feels like he is not able to get a full breath. Additionally, he does note an increase in dyspnea with activity and lying flat. He is also reporting a mild weight gain as well as some bilateral lower extremity swelling. He notes that his cough is been course and hacking and that for the last 24 hours he has been producing some santacruz/story/green sputum that is thick. He denies any sick contacts, fevers, chills, headaches, dizziness, chest pain, back pain, nausea, vomiting, diarrhea, dysuria, unilateral extremity swelling or pain. D-dimer was found to be normal, chest x-ray was without acute pulmonary process showing chronic coarse interstitial densities predominantly perihilar regions and lung bases. Review of prior imaging shows the same. Per exam the patient is on his baseline 3.5 L nasal cannula and does not appear to be grossly distressed. Lungs are diminished throughout with fine scattered expiratory wheezing. However given his presentation with what appears to be purulent sputum production and the fact that he has had multiple admissions for COPD exacerbations I will admit him for monitoring overnight and treatment of bronchitis. He will be placed in observation status. Past Med Surg Social Fam HX - Past Medical History Medical history: CHF, COPD, diabetes, hyperlipidemia, hypertension, kidney stones, liver disease, other Additional medical history: cholelithiasis. non smoker for over a year Psychiatric history: no psych history - Past Surgical History Surgical History: cholecystectomy, herniorrhaphy, orthopedic, other Additional surgical history: R wrist sx 2 metal rods - Social History Smoking Status: Former smoker Smokeless Tobacco Status: No Alcohol use: none Drug use: none - Family History Sister Family Member Ethnicity: Non- Living Status: Still Living Hx Family Endocrine Disorder: Yes (diabetes) Maternal Adopted: No Family Member Ethnicity: Non- Living Status: Still Living Hx Family Cardiac Disorders: No Hx Family Respiratory Disorders: No Hx Family Cancer: No Hx Family GI Disorders: No Hx Family Endocrine Disorder: Yes (DM type 2) Hx Family Neuromuscular Disorders: No Hx Family Neurologic Disorders: No Hx Family HEENT Disorders: Yes (degenerative eye dz) Hx Family Autoimmune Disorders: No Mother Family Member Ethnicity: Non- Living Status: Still Living Hx Family Endocrine Disorder: Yes (diabetes) Father Family Member Ethnicity: Non- Living Status: Hx Family Cardiac Disorders: No Hx Family Respiratory Disorders: No Hx Family Cancer: No (mass on lung, unsure if cancer) Hx Family GI Disorders: No Hx Family Endocrine Disorder: Yes (DM) Hx Family Neurologic Disorders: Yes (Alzheimer's disease) Internal Medicine - H&P: Meds Albuterol Sulfate [Albuterol Inhaler] 2 puff IH Q4-6H PRN 03/20/17 [History] Multivit-Min/FA/Lycopen/Lutein [Men 50 Plus Multivitamin Tab] 1 tab PO DAILY 08/26/17 [History] Oxygen 3.5 l IN CONT 08/26/17 [History] [place] Xtr/Zinc Picolin [Saw [place] Capsule] 2 cap PO BID 08/26/17 [History] Lactobacillus Combination No.8 [Adult Probiotic] 1 cap PO HS 01/26/18 [History] Polyethylene Glycol 3350 [MiraLAX] 17 gm PO QAM 01/26/18 [History] Fluticasone/Umeclidin/Vilanter [Trelegy Ellipta 100-62.5-25] 1 puff IH DAILY 06/10/18 [History] Furosemide [Lasix] 20 mg PO DAILY PRN 06/10/18 [History] Insulin Aspart Prot/Insuln Asp [Novolog Mix 70-30 Flexpen Syrn] 0 - 16 unit SQ TID PRN 06/10/18 [History] Aspirin [Adult Aspirin Regimen] 81 mg PO DAILY 07/21/18 [History] Insulin DETEMIR [Levemir Flextouch] 42 - 48 unit SQ HS 07/21/18 [History] Isosorbide MONOnitrate [Isosorbide Mononitrate ER] 15 mg PO DAILY 07/21/18 [History] Lisinopril 2.5 mg PO DAILY 07/21/18 [History] Omeprazole [PriLOSEC] 20 mg PO DAILY 07/21/18 [History] Allergy/AdvReac Type Severity Reaction Status Date / Time Penicillins Allergy Severe Anaphylaxis Verified 05/06/18 11:11 azithromycin Allergy Swelling Verified 05/06/18 11:11 of Lip/Tongue/Throat morphine Allergy Anaphylaxis Verified 05/06/18 11:11 Oxycodone [From Percocet] Allergy Hives Verified 05/06/18 11:11 chlorpromazine AdvReac Cramping Verified 05/06/18 11:11 [From Thorazine] of the Muscles codeine AdvReac Nausea Verified 05/06/18 11:11 hydrocodone [From Vicodin] AdvReac Nausea Verified 05/06/18 11:11 chlorine Allergy Severe Anaphylaxis Uncoded 05/06/18 11:11 All Systems PM: A 10-system review of systems was performed and is negative for pertinent findings except as documented above in the HPI. - Constitutional Constitutional: as per HPI - EENT Eyes: as per HPI Nose, mouth and throat: as per HPI, no nasal congestion, no nasal discharge, no post-nasal drip, no sinus pain, no sinus pressure, no sore throat - Cardiovascular Cardiovascular ROS IM: no chest pain, no diaphoresis, no dyspnea, no lightheadedness, no palpitations, no syncope - Respiratory Respiratory: no cough, no dyspnea, no wheezing, no excessive phlegm production - Gastrointestinal Gastrointestinal: no abdominal pain, no diarrhea, no hematemesis, no hematochezia, no melena, no nausea, no vomiting - Musculoskeletal Musculoskeletal ROS IM: no numbness, no tingling - Integumentary Integumentary IM: no rash, no unusual bruising - Neurological Neurological ROS: no confusion, no convulsions, no focal weakness, no numbness, no tingling, no tremor(s) - Constitutional Vitals: Temp Pulse Resp BP Pulse Ox 97.7 F 87 15 137/87 93 07/21/18 11:47 07/21/18 16:15 07/21/18 16:15 07/21/18 16:15 07/21/18 16:15 General appearance: Present: A&O X 3 Exam: see exam - Head Head exam: Present: atraumatic, normocephalic - Eye Eye exam: Present: PERRL, conjuntiva pink, sclera anicteric Pupils: Present: PERRL - Neck Neck exam general surgery: Present: supple, trachea midline. Absent: lymphadenopathy - Respiratory Respiratory exam: Present: decreased breath sounds, CTAB, prolonged expiratory phase, wheezes (fine diffuse expiratory wheezing). Absent: accessory muscle use, chest wall tenderness, rales, respiratory distress, rhonchi, tachypnea - Cardiovascular Cardiovascular exam: Present: RRR, +S1, +S2. Absent: diastolic murmur, gallop, rubs, systolic murmur - GI/Abdominal GI/Abdominal exam: Present: normal bowel sounds, soft, no peritoneal signs. Absent: distended, tenderness - Extremities Exam Extremities exam: Present: warm, radial pulses palpable and symmetrical. Absent: calf tenderness, cyanotic, pedal edema - Neurological Exam Neurological exam: Present: CN II-XII intact, oriented X3, no focal deficits. Absent: pronater drift, facial droop, speech deficit - Skin Skin exam: Present: dry, intact Internal Med - H&P Results - Labs CBC & Chem 7: 07/21/18 12:06 07/21/18 12:06 Labs: Short CBC 07/21/18 Range/Units 12:06 WBC 4.5 (4.3-11.1) K/mcL Hgb 14.2 (12.9-16.9) g/dL Hct 43.2 (37.5-50.1) % Plt Count 191 (140-400) K/mcL Neutrophils # 2.6 (1.6-8.9) K/mcL BMP 07/21/18 12:06 Sodium 136 Potassium 4.0 Chloride 104 Carbon Dioxide 24 BUN 16 Creatinine 0.91 Glucose 118 H Calcium 9.4 Cardiac Enzymes 07/21/18 Range/Units 12:06 Troponin I < 0.03 (< 0.04) ng/mL Urine 07/21/18 Range/Units 12:36 Urine Color Yellow (Yellow) Urine Clarity Clear (Clear) Urine pH 7.0 (5.0-8.0) pH Units Ur Specific [place] 1.014 (1.010-1.025) Urine Protein Negative (Neg-Trace) mg/dL Urine Glucose (UA) Normal (Normal) mg/dL - Impressions ITS Impressions Chest X-Ray 07/21/18 11:47 IMPRESSION: No radiographic evidence of acute cardiopulmonary disease. Chronic appearing coarse interstitial densities predominate parahilar regions and lung bases, typical of sequela from smoking or other previous infectious/inflammatory process. D/ / Javier Beaulieu / Javier Beaulieu Interpreting Provider: Javier Beaulieu Chest CTA 07/21/18 13:27 IMPRESSION: No evidence of pulmonary embolism. Bibasilar atelectasis in the lungs. Severe pulmonary emphysema. D/ / Ki Matos / Ki Matos Interpreting Provider: Ki Matos - Assessment and plan (1) Acute exacerbation of chronic obstructive airways disease Current Visit: No Status: Acute Assessment and plan: fine wheezing, course cough, dyspnea and orthopnea History of interstitial lung disease Has had multiple readmissions for AECOPD Scattered fine expiratory wheezing per auscultation He is without hypoxia and is on baseline 3.5 L nasal cannula However, patient is reporting purulent sputum. This is concerning for bronchitis Continue to treat with scheduled aerosols q2hrs prn Albuterol Add Levaquin by mouth daily Obtain sputum cultures Respiratory infection panel (2) HTN (hypertension) Current Visit: Yes Status: Acute Assessment and plan: per hx controlled resume anti-HTN meds Qualifiers: Hypertension type: essential hypertension Qualified Code(s): I10 - Essential (primary) hypertension (3) Chronic diastolic CHF (congestive heart failure) Current Visit: No Status: Chronic Assessment and plan: per hx not in exacerbation strict I&O daily weight 2L FR Continue PO lasix (4) Diabetes mellitus Current Visit: No Status: Chronic Assessment and plan: continue basal insulin at home dose LSSIC diabetic diet AC/HS FSBG Qualifiers: Diabetes mellitus type: type 2 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
[2018-07-21] MEDS: Ipratropium/Albuterol Neb 3 ML IH SCH ×2 (19:59→23:59)
[2018-07-21] MEDS ORDERED: levoFLOXacin 500 MG TABLET PO SCH (20:00)
[2018-07-21 20:20] LABS: Adenovirus Not Detected (Not Detect); Bordetella Pertussis Not Detected (Not Detect); Chlamydophila pneumoniae Not Detected (Not Detect); Coronavirus 229E Not Detected (Not Detect); Coronavirus HKU1 Not Detected (Not Detect); Coronavirus NL63 Not Detected (Not Detect); Coronavirus OC43 Not Detected (Not Detect); Human Metapneumovirus Not Detected (Not Detect); Human Rhinovirus/Enterovirus Not Detected (Not Detect); Influenza A Subtype 2009 H1 Not Detected (Not Detect); Influenza A Untypeable Not Detected (Not Detect); Influenza B Not Detected (Not Detect); Mycoplasma pneumoniae Not Detected (Not Detect); Parainfluenza Virus 1 Not Detected (Not Detect); Parainfluenza Virus 2 Not Detected (Not Detect); Parainfluenza Virus 3 Not Detected (Not Detect); Parainfluenza Virus 4 Not Detected (Not Detect); Respiratory Syncytial Virus Not Detected (Not Detect)
[2018-07-21] MEDS ORDERED: Lactobacillus 1 EACH CAP.SPRINK PO SCH (21:00)
[2018-07-21] MEDS ORDERED: INSULIN DETEMIR 42 UNIT SQ SCH (21:00)
[2018-07-21] MEDS ORDERED: Insulin DETEMIR 100 UNIT/ML X5UNITS SQ SCH (21:00)
[2018-07-21] MEDS ORDERED: Insulin LISPRO 300 UNITS/3 ML VIAL SQ SCH (21:00)
[2018-07-21] MEDS: *HR* Heparin 5,000 UNIT/ML VIAL SQ SCH (21:49)
[2018-07-21] MEDS: SAW PALMETTO XTR PO SCH (21:51)
[2018-07-21] MEDS: ZINC PICOLIN PO SCH (21:51)
[2018-07-22] MEDS: Ipratropium/Albuterol Neb 3 ML IH SCH ×3 (03:44→12:03)
[2018-07-22] MEDS: *HR* Heparin 5,000 UNIT/ML VIAL SQ SCH (06:05)
--- NOTE | 2018-07-22 06:21 | Electrocardiograph Report ---
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
[2018-07-22 06:30] LABS: Hematocrit 38.5 % (37.5-50.1); Mean Corpuscular HGB Conc 32.7 g/dL (31.6-35.5); Mean Corpuscular Hemoglobin 29.7 pg (28.0-33.3); Mean Corpuscular Volume 90.8 fL (83.0-100.0); Mean Platelet Volume 9.8 fL (9.4-12.4); Platelet Count 180 K/mcL (140-400); Red Blood Count 4.24 M/mcL (4.19-5.50); Red Cell Distribution Width 15.6 % (11.5-14.5)
[2018-07-22 06:38] LABS: BUN/Creatinine Ratio 20 (6-26); Blood Urea Nitrogen 23 mg/dL (8-23); Calcium 9.1 mg/dL (8.6-10.3); Carbon Dioxide 24 mEq/L (23-29); Chloride 103 mEq/L (98-107); Glucose 190 mg/dL (70-105); Osmolality,Calculated 289 (280-300); Potassium 3.8 mEq/L (3.5-5.1); Sodium 135 mEq/L (136-145); eGFR For Non-African Americans > 60 (> 60)
[2018-07-22 06:48] LABS: Hemoglobin 12.6 g/dL (12.9-16.9)
[2018-07-22] MEDS ORDERED: Insulin LISPRO 300 UNITS/3 ML VIAL SQ SCH (07:30)
[2018-07-22] MEDS: SAW PALMETTO XTR PO SCH (08:44)
[2018-07-22] MEDS: ZINC PICOLIN PO SCH (08:44)
[2018-07-22] MEDS ORDERED: Aspirin Enteric Coated 81 MG Tablet PO SCH (09:00)
[2018-07-22] MEDS ORDERED: Isosorbide MONOnitrate (24 HR) 30 MG TAB.ER.24H PO SCH (09:00)
[2018-07-22] MEDS ORDERED: Multivit/Ca/Min/Fe/FA 1 TAB TABLET PO SCH (09:00)
[2018-07-22 10:55] VITALS: BP 102/67
--- NOTE | 2018-07-22 10:56 | Discharge Summary ---
- NOTES TO OUTPATIENT PROVIDER Notes to Outpatient Provider: f/u with PCP in 1-week Orders not resulted at time of discharge: Pending orders 07/23/18 04:00 Basic Metabolic Panel AM 0400 Complete Blood Count w/o Diff [HEME] AM 0400 Date of Encounter: 07/22/18 Time of Encounter: 10:53 - Discharge Diagnosis (1) Acute exacerbation of chronic obstructive airways disease Priority: Primary Status: Resolved (2) HTN (hypertension) Priority: Secondary Status: Acute Qualifiers: Hypertension type: essential hypertension Qualified Code(s): I10 - Essential (primary) hypertension (3) Chronic diastolic CHF (congestive heart failure) Priority: Secondary Status: Chronic (4) Diabetes mellitus Priority: Secondary Status: Chronic Qualifiers: Diabetes mellitus type: type 2 Diabetes mellitus jail insulin use: with bankruptcy judge use Diabetes mellitus complication status: without complication Qualified Code(s): E11.9 - Type 2 diabetes mellitus without complications; Z79.4 - civil celebrant (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 Colin is a 62 year old male who was admitted for concerns for bronchitis and acute exacerbation of COPD with progressive dyspnea, orthopnea and cough over a period to 2-3 days. Pulmonary imaging negative for acute pulmonary process. On admission he was noted to have fine expiratory wheezing. Subsequently, he was treated with IV steroids and oral Levaquin and his condition improved overnight. He is on baseline oxygen and able to ambulate greater than 300 feet around the unit without dyspnea or hypoxia per portable pulse ox evaluation. He is being discharged home with 4 additional days of oral Levaquin and a five-day of oral steroid burst. 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 Discharge discussed with: patient, nurse - Time Spent with Patient Total time spent providing and/or coordinating discharge services: Less than 30 minutes - Discharge Medications Prescriptions: levoFLOXacin [Levaquin] 500 mg PO QPM 4 Days #4 tablet Home Medications: Albuterol Sulfate [Albuterol Inhaler] 2 puff IH Q4-6H PRN 03/20/17 [History] Multivit-Min/FA/Lycopen/Lutein [Men 50 Plus Multivitamin Tab] 1 tab PO DAILY 08/26/17 [History] Oxygen 3.5 l IN CONT 08/26/17 [History] Saw [place] Xtr/Zinc Picolin [Saw [place] Capsule] 2 cap PO BID 08/26/17 [History] Lactobacillus Combination No.8 [Adult Probiotic] 1 cap PO HS 01/26/18 [History] Polyethylene Glycol 3350 [MiraLAX] 17 gm PO QAM 01/26/18 [History] Fluticasone/Umeclidin/Vilanter [Trelegy Ellipta 100-62.5-25] 1 puff IH DAILY 06/10/18 [History] Furosemide [Lasix] 20 mg PO DAILY PRN 06/10/18 [History] Insulin Aspart Prot/Insuln Asp [Novolog Mix 70-30 Flexpen Syrn] 0 - 16 unit SQ TID PRN 06/10/18 [History] Aspirin [Adult Aspirin Regimen] 81 mg PO DAILY 07/21/18 [History] Insulin DETEMIR [Levemir Flextouch] 42 - 48 unit SQ HS 07/21/18 [History] Isosorbide MONOnitrate [Isosorbide Mononitrate ER] 15 mg PO DAILY 07/21/18 [History] Lisinopril 2.5 mg PO DAILY 07/21/18 [History] Omeprazole [PriLOSEC] 20 mg PO DAILY 07/21/18 [History] levoFLOXacin [Levaquin] 500 mg PO QPM 4 Days #4 tablet 07/22/18 [Rx] predniSONE [PredniSONE] 40 mg PO DAILY 4 Days #8 tablet 07/22/18 [Rx] Allergies/Adverse Reactions: Allergy/AdvReac Type Severity Reaction Status Date / Time Penicillins Allergy Severe Anaphylaxis Verified 05/06/18 11:11 azithromycin Allergy Swelling Verified 05/06/18 11:11 of Lip/Tongue/Throat morphine Allergy Anaphylaxis Verified 05/06/18 11:11 Oxycodone [From Percocet] Allergy Hives Verified 05/06/18 11:11 chlorpromazine AdvReac Cramping Verified 05/06/18 11:11 [From Thorazine] of the Muscles codeine AdvReac Nausea Verified 05/06/18 11:11 hydrocodone [From Vicodin] AdvReac Nausea Verified 05/06/18 11:11 chlorine Allergy Severe Anaphylaxis Uncoded 05/06/18 11:11 Date of admission: 07/21/18 15:51 Primary care physician: Subha Baird CNP Consults: 07/21/18 12:02 Consult to Invasive Line Access Team [CONS] Routine Reason for Consult: access Line Type: EPIV 07/21/18 12:38 Consult to Invasive Line Access Team [CONS] Routine Reason for Consult: poor access Line Type: EPIV 07/22/18 10:05 Consult to Nurse Navigator [CONS] Routine Comment: COPD Discharging clinician: Micah Lowery Anticipated date of discharge: 07/22/18 - Constitutional Vitals: Temp Pulse Resp BP Pulse Ox 97.7 F 77 18 106/65 96 07/22/18 07:33 07/22/18 07:33 07/22/18 07:43 07/22/18 07:33 07/22/18 07:43 General appearance: Present: A&O X 3 Exam: PHYSICAL EXAMINATION: GENERAL: NAD A&OX3 HEENT: Head is normocephalic and atraumatic. Extraocular muscles are intact. Pupils are equal, round, and reactive to light and accommodation. NECK: Supple. No carotid bruits. No lymphadenopathy or thyromegaly. LUNGS: Clear/diminished to auscultation B/L AP and L. HEART: Regular rate and rhythm, S1, S2 without murmur. ABDOMEN: Soft, nontender, and nondistended. Positive bowel sounds. No hepatosplenomegaly was noted. EXTREMITIES: Without any cyanosis, clubbing, rash, lesions or edema. NEUROLOGIC: Cranial nerves II through XII are grossly intact. PSYCHIATRIC: Appropriate affect, denies SI/HI, without agitation or anxiety SKIN: No ulceration or induration present. - Patient Status Disposition: Home, Self-Care Condition: Fair Functional capacity at discharge: independent ambulation Overall status at discharge: patient is back to baseline - Discharge Instructions Instructions: Chronic Obstructive Pulmonary Disease (DC) Follow Up With: Subha Baird CNP [Primary Care Provider] - Forms: ED Satisfaction Letter - Diet and Activity Activity: increase activity as tolerated, resume usual activities as tolerated Diet: diabetic diet, low fat, low cholesterol, low salt diet
== END 2018-07-22 13:00 | disposition home or self-care (01) ==
LOC: 3BNU 11:45 → EMEROOARM 11:45 → 3BNU 16:41
PROVIDERS: ADMIT Internal Medicine; ATTEND Internal Medicine